=== PATIENT | male | born 1955 | race Caucasian/White ===

== ENCOUNTER 2020-03-18 06:09 | Outpatient (REF) | payer MEDICARE, BC, SELFPAY ==
[2020-03-18 07:46] LABS: Anion Gap 16 (12-20); Blood Urea Nitrogen 15 mg/dL (9-16); Carbon Dioxide 27 mmol/L (22-29); Chloride 105 mmol/L (96-108); Estimated Glomerular Filt Rate 53; Glucose Fasting 105 mg/dL (60-99); Potassium 4.5 mmol/l (3.3-5.1); Sodium 143 mmol/L (135-145)
== END 2020-03-18 06:10 | disposition home or self-care (01) ==
LOC: HO.LAB 06:09
PROVIDERS: PCP Internal Medicine; Visit Provider Internal Medicine
DX: I10 Essential (primary) hypertension (principal)
CPT/HCPCS: 80048

== ENCOUNTER 2020-04-04 19:20 | Emergency (ER) | payer MEDICARE, BC, SELFPAY ==
[2020-04-04 19:52] VITALS: BP 167/83; PULSE 72; RESP 16; TEMP 37.4; O2SAT 96; BMI 29.4
--- NOTE | 2020-04-04 20:27 | ED_ITS ---
HPI - Fever General Chief Complaint: Fever Stated Complaint: covid symptoms Source: patient Mode of arrival: ambulatory Limitations: no limitations History of Present Illness HPI Narrative: 64-year-old male with past medical history of AFib, history of recurrent pneumonia, hypertension, hyperlipidemia, stage [address] Yao, presents with 1 day of fever of 101.0 oral, malaise, and cough. He does not report any sick contacts, states that he has had pneumonia 5 times of the past several years, has AFib and had a cardiac catheterization without stenting. Does not report any other symptoms, and did take 800 mg of ibuprofen prior to his arrival after he noted to have a fever. MD elicited complaint: fever and malaise Onset (ago): day(s) (1) Exacerbating factors: nothing Relieving factors: ibuprofen Treatments prior to arrival fever: ibuprofen Related Data Previous Rx's Medication Instructions Recorded amoxicillin-pot clavulanate 1 tab PO Q12H 7 Days #14 tab 04/04/20 [Augmentin] azithromycin [Zithromax TRI-LAZARO] See Rx Instructions .ROUTE 04/04/20 .COMPLEX #6 tab Allergies Allergy/AdvReac Type Severity Reaction Status Date / Time No Known Allergies Allergy Verified 04/04/20 20:27 Review of Systems Review of Systems: Constitutional: positive Fever, positive Chills, positive fatigue, positive Malaise ENT/Mouth: No sore throat, no runny nose Eyes: No Discharge Cardiovascular: No Chest Pain, No SOB Respiratory: Positive Cough, No Sputum, No Wheezing, No Smoke Exposure, No Dyspnea Gastrointestinal: No Nausea, No Vomiting, No Diarrhea Genitourinary: no irregular bleeding, No Dysuria, No Urinary Frequency, No Hematuria, No Urinary Incontinence, No Urgency, No Flank Pain, Musculoskeletal: positive Myalgia Skin: No rash Neuro: No Headache Yes all other systems are reviewed and are negative [facility] Past Medical History Attestation statement: The following information was validated with the patient. Medical History Afib GERD (gastroesophageal reflux disease) HTN (hypertension) Hyperlipemia Social History Social History Alcohol intake: never Smoking Status: Never smoker Use of substances other than those prescribed or required for medical reasons: No Advance Directives: No Advance Directives Information Provided: No Physical Exam Vital Signs: Vital Signs: Last Vital Signs Temp 99.3 F 04/04/20 19:52 Pulse 72 04/04/20 19:52 Resp 16 04/04/20 19:52 BP 167/83 H 04/04/20 19:52 Pulse Ox 96 04/04/20 19:52 Body Mass Index 29.4 Appearance: Alert. Oriented X3. No acute distress. Eyes: Pupils equal, round and reactive to light. ENT: Pharynx normal. Neck: Normal inspection. Neck supple. CVS: Normal heart rate and rhythm. Pulses normal. Respiratory: No respiratory distress. Breath sounds normal. Abdomen: Soft and nontender. Skin: Skin warm and dry. Normal skin color. Normal skin turgor. Extremities: No lower extremity edema. Neuro: No motor deficit. No sensory deficit. Course Course Course Narrative: 64-year-old male presents with upper respiratory symptoms and fever for 1 day. Fever at home was 101.0 oral and on triage was 99.3 after 800 mg of ibuprofen an hour prior to arrival. Plan of care is for CT scan of the chest, EKG as he has known AFib, and lab values. We will resuscitate with [address] scan shows ground-glass opacity in the right upper lobe consistent with pneumonia community acquired, BUN 21 and creatinine 1.45 he does have known kidney disease and is followed by Nephrology. Troponin mildly bumped at 17.8 consistent with chronic kidney disease and heart disease. Patient's respiratory rate is 16 even unlabored, plan of care is to discharge home with p.o. antibiotics Augmentin and azithromycin per up-to-date guidelines for community- acquired pneumonia age 65 and older with comorbid Patient verbalized understanding of and agrees to plan of care discharge home. MDM - Fever Differential Diagnosis Differential diagnosis: Likely fever of unknown origin, community acquired pneumonia, viral infection and influenza Medical Records Attestation: I reviewed the patient's medical records. Lab Data Attestation: I reviewed the patient's lab results. Result diagrams: 04/04/20 21:04 04/04/20 21:04 Labs: Lab Results 04/04/20 04/04/20 04/04/20 Range/Units 20:51 21:04 21:04 WBC 7.1 (4.8-10.8) X10*3/uL RBC 4.94 (4.60-5.80) X10*6/uL Hgb 15.1 (14.0-18.0) g/dl Hct 44.7 (42-52) % MCV 90.5 (80-98) fL MCH 30.6 (27.0-33.0) pg MCHC 33.8 (31.0-36.0) g/dl RDW 13.1 (11.0-16.0) % Plt Count 165 (160-400) X10*3/uL MPV 9.5 (9.4-12.4) fL Immature Gran % (Auto) 0.3 (0.0-0.4) % Neut % (Auto) 60.8 (45-73) % Lymph % (Auto) 22.7 (20-40) % Hamblen % (Auto) 15.1 H (2-11) % Eos % (Auto) 0.7 (0-4) % Baso % (Auto) 0.4 (0-2) % Lymph # (Auto) 1.6 (1.2-4.9) X10*3/uL [place] # (Auto) 1.1 (0.1-1.2) X10*3/uL Eos # (Auto) 0.1 (0.0-0.4) X10*3/uL Baso # (Auto) 0.0 (0.0-0.2) X10*3/uL Abs Immat Gran (auto) 0.02 (0.00-0.03) X10*3/uL Absolute Neuts (auto) 4.3 (2.0-8.3) X10*3/uL Absolute Nucleated RBC 0.000 (0.0-0.012) X10*3/uL Nucleated RBC % (auto) 0.0 (0.0-0.2) /100WBC PT 14.4 H (10.8-13.0) SEC INR 1.2 H (0.9-1.1) APTT 36.8 (24.1-38.0) SEC Sodium (135-145) mmol/L Potassium (3.3-5.1) mmol/l Chloride (96-108) mmol/L Carbon Dioxide (22-29) mmol/L Anion Gap (12-20) BUN (9-16) mg/dL Creatinine (0.5-1.4) mg/dL Estim Creat Clear Calc Estimated GFR Random Glucose (60-115) mg/dL Lactic Acid (0.5-2.0) mmol/L Calcium (8.4-10.2) mg/dL Troponin I High Sens (<3.5-35.0) ng/L Coronavirus (PCR) POSITIVE A (Negative) Influenza Type A (PCR) NEGATIVE (Negative) Influenza Type B (PCR) NEGATIVE (Negative) RSV RNA Qual (PCR) NEGATIVE (Negative) 04/04/20 04/04/20 04/04/20 Range/Units 21:04 21:04 21:28 WBC (4.8-10.8) X10*3/uL RBC (4.60-5.80) X10*6/uL Hgb (14.0-18.0) g/dl Hct (42-52) % MCV (80-98) fL MCH (27.0-33.0) pg MCHC (31.0-36.0) g/dl RDW (11.0-16.0) % Plt Count (160-400) X10*3/uL MPV (9.4-12.4) fL Immature Gran % (Auto) (0.0-0.4) % Neut % (Auto) (45-73) % Lymph % (Auto) (20-40) % Hamblen % (Auto) (2-11) % Eos % (Auto) (0-4) % Baso % (Auto) (0-2) % Lymph # (Auto) (1.2-4.9) X10*3/uL [place] # (Auto) (0.1-1.2) X10*3/uL Eos # (Auto) (0.0-0.4) X10*3/uL Baso # (Auto) (0.0-0.2) X10*3/uL Abs Immat Gran (auto) (0.00-0.03) X10*3/uL Absolute Neuts (auto) (2.0-8.3) X10*3/uL Absolute Nucleated RBC (0.0-0.012) X10*3/uL Nucleated RBC % (auto) (0.0-0.2) /100WBC PT (10.8-13.0) SEC INR (0.9-1.1) APTT (24.1-38.0) SEC Sodium 137 (135-145) mmol/L Potassium 4.1 (3.3-5.1) mmol/l Chloride 100 (96-108) mmol/L Carbon Dioxide 27 (22-29) mmol/L Anion Gap 14 (12-20) BUN 21 H (9-16) mg/dL Creatinine 1.45 H (0.5-1.4) mg/dL Estim Creat Clear Calc 57.4 Estimated GFR 49 Random Glucose 97 (60-115) mg/dL Lactic Acid 0.8 (0.5-2.0) mmol/L Calcium 8.5 (8.4-10.2) mg/dL Troponin I High Sens 17.8 (<3.5-35.0) ng/L Coronavirus (PCR) (Negative) Influenza Type A (PCR) (Negative) Influenza Type B (PCR) (Negative) RSV RNA Qual (PCR) (Negative) Imaging Data CT scan - chest: Attestation: I personally reviewed and interpreted this imaging study as follows: Radiologist's impression: EXAMINATION: CT CHEST WITHOUT CONTRAST CLINICAL INFORMATION: Upper respiratory infection. Fever. COMPARISON: CT chest 01/25/2017 TECHNIQUE: Multidetector volumetric CT imaging of the chest was done. Axial MIP volume rendering provided. Sagittal and coronal reformatted images were obtained. This CT examination was performed using dose optimization techniques as appropriate, variously including the following: *Automated exposure control *Adjustment of mA and/or kV according to patient size (this includes techniques or standardized protocols for targeted exams where dose is matched to indication/reason for exam; i.e. extremities or head) *Use of iterative reconstruction technique DLP: 314 mGy-cm FINDINGS: LUNGS: Linear parenchymal scarring/linear atelectasis at the dependent lung bases bilaterally. Adjacent to the major fissure in the right upper lobe posteriorly there is a groundglass opacity measuring about 1.5 cm on image 183 series 9 this is likely infectious or inflammatory in etiology. This is new since the prior CT study. The lungs are otherwise normally aerated. The central bronchial airways are open. No bronchiectasis. No interstitial lung disease. MEDIASTINUM: There is no mediastinal mass or significant lymphadenopathy. There is no pericardial effusion. The heart size is normal. There are heavy vascular calcification of coronary arteries and of the aorta. There is no aneurysm of aorta. There is a small hypodense nodule in the right lobe of thyroid this is unchanged since CAT scan 01/25/2017. PLEURA: There is no pleural effusion. No pleural mass or thickening. AXILLA: No lymphadenopathy. UPPER ABDOMEN: Unremarkable. OSSEOUS STRUCTURES: Multilevel degenerative spondylosis of the spine. CT/CT chest wo con IMPRESSION: Small focus of groundglass opacity in the right upper lobe. Given history of fever this is likely inflammatory infectious in etiology. The lungs are otherwise normally aerated. ECG Data ECG #1: Attestation: I personally reviewed and interpreted this ECG as follows: ECG interpretation date: 04/04/20 ECG interpretation time: 21:27 Interpretation: Vent. Rate : 055 BPM Atrial Rate : 055 BPM P-R Int : 186 ms QRS Dur : 092 ms QT Int : 458 ms P-R-T Axes : 021 011 034 degrees QTc Int : 438 ms Sinus bradycardia Otherwise normal ECG No previous ECGs available Scores Heart Score History: -0- slightly suspicious ECG: -0- normal Age: -2- > or = 65 Risk factory: -1- 1 or 2 risk factors Troponin: -0- < or = normal limit Score: 3 Risk: 1.7% Discharge Plan Discharge Clinical Impression: COVID-19 Pneumonia Qualifiers: Pneumonia type: due to unspecified organism Laterality: right Lung location: upper lobe of lung Qualified Code(s): J18.9 - Pneumonia, unspecified organism Patient Disposition: Home, Self-Care Instructions: Pneumonia (ED), COVID-19 (Coronavirus Disease 2019) (ED) Additional Instructions: You were evaluated for fever and upper respiratory symptoms. CT scan shows g round-glass opacity consistent with community-acquired pneumonia in the right upper lobe. Your COVID-19 test was positive. Please maintain social isolation guidelines per State and Federal regulations. We prescribed azithromycin and Augmentin antibiotics. Please take these medications as directed. Please alternate Tylenol and Motrin as needed for fever and pain management. If symptoms persist or get worse please return to the emergency department immediately. Thank you for choosing this emergency department for evaluation. Please follow-up with primary care physician as needed. Return to the emergency department for any new, concerning, or worsening symptoms. Prescriptions: New azithromycin [Zithromax TRI-LAZARO] 500 mg tablet See Rx Instructions .ROUTE .COMPLEX Qty: 6 RF: 0 amoxicillin-pot clavulanate [Augmentin] 875-125 mg tablet 1 tab PO Q12H 7 Days Qty: 14 RF: 0 Interventions: ED Discharge Assessment Last Done: 04/04/20 22:22 Discharge Date/Time: 04/04/20 22:23
--- NOTE | 2020-04-04 20:40 | ECG_ITS ---
Test Reason : AFIB Blood Pressure : / mmHG Vent. Rate : 055 BPM Atrial Rate : 055 BPM P-R Int : 186 ms QRS Dur : 092 ms QT Int : 458 ms P-R-T Axes : 021 011 034 degrees QTc Int : 438 ms Sinus bradycardia Otherwise normal ECG No previous ECGs available Referred By: Yuridia Hoffman Electronically Signed By:ROSARIO COSTA MD
--- NOTE | 2020-04-04 20:42 | CT_ITS ---
EXAMINATION: CT CHEST WITHOUT CONTRAST CLINICAL INFORMATION: Upper respiratory infection. Fever. COMPARISON: CT chest 01/25/2017 TECHNIQUE: Multidetector volumetric CT imaging of the chest was done. Axial MIP volume rendering provided. Sagittal and coronal reformatted images were obtained. This CT examination was performed using dose optimization techniques as appropriate, variously including the following: *Automated exposure control *Adjustment of mA and/or kV according to patient size (this includes techniques or standardized protocols for targeted exams where dose is matched to indication/reason for exam; i.e. extremities or head) *Use of iterative reconstruction technique DLP: 314 mGy-cm FINDINGS: LUNGS: Linear parenchymal scarring/linear atelectasis at the dependent lung bases bilaterally. Adjacent to the major fissure in the right upper lobe posteriorly there is a groundglass opacity measuring about 1.5 cm on image 183 series 9 this is likely infectious or inflammatory in etiology. This is new since the prior CT study. The lungs are otherwise normally aerated. The central bronchial airways are open. No bronchiectasis. No interstitial lung disease. MEDIASTINUM: There is no mediastinal mass or significant lymphadenopathy. There is no pericardial effusion. The heart size is normal. There are heavy vascular calcification of coronary arteries and of the aorta. There is no aneurysm of aorta. There is a small hypodense nodule in the right lobe of thyroid this is unchanged since CAT scan 01/25/2017. PLEURA: There is no pleural effusion. No pleural mass or thickening. AXILLA: No lymphadenopathy. UPPER ABDOMEN: Unremarkable. OSSEOUS STRUCTURES: Multilevel degenerative spondylosis of the spine. CT/CT chest wo con IMPRESSION: Small focus of groundglass opacity in the right upper lobe. Given history of fever this is likely inflammatory infectious in etiology. The lungs are otherwise normally aerated.
[2020-04-04] MEDS: 0.9 % Sodium Chloride 1,000 ML 999 ML IVCONT (21:09)
[2020-04-04 21:21] LABS: Basophils Percent Auto 0.4 % (0-2); Eosinophils Absolute Auto 0.1 X10*3/uL (0.0-0.4); Eosinophils Percent Auto 0.7 % (0-4); Hematocrit 44.7 % (42-52); Hemoglobin 15.1 g/dl (14.0-18.0); Imm Gran Abs Auto 0.02 X10*3/uL (0.00-0.03); Imm Gran Pct Auto 0.3 % (0.0-0.4); Lymphocytes Absolute Auto 1.6 X10*3/uL (1.2-4.9); Lymphocytes Percent Auto 22.7 % (20-40); MANUAL DIFF FLAG NO; Mean Corpuscular HGB Conc 33.8 g/dl (31.0-36.0); Mean Corpuscular Hemoglobin 30.6 pg (27.0-33.0); Mean Corpuscular Volume 90.5 fL (80-98); Mean Platelet Volume 9.5 fL (9.4-12.4); Monocytes Absolute Auto 1.1 X10*3/uL (0.1-1.2); Monocytes Percent Auto 15.1 % (2-11); Neutrophils Absolute Auto 4.3 X10*3/uL (2.0-8.3); Neutrophils Percent Auto 60.8 % (45-73); Platelet Count 165 X10*3/uL (160-400); Red Blood Count 4.94 X10*6/uL (4.60-5.80); Red Cell Distribution Width 13.1 % (11.0-16.0); White Blood Count 7.1 X10*3/uL (4.8-10.8)
[2020-04-04 21:30] LABS: INTERNATIONAL NORM RATIO 1.2 (0.9-1.1); Prothrombin Time 14.4 SEC (10.8-13.0)
[2020-04-04 21:33] LABS: Partial Thromboplastin Time 36.8 SEC (24.1-38.0)
[2020-04-04 21:48] LABS: Anion Gap 14 (12-20); Blood Urea Nitrogen 21 mg/dL (9-16); Calcium 8.5 mg/dL (8.4-10.2); Carbon Dioxide 27 mmol/L (22-29); Chloride 100 mmol/L (96-108); Creatinine Clr Calc Pharmacy 57.4; Estimated Glomerular Filt Rate 49; Glucose Random 97 mg/dL (60-115); Potassium 4.1 mmol/l (3.3-5.1); Sodium 137 mmol/L (135-145)
[2020-04-04 21:51] LABS: Troponin-I High Sensitivity 17.8 ng/L (<3.5-35.0)
[2020-04-04 21:52] LABS: Lactic Acid 0.8 mmol/L (0.5-2.0)
[2020-04-04] MEDS: Azithromycin 500 MG TABLET PO (21:56)
[2020-04-04] MEDS: Amoxicillin/Potassium Clav 875 MG TABLET PO (21:56)
[2020-04-04 21:58] LABS: Influenza A PCR NEGATIVE (Negative); Influenza B PCR NEGATIVE (Negative); Resp Syncy Virus RNA Qual PCR NEGATIVE (Negative)
[2020-04-04 22:02] LABS: SARS COV2 PCR INHOUSE POSITIVE (Negative)
== END 2020-04-04 22:23 | disposition home or self-care (01) ==
PROVIDERS: Nurse Practitioner Family; Emergency Provider Internal Medicine; PCP Internal Medicine
DX: U07.1 COVID-19 (principal); J12.89 Other viral pneumonia; I12.9 Hypertensive chronic kidney disease with stage 1 through stage 4 chronic kidney disease, or unspecified chronic kidney disease; N18.2 Chronic kidney disease, stage 2 (mild); I48.91 Unspecified atrial fibrillation; Z87.01 Personal history of pneumonia (recurrent)
CPT/HCPCS: 0241U; 36415; 71250; 80048; 83605; 84484; 85025; 85610; 85730; 87040; 93005; 96360; 99284

== ENCOUNTER 2020-04-30 11:06 | Outpatient (REF) | payer MEDICARE, BC, SELFPAY | END 2020-04-30 11:07 | disposition home or self-care (01) | LOC: HO.LAB 11:06 | PROVIDERS: PCP Internal Medicine; Visit Provider Internal Medicine | DX: Z20.822 Contact with and (suspected) exposure to COVID-19 (principal) | CPT/HCPCS: 36415; C9803; U0003 ==

== ENCOUNTER → 2020-06-19 08:32 | Outpatient (BNVA) | payer MEDICARE, BC, SELFPAY | PROVIDERS: Visit Provider Internal Medicine | DX: I25.10 Atherosclerotic heart disease of native coronary artery without angina pectoris (principal); I48.0 Paroxysmal atrial fibrillation; I73.9 Peripheral vascular disease, unspecified; I10 Essential (primary) hypertension; E78.5 Hyperlipidemia, unspecified; Z79.899 Other long term (current) drug therapy | CPT/HCPCS: 99212 ==

== ENCOUNTER 2020-07-01 08:27 | Outpatient (REF) | payer MEDICARE, BC, SELFPAY | END 2020-07-01 08:28 | disposition home or self-care (01) | LOC: HO.LAB 08:27 | PROVIDERS: Visit Provider Internal Medicine | DX: Z20.822 Contact with and (suspected) exposure to COVID-19 (principal) | CPT/HCPCS: 36415; C9803; U0003; U0005 ==

== ENCOUNTER 2020-12-02 05:56 | Outpatient (REF) | payer MEDICARE, BC, SELFPAY ==
[2020-12-02 07:00] LABS: MANUAL DIFF FLAG NO
[2020-12-02 07:06] LABS: Glucose Urine UA NEG (NEG); Leukocyte Esterase Urine NEG (NEG); Nitrite Urine NEG (NEG); Specific Gravity - Urine 1.025 (1.005-1.025); Urine Blood TRACE (NEG); Urine Ketones NEG (NEG); Urine Protein NEG (NEG-TRACE)
[2020-12-02 07:08] LABS: Appearance Urine CLEAR; Color Urine STRAW
[2020-12-02 07:16] LABS: RBC Urine 0-2 /HPF (0); Squamous Epithelial Cell Urine TRACE /LPF; WBC Urine 0-2 /HPF (0-4)
[2020-12-02 07:17] LABS: Basophils Percent Auto 0.4 % (0-2); Eosinophils Absolute Auto 0.3 X10*3/uL (0.0-0.4); Eosinophils Percent Auto 3.3 % (0-4); Hematocrit 43.5 % (42-52); Hemoglobin 14.9 g/dl (14.0-18.0); Imm Gran Abs Auto 0.02 X10*3/uL (0.00-0.03); Imm Gran Pct Auto 0.2 % (0.0-0.4); Lymphocytes Percent Auto 23.9 % (20-40); Mean Corpuscular HGB Conc 34.3 g/dl (31.0-36.0); Mean Corpuscular Hemoglobin 31.5 pg (27.0-33.0); Mean Platelet Volume 9.9 fL (9.4-12.4); Monocytes Absolute Auto 0.7 X10*3/uL (0.1-1.2); Monocytes Percent Auto 8.1 % (2-11); Neutrophils Absolute Auto 5.3 X10*3/uL (2.0-8.3); Neutrophils Percent Auto 64.1 % (45-73); Platelet Count 201 X10*3/uL (160-400); Red Blood Count 4.73 X10*6/uL (4.60-5.80); Red Cell Distribution Width 13.2 % (11.0-16.0); White Blood Count 8.3 X10*3/uL (4.8-10.8)
[2020-12-02 07:36] LABS: Alanine Aminotransferase 23 U/L (0-40); Albumin Level 4.3 g/dL (3.5-5.0); Alkaline Phosphatase 64 U/L (39-117); Anion Gap 13 (12-20); Aspartate Amino Transferase 28 U/L (5-37); Bilirubin Total 0.8 mg/dL (0.0-1.0); Blood Urea Nitrogen 18 mg/dL (9-16); Calcium 9.4 mg/dL (8.4-10.2); Carbon Dioxide 28 mmol/L (22-29); Chloride 106 mmol/L (96-108); Cholesterol 198 mg/dL; Estimated Glomerular Filt Rate 50; Glucose Random 109 mg/dL (60-115); HDL Cholesterol 45 mg/dL; LDL Cholesterol Calculated 121 mg/dl; Potassium 4.4 mmol/L (3.3-5.1); Sodium 143 mmol/L (135-145); Total Protein 6.6 g/dL (6.5-8.0); Triglycerides 161 mg/dL
[2020-12-02 07:57] LABS: Prostate Specific Antigen Scr 1.17 ng/mL (<0.05-4.0); Thyroid Stimulating Hormone 1.05 uIU/mL (0.32-4.0)
== END 2020-12-02 05:57 | disposition home or self-care (01) ==
LOC: HO.LAB 05:56
PROVIDERS: PCP Internal Medicine; Visit Provider Internal Medicine
DX: Z12.5 Encounter for screening for malignant neoplasm of prostate (principal); I25.10 Atherosclerotic heart disease of native coronary artery without angina pectoris; I10 Essential (primary) hypertension
CPT/HCPCS: 36415; 80053; 80061; 81001; 81003; 84153; 84443; 85025

== ENCOUNTER → 2021-01-15 10:56 | Outpatient (BNVA) | payer MEDICARE, BC, SELFPAY | PROVIDERS: PCP Internal Medicine; Referring Provider Internal Medicine; Visit Provider Internal Medicine | DX: I25.10 Atherosclerotic heart disease of native coronary artery without angina pectoris (principal); I48.0 Paroxysmal atrial fibrillation; I10 Essential (primary) hypertension; I73.9 Peripheral vascular disease, unspecified; E78.5 Hyperlipidemia, unspecified | CPT/HCPCS: 99212 ==

== ENCOUNTER 2021-03-07 08:14 | Outpatient (REF) | payer MEDICARE, BC, SELFPAY ==
[2021-03-07 09:01] LABS: Alanine Aminotransferase 24 U/L (0-40); Albumin Level 4.1 g/dL (3.5-5.0); Alkaline Phosphatase 61 U/L (39-117); Aspartate Amino Transferase 27 U/L (5-37); Bilirubin Direct 0.4 mg/dL (0.0-0.5); Cholesterol 148 mg/dL; HDL Cholesterol 39 mg/dL; LDL Cholesterol Calculated 83 mg/dl; Total Protein 6.5 g/dL (6.5-8.0); Triglycerides 131 mg/dL
== END 2021-03-07 08:15 | disposition home or self-care (01) ==
LOC: HO.LAB 08:14
PROVIDERS: PCP Internal Medicine; Visit Provider Internal Medicine
DX: I25.10 Atherosclerotic heart disease of native coronary artery without angina pectoris (principal)
CPT/HCPCS: 36415; 80061; 80076

== ENCOUNTER 2021-04-18 15:12 | Outpatient (REF) | payer MEDICARE, BC, SELFPAY ==
--- NOTE | ~2021-04-18 | US_ITS ---
EXAMINATION: US EXTRACRANIAL CAROTID DUPLEX, BILATERAL CLINICAL INFORMATION: Altered artery stenosis COMPARISON: Ultrasound carotid artery from 05/11/2028 TECHNIQUE: Real-time ultrasound and Doppler techniques (integrating B-mode 2-D vascular images, Doppler spectral analysis and color-flow Doppler imaging) were utilized to interrogate the extracranial carotid arteries, the vertebral arteries and proximal subclavian arteries bilaterally. The degree of stenosis is determined by criteria similar to NASCET. FINDINGS: Right Side: 1. There is echogenic atherosclerotic plaque seen in the bifurcation/proximal ICA region. 2. The common carotid artery PSV proximally is 84 cm/s and distally 61 cm/s. 3. The proximal internal carotid artery velocities are 84 cm/s systolic and 24 cm/s diastolic. 4. The proximal external carotid artery PSV is 96 cm/s. 5. The vertebral artery shows antegrade flow. Left Side: 1. There is echogenic atherosclerotic plaque seen in the bifurcation/proximal ICA region. 2. The common carotid artery PSV proximally is 91 cm/s and distally 63 cm/s. 3. The proximal internal carotid artery velocities are 130 cm/s systolic and 28 cm/s diastolic. 4. The proximal external carotid artery PSV is 150 cm/s. 5. The vertebral artery shows antegrade flow. US/US carotid duplex BI IMPRESSION: 1. RIGHT: Minimal, non-hemodynamically significant stenosis of the proximal right internal carotid artery corresponding to a 0-49% stenosis by velocity criteria. 2. LEFT: Moderate, hemodynamically significant stenosis of the proximal left internal carotid artery corresponding to a 50-79% stenosis by velocity criteria.
== END 2021-04-18 15:13 | disposition home or self-care (01) ==
LOC: HO.US 15:12
PROVIDERS: Visit Provider Internal Medicine
DX: I65.23 Occlusion and stenosis of bilateral carotid arteries (principal)
CPT/HCPCS: 93880

== ENCOUNTER 2021-05-16 11:27 | Outpatient (REF) | payer MEDICARE, BC, SELFPAY ==
[2021-05-16 12:06] LABS: Anion Gap 10 (12-20); Blood Urea Nitrogen 20 mg/dL (9-16); Calcium 9.5 mg/dL (8.4-10.2); Carbon Dioxide 29 mmol/L (22-29); Chloride 106 mmol/L (96-108); Estimated Glomerular Filt Rate 45; Glucose Random 107 mg/dL (60-115); Potassium 4.1 mmol/L (3.3-5.1); Sodium 141 mmol/L (135-145)
== END 2021-05-16 11:28 | disposition home or self-care (01) ==
LOC: HO.LAB 11:27
PROVIDERS: PCP Internal Medicine; Visit Provider Internal Medicine
DX: I10 Essential (primary) hypertension (principal); R25.2 Cramp and spasm
CPT/HCPCS: 36415; 80048; 83735

== ENCOUNTER → 2021-07-22 13:28 | Outpatient (BNVA) | payer MEDICARE, BC, SELFPAY | PROVIDERS: PCP Internal Medicine; Referring Provider Internal Medicine; Visit Provider Internal Medicine | DX: I25.10 Atherosclerotic heart disease of native coronary artery without angina pectoris (principal); I48.0 Paroxysmal atrial fibrillation; I10 Essential (primary) hypertension; E78.5 Hyperlipidemia, unspecified; I73.9 Peripheral vascular disease, unspecified; Z79.899 Other long term (current) drug therapy | CPT/HCPCS: 93005; 99212 ==

== ENCOUNTER 2021-08-29 07:14 | Outpatient (REF) | payer MEDICARE, BC, SELFPAY ==
[2021-08-29 07:33] LABS: MANUAL DIFF FLAG NO
[2021-08-29 07:42] LABS: Basophils Percent Auto 0.4 % (0-2); Eosinophils Absolute Auto 0.3 X10*3/uL (0.0-0.4); Eosinophils Percent Auto 4.1 % (0-4); Hematocrit 44.3 % (42.0-52.0); Hemoglobin 14.7 g/dl (14.0-18.0); Imm Gran Abs Auto 0.02 X10*3/uL (0.00-0.03); Imm Gran Pct Auto 0.3 % (0.0-0.4); Lymphocytes Absolute Auto 2.3 X10*3/uL (1.2-4.9); Lymphocytes Percent Auto 31.1 % (20-40); Mean Corpuscular HGB Conc 33.2 g/dl (31.0-36.0); Mean Corpuscular Hemoglobin 30.4 pg (27.0-33.0); Mean Corpuscular Volume 91.7 fL (80.0-98.0); Mean Platelet Volume 9.3 fL (9.4-12.4); Monocytes Absolute Auto 0.6 X10*3/uL (0.1-1.2); Monocytes Percent Auto 7.5 % (2-11); Neutrophils Absolute Auto 4.1 x10*3/uL (2.0-8.3); Neutrophils Percent Auto 56.6 % (45-73); Platelet Count 194 X10*3/uL (160-400); Red Blood Count 4.83 X10*6/uL (4.60-5.80); Red Cell Distribution Width 13.6 % (11.0-16.0); White Blood Count 7.3 X10*3/uL (4.8-10.8)
[2021-08-29 07:43] LABS: Appearance Urine CLEAR; Color Urine YELLOW; Glucose Urine UA NEG (NEG); Leukocyte Esterase Urine NEG (NEG); Nitrite Urine NEG (NEG); PH 5.5 (5.0-8.0); Specific Gravity - Urine >= 1.030 (1.005-1.025); Urine Blood TRACE (NEG); Urine Ketones NEG (NEG); Urine Protein NEG (NEG-TRACE)
[2021-08-29 07:54] LABS: Mucus Urine 2+ /LPF; Squamous Epithelial Cell Urine TRACE /LPF; WBC Urine 0 /HPF (0-4)
[2021-08-29 07:55] LABS: Estimated Average Glucose 111 mg/dL; Hemoglobin A1c % 5.5 %
[2021-08-29 08:10] LABS: Alanine Aminotransferase 29 U/L (0-40); Albumin Level 4.2 g/dL (3.5-5.0); Alkaline Phosphatase 64 U/L (39-117); Anion Gap 9 (12-20); Aspartate Amino Transferase 35 U/L (5-37); Bilirubin Total 0.5 mg/dL (0.0-1.0); Blood Urea Nitrogen 23 mg/dL (9-16); Calcium 9.4 mg/dL (8.4-10.2); Carbon Dioxide 29 mmol/L (22-29); Chloride 108 mmol/L (96-108); Cholesterol 146 mg/dL; Estimated Glomerular Filt Rate 47; Glucose Random 103 mg/dL (60-115); HDL Cholesterol 35 mg/dL; LDL Cholesterol Calculated 86 mg/dl; Potassium 4.7 mmol/L (3.3-5.1); Sodium 141 mmol/L (135-145); Total Protein 6.5 g/dL (6.5-8.0); Triglycerides 126 mg/dL
[2021-08-29 08:26] LABS: Thyroid Stimulating Hormone 1.04 uIU/mL (0.32-4.0)
== END 2021-08-29 07:15 | disposition home or self-care (01) ==
LOC: HO.LAB 07:14
PROVIDERS: PCP Internal Medicine; Visit Provider Internal Medicine
DX: E78.00 Pure hypercholesterolemia, unspecified (principal); R73.01 Impaired fasting glucose; I12.9 Hypertensive chronic kidney disease with stage 1 through stage 4 chronic kidney disease, or unspecified chronic kidney disease; N18.31 Chronic kidney disease, stage 3a
CPT/HCPCS: 36415; 80053; 80061; 81001; 83036; 84443; 85025

== ENCOUNTER 2021-10-20 13:33 | Outpatient (REF) | payer MEDICARE, BC, SELFPAY ==
--- NOTE | ~2021-10-20 | US_ITS ---
EXAMINATION: Noninvasive assessment of the bilateral lower extremities with ARTERIAL DUPLEX and ANKLE BRACHIAL INDICES (ABIs). ? CLINICAL INFORMATION: Peripheral vascular disease ? TECHNIQUE: Duplex Doppler techniques with waveform analysis and measurement of velocities in the bilateral common femoral, profunda femoris, superficial femoral, popliteal and tibial arteries were performed. Additionally, ankle pulse volume recordings, ankle pressure measurements and ankle brachial indices were obtained of the lower extremity arterial system bilaterally. The study was performed only at rest. ? COMPARISON: 11/06/2019 ? FINDINGS: ? DIRECT DUPLEX DOPPLER FINDINGS: ? RIGHT LEG: Common femoral artery:?242 cm/s, phasicity: Triphasic. Heavily calcified plaque Profunda femoris artery:??127 cm/s, phasicity: Biphasic Superficial femoral artery (proximal):?91.9 cm/s, phasicity: Biphasic Superficial femoral artery (mid):?83.3 cm/s, phasicity: Biphasic Stents in the proximal to mid superficial femoral artery: Patent Proximal to stent: 53.9 cm/s, biphasic Proximal stent: 55.4 cm/s, biphasic Mid stent: 78 cm/s, biphasic Distal stent: 75 cm/s, biphasic Distal to the stent: 62.1 cm/s, biphasic Superficial femoral artery (distal):?56.2 cm/s, phasicity: Biphasic Popliteal artery:?47.1 cm/s, phasicity: Biphasic Posterior tibial artery:?50.7 cm/s, phasicity: Biphasic Peroneal artery:?47.9 cm/s, phasicity: Biphasic ? LEFT LEG: Common femoral artery:?70.9 cm/s, phasicity: Triphasic Profunda femoris artery:?55?cm/s, phasicity: Biphasic Superficial femoral artery (proximal):?63.3?cm/s, phasicity: Triphasic Superficial femoral artery (mid):?83.8 cm/s, phasicity: Biphasic Superficial femoral artery (distal):?63.3?cm/s, phasicity: Biphasic Popliteal artery:?59.7?cm/s, phasicity: Biphasic Posterior tibial artery:?56.2?cm/s, phasicity: Biphasic Peroneal artery:?44.4 cm/s, phasicity: Biphasic ANKLE-BRACHIAL INDEX: ? Right: 0.95, previously 1.22? Left: 1.07, previously 1.23 ? ANKLE PRESSURES: ? Right: PT 131, DP?129?? Left: PT?147, DP?146?? ? ANKLE PVR WAVEFORMS: ? Right: Normal Left: Normal? ? Right leg:???Normal ankle brachial index. Calcified plaque and elevated velocity in the right common femoral artery consistent with moderate stenosis. The right superficial femoral artery stent is patent without significant stenosis. Overall no significant change compared to the prior exam ? Left leg:???Normal ankle brachial index. Patent arterial flow within the left lower extremity without significant arterial stenosis or occlusion ? ?? STEWART Reference: - >1.4 = calcified vessels - 0.9 - 1.4 = normal - no significant arterial disease - 0.7 - 0.89 = mild peripheral arterial disease - 0.51 - 0.69 = moderate peripheral arterial disease - ? 0.50 = severe peripheral arterial disease - < .30 = critical arterial disease US/US arterial duplex LE BI IMPRESSION: ?
== END 2021-10-20 13:34 | disposition home or self-care (01) ==
LOC: HO.US 13:33
PROVIDERS: Visit Provider Surgery Vascular Surgery
DX: I73.9 Peripheral vascular disease, unspecified (principal)
CPT/HCPCS: 93925

== ENCOUNTER → 2021-10-28 15:25 | Outpatient (BNVA) | payer MEDICARE, BC, SELFPAY | PROVIDERS: PCP Internal Medicine; Visit Provider Surgery Vascular Surgery | DX: I73.9 Peripheral vascular disease, unspecified (principal) | CPT/HCPCS: 99212 ==

== ENCOUNTER → 2022-01-26 08:52 | Outpatient (BNVA) | payer MEDICARE, BC, SELFPAY | PROVIDERS: PCP Internal Medicine; Referring Provider Internal Medicine; Visit Provider Internal Medicine | DX: I25.10 Atherosclerotic heart disease of native coronary artery without angina pectoris (principal); I10 Essential (primary) hypertension; I48.0 Paroxysmal atrial fibrillation; I73.9 Peripheral vascular disease, unspecified; E78.5 Hyperlipidemia, unspecified; Z95.5 Presence of coronary angioplasty implant and graft; Z98.890 Other specified postprocedural states | CPT/HCPCS: 99212 ==

== ENCOUNTER 2022-04-22 07:03 | Outpatient (REF) | payer MEDICARE, BC, SELFPAY ==
[2022-04-22 07:14] LABS: MANUAL DIFF FLAG NO
[2022-04-22 07:47] LABS: Basophils Absolute Auto 0.1 X10*3/uL (0.0-0.2); Basophils Percent Auto 0.8 % (0-2); Eosinophils Absolute Auto 0.3 X10*3/uL (0.0-0.4); Eosinophils Percent Auto 3.9 % (0-4); Hematocrit 45.6 % (42.0-52.0); Hemoglobin 15.2 g/dl (14.0-18.0); Imm Gran Abs Auto 0.02 X10*3/uL (0.00-0.03); Imm Gran Pct Auto 0.3 % (0.0-0.4); Lymphocytes Absolute Auto 2.4 X10*3/uL (1.2-4.9); Lymphocytes Percent Auto 31.5 % (20-40); Mean Corpuscular HGB Conc 33.3 g/dl (31.0-36.0); Mean Corpuscular Hemoglobin 30.3 pg (27.0-33.0); Mean Platelet Volume 9.3 fL (9.4-12.4); Monocytes Absolute Auto 0.6 X10*3/uL (0.1-1.2); Monocytes Percent Auto 7.7 % (2-11); Neutrophils Absolute Auto 4.3 x10*3/uL (2.0-8.3); Neutrophils Percent Auto 55.8 % (45-73); Platelet Count 217 X10*3/uL (160-400); Red Blood Count 5.01 X10*6/uL (4.60-5.80); Red Cell Distribution Width 13.2 % (11.0-16.0); White Blood Count 7.6 X10*3/uL (4.8-10.8)
[2022-04-22 08:14] LABS: Alanine Aminotransferase 27 U/L (0-40); Albumin Level 4.2 g/dL (3.5-5.0); Alkaline Phosphatase 65 U/L (39-117); Anion Gap 12 (12-20); Aspartate Amino Transferase 29 U/L (5-37); Blood Urea Nitrogen 20 mg/dL (9-16); Calcium 9.3 mg/dL (8.4-10.2); Carbon Dioxide 27 mmol/L (22-29); Chloride 106 mmol/L (96-108); Cholesterol 155 mg/dL; Estimated Glomerular Filt Rate 47; Glucose Random 105 mg/dL (60-115); HDL Cholesterol 36 mg/dL; LDL Cholesterol Calculated 89 mg/dl; Potassium 4.4 mmol/L (3.3-5.1); Sodium 141 mmol/L (135-145); Total Protein 6.5 g/dL (6.5-8.0); Triglycerides 151 mg/dL
[2022-04-22 08:31] LABS: Thyroid Stimulating Hormone 1.19 uIU/mL (0.32-4.0)
[2022-04-22 10:40] LABS: Appearance Urine Clear; Color Urine Yellow; Glucose Urine UA Negative (Negative); Leukocyte Esterase Urine Negative (Negative); Nitrite Urine Negative (Negative); PH 5.5 (5.0-9.0); Specific Gravity - Urine >= 1.030 (1.005-1.025); UMIC TRIGGER UA YES; Urine Blood Trace (Negative); Urine Ketones Negative (Negative); Urine Protein Negative (Neg-Trace)
[2022-04-22 10:52] LABS: Bacteria Urine None Seen (None Seen); Hyaline Casts Urine 0-2 /LPF (0-2); RBC Urine 0-2 /HPF (0-2); Squamous Epithelial Cell Urine 0-2 /HPF (0-2); WBC Urine 0-5 /HPF (0-5)
== END 2022-04-22 07:04 | disposition home or self-care (01) ==
LOC: HO.LAB 07:03
PROVIDERS: PCP Internal Medicine; Visit Provider Internal Medicine
DX: M25.551 Pain in right hip (principal); M25.552 Pain in left hip; I73.9 Peripheral vascular disease, unspecified; I48.0 Paroxysmal atrial fibrillation; I12.9 Hypertensive chronic kidney disease with stage 1 through stage 4 chronic kidney disease, or unspecified chronic kidney disease; N18.31 Chronic kidney disease, stage 3a
CPT/HCPCS: 36415; 80053; 80061; 81001; 81003; 84443; 85025

== ENCOUNTER 2022-10-12 07:26 | Outpatient (REF) | payer MEDICARE, BC, SELFPAY | END 2022-10-12 07:27 | disposition home or self-care (01) | LOC: HO.LAB 07:26 | PROVIDERS: Absent Provider Internal Medicine Nephrology; PCP Internal Medicine; Visit Provider Internal Medicine | DX: Z12.5 Encounter for screening for malignant neoplasm of prostate (principal); I12.9 Hypertensive chronic kidney disease with stage 1 through stage 4 chronic kidney disease, or unspecified chronic kidney disease; N18.31 Chronic kidney disease, stage 3a; M48.07 Spinal stenosis, lumbosacral region; E78.00 Pure hypercholesterolemia, unspecified | CPT/HCPCS: 36415; 80053; 80061; 81001; 84153; 84443; 85025 ==

== ENCOUNTER 2022-10-19 08:12 | Outpatient (REF) | payer MEDICARE, BC, SELFPAY ==
--- NOTE | ~2022-10-19 | US_ITS ---
EXAMINATION: US AORTA US NONINVASIVE ASSESSMENT OF THE ARTERIES OF BOTH LOWER EXTREMITIES INCLUDING PVR EXAM AND BILATERAL LOWER EXTREMITY DUPLEX. CLINICAL INFORMATION: Peripheral vascular disease COMPARISON: None TECHNIQUE: Meneses-scale, color Doppler and spectral Doppler evaluation of the abdominal aorta. Ankle pulse volume recordings, ankle pressure measurements and ankle brachial indices were obtained of the lower extremity arterial system bilaterally in addition to duplex Doppler techniques with wave form analysis and measurement of velocities in the common femoral, profunda femoral, superficial femoral, popliteal, tibial and peroneal arteries. The study was performed only at rest. FINDINGS: FINDINGS: The aorta is normal. The measurements of the aorta in maximum AP and transverse dimensions respectively are as follows: Proximal: 2.1 cm Mid: 2.0 cm. Distal: 1.8 cm. PSV: 87.6 cm/s. The measurements of the common iliac arteries in maximum AP and TRV dimensions are as follows: Right Common Iliac Artery: 1 cm. Left Common Iliac Artery: 0.94 cm. RIGHT LE. THE RIGHT ANKLE-BRACHIAL INDEX IS: 1.34 (noncompressible) >0.97-1.25 = normal - no significant arterial disease 0.75-0.96 = mild peripheral arterial disease 0.5-0.74 = moderate peripheral arterial disease <0.50 = severe peripheral arterial disease <0.30 = critical arterial disease 2. SEGMENTAL PRESSURES (mmHg): Ankle: PT 201, DP 200 3. PVR WAVEFORMS: Ankle: Blunted 4. DIRECT DUPLEX: Common femoral artery: 352 cm/s, biphasic Profunda femoris artery: 84.5 cm/s, biphasic Superficial femoral artery (proximal): 139 cm/s, biphasic Superficial femoral artery (mid): 116 cm/s, biphasic Superficial femoral artery (distal) stent: -[place] (proximal 2): 10 2 cm/s, biphasic -Proximal stent: 91.1 cm/s, biphasic -Mid stent: 91.8 cm/s, biphasic -Distal stent: 90.4 cm/s, biphasic -[place] artery (distal 2): 67.8 cm/s, biphasic Proximal Popliteal artery: 54.0 cm/s, biphasic Mid posterior tibial artery: 87.8 cm/s, biphasic LEFT LE. THE LEFT ANKLE-BRACHIAL INDEX IS: 1.07 >0.97-1.25 = normal - no significant arterial disease 0.75-0.96 = mild peripheral arterial disease 0.5-0.74 = moderate peripheral arterial disease <0.50 = severe peripheral arterial disease <0.30 = critical arterial disease 2. SEGMENTAL PRESSURES: Ankle: PT 160, DP 148 3. PVR WAVEFORMS: Ankle: Normal 4. DIRECT DUPLEX: Common femoral artery: 96.6 cm/s, biphasic Profunda femoris artery: 94.9 cm/s, biphasic Superficial femoral artery (proximal): 66.3 cm/s, biphasic Superficial femoral artery (mid): 85.0 cm/s, biphasic Superficial femoral artery (distal): 81.1 cm/s, biphasic Proximal Popliteal artery: 74.7 cm/s, biphasic Mid posterior tibial artery: 94.4 cm/s, biphasic US/US arterial duplex LE BI IMPRESSION: 1. No aortic aneurysm. 2. Mild to moderate right lower extremity peripheral vascular disease based on velocity criteria and atherosclerotic plaque. Distal SFA stent is patent. Ankle vessels are noncompressible with STEWART of 1.34. 3. Normal resting left lower extremity peripheral arterial testing without evidence of hemodynamically significant stenosis. Mild lower extremity atherosclerotic plaque without elevated systolic velocity to suggest stenosis.
--- NOTE | ~2022-10-19 | US_ITS ---
EXAMINATION: US AORTA US NONINVASIVE ASSESSMENT OF THE ARTERIES OF BOTH LOWER EXTREMITIES INCLUDING PVR EXAM AND BILATERAL LOWER EXTREMITY DUPLEX. CLINICAL INFORMATION: Peripheral vascular disease COMPARISON: None TECHNIQUE: Meneses-scale, color Doppler and spectral Doppler evaluation of the abdominal aorta. Ankle pulse volume recordings, ankle pressure measurements and ankle brachial indices were obtained of the lower extremity arterial system bilaterally in addition to duplex Doppler techniques with wave form analysis and measurement of velocities in the common femoral, profunda femoral, superficial femoral, popliteal, tibial and peroneal arteries. The study was performed only at rest. FINDINGS: FINDINGS: The aorta is normal. The measurements of the aorta in maximum AP and transverse dimensions respectively are as follows: Proximal: 2.1 cm Mid: 2.0 cm. Distal: 1.8 cm. PSV: 87.6 cm/s. The measurements of the common iliac arteries in maximum AP and TRV dimensions are as follows: Right Common Iliac Artery: 1 cm. Left Common Iliac Artery: 0.94 cm. RIGHT LE. THE RIGHT ANKLE-BRACHIAL INDEX IS: 1.34 (noncompressible) >0.97-1.25 = normal - no significant arterial disease 0.75-0.96 = mild peripheral arterial disease 0.5-0.74 = moderate peripheral arterial disease <0.50 = severe peripheral arterial disease <0.30 = critical arterial disease 2. SEGMENTAL PRESSURES (mmHg): Ankle: PT 201, DP 200 3. PVR WAVEFORMS: Ankle: Blunted 4. DIRECT DUPLEX: Common femoral artery: 352 cm/s, biphasic Profunda femoris artery: 84.5 cm/s, biphasic Superficial femoral artery (proximal): 139 cm/s, biphasic Superficial femoral artery (mid): 116 cm/s, biphasic Superficial femoral artery (distal) stent: -[place] (proximal 2): 10 2 cm/s, biphasic -Proximal stent: 91.1 cm/s, biphasic -Mid stent: 91.8 cm/s, biphasic -Distal stent: 90.4 cm/s, biphasic -[place] artery (distal 2): 67.8 cm/s, biphasic Proximal Popliteal artery: 54.0 cm/s, biphasic Mid posterior tibial artery: 87.8 cm/s, biphasic LEFT LE. THE LEFT ANKLE-BRACHIAL INDEX IS: 1.07 >0.97-1.25 = normal - no significant arterial disease 0.75-0.96 = mild peripheral arterial disease 0.5-0.74 = moderate peripheral arterial disease <0.50 = severe peripheral arterial disease <0.30 = critical arterial disease 2. SEGMENTAL PRESSURES: Ankle: PT 160, DP 148 3. PVR WAVEFORMS: Ankle: Normal 4. DIRECT DUPLEX: Common femoral artery: 96.6 cm/s, biphasic Profunda femoris artery: 94.9 cm/s, biphasic Superficial femoral artery (proximal): 66.3 cm/s, biphasic Superficial femoral artery (mid): 85.0 cm/s, biphasic Superficial femoral artery (distal): 81.1 cm/s, biphasic Proximal Popliteal artery: 74.7 cm/s, biphasic Mid posterior tibial artery: 94.4 cm/s, biphasic US/US STEWART complete IMPRESSION: 1. No aortic aneurysm. 2. Mild to moderate right lower extremity peripheral vascular disease based on velocity criteria and atherosclerotic plaque. Distal SFA stent is patent. Ankle vessels are noncompressible with STEWART of 1.34. 3. Normal resting left lower extremity peripheral arterial testing without evidence of hemodynamically significant stenosis. Mild lower extremity atherosclerotic plaque without elevated systolic velocity to suggest stenosis.
--- NOTE | ~2022-10-19 | US_ITS ---
EXAMINATION: US AORTA US NONINVASIVE ASSESSMENT OF THE ARTERIES OF BOTH LOWER EXTREMITIES INCLUDING PVR EXAM AND BILATERAL LOWER EXTREMITY DUPLEX. CLINICAL INFORMATION: Peripheral vascular disease COMPARISON: None TECHNIQUE: Meneses-scale, color Doppler and spectral Doppler evaluation of the abdominal aorta. Ankle pulse volume recordings, ankle pressure measurements and ankle brachial indices were obtained of the lower extremity arterial system bilaterally in addition to duplex Doppler techniques with wave form analysis and measurement of velocities in the common femoral, profunda femoral, superficial femoral, popliteal, tibial and peroneal arteries. The study was performed only at rest. FINDINGS: FINDINGS: The aorta is normal. The measurements of the aorta in maximum AP and transverse dimensions respectively are as follows: Proximal: 2.1 cm Mid: 2.0 cm. Distal: 1.8 cm. PSV: 87.6 cm/s. The measurements of the common iliac arteries in maximum AP and TRV dimensions are as follows: Right Common Iliac Artery: 1 cm. Left Common Iliac Artery: 0.94 cm. RIGHT LE. THE RIGHT ANKLE-BRACHIAL INDEX IS: 1.34 (noncompressible) >0.97-1.25 = normal - no significant arterial disease 0.75-0.96 = mild peripheral arterial disease 0.5-0.74 = moderate peripheral arterial disease <0.50 = severe peripheral arterial disease <0.30 = critical arterial disease 2. SEGMENTAL PRESSURES (mmHg): Ankle: PT 201, DP 200 3. PVR WAVEFORMS: Ankle: Blunted 4. DIRECT DUPLEX: Common femoral artery: 352 cm/s, biphasic Profunda femoris artery: 84.5 cm/s, biphasic Superficial femoral artery (proximal): 139 cm/s, biphasic Superficial femoral artery (mid): 116 cm/s, biphasic Superficial femoral artery (distal) stent: -[place] (proximal 2): 10 2 cm/s, biphasic -Proximal stent: 91.1 cm/s, biphasic -Mid stent: 91.8 cm/s, biphasic -Distal stent: 90.4 cm/s, biphasic -[place] artery (distal 2): 67.8 cm/s, biphasic Proximal Popliteal artery: 54.0 cm/s, biphasic Mid posterior tibial artery: 87.8 cm/s, biphasic LEFT LE. THE LEFT ANKLE-BRACHIAL INDEX IS: 1.07 >0.97-1.25 = normal - no significant arterial disease 0.75-0.96 = mild peripheral arterial disease 0.5-0.74 = moderate peripheral arterial disease <0.50 = severe peripheral arterial disease <0.30 = critical arterial disease 2. SEGMENTAL PRESSURES: Ankle: PT 160, DP 148 3. PVR WAVEFORMS: Ankle: Normal 4. DIRECT DUPLEX: Common femoral artery: 96.6 cm/s, biphasic Profunda femoris artery: 94.9 cm/s, biphasic Superficial femoral artery (proximal): 66.3 cm/s, biphasic Superficial femoral artery (mid): 85.0 cm/s, biphasic Superficial femoral artery (distal): 81.1 cm/s, biphasic Proximal Popliteal artery: 74.7 cm/s, biphasic Mid posterior tibial artery: 94.4 cm/s, biphasic US/US abdominal aortic aneurysm IMPRESSION: 1. No aortic aneurysm. 2. Mild to moderate right lower extremity peripheral vascular disease based on velocity criteria and atherosclerotic plaque. Distal SFA stent is patent. Ankle vessels are noncompressible with STEWART of 1.34. 3. Normal resting left lower extremity peripheral arterial testing without evidence of hemodynamically significant stenosis. Mild lower extremity atherosclerotic plaque without elevated systolic velocity to suggest stenosis.
== END 2022-10-19 08:13 | disposition home or self-care (01) ==
LOC: HO.US 08:12
PROVIDERS: PCP Internal Medicine; Visit Provider Surgery Vascular Surgery
DX: I70.213 Atherosclerosis of native arteries of extremities with intermittent claudication, bilateral legs (principal)
CPT/HCPCS: 76706; 93923; 93925

== ENCOUNTER 2022-11-26 14:38 | Outpatient (AMB) | payer MEDICARE, BC, SELFPAY ==
--- NOTE | 2022-11-26 14:40 | A.OFFVIS_ITS ---
Intake Intake Visit Reasons: 1 year follow up LE Art US 10/19/22 Intake Note: Patient is here for a 1 year follow up LE arterial US 10/19/22, patient stated hes been doing good other than having trouble with his breathing Allergies No Known Allergies Allergy (Verified 11/26/22 14:42) HPI 1 year follow up LE Art US 10/19/22 HPI Details Very pleasant 67-year-old gentleman presents for routine lower extremity surveillance follow-up he had endovascular interventions nearly 4 years ago in is been doing extremely well since that point. 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 He now presents for routine surveillance follow-up with noninvasive testing. [facility] Medical History Afib Atherosclerotic cardiovascular disease Essential hypertension GERD (gastroesophageal reflux disease) HTN (hypertension) Hyperlipemia Other and unspecified hyperlipidemia PAF (paroxysmal atrial fibrillation) Peripheral vascular disease Surgical History History of cardiac catheterization (~12/12/19) Family History Father CHF (congestive heart failure) Vascular disorder Mother Respiratory disease Social History Alcohol intake: never Patient Tobacco Use Status: Never used Tobacco Review of Systems Const All systems reviewed & are unremarkable except as noted in HPI and below Reports no additional complaints ENT Reports Normal hearing present Card Denies chest pain, Denies chest pain at rest, Denies chest pain with activity and Denies pedal edema Resp Denies cough GI Denies abdominal pain Musc Denies abnormal gait, Denies muscle cramps and Denies radiating pain into limb Skin/Breast Denies skin ulcer and Denies wounds Neuro Reports Normal hearing present and Denies abnormal gait Psych Reports no additional complaints Physical Exam Const General: cooperative, healthy appearing and comfortable Orientation/consciousness: oriented to person, oriented to place and oriented to time HEENT Head: Yes normal to inspection Neck Neck: Yes normal visual inspection Carotids: no bruits Chest Chest palpation & inspection: normal inspection of the chest Resp Effort & Inspection: normal respiratory effort and able to speak in complete sentences Auscultation: clear to auscultation bilaterally, no crackles, no rales, no rhonchi and no wheezes Cardio Other: Bilateral DP signals Rate: regular rate Rhythm: regular rhythm Heart sounds: S1 normal heart sound present and S2 normal heart sound present Bruits: no carotid bruits GI Inspection: Yes normal to inspection Skin Wounds: no wounds Hair: normal Neuro General: oriented to person, oriented to place and oriented to time Cranial nerves: Yes CN's II-XII intact bilaterally and Yes Normal hearing present Cognition (Neuro): normal cognition Motor exam (neuro): 5/5 motor strength present throughout Extrem Other: venous exam: No significant superficial varicosities or spider telangiectasias, minimal edema General: No clubbing, No cyanosis and No edema Psych Appearance: grossly normal Mental Status: mental status grossly normal Speech and movement: Normal speech and movement present Results Reviewed Results Reviewed: Noninvasive arterial testing demonstrates STEWART on the right of 1.34 and on the left of 1.07 with biphasic waveforms all the way down. Written report and images were reviewed Assessment & Plan Assessment & Plan (1) Peripheral vascular disease: Comment: 102 2019 right atherectomy and stent of SFA Code(s): I73.9 - Peripheral vascular disease, unspecified Plan: In short patient has stable claudication. I did review the pathophysiology of peripheral vascular disease with the patient. In addition we did discuss routine conservative measures including a healthy diet and the importance of exercise and ambulation. We did discuss risk factor modification. The patient will continue to to follow-up with surveillance follow-up in approximately 1 year. Thank you for allowing us to participate in this patient's care. If there are any questions or concerns please do not hesitate to contact us. Orders: Orders US arterial duplex LE BI 364 Days I73.9 - Peripheral vascular disease, unspecified Coding Level of Care Code Est Pt Level 4 (92422) Diagnoses Peripheral vascular disease I73.9
== END 2022-11-26 15:15 | disposition home or self-care (01) ==
PROVIDERS: PCP Internal Medicine; Visit Provider Surgery Vascular Surgery
DX: I73.9 Peripheral vascular disease, unspecified (principal)
CPT/HCPCS: 99213

== ENCOUNTER → 2022-11-26 14:38 | Outpatient (BNVA) | payer MEDICARE, BC, SELFPAY | PROVIDERS: PCP Internal Medicine; Visit Provider Surgery Vascular Surgery | DX: I73.9 Peripheral vascular disease, unspecified (principal) | CPT/HCPCS: 99212 ==

== ENCOUNTER 2023-01-15 08:39 | Outpatient (AMB) | payer MEDICARE, BC, SELFPAY ==
--- NOTE | 2023-01-15 08:57 | HO.SPINEOV ---
Intake Intake Visit Reasons: neurogenic claudication due to lumbar stenosis Intake Note: Mr. Ricketts is here today c/o low back pain. MRI done @ [facility]/brought disc. Manufacturing Quality Inspector Required: No Allergies No Known Allergies Allergy (Verified 11/26/22 14:42) Assessment & Plan Assessment & Plan (1) Back pain: Code(s): M54.9 - Dorsalgia, unspecified Plan Dear Dr Mistry, Thank you for referring Mr Ricketts to our office today. He is a very nice 67-year-old gentleman who presents to the office today for evaluation of chronic lumbar back pain. He has had the pain for over 10 years. It generally will be tolerable as he gets moving but throughout the day can get worse. It does not keep him from doing the activities he enjoys but it just slow things down. He does not have any shooting pains down the legs, tingling numbness etc.. Through the years he has been through physical therapy, chiropractic cortisone injections and acupuncture. The acupuncture helped the most but because of the cost was prohibitive. He takes Tylenol Arthritis daily to help with hip pains that he has, but it does not help much with his back. He is here today with an MRI showing diffuse discogenic disease and arthritis of his lumbar spine. PMH: History of AFib, high cholesterol, hypertension Social hx: He does not smoke Medications: Amlodipine, Eliquis, metoprolol, aspirin, atorvastatin, Tylenol Allergies: None Physical exam: Normal gait, reflexes and strength Imaging review: Lumbar MRI done a [facility] shows he has diffuse degenerative disc disease throughout his whole lumbar spine with moderate amounts of facet arthropathy throughout the lumbar spine. Every disc level looks just about exactly like the other, and that they are all flat and arthritic. There is no central canal stenosis and no evidence of nerve impingement. Impression: 67-year-old gentleman presents with chronic low back pain, diffuse discogenic disease throughout his whole lumbar spine. I reviewed his MRI with him, explained him that his case is typically the most challenging for back pain because there is no one focal area of the spine that looks worse than the other that we could somehow target with surgery. Surgical intervention for back pain usually involve spinal fusion. This would mean we would have to fuse his whole lumbar spine from the thoracic junction down to the sacrum and the odds predicting good results in that circumstance are very low and potential complications are high. We agree with the other surgeons that he has seen in the past, that this is something that is best managed non operatively. I offered him the option of seeing 1 of our colleagues for facet blocks but this time he is not interested. He still continues to be active with hunting and golfing so I think his quality of life is being maintained despite the back pain is just that it is slowing him down. I would recommend a nonsteroidal anti-inflammatory but because he is on Eliquis this is contraindicated. He can continue the Tylenol Arthritis if he feels there is any benefit to it. Thank you for allowing us to care for your patient. The total time spent with this visit with this patient was 45 minutes reviewing history, physical exam, lumbar imaging review, and implementation of treatment plan or further diagnostic testing Magnus Mathew MD,PhD [facility] Coding Level of Care Code New Pt Level 4 (30587) Diagnoses Back pain M54.9
== END 2023-01-15 09:24 | disposition home or self-care (01) ==
PROVIDERS: PCP Internal Medicine; Referring Provider Internal Medicine; Visit Provider Physician Assistant
DX: M54.9 Dorsalgia, unspecified (principal)
CPT/HCPCS: 99204

== ENCOUNTER → 2023-01-15 08:39 | Outpatient (BNVA) | payer MEDICARE, BC, SELFPAY | PROVIDERS: PCP Internal Medicine; Visit Provider Physician Assistant ==

== ENCOUNTER 2023-01-27 12:33 | Outpatient (AMB) | payer MEDICARE, BC, SELFPAY ==
--- NOTE | 2023-01-27 12:41 | MHC.OFFVIS ---
Intake Vital Signs 01/27/23 12:42 Height 5 ft 10 in Weight 215 lb 9.793 oz BMI 30.9 BP 140/82 H Blood Pressure Location Lt brachial Position Sitting Pulse 62 Intake Visit Reasons: 1 year follow up Intake Note: 1 year follow up w/ EKG Metallurgist Helper Required: No Accompanied by: Self / Same As Patient Allergies No Known Allergies Allergy (Verified 01/27/23 12:43) Medication List - Last Reconciled 01/27/23 by Harlan Sharma MD amlodipine 10 mg PO DAILY apixaban 5 mg PO BID aspirin 81 mg PO DAILY atorvastatin 80 mg PO DAILY ezetimibe 10 mg PO DAILY metoprolol succinate ER 25 mg PO DAILY HPI HPI Comments History of Present Illness Details Mario returns for follow-up regarding coronary disease. He also has peripheral vascular disease, with history of right lower extremity PCI by vascular surgery in the past. He has hypertension, dyslipidemia. Remote history of smoking. Main symptom is generalized tiredness. He states he is frequently getting tired for no reason. Otherwise, random episodes of chest discomfort. Nothing clearly exertional. In fact when he is exerting, he states he is feels okay. Not very clear what he describes. [facility] Medical History Peripheral vascular disease Other and unspecified hyperlipidemia Essential hypertension PAF (paroxysmal atrial fibrillation) Atherosclerotic cardiovascular disease Hyperlipemia Afib GERD (gastroesophageal reflux disease) HTN (hypertension) Surgical History History of cardiac catheterization (~12/12/19) Family History Father CHF (congestive heart failure) Vascular disorder Mother Respiratory disease Social History Alcohol intake: never Patient Tobacco Use Status: Never used Tobacco Review of Systems Const Denies weakness ENT Denies dizziness Card Denies chest pain, Denies chest pain with activity, Denies syncope, Denies rapid heart rate, Denies pedal edema, Denies edema, Denies leg edema, Denies lightheadedness, Denies palpitations, Denies dyspnea, Denies dyspnea on exertion and Denies orthopnea Resp Denies cough, Denies dyspnea and Denies dyspnea on exertion GI Denies hematochezia and Denies change in stool character Musc Denies abnormal gait, Denies muscle cramps, Denies muscle weakness, Denies numbness, Denies radiating pain into limb and Denies tingling Neuro Denies abnormal gait, Denies dizziness, Denies syncope, Denies numbness, Denies tingling and Denies weakness Endo Denies palpitations Physical Exam Vital Signs: Last Vital Signs Pulse 62 01/27/23 12:42 BP 140/82 H 01/27/23 12:42 BMI result Body Mass Index 30.9 Const General: comfortable and no acute distress Orientation/consciousness: patient oriented x3 HEENT Other: Unremarkable Head: Yes normal to inspection Neck Neck: Yes normal visual inspection Chest Chest palpation & inspection: normal inspection of the chest Resp Auscultation: clear to auscultation bilaterally Cardio Palpation: normal PMI Heart sounds: S1 normal heart sound present, S2 normal heart sound present, no gallops, no murmurs and no rubs GI Palpation (GI): Soft to palpation Back/Spine/Pelvis Other: unremarkable Skin General skin exam: no rashes or lesions noted Neuro General: patient oriented x3 Extrem General: Yes normal to inspection Psych Mental Status: mental status grossly normal Office Procedures EKG Details: EKG with sinus rhythm at 62/Min; no significant ST-T changes and otherwise unremarkable[place] [id number], Complete Assessment & Plan Assessment & Plan (1) Atherosclerotic cardiovascular disease: Code(s): I25.10 - Atherosclerotic heart disease of [place] coronary artery without angina pectoris Plan: Cardiac catheterization -2019- Left main - mild disease; LAD- distal LAD 40% stenosis; circumflex - 2nd marginal with 30% stenosis; normal RCA. [id number]%; mild aortic valve calcification without any stenosis; mild mitral and tricuspid regurgitation; mild pulmonary hypertension Due to his chest pain symptoms, we can repeat workup including echocardiogram and stress test. Somewhat atypical but he does have lot of risk factors. Otherwise, continue aspirin, statins and Zetia. (2) PAF (paroxysmal atrial fibrillation): Code(s): I48.0 - Paroxysmal atrial fibrillation Plan: Routine EKG from PCP in the past had shown atrial fibrillation. On beta-blockers and Eliquis. Check Holter. (3) Essential hypertension: Code(s): I10 - Essential (primary) hypertension Plan: Borderline blood pressure today. On amlodipine. (4) Other and unspecified hyperlipidemia: Code(s): E78.5 - Hyperlipidemia, unspecified Plan: On statins and Zetia. (5) Peripheral vascular disease: Comment: 1022 2018 right atherectomy and stent of SFA Code(s): I73.9 - Peripheral vascular disease, unspecified Plan: Status post lower extremity PCI. Stable. Orders: Orders CA echo transthoracic complete Today I25.10 - Atherosclerotic heart disease of [place] coronary artery without angina pectoris CA stress test Today I25.10 - Atherosclerotic heart disease of [place] coronary artery without angina pectoris, R07.2 - Precordial pain NM cardiolite stress test Today I25.10 - Atherosclerotic heart disease of [place] coronary artery without angina pectoris, R07.2 - Precordial pain ECG 7 day holter monitor Today I48.0 - Paroxysmal atrial fibrillation Coding Level of Care Code Est Pt Level 4 (20472) Diagnoses Atherosclerotic cardiovascular disease I25.10 PAF (paroxysmal atrial fibrillation) I48.0 Essential hypertension I10 Other and unspecified hyperlipidemia E78.5 Peripheral vascular disease I73.9 CPT Codes EKG - CPT: 01668-[id number], Complete ([id number])
[2023-01-27 12:42] VITALS: BP 140/82; PULSE 62; BMI 30.9
== END 2023-01-27 13:04 | disposition home or self-care (01) ==
PROVIDERS: PCP Internal Medicine; Visit Provider Internal Medicine
DX: I25.10 Atherosclerotic heart disease of native coronary artery without angina pectoris (principal); I48.0 Paroxysmal atrial fibrillation; I10 Essential (primary) hypertension; E78.5 Hyperlipidemia, unspecified; I73.9 Peripheral vascular disease, unspecified
CPT/HCPCS: 93010; 99214

== ENCOUNTER → 2023-01-27 12:33 | Outpatient (BNVA) | payer MEDICARE, BC, SELFPAY | PROVIDERS: PCP Internal Medicine; Visit Provider Internal Medicine | DX: I25.10 Atherosclerotic heart disease of native coronary artery without angina pectoris (principal); I48.0 Paroxysmal atrial fibrillation; I73.9 Peripheral vascular disease, unspecified; I10 Essential (primary) hypertension; E78.5 Hyperlipidemia, unspecified | CPT/HCPCS: 93005; 99212 ==

== ENCOUNTER → 2023-03-19 07:41 | Outpatient (REF) | payer MEDICARE, BC, SELFPAY ==
--- NOTE | ~2023-03-19 | NM_ITS ---
EXERCISE MYOCARDIAL PERFUSION STUDY INDICATION: Coronary disease, assess for ischemia TECHNIQUE: The patient was brought in for an exercise perfusion study on 03/19/2023. Patient performed exercise as per Jose Ramon protocol and was injected 30 mCi of sestamibi once target heart rate was achieved. Images were obtained using the SPECT gamma camera interlaced with the gating device. Images were obtained in supine position. Resting perfusion study was performed on 03/24/2023. Patient was administered 30 mCi of sestamibi intravenously at rest. Images were then obtained in supine position. Images were processed with the software and compared side to side in short axis, horizontal long axis and vertical long axis views. Total DLP 94mGy-cm. FINDINGS: Raw images were reviewed. The stress perfusion study showed no significant perfusion defects. Both uncorrected as well as CT attenuation corrected images were reviewed. The gated study shows normal LV systolic function with calculated LVEF of 71%. LV cavity is normal in size. The gated study shows normal wall thickening and contraction of segments. Resting study shows no significant perfusion defects. Gating at rest reveals normal wall motion with ejection fraction at 66%. The findings are consistent with no clear reversible or fixed perfusion defects. NM/NM cardiolite stress test IMPRESSION: 1. Myocardial perfusion imaging study shows normal myocardial perfusion. 2. Gated LVEF is 71% during stress and 66% during rest.. 3. Transient ischemic dilatation not present. EKG component of the test reported separately.
--- NOTE | 2023-03-19 07:46 | CA_ITS ---
Transthoracic Echocardiogram Patient (Last, First, Middle): Mario Ricketts J Gender: Male Date of : 1955 Age: 67 Procedure Date: 03/19/2023 Procedure Type: Transthoracic Echocardiogram Location: OP Height: 177.8 cm Weight: 97.52 kg BSA: 2.15 m2 Heart Rate: 56 bpm BP: 140 / 78 mmHg Program Writer: KAYLENE/PORTIA Referring MD: Harlan Sharma MD Symptoms: I25.10 - Atherosclerotic heart disease of [place] coronary artery without... Study Quality: Adequate ECG Rhythm: Bradycardia Conclusions: - The left ventricular systolic function is normal. The calculated ejection fraction is 66% by biplane method. - Mildly increased right ventricular cavity size. - There is mild calcification of the aortic valve. - No obvious valvular pathology seen on this study. Findings Left Ventricle Normal left ventricular cavity size. There is normal left ventricular wall thickness. The left ventricular systolic function is normal. The calculated ejection fraction is 66% by biplane method. There is no evidence of regional wall motion abnormalities. Diastolic function is normal for age. Right Ventricle Mildly increased right ventricular cavity size. There is normal right ventricular systolic function. Atria Both atria are normal in size. Aortic Valve There is mild calcification of the aortic valve. There is no aortic valve stenosis. There is mild aortic valve regurgitation. Mitral Valve The mitral valve appears normal. There is trace mitral valve regurgitation. There is no mitral valve stenosis. Pulmonic Valve The pulmonic valve is likely normal. Tricuspid Valve Normal tricuspid valve structure. There is mild tricuspid valve regurgitation. There is no evidence of pulmonary hypertension. Great Vessels The asc aorta is normal in size. Venous The inferior vena cava was not well visualized. Pericardium/Pleural There is no evidence of pericardial effusion. Prior Study Comparison No significant change compared to prior study dated: 11/17/2019. Recommendations, Care & Conclusions No obvious valvular pathology seen on this study. Measurements 2D Linear Measurements IVSd: 0.95 0.6-0.9/0.6-1.0 cm LVIDd: 5.06 3.9-5.3/4.2-5.9 cm LVIDd Index: 2.35 2.4-3.2/2.2-3.1 cm/m2 LVIDs: 2.70 2.0-3.6 cm LVPWd: 0.89 0.7-1.1 cm LA Diam: 4.20 2.7-3.8/3.0-4.0 cm LAIDs Index: 1.95 1.5-2.3 cm/m2 LV Mass: 206.76 67-162/88-224 g LV Mass Index: 96.17 43-95/49-115 g/m2 LVOT Diam: 2.20 3.0+(-)1.3 cm 2D Systolic Function EF 4C: 60.50 >55% EF 2C: 71.20 >55% EF BiP: 66.40 >55% Mitral Valve MV Pk E: 0.70 MV PK A: 0.65 MV Decel Time: 204.00 E/A: 1.10 E'Lateral: 10.40 E'Medial: 5.77 E/E' Med: 12.20 E/E' Lat: 6.80 PHT: 60.00 MVA PHT: 3.67 Decel Mitchell: 3.44 Aortic Valve AoV Pk David: 1.78 AoV Mn David: 1.25 AoV VTI: 0.44 AoV Pk Grad: 13.00 Aov Mn Grad: 8.00 JOCELYNN Cont.VTI: 2.06 LVOT LVOT Pk David: 1.06 LVOT Mn David: 0.70 LVOT VTI: 0.24 LVOT Pk Grad: 4.00 LVOT Mn Grad: 2.00 LVOT Diam: 2.20 LVOT Area: 3.80 Diastolic Function MV Pk E: 0.70 MV Pk A: 0.65 E/A: 1.10 E'Medial: 5.77 E/E' Med: 12.20 E' Laterial: 10.40 E/E' Lat: 6.80 Right Ventricle TAPSE (mm): 20.69 TVS' David: 13.10 Tricuspid Valve TR Pk David: 2.39 TR Pk Grad: 23.00 RA Press: 3.00 RVSP: 26.00 Great Vessels Aorta Sinus of Valsalva: 3.40 2.0-3.5 cm Ao Asc: 2.70 2.1-3.4 cm Pulmonary Veins Pulm Vein S/D 1.20 Pulmonary Valve PV Pk David: 1.26 Peak PV Grad: 6.00 Updated in Other Vendor System with Status of Final Harlan Sharma MD electronically signed on 03/20/2023 3:14:29 PM with status of Final
--- NOTE | 2023-03-19 07:46 | HM_ITS ---
Conclusion: 1. Patient was monitored for total period of 5 days and 10 hours 2. Baseline was normal sinus rhythm with average heart of 64 beats per minute 3. No significant pauses noted 4. Frequent PACs noted mostly isolated with total burden of 3.7% 5. Patient marked 1 event with no associated symptoms reported correlating with isolated PACs MTDD
--- NOTE | 2023-03-19 07:46 | CA_ITS ---
Acquisition Time: 2023-03-19 08:57:31 Total Exercise Time: 00:08:01 Test Indications: CAD CHEST PAIN Medications: AMLODIPINE APIXABAN ASA ATORVASTATIN METOPROLOL EZETIMIBE Protocol: YANDEL Max HR: 137 BPM 90% of Pred: 151 BPM Max BP: 162/064 mmHG Max Work Load: 10.1 METS Exercise stress test exercise 8 min 1 sec of Yandel protocol achieving 88% MPHR, with mild SOB, no chest discomfort, with isolated PACs and PVCs, ventricular bigeminy, with normotensive response to exercise, without EKG changes. Nuclear images pending. Test reviewed with Dr. Sharma Referred By: Harlan Sharma Overread By: Stephanie Malin
== END ==
LOC: HO.CARD 07:41
PROVIDERS: PCP Internal Medicine; Visit Provider Internal Medicine
DX: R07.2 Precordial pain (principal); I48.0 Paroxysmal atrial fibrillation; I25.10 Atherosclerotic heart disease of native coronary artery without angina pectoris
CPT/HCPCS: 78452; 93017; 93242; 93306; A9500

== ENCOUNTER → 2023-03-19 07:46 | Outpatient (BNV) | payer MEDICARE, BC, SELFPAY | PROVIDERS: PCP Internal Medicine; Visit Provider Nurse Practitioner | DX: I49.1 Atrial premature depolarization (principal) | CPT/HCPCS: 78452; 93016; 93018; 93244; 93306 ==

== ENCOUNTER 2023-04-21 09:25 | Outpatient (AMB) | payer MEDICARE, BC, SELFPAY ==
--- NOTE | 2023-04-21 09:34 | HO.NEPHOV ---
HPI HPI Comments History of Present Illness Details I had the pleasure of seeing Mario in follow-up of his chronic kidney disease and hypertension. He has history of coronary artery disease and had undergone cardiac catheterization in 2019. He has history of atrial fibrillation and has been on Eliquis. He has peripheral arterial disease and had undergone stenting in his right lower extremity. He denies any active peripheral artery disease symptoms. He does not have any chest pain, shortness of breath, nausea, vomiting, diarrhea, urinary symptoms, pedal edema. He does not take any nonsteroidal anti-inflammatories. He did not have any active medical issues at the time of this office visit. [facility] Medical History Peripheral vascular disease Other and unspecified hyperlipidemia Essential hypertension PAF (paroxysmal atrial fibrillation) Atherosclerotic cardiovascular disease Hyperlipemia Afib GERD (gastroesophageal reflux disease) HTN (hypertension) Surgical History History of cardiac catheterization (~12/12/19) Family History Father CHF (congestive heart failure) Vascular disorder Mother Respiratory disease Social History Alcohol intake: never Patient Tobacco Use Status: Never used Tobacco Vital Signs 04/21/23 09:35 Height 5 ft 10 in Weight 216 lb 4 oz BMI 31.0 BP 138/70 Blood Pressure Location Lt brachial Position Sitting Pulse 65 Pulse Source Pulse Oximeter Pulse Oximetry (%) 97 Oxygen Delivery Method Room Air Physical Exam Vital Signs: Last Vital Signs Pulse 65 04/21/23 09:35 BP 138/70 04/21/23 09:35 Pulse Ox 97 04/21/23 09:35 Oxygen Delivery Method Room Air 04/21/23 09:35 BMI result Body Mass Index 31.0 Const General: comfortable and no acute distress Orientation/consciousness: patient oriented x3 HEENT Head: Yes normocephalic Mouth: Normal oral and palatal mucosa present Eyes EOM: EOMs intact bilaterally Neck Other: Right carotid bruit Neck: Yes supple Resp Auscultation: clear to auscultation bilaterally Cardio Jugular venous distension: no JVD Rate: regular rate GI Palpation (GI): Soft to palpation Auscultation: normal bowel sounds General: Yes no CVA tenderness Back/Spine/Pelvis Back: no CVA tenderness Skin General skin exam: no rashes or lesions noted Neuro General: patient oriented x3 and moves all extremities Extrem General: Yes no pedal edema Assessment & Plan Assessment & Plan (1) Essential hypertension: Code(s): I10 - Essential (primary) hypertension (2) CKD (chronic kidney disease) stage 3, GFR 30-59 ml/min: Code(s): N18.30 - Chronic kidney disease, stage 3 unspecified (3) Peripheral vascular disease: Comment: 1022 2018 right atherectomy and stent of SFA Code(s): I73.9 - Peripheral vascular disease, unspecified Plan Mario has chronic kidney disease from vascular disease. His blood pressure is at goal at home. His serum creatinine is stable. He has history of peripheral arterial disease and had a stent put in in his right lower extremity. He likely has vascular disease in the kidney as well. He has right carotid bruit and needs a Doppler of his carotids. He avoids nonsteroidal anti-inflammatories and tries hard to remain well hydrated. If his blood pressure goes up he will be a candidate for angiotensin receptor henna in the future. I did not make any medication changes today. All his questions were answered. Follow-up appointment given. Orders: Orders Electrolytes Today I10 - Essential (primary) hypertension, N18.30 - Chronic kidney disease, stage 3 unspecified Total Protein Urine Random Today I10 - Essential (primary) hypertension, N18.30 - Chronic kidney disease, stage 3 unspecified Blood Urea Nitrogen Today I10 - Essential (primary) hypertension, N18.30 - Chronic kidney disease, stage 3 unspecified Creatinine Today I10 - Essential (primary) hypertension, N18.30 - Chronic kidney disease, stage 3 unspecified Coding Level of Care Code Est Pt Level 4 (38255) Diagnoses Essential hypertension I10 CKD (chronic kidney disease) stage 3, GFR 30-59 ml/min N18.30 Peripheral vascular disease I73.9 Results Reviewed Nephrology Results: Hgb 14.5 g/dl (14.0-18.0) 10/12/22 WBC 6.7 X10*3/uL (4.8-10.8) 10/12/22 Plt Count 197 X10*3/uL (160-400) 10/12/22 Sodium 141 mmol/L (135-145) 10/12/22 Potassium 4.2 mmol/L (3.3-5.1) 10/12/22 Chloride 106 mmol/L (96-108) 10/12/22 Carbon Dioxide 24 mmol/L (22-29) 10/12/22 BUN 16 mg/dL (9-16) 10/12/22 Creatinine 1.36 mg/dL (0.5-1.4) 10/12/22 Calcium 8.9 mg/dL (8.4-10.2) 10/12/22 Urine Protein Trace mg/dL (Neg-Trace) 10/12/22
[2023-04-21 09:35] VITALS: BP 138/70; PULSE 65; O2SAT 97; BMI 31.0
== END 2023-04-21 09:57 | disposition home or self-care (01) ==
PROVIDERS: PCP Internal Medicine; Visit Provider Internal Medicine Nephrology
DX: I10 Essential (primary) hypertension (principal); N18.30 Chronic kidney disease, stage 3 unspecified; I73.9 Peripheral vascular disease, unspecified
CPT/HCPCS: 99214

== ENCOUNTER → 2023-04-21 09:25 | Outpatient (BNVA) | payer MEDICARE, BC, SELFPAY | PROVIDERS: PCP Internal Medicine; Visit Provider Internal Medicine Nephrology | DX: I12.9 Hypertensive chronic kidney disease with stage 1 through stage 4 chronic kidney disease, or unspecified chronic kidney disease (principal); N18.30 Chronic kidney disease, stage 3 unspecified; I73.9 Peripheral vascular disease, unspecified | CPT/HCPCS: 99212 ==

== ENCOUNTER 2023-04-28 07:17 | Outpatient (REF) | payer MEDICARE, BC, SELFPAY ==
[2023-04-28 07:32] LABS: MANUAL DIFF FLAG NO
[2023-04-28 08:19] LABS: Basophils Absolute Auto 0.1 X10*3/uL (0.0-0.2); Basophils Percent Auto 0.6 % (0-2); Eosinophils Absolute Auto 0.3 X10*3/uL (0.0-0.4); Eosinophils Percent Auto 4.2 % (0-4); Hematocrit 44.5 % (42.0-52.0); Hemoglobin 15.1 g/dl (14.0-18.0); Imm Gran Abs Auto 0.02 X10*3/uL (0.00-0.03); Imm Gran Pct Auto 0.3 % (0.0-0.4); Lymphocytes Absolute Auto 2.3 X10*3/uL (1.2-4.9); Lymphocytes Percent Auto 29.9 % (20-40); Mean Corpuscular HGB Conc 33.9 g/dl (31.0-36.0); Mean Corpuscular Hemoglobin 30.8 pg (27.0-33.0); Mean Corpuscular Volume 90.8 fL (80.0-98.0); Mean Platelet Volume 9.8 fL (9.4-12.4); Monocytes Absolute Auto 0.5 X10*3/uL (0.1-1.2); Monocytes Percent Auto 6.4 % (2-11); Neutrophils Absolute Auto 4.5 x10*3/uL (2.0-8.3); Neutrophils Percent Auto 58.6 % (45-73); Platelet Count 192 X10*3/uL (160-400); Red Cell Distribution Width 12.9 % (11.0-16.0); White Blood Count 7.7 X10*3/uL (4.8-10.8)
[2023-04-28 08:40] LABS: Alanine Aminotransferase 23 U/L (0-40); Albumin Level 4.1 g/dL (3.5-5.0); Alkaline Phosphatase 63 U/L (39-117); Anion Gap 12 (12-20); Aspartate Amino Transferase 26 U/L (5-37); Bilirubin Total 0.8 mg/dL (0.0-1.0); Blood Urea Nitrogen 19 mg/dL (9-16); Calcium 9.2 mg/dL (8.4-10.2); Carbon Dioxide 29 mmol/L (22-29); Chloride 104 mmol/L (96-108); Cholesterol 152 mg/dL (<200); Estimated Glomerular Filt Rate 44; Glucose Random 106 mg/dL (60-115); HDL Cholesterol 37 mg/dL (>40); LDL Cholesterol Calculated 88 mg/dL (<100); Potassium 4.1 mmol/L (3.3-5.1); Sodium 141 mmol/L (135-145); Total Protein 6.8 g/dL (6.5-8.0); Triglycerides 135 mg/dL (<150)
[2023-04-28 08:56] LABS: Thyroid Stimulating Hormone 0.74 uIU/mL (0.32-4.0)
== END 2023-04-28 07:18 | disposition home or self-care (01) ==
LOC: HO.LAB 07:17
PROVIDERS: PCP Internal Medicine; Visit Provider Internal Medicine
DX: M48.062 Spinal stenosis, lumbar region with neurogenic claudication (principal); M25.551 Pain in right hip; M25.552 Pain in left hip; I10 Essential (primary) hypertension; I73.9 Peripheral vascular disease, unspecified; E78.00 Pure hypercholesterolemia, unspecified
CPT/HCPCS: 36415; 80053; 80061; 84443; 85025

== ENCOUNTER 2023-06-25 08:58 | Outpatient (REF) | payer MEDICARE, BC, SELFPAY ==
--- NOTE | ~2023-06-25 | US_ITS ---
EXAMINATION: US EXTRACRANIAL CAROTID DUPLEX, BILATERAL CLINICAL INFORMATION: Carotid artery stenosis COMPARISON: Carotid duplex 04/18/2022 TECHNIQUE: Real-time ultrasound and Doppler techniques (integrating B-mode 2-D vascular images, Doppler spectral analysis and color-flow Doppler imaging) were utilized to interrogate the extracranial carotid arteries, the vertebral arteries and proximal subclavian arteries bilaterally. The degree of stenosis is determined by criteria similar to NASCET. FINDINGS: Right Side: 1. There is moderate atherosclerotic plaque seen in the bifurcation/proximal ICA region. 2. The common carotid artery PSV proximally is 113 cm/s and distally 62 cm/s. 3. The proximal internal carotid artery velocities are 104 cm/s systolic and 21 cm/s diastolic. 4. The proximal external carotid artery PSV is 597 cm/s. 5. The vertebral artery shows antegrade flow. 6. The subclavian artery waveforms are normal. Left Side: 1. There is moderate atherosclerotic plaque seen in the bifurcation/proximal ICA region. 2. The common carotid artery PSV proximally is 132 cm/s and distally 76 cm/s. 3. The proximal internal carotid artery velocities are 180 cm/s systolic and 21 cm/s diastolic. 4. The proximal external carotid artery PSV is 268 cm/s. 5. The vertebral artery shows antegrade flow. 6. The subclavian artery waveforms are normal. Multinodular thyroid gland is again incidentally noted including a 2 cm right-sided thyroid nodule, unchanged from prior exam. US/US carotid duplex BI IMPRESSION: 1. RIGHT: Minimal, non-hemodynamically significant stenosis of the proximal right internal carotid artery corresponding to a 0-49% stenosis by velocity criteria. 2. LEFT: Moderate, hemodynamically significant stenosis of the proximal left internal carotid artery corresponding to a 50-79% stenosis by velocity criteria. 3. There is no change in the category severity of disease when compared to the previous study dated 04/18/2021. 4. Elevated bilateral external carotid velocities suggesting stenoses. 5. Incidentally noted 2 cm right-sided thyroid nodule. Based on the recommendations of the ACR Incidental Thyroid Findings Committee (JACR 2014; 12(2):143-50), further evaluation by thyroid ultrasound is recommended for solitary incidental thyroid nodules greater than or equal to 1.5 cm in largest axial dimension in patients age 35 years and older who do not have limited life expectancy or significant morbidities, unless clinically warranted.
== END 2023-06-25 08:59 | disposition home or self-care (01) ==
LOC: HO.HMGCX 08:58
PROVIDERS: Absent Provider Internal Medicine; PCP Internal Medicine; Referring Provider Surgery Vascular Surgery; Visit Provider Internal Medicine
DX: I65.23 Occlusion and stenosis of bilateral carotid arteries (principal)
CPT/HCPCS: 93880

== ENCOUNTER 2023-08-29 01:12 | Emergency (ER) | payer MEDICARE, BC, SELFPAY ==
--- NOTE | ~2023-08-29 | CT_ITS ---
EXAMINATION: CT HEAD WITHOUT CONTRAST CT FACIAL BONES WITHOUT CONTRAST CT CERVICAL SPINE WITHOUT CONTRAST CLINICAL INFORMATION: Fall with head strike. Pain. COMPARISON: None available. TECHNIQUE: Contiguous axial imaging was performed through the head, facial bones and cervical spine without intravenous administration of contrast. Sagittal and coronal reformatted images also obtained. This CT examination was performed using dose optimization techniques as appropriate, variously including the following: *Automated exposure control *Adjustment of mA and/or kV according to patient size (this includes techniques or standardized protocols for targeted exams where dose is matched to indication/reason for exam; i.e. extremities or head) *Use of iterative reconstruction technique DLP: 1698 mGy-cm FINDINGS: HEAD: There is mild cerebral volume loss with prominence of the lateral and the third ventricles. The cortical sulci are widened appropriately. The fourth ventricle and basal cisterns are normally outlined. There is no acute territorial defect, hemorrhage or midline shift. The extra-axial spaces are unremarkable. Calvarium/scalp: Calvarium is intact. There is mild left frontal scalp soft tissue swelling. FACIAL BONES: No fracture is seen. The maxillofacial sinuses are clear. The mastoids are clear. The orbital structures are unremarkable. The soft tissues are also unremarkable. CERVICAL SPINE: There is mild reversal of the expected cervical spine curvature. There is moderate C4-C5 to C7-T1 disc degenerative change and mild disc degenerative change at the remaining cervical levels with loss of disc space, endplate change and posterior osteophytes associated with diffuse vwjr-bb-rnwoibax facet osteoarthritic hypertrophic change with multilevel mild spinal canal and multilevel buwc-ii-jdtburqo neuroforaminal narrowing. The bone mineralization is normal. No fracture is seen. The soft tissues are unremarkable. The visualized upper lung [place] are clear. There is a 1.9 cm low-density right thyroid nodule. CT/CT cervical spine wo IV con IMPRESSION: 1. No acute territorial defect, hemorrhage or midline shift. There is mild cerebral volume loss. 2. No acute osseous abnormality of the calvarium or cervical spine. There is multilevel degenerative disc disease, facet arthropathy and ttne-yq-dwdasddp neuroforaminal narrowing.
--- NOTE | ~2023-08-29 | CT_ITS ---
EXAMINATION: CT HEAD WITHOUT CONTRAST CT FACIAL BONES WITHOUT CONTRAST CT CERVICAL SPINE WITHOUT CONTRAST CLINICAL INFORMATION: Fall with head strike. Pain. COMPARISON: None available. TECHNIQUE: Contiguous axial imaging was performed through the head, facial bones and cervical spine without intravenous administration of contrast. Sagittal and coronal reformatted images also obtained. This CT examination was performed using dose optimization techniques as appropriate, variously including the following: *Automated exposure control *Adjustment of mA and/or kV according to patient size (this includes techniques or standardized protocols for targeted exams where dose is matched to indication/reason for exam; i.e. extremities or head) *Use of iterative reconstruction technique DLP: 1698 mGy-cm FINDINGS: HEAD: There is mild cerebral volume loss with prominence of the lateral and the third ventricles. The cortical sulci are widened appropriately. The fourth ventricle and basal cisterns are normally outlined. There is no acute territorial defect, hemorrhage or midline shift. The extra-axial spaces are unremarkable. Calvarium/scalp: Calvarium is intact. There is mild left frontal scalp soft tissue swelling. FACIAL BONES: No fracture is seen. The maxillofacial sinuses are clear. The mastoids are clear. The orbital structures are unremarkable. The soft tissues are also unremarkable. CERVICAL SPINE: There is mild reversal of the expected cervical spine curvature. There is moderate C4-C5 to C7-T1 disc degenerative change and mild disc degenerative change at the remaining cervical levels with loss of disc space, endplate change and posterior osteophytes associated with diffuse zxeu-xv-xtkgjxsd facet osteoarthritic hypertrophic change with multilevel mild spinal canal and multilevel ufrl-qc-zfwtfqbh neuroforaminal narrowing. The bone mineralization is normal. No fracture is seen. The soft tissues are unremarkable. The visualized upper lung [place] are clear. There is a 1.9 cm low-density right thyroid nodule. CT/CT head/brain wo IV con IMPRESSION: 1. No acute territorial defect, hemorrhage or midline shift. There is mild cerebral volume loss. 2. No acute osseous abnormality of the calvarium or cervical spine. There is multilevel degenerative disc disease, facet arthropathy and ygmt-md-ucovsmyc neuroforaminal narrowing.
--- NOTE | ~2023-08-29 | CT_ITS ---
EXAMINATION: CT HEAD WITHOUT CONTRAST CT FACIAL BONES WITHOUT CONTRAST CT CERVICAL SPINE WITHOUT CONTRAST CLINICAL INFORMATION: Fall with head strike. Pain. COMPARISON: None available. TECHNIQUE: Contiguous axial imaging was performed through the head, facial bones and cervical spine without intravenous administration of contrast. Sagittal and coronal reformatted images also obtained. This CT examination was performed using dose optimization techniques as appropriate, variously including the following: *Automated exposure control *Adjustment of mA and/or kV according to patient size (this includes techniques or standardized protocols for targeted exams where dose is matched to indication/reason for exam; i.e. extremities or head) *Use of iterative reconstruction technique DLP: 1698 mGy-cm FINDINGS: HEAD: There is mild cerebral volume loss with prominence of the lateral and the third ventricles. The cortical sulci are widened appropriately. The fourth ventricle and basal cisterns are normally outlined. There is no acute territorial defect, hemorrhage or midline shift. The extra-axial spaces are unremarkable. Calvarium/scalp: Calvarium is intact. There is mild left frontal scalp soft tissue swelling. FACIAL BONES: No fracture is seen. The maxillofacial sinuses are clear. The mastoids are clear. The orbital structures are unremarkable. The soft tissues are also unremarkable. CERVICAL SPINE: There is mild reversal of the expected cervical spine curvature. There is moderate C4-C5 to C7-T1 disc degenerative change and mild disc degenerative change at the remaining cervical levels with loss of disc space, endplate change and posterior osteophytes associated with diffuse wnzc-gd-xnnkskio facet osteoarthritic hypertrophic change with multilevel mild spinal canal and multilevel sjhm-ws-pnseqjnb neuroforaminal narrowing. The bone mineralization is normal. No fracture is seen. The soft tissues are unremarkable. The visualized upper lung [place] are clear. There is a 1.9 cm low-density right thyroid nodule. CT/CT facial bones wo IV con IMPRESSION: 1. No acute territorial defect, hemorrhage or midline shift. There is mild cerebral volume loss. 2. No acute osseous abnormality of the calvarium or cervical spine. There is multilevel degenerative disc disease, facet arthropathy and uzld-ji-dovwmwce neuroforaminal narrowing.
[2023-08-29 01:34] VITALS: BP 160/63; PULSE 69; RESP 16; TEMP 36.6; BMI 30.8
[2023-08-29 02:01] LABS: MANUAL DIFF FLAG NO
[2023-08-29 02:03] LABS: Basophils Absolute Auto 0.1 X10*3/uL (0.0-0.2); Basophils Percent Auto 0.5 % (0-2); Eosinophils Absolute Auto 0.3 X10*3/uL (0.0-0.4); Eosinophils Percent Auto 3.4 % (0-4); Imm Gran Abs Auto 0.05 X10*3/uL (0.00-0.03); Imm Gran Pct Auto 0.5 % (0.0-0.4); Lymphocytes Absolute Auto 1.9 X10*3/uL (1.2-4.9); Lymphocytes Percent Auto 19.4 % (20-40); Mean Corpuscular Hemoglobin 31.8 pg (27.0-33.0); Mean Corpuscular Volume 90.9 fL (80.0-98.0); Mean Platelet Volume 9.2 fL (9.4-12.4); Monocytes Absolute Auto 0.8 X10*3/uL (0.1-1.2); Monocytes Percent Auto 7.9 % (2-11); Neutrophils Absolute Auto 6.8 x10*3/uL (2.0-8.3); Neutrophils Percent Auto 68.3 % (45-73); Platelet Count 185 X10*3/uL (160-400); Red Cell Distribution Width 13.8 % (11.0-16.0)
[2023-08-29 02:09] LABS: INTERNATIONAL NORM RATIO 1.1 (0.9-1.1); Prothrombin Time 12.8 SEC (11.1-13.3)
[2023-08-29 02:19] LABS: Alanine Aminotransferase 24 U/L (0-40); Albumin Level 4.2 g/dL (3.5-5.0); Alkaline Phosphatase 61 U/L (39-117); Anion Gap 17 (12-20); Aspartate Amino Transferase 27 U/L (5-37); Bilirubin Total 0.5 mg/dL (0.0-1.0); Blood Urea Nitrogen 26 mg/dL (9-16); Calcium 8.9 mg/dL (8.4-10.2); Carbon Dioxide 21 mmol/L (22-29); Chloride 109 mmol/L (96-108); Creatinine Clr Calc Pharmacy 52.5; Estimated Glomerular Filt Rate 43; Glucose Random 131 mg/dL (60-115); Potassium 3.7 mmol/L (3.3-5.1); Sodium 143 mmol/L (135-145); Total Protein 6.8 g/dL (6.5-8.0)
--- NOTE | 2023-08-29 07:33 | ED_ITS ---
HPI - Fall General Chief Complaint: Fall Stated Complaint: fall w/ head strike, bruising around eye Time Seen by Provider: 08/29/23 07:32 Source: patient Mode of arrival: ambulatory Limitations: no limitations History of Present Illness ED Provider: SHUBHAM MARTINEZ Narrative: 67 yo male with PMH of CAD, PAF on eliquis, HTN, HLD, CKD here with c/o fall on Wednesday in [place] trip and fall hit head no LOC, he got up on his own no issues. He noted that on Wednesday the contusion on forehead improved but L periorbital swelling occurred. MD complaint: fall Onset (ago): day(s) (wednesday) Fall from: standing Fall witnessed: yes, by family Place fall occurred: other ([place]) Loss of consciousness: none Prolonged down time: no Symptoms prior to fall: none Context: tripped/slipped Location of injury: head and face Severity: mild Associated symptoms (after fall): other (L black eye) Related Data Home Medications ?Medication ?Instructions ?Recorded ?Confirmed aspirin 81 mg tablet,delayed 81 mg PO DAILY 06/19/20 01/27/23 release omeprazole 20 mg capsule,delayed 20 mg PO DAILY 04/21/23 release Previous Rx's ?Medication ?Instructions ?Recorded amlodipine 10 mg tablet 10 mg PO DAILY #90 tabs 10/12/22 metoprolol succinate 25 mg 25 mg PO DAILY #90 tabs 10/12/22 tablet,extended release 24 hr atorvastatin 80 mg tablet 80 mg PO DAILY #90 tabs 12/28/22 ezetimibe 10 mg tablet 10 mg PO DAILY #90 tabs 07/08/23 apixaban 5 mg tablet 5 mg PO BID 90 days #180 tabs 07/13/23 Allergies Allergy/AdvReac Type Severity Reaction Status Date / Time No Known Allergies Allergy Verified 08/29/23 01:34 Review of Systems 2 Review of Systems: Constitutional : No Fever, No Chills, No Fatigue ENT/Mouth : No sore throat, No Rhinorrhea Eyes: No Eye Pain, No Swelling, No Redness, pos black eye Cardiovascular : No Chest Pain, No SOB, No Dyspnea on Exertion Respiratory : No Cough, No Sputum Gastrointestinal : No Nausea, No Vomiting, No Diarrhea, No abdominal Pain Genitourinary : No Dysuria, No Urinary Frequency, No Hematuria, Musculoskeletal : No joint pain, No Myalgias, No Joint Swelling Skin : No Skin Lesions, No rash Neuro : No Weakness, No Numbness, No Dizziness, no Headache Psych : No Anxiety/Panic, No Depression All other systems reviewed and are negative [facility] Past Medical History Attestation statement: The following information was validated with the patient. Source: old records reviewed Medical History Peripheral vascular disease Other and unspecified hyperlipidemia Essential hypertension PAF (paroxysmal atrial fibrillation) Atherosclerotic cardiovascular disease Hyperlipemia Afib GERD (gastroesophageal reflux disease) HTN (hypertension) Surgical History History of cardiac catheterization (~12/12/19) Family History Family History Father CHF (congestive heart failure) Vascular disorder Mother Respiratory disease Social History Social History Alcohol intake: never Patient Tobacco Use Status: Never used Tobacco Advance Directives: No Advance Directives Information Provided: No Do you have a plan to hurt others: No Plan Physical Exam 2 Vital Signs: Vital Signs: Last Vital Signs Temp 97.9 F 08/29/23 01:34 Pulse 69 08/29/23 01:34 Resp 16 08/29/23 01:34 BP 160/63 H 08/29/23 01:34 BMI result Body Mass Index 30.8 Appearance: Alert. Oriented X3. No acute distress. Eyes: Pupils equal, round and reactive to light. L periorbital ecchymosis otherwise normal ENT: Pharynx normal. small contusion L forehead, no hemotympanum, no blood in nares Neck: Normal inspection. Neck supple. CVS: Normal heart rate and rhythm. Pulses normal. Respiratory: No respiratory distress. Breath sounds normal. Abdomen: Soft and nontender. Skin: Skin warm and dry. Normal skin color. . Extremities: No lower extremity edema. Neuro: Oriented X 3. No motor deficit. No sensory deficit. Medical Decision Making Medical Decision Making MDM Narrative: 67 yo male with PMH of CAD, PAF on eliquis, HTN, HLD, CKD here with c/o fall on wednesday in [place] after trip and fall then noted swelling around L eye on Wednesday and his wanted him to get checked out at this time labs, CT head/facial bones, cervical spine. He is neuro intact. normal eye exam other than periorbital ecchymosis. Differential Diagnosis Differential Diagnoses: The differential diagnosis associated with the presentation includes ICH, head injury, contusion Admission/Observation Consideration of admission/observation: Escalation of care including admission/observation considered GCS 15 stable for DC Lab Data MDM Lab Attestation statement: I reviewed the patient's lab results. 08/29/23 01:56 08/29/23 01:56 Labs: Lab Results 08/29/23 Range/Units 01:56 WBC 10.0 (4.8-10.8) X10*3/uL RBC 4.40 L (4.60-5.80) X10*6/uL Hgb 14.0 (14.0-18.0) g/dl Hct 40.0 L (42.0-52.0) % MCV 90.9 (80.0-98.0) fL MCH 31.8 (27.0-33.0) pg MCHC 35.0 (31.0-36.0) g/dl RDW 13.8 (11.0-16.0) % Plt Count 185 (160-400) X10*3/uL MPV 9.2 L (9.4-12.4) fL Immature Gran % (Auto) 0.5 H (0.0-0.4) % Neut % (Auto) 68.3 (45-73) % Lymph % (Auto) 19.4 L (20-40) % [place] % (Auto) 7.9 (2-11) % Eos % (Auto) 3.4 (0-4) % Baso % (Auto) 0.5 (0-2) % Lymph # (Auto) 1.9 (1.2-4.9) X10*3/uL [place] # (Auto) 0.8 (0.1-1.2) X10*3/uL Eos # (Auto) 0.3 (0.0-0.4) X10*3/uL Baso # (Auto) 0.1 (0.0-0.2) X10*3/uL Abs Immat Gran (auto) 0.05 H (0.00-0.03) X10*3/uL Absolute Neuts (auto) 6.8 (2.0-8.3) x10*3/uL Absolute Nucleated RBC 0.000 (0.0-0.012) X10*3/uL Nucleated RBC % (auto) 0.0 (0.0-0.2) /100WBC PT 12.8 (11.1-13.3) SEC INR 1.1 (0.9-1.1) Sodium 143 (135-145) mmol/L Potassium 3.7 (3.3-5.1) mmol/L Chloride 109 H (96-108) mmol/L Carbon Dioxide 21 L (22-29) mmol/L Anion Gap 17 (12-20) BUN 26 H (9-16) mg/dL Creatinine 1.60 H (0.5-1.4) mg/dL Estim Creat Clear Calc 52.5 Estimated GFR 43 Random Glucose 131 H (60-115) mg/dL Calcium 8.9 (8.4-10.2) mg/dL Total Bilirubin 0.5 (0.0-1.0) mg/dL AST 27 (5-37) U/L ALT 24 (0-40) U/L Alkaline Phosphatase 61 (39-117) U/L Total Protein 6.8 (6.5-8.0) g/dL Albumin 4.2 (3.5-5.0) g/dL Independent Interpretation I performed an independent interpretation of an: CT Scan (no trauma) Radiology Impression Discussion of test interpretation with radiology: I have reviewed the radiologist's reading. External Record Review External record reviewed: Prior outpatient labs Discharge Plan Discharge Clinical Impression: Facial trauma, Head injury Patient Disposition: Home, Self-Care Instructions: Head Injury (ED), Contusion in Adults (ED) Additional Instructions: labs reassuring, CT of the head, facial bones and cervical spine are reassuring no trauma or fracture this is blood traveling down and may increase return for worsening swelling, vision changes, bulging eyes or any other concerns, confusion, vomiting There is a 1.9 cm low-density right thyroid nodule. Prescriptions: No Action metoprolol succinate 25 mg tablet extended release 24 hr 25 mg PO DAILY Qty: 90 3RF amlodipine 10 mg tablet 10 mg PO DAILY Qty: 90 3RF atorvastatin 80 mg tablet 80 mg PO DAILY Qty: 90 3RF ezetimibe 10 mg tablet 10 mg PO DAILY Qty: 90 3RF apixaban 5 mg tablet 5 mg PO BID 90 Days Qty: 180 3RF aspirin 81 mg tablet,delayed release (DR/EC) 81 mg PO DAILY omeprazole 20 mg capsule,delayed release(DR/EC) 20 mg PO DAILY Print Language: Uzbek
[2023-08-29 07:39] VITALS: BP 182/83; PULSE 64; RESP 16; TEMP 36.2; O2SAT 99
== END 2023-08-29 07:41 | disposition home or self-care (01) ==
PROVIDERS: Emergency Provider Emergency Medicine; PCP Internal Medicine
DX: S00.83XA Contusion of other part of head, initial encounter (principal); S09.90XA Unspecified injury of head, initial encounter; W10.8XXA Fall (on) (from) other stairs and steps, initial encounter; I48.0 Paroxysmal atrial fibrillation; Y93.89 Activity, other specified; Y92.89 Other specified places as the place of occurrence of the external cause; Y99.9 Unspecified external cause status; Z79.01 Long term (current) use of anticoagulants
CPT/HCPCS: 36415; 70450; 70486; 72125; 80053; 85025; 85610; 99282; 99284

== ENCOUNTER 2023-09-27 07:40 | Outpatient (REF) | payer MEDICARE, BC, SELFPAY ==
[2023-09-27 08:51] LABS: Anion Gap 14 (12-20); Blood Urea Nitrogen 15 mg/dL (9-16); Carbon Dioxide 27 mmol/L (22-29); Chloride 105 mmol/L (96-108); Estimated Glomerular Filt Rate 50; Potassium 4.4 mmol/L (3.3-5.1); Sodium 142 mmol/L (135-145)
[2023-09-27 10:01] LABS: Total Protein Urine Random 16 mg/dL (<12)
== END 2023-09-27 07:41 | disposition home or self-care (01) ==
LOC: HO.LAB 07:40
PROVIDERS: PCP Internal Medicine; Visit Provider Internal Medicine Nephrology
DX: I10 Essential (primary) hypertension (principal); N18.30 Chronic kidney disease, stage 3 unspecified
CPT/HCPCS: 36415; 80051; 82565; 84156; 84520

== ENCOUNTER 2023-09-28 09:16 | Outpatient (AMB) | payer MEDICARE, BC, SELFPAY ==
--- NOTE | 2023-09-28 09:21 | AM.OFFWIN_ITS ---
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 Patient Tobacco Use Status: Never used Tobacco Allergies No Known Allergies Allergy (Verified 09/28/23 09:22) Do you need a note to return to daycare/school/sports/work: No HPI HPI Comments History of Present Illness Details Patient is a 67-year-old male complaining of rib pain x1 day. He st ates was at the [employer] game last night and they were launching T-shirts into the audience. He states he went to jump up and grab for a T-shirt and when he landed he fell on the arm of the chair with the right side of his ribs. He states he can take a deep breath but he is experiencing 4/10 pain when he does. He denies any shortness of breath it states it is tender when he pushes on the right side of his ribs. [facility]LY [facility] Medical History Peripheral vascular disease Other and unspecified hyperlipidemia Essential hypertension PAF (paroxysmal atrial fibrillation) Atherosclerotic cardiovascular disease Hyperlipemia Afib GERD (gastroesophageal reflux disease) HTN (hypertension) Surgical History History of cardiac catheterization (~12/12/19) Family History Father CHF (congestive heart failure) Vascular disorder Mother Respiratory disease Social History Alcohol intake: never Patient Tobacco Use Status: Never used Tobacco Review of Systems Const All systems reviewed & are unremarkable except as noted in HPI and below Physical Exam Vital Signs: Last Vital Signs Temp 98.4 F 09/28/23 09:23 Pulse 68 09/28/23 09:23 BP 128/82 09/28/23 09:23 Pulse Ox 98 09/28/23 09:23 Oxygen Delivery Method Room Air 09/28/23 09:23 BMI result Body Mass Index 30.1 Const General: cooperative, healthy appearing, comfortable, no acute distress and well developed Orientation/consciousness: patient oriented x3 Limitations: no limitations Eyes General: appearance normal, both eyes and all related structures Chest Chest palpation & inspection: normal inspection of the chest and localized rib tenderness with anteroposterior compression right mid-axillary line involving the 8th rib Resp Effort & Inspection: normal respiratory effort and able to speak in complete s entences Auscultation: clear to auscultation bilaterally Cardio Rate: regular rate Rhythm: regular rhythm Heart sounds: normal S1 and S2 Neuro General: patient oriented x3 Assessment & Plan Assessment & Plan (1) Blunt trauma of rib: Code(s): S29.8XXA - Other specified injuries of thorax, initial encounter Qualifiers: Encounter type: initial encounter Qualified Code(s): S29.8XXA - Other specified injuries of thorax, initial encounter Plan: Vital signs are stable, patient is well-appearing, gave incentive spirometer to patient for home use. Right sided rib x-ray and chest x-ray negative for anything acute or fx. Plan see above Orders: Orders XR ribs RT min 3V w CXR1V Today S29.8XXA - Other specified injuries of thorax, initial encounter Coding Level of Care Code New Pt Level 4 (39194) Diagnoses Blunt trauma of rib, initial encounter S29.8XXA Encounter type: initial encounter
[2023-09-28 09:23] VITALS: BP 128/82; PULSE 68; TEMP 36.9; O2SAT 98; BMI 30.1
== END 2023-09-28 09:40 | disposition home or self-care (01) ==
PROVIDERS: PCP Internal Medicine; Visit Provider Physician Assistant
DX: S29.8XXA Other specified injuries of thorax, initial encounter (principal)
CPT/HCPCS: 99204

== ENCOUNTER 2023-09-28 09:36 | Outpatient (REF) | payer MEDICARE, BC, SELFPAY ==
--- NOTE | ~2023-09-28 | XR_ITS ---
EXAMINATION: XR RIBS, RIGHT CLINICAL INFORMATION: Injury. COMPARISON: CXR from 11/29/2018 TECHNIQUE: PA view of the chest. Right ribs, 3 views FINDINGS: Lungs are well expanded and clear. No pulmonary consolidation, pleural effusion or pneumothorax. Cardiac silhouette is normal in size. Pulmonary vascular pattern is normal. The visualized bones have an intact appearance. No evidence of an acute displaced right rib fracture. There is multilevel degenerative narrowing of disc space and osteophyte formation of the spine. XR/XR ribs RT min 3V w CXR1V IMPRESSION: No acute pulmonary disease. No radiographic evidence of rib fracture.
== END 2023-09-28 09:37 | disposition home or self-care (01) ==
LOC: HO.HMGCX 09:36
PROVIDERS: PCP Internal Medicine; Visit Provider Physician Assistant
DX: S29.8XXA Other specified injuries of thorax, initial encounter (principal)
CPT/HCPCS: 71101

== ENCOUNTER 2023-10-18 08:12 | Outpatient (REF) | payer MEDICARE, BC, SELFPAY ==
[2023-10-18 08:22] LABS: MANUAL DIFF FLAG NO
[2023-10-18 08:32] LABS: Basophils Absolute Auto 0.1 X10*3/uL (0.0-0.2); Basophils Percent Auto 0.6 % (0-2); Eosinophils Absolute Auto 0.3 X10*3/uL (0.0-0.4); Eosinophils Percent Auto 3.2 % (0-4); Hematocrit 43.7 % (42.0-52.0); Hemoglobin 15.2 g/dl (14.0-18.0); Imm Gran Abs Auto 0.02 X10*3/uL (0.00-0.03); Imm Gran Pct Auto 0.3 % (0.0-0.4); Lymphocytes Absolute Auto 2.4 X10*3/uL (1.2-4.9); Lymphocytes Percent Auto 30.4 % (20-40); Mean Corpuscular HGB Conc 34.8 g/dl (31.0-36.0); Mean Corpuscular Hemoglobin 31.5 pg (27.0-33.0); Mean Corpuscular Volume 90.7 fL (80.0-98.0); Mean Platelet Volume 9.5 fL (9.4-12.4); Monocytes Absolute Auto 0.5 X10*3/uL (0.1-1.2); Monocytes Percent Auto 6.9 % (2-11); Neutrophils Absolute Auto 4.6 x10*3/uL (2.0-8.3); Neutrophils Percent Auto 58.6 % (45-73); Platelet Count 189 X10*3/uL (160-400); Red Blood Count 4.82 X10*6/uL (4.60-5.80); Red Cell Distribution Width 13.2 % (11.0-16.0); White Blood Count 7.9 X10*3/uL (4.8-10.8)
[2023-10-18 08:41] LABS: Estimated Average Glucose 114 mg/dL; Hemoglobin A1C 149.6609 umol/L; Hemoglobin A1c % 5.6 % (<6.0)
[2023-10-18 09:14] LABS: Appearance Urine Clear; Color Urine Yellow; Glucose Urine UA Negative (Negative); Leukocyte Esterase Urine Negative (Negative); Nitrite Urine Negative (Negative); Urine Blood Negative (Negative); Urine Ketones Negative (Negative); Urine Protein Negative (Neg-Trace)
[2023-10-18 09:21] LABS: Alanine Aminotransferase 32 U/L (0-40); Albumin Level 4.3 g/dL (3.5-5.0); Alkaline Phosphatase 63 U/L (39-117); Anion Gap 14 (12-20); Aspartate Amino Transferase 30 U/L (5-37); Bilirubin Total 0.7 mg/dL (0.0-1.0); Blood Urea Nitrogen 19 mg/dL (9-16); Carbon Dioxide 25 mmol/L (22-29); Chloride 107 mmol/L (96-108); Cholesterol 164 mg/dL (<200); Estimated Glomerular Filt Rate 50; Glucose Random 106 mg/dL (60-115); HDL Cholesterol 45 mg/dL (>40); LDL Cholesterol Calculated 98 mg/dL (<100); Potassium 4.3 mmol/L (3.3-5.1); Sodium 142 mmol/L (135-145); Triglycerides 109 mg/dL (<150)
[2023-10-18 09:31] LABS: Thyroid Stimulating Hormone 1.12 uIU/mL (0.32-4.0)
[2023-10-18 10:58] LABS: Prostate Specific Antigen Scr 0.98 ng/mL (<0.05-4.0)
== END 2023-10-18 08:13 | disposition home or self-care (01) ==
LOC: HO.LAB 08:12
PROVIDERS: PCP Internal Medicine; Visit Provider Internal Medicine
DX: I10 Essential (primary) hypertension (principal); E78.00 Pure hypercholesterolemia, unspecified; R73.01 Impaired fasting glucose; Z12.5 Encounter for screening for malignant neoplasm of prostate
CPT/HCPCS: 36415; 80053; 80061; 81003; 83036; 84153; 84443; 85025

== ENCOUNTER 2023-10-29 12:01 | Outpatient (AMB) | payer MEDICARE, BC, SELFPAY ==
[2023-10-29 12:46] VITALS: BP 130/70; PULSE 67; O2SAT 97
--- NOTE | 2023-10-29 12:46 | HO.NEPHOV_ITS ---
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 He has history of coronary artery disease and had undergone cardiac catheterization in 2019. He has history of atrial fibrillation and has been on Eliquis. He has peripheral arterial disease and had undergone stenting in his right lower extremity. He denies any active peripheral artery disease symptoms. He does not have any chest pain, shortness of breath, nausea, vomiting, diarrhea, urinary symptoms, pedal edema. He does not take any nonsteroidal anti-inflammatories. He did not have any active medical issues at the time of this office visit. [facility] Medical History Peripheral vascular disease Other and unspecified hyperlipidemia Essential hypertension PAF (paroxysmal atrial fibrillation) Atherosclerotic cardiovascular disease Hyperlipemia Afib GERD (gastroesophageal reflux disease) HTN (hypertension) Surgical History History of cardiac catheterization (~12/12/19) Family History Father CHF (congestive heart failure) Vascular disorder Mother Respiratory disease Social History Alcohol intake: never Patient Tobacco Use Status: Never used Tobacco Physical Exam Vital Signs: Last Vital Signs Pulse 67 10/29/23 12:46 BP 142/72 H 10/29/23 12:46 Pulse Ox 97 10/29/23 12:46 Oxygen Delivery Method Room Air 10/29/23 12:46 BMI result Body Mass Index 30.0 Const General: comfortable and no acute distress Orientation/consciousness: patient oriented x3 HEENT Head: Yes normocephalic Mouth: Normal oral and palatal mucosa present Eyes EOM: EOMs intact bilaterally Neck Neck: Yes supple Resp Auscultation: clear to auscultation bilaterally Cardio Jugular venous distension: no JVD Rate: regular rate GI Palpation (GI): Soft to palpation Auscultation: normal bowel sounds General: Yes no CVA tenderness Back/Spine/Pelvis Back: no CVA tenderness Skin General skin exam: no rashes or lesions noted Neuro General: patient oriented x3 and moves all extremities Extrem General: Yes no pedal edema Results Reviewed Nephrology Results: Hgb 15.2 g/dl (14.0-18.0) 10/18/23 WBC 7.9 X10*3/uL (4.8-10.8) 10/18/23 Plt Count 189 X10*3/uL (160-400) 10/18/23 Sodium 142 mmol/L (135-145) 10/18/23 Potassium 4.3 mmol/L (3.3-5.1) 10/18/23 Chloride 107 mmol/L (96-108) 10/18/23 Carbon Dioxide 25 mmol/L (22-29) 10/18/23 BUN 19 mg/dL (9-16) H 10/18/23 Creatinine 1.40 mg/dL (0.5-1.4) 10/18/23 Calcium 9.0 mg/dL (8.4-10.2) 10/18/23 Urine Protein Negative mg/dL (Neg-Trace) 10/18/23 Assessment & Plan Assessment & Plan (1) CKD (chronic kidney disease) stage 3, GFR 30-59 ml/min: Code(s): N18.30 - Chronic kidney disease, stage 3 unspecified Category: Medical Qualifiers: Chronic kidney disease stage 3 subtype: stage 3a (GFR 45-59) Qualified Code(s): N18.31 - Chronic kidney disease, stage 3a (2) Essential hypertension: Code(s): I10 - Essential (primary) hypertension Category: Medical Plan Mario has chronic kidney disease from vascular disease. His blood pressure is at goal at home. His serum creatinine is stable. He has history of peripheral arterial disease and had a stent put in in his right lower extremity. He likely has vascular disease in the kidney as well. He has right carotid stenosis and had USS. He avoids nonsteroidal anti-inflammatories and tries hard to remain well hydrated. If his blood pressure goes up he will be a candidate for angiotensin receptor henna in the future. I did not make any medication peterson es today. All his questions were answered. Follow-up appointment given Orders: Orders Creatinine Today I10 - Essential (primary) hypertension, N18.31 - Chronic kidney disease, stage 3a Electrolytes Today I10 - Essential (primary) hypertension, N18.31 - Chronic k idney disease, stage 3a Phosphorus Today I10 - Essential (primary) hypertension, N18.31 - Chronic kidney disease, stage 3a Complete Blood Count Auto Diff Today I10 - Essential (primary) hypertension, N18.31 - Chronic kidney disease, stage 3a Blood Urea Nitrogen Today I10 - Essential (primary) hypertension, N18.31 - [place] kidney disease, stage 3a Calcium Today I10 - Essential (primary) hypertension, N18.31 - Chronic kidney disease, stage 3a Parathyroid Hormone Intact Today I10 - Essential (primary) hypertension, N18.31 - Chronic kidney disease, stage 3a Coding Level of Care Code Est Pt Level 4 (82919) Diagnoses Stage 3a chronic kidney disease N18.31 Chronic kidney disease stage 3 subtype: stage 3a (GFR 45-59) Essential hypertension I10
== END 2023-10-29 13:07 | disposition home or self-care (01) ==
PROVIDERS: PCP Internal Medicine; Visit Provider Internal Medicine Nephrology
DX: N18.31 Chronic kidney disease, stage 3a (principal); I10 Essential (primary) hypertension
CPT/HCPCS: 99214

== ENCOUNTER → 2023-10-29 12:01 | Outpatient (BNVA) | payer MEDICARE, BC, SELFPAY | PROVIDERS: PCP Internal Medicine; Visit Provider Internal Medicine Nephrology | DX: I12.9 Hypertensive chronic kidney disease with stage 1 through stage 4 chronic kidney disease, or unspecified chronic kidney disease (principal); I25.10 Atherosclerotic heart disease of native coronary artery without angina pectoris; I48.91 Unspecified atrial fibrillation; N18.31 Chronic kidney disease, stage 3a; Z79.01 Long term (current) use of anticoagulants | CPT/HCPCS: 99212 ==

== ENCOUNTER 2023-11-12 07:42 | Outpatient (REF) | payer MEDICARE, BC, SELFPAY | END 2023-11-12 07:43 | disposition home or self-care (01) | LOC: HO.US 07:42 | PROVIDERS: PCP Internal Medicine; Visit Provider Surgery Vascular Surgery | DX: Z13.89 Encounter for screening for other disorder (principal) ==

== ENCOUNTER 2023-11-15 08:10 | Outpatient (REF) | payer MEDICARE, BC, SELFPAY ==
--- NOTE | ~2023-11-15 | US_ITS ---
EXAMINATION: Noninvasive assessment of the bilateral lower extremities with ARTERIAL DUPLEX and ANKLE BRACHIAL INDICES (ABIs). CLINICAL INFORMATION: Peripheral vascular disease TECHNIQUE: Duplex Doppler techniques with waveform analysis and measurement of velocities in the bilateral common femoral, profunda femoris, superficial femoral, popliteal and tibial arteries were performed. Additionally, ankle pulse volume recordings, ankle pressure measurements and ankle brachial indices were obtained of the lower extremity arterial system bilaterally. The study was performed only at rest. COMPARISON: Arterial duplex ultrasound of the bilateral lower extremities dated 10/19/2022 FINDINGS: DIRECT DUPLEX DOPPLER FINDINGS: RIGHT LEG: Common femoral artery: 359 cm/s, phasicity: Biphasic Profunda femoris artery: 242 cm/s, phasicity: Biphasic Superficial femoral artery (proximal): 132 cm/s, phasicity: Biphasic Superficial femoral artery (mid): 82 cm/s, phasicity: Biphasic Superficial femoral artery (distal): 67 cm/s, phasicity: Biphasic There is a stent graft located in the distal superficial femoral artery. There is moderate stenosis in the [place] artery at the border of the proximal end of the stent. [place] artery proximal to stent: 91 cm/s; phasicity: Biphasic Proximal stent: 95 cm/s; phasicity: Biphasic Mid stent: 90 cm/s; phasicity: Biphasic Distal stent: 88 cm/s; phasicity: Biphasic [place] artery distal to stent: 67 cm/s; phasicity: Biphasic Popliteal artery: 62 cm/s, phasicity: Biphasic Posterior tibial artery: 67 cm/s, phasicity: Biphasic Peroneal artery: 58 cm/s, phasicity: Biphasic Anterior tibial artery: 60 cm/s, phasicity: Biphasic Dorsalis pedis artery: 80 cm/s, phasicity:Biphasic LEFT LEG: Common femoral artery: 94 cm/s, phasicity: Biphasic Profunda femoris artery: 77 cm/s, phasicity: Biphasic Superficial femoral artery (proximal): 62 cm/s, phasicity: Biphasic Superficial femoral artery (mid): 93 cm/s, phasicity: Biphasic Superficial femoral artery (distal): 66 cm/s, phasicity: Biphasic Popliteal artery: 61 cm/s, phasicity: Biphasic Posterior tibial artery: 75 cm/s, phasicity: Biphasic Peroneal artery: 62 cm/s, phasicity: Biphasic Anterior tibial artery: 54 cm/s, phasicity: Biphasic Dorsalis pedis artery: 46 cm/s, phasicity: Biphasic ANKLE-BRACHIAL INDEX: Right: 1.35 (noncompressible)? Left: 1.14 ANKLE PRESSURES: Right: Brachial 148, PT 200, DP 200 Left: Brachial 143, PT?168, DP?165 ANKLE PVR WAVEFORMS: Right: Abnormal Left: Abnormal US/US arterial duplex LE BI IMPRESSION: Right leg: Patent distal superficial femoral artery stent graft. Moderate stenosis of the common femoral artery and proximal profunda artery based on velocity criteria. STEWART of 1.35 with noncompressible ankle vessels. Left leg: Mild atherosclerosis throughout the left lower extremity with no evidence of hemodynamically significant stenosis. STEWART 1.14. STEWART Reference: - >1.4 = calcified vessels - 0.9 - 1.4 = normal - no significant arterial disease - 0.7 - 0.89 = mild peripheral arterial disease - 0.51 - 0.69 = moderate peripheral arterial disease - ? 0.50 = severe peripheral arterial disease - < .30 = critical arterial disease
--- NOTE | ~2023-11-15 | US_ITS ---
EXAMINATION: Noninvasive assessment of the bilateral lower extremities with ARTERIAL DUPLEX and ANKLE BRACHIAL INDICES (ABIs). CLINICAL INFORMATION: Peripheral vascular disease TECHNIQUE: Duplex Doppler techniques with waveform analysis and measurement of velocities in the bilateral common femoral, profunda femoris, superficial femoral, popliteal and tibial arteries were performed. Additionally, ankle pulse volume recordings, ankle pressure measurements and ankle brachial indices were obtained of the lower extremity arterial system bilaterally. The study was performed only at rest. COMPARISON: Arterial duplex ultrasound of the bilateral lower extremities dated 10/19/2022 FINDINGS: DIRECT DUPLEX DOPPLER FINDINGS: RIGHT LEG: Common femoral artery: 359 cm/s, phasicity: Biphasic Profunda femoris artery: 242 cm/s, phasicity: Biphasic Superficial femoral artery (proximal): 132 cm/s, phasicity: Biphasic Superficial femoral artery (mid): 82 cm/s, phasicity: Biphasic Superficial femoral artery (distal): 67 cm/s, phasicity: Biphasic There is a stent graft located in the distal superficial femoral artery. There is moderate stenosis in the [place] artery at the border of the proximal end of the stent. [place] artery proximal to stent: 91 cm/s; phasicity: Biphasic Proximal stent: 95 cm/s; phasicity: Biphasic Mid stent: 90 cm/s; phasicity: Biphasic Distal stent: 88 cm/s; phasicity: Biphasic [place] artery distal to stent: 67 cm/s; phasicity: Biphasic Popliteal artery: 62 cm/s, phasicity: Biphasic Posterior tibial artery: 67 cm/s, phasicity: Biphasic Peroneal artery: 58 cm/s, phasicity: Biphasic Anterior tibial artery: 60 cm/s, phasicity: Biphasic Dorsalis pedis artery: 80 cm/s, phasicity:Biphasic LEFT LEG: Common femoral artery: 94 cm/s, phasicity: Biphasic Profunda femoris artery: 77 cm/s, phasicity: Biphasic Superficial femoral artery (proximal): 62 cm/s, phasicity: Biphasic Superficial femoral artery (mid): 93 cm/s, phasicity: Biphasic Superficial femoral artery (distal): 66 cm/s, phasicity: Biphasic Popliteal artery: 61 cm/s, phasicity: Biphasic Posterior tibial artery: 75 cm/s, phasicity: Biphasic Peroneal artery: 62 cm/s, phasicity: Biphasic Anterior tibial artery: 54 cm/s, phasicity: Biphasic Dorsalis pedis artery: 46 cm/s, phasicity: Biphasic ANKLE-BRACHIAL INDEX: Right: 1.35 (noncompressible)? Left: 1.14 ANKLE PRESSURES: Right: Brachial 148, PT 200, DP 200 Left: Brachial 143, PT?168, DP?165 ANKLE PVR WAVEFORMS: Right: Abnormal Left: Abnormal US/US STEWART complete IMPRESSION: Right leg: Patent distal superficial femoral artery stent graft. Moderate stenosis of the common femoral artery and proximal profunda artery based on velocity criteria. STEWART of 1.35 with noncompressible ankle vessels. Left leg: Mild atherosclerosis throughout the left lower extremity with no evidence of hemodynamically significant stenosis. STEWART 1.14. STEWART Reference: - >1.4 = calcified vessels - 0.9 - 1.4 = normal - no significant arterial disease - 0.7 - 0.89 = mild peripheral arterial disease - 0.51 - 0.69 = moderate peripheral arterial disease - ? 0.50 = severe peripheral arterial disease - < .30 = critical arterial disease
== END 2023-11-15 08:11 | disposition home or self-care (01) ==
LOC: HO.US 08:10
PROVIDERS: Visit Provider Surgery Vascular Surgery
DX: I73.9 Peripheral vascular disease, unspecified (principal)
CPT/HCPCS: 93923; 93925

== ENCOUNTER 2023-11-17 08:50 | Outpatient (AMB) | payer MEDICARE, BC, SELFPAY ==
--- NOTE | 2023-11-17 09:31 | AM.OFFWIN_ITS ---
Intake Vital Signs 11/17/23 09:32 Height 5 ft 11 in Weight 216 lb BMI 30.1 BP 136/70 Blood Pressure Location Rt brachial Position Sitting Pulse 65 Pulse Source Pulse Oximeter Temp 98.5 F Temp Source Oral Pulse Oximetry (%) 97 Oxygen Delivery Method Room Air Intake Visit Reasons: EP Pain on Left hand fell a few months ago Intake Note: pt c/o LT hand pain due to fall Patient Tobacco Use Status: Never used Tobacco Allergies No Known Allergies Allergy (Verified 11/17/23 09:32) Do you need a note to return to daycare/school/sports/work: No HPI EP Pain on Left hand fell a few months ago HPI Details This note is constructed using voice recognition software. While every effort has been made to ensure accuracy, audit spec errors may have been included. The patient is a 67 year old male who presents to the clinic today with pain in left hand after a fall several months ago while he was in a room. He notes that he had fallen at the top of the stairs landing with his palm up striking the ground. He notes that initially the hand swelled and into the fingers, however that improved, nearly resolved, but never completely resolve the pain. The pain is in the knuckles on the 3rd 4th fingers, and worse on opening a fist. They do not limit his ADLs. He denies numbness and tingling. He denies any difficulty with strength or range of motion. [facility] Medical History Peripheral vascular disease Other and unspecified hyperlipidemia Essential hypertension PAF (paroxysmal atrial fibrillation) Atherosclerotic cardiovascular disease Hyperlipemia Afib GERD (gastroesophageal reflux disease) HTN (hypertension) Surgical History History of cardiac catheterization (~12/12/19) Family History Father CHF (congestive heart failure) Vascular disorder Mother Respiratory disease Social History Alcohol intake: never Patient Tobacco Use Status: Never used Tobacco Physical Exam Vital Signs: Last Vital Signs Temp 98.5 F 11/17/23 09:32 Pulse 65 11/17/23 09:32 BP 136/70 11/17/23 09:32 Pulse Ox 97 11/17/23 09:32 Oxygen Delivery Method Room Air 11/17/23 09:32 BMI result Body Mass Index 30.1 Const General: cooperative, healthy appearing, comfortable, no acute distress and alert Orientation/consciousness: patient oriented x3 Limitations: no limitations Skin General skin exam: no rashes or lesions noted, elasticity normal and turgor normal Neuro General: patient oriented x3 Extrem Other: Hand grasps equal, strong, 5/5 strength. Good opposition. Thick DIP and PIP throughout bilateral hands. No obvious deformity. Full range of motion. General: Yes normal to inspection, Yes full ROM, Yes capillary refill normal and Yes normal exam except as noted Psych Appearance: grossly normal Mental Status: mental status grossly normal Speech and movement: Normal speech and movement present Affect: normal affect Assessment & Plan Assessment & Plan (1) Hand pain, left: Code(s): M79.642 - Pain in left hand Plan: Reassuring physical examination today, with no obvious deformities, appears likely consistent with arthritis. Advised patient to follow up with PCP, trial of oral or topical NSAIDs. X-ray ordered today for evaluation, reviewed by me no obvious fracture. Plan See above for full details and plan. Orders: Orders XR hand LT 2V Today M79.642 - Pain in left hand Coding Level of Care Code Est Pt Level 4 (51556) Diagnoses Hand pain, left M79.642
[2023-11-17 09:32] VITALS: BP 136/70; PULSE 65; TEMP 36.9; O2SAT 97; BMI 30.1
== END 2023-11-17 10:01 | disposition home or self-care (01) ==
PROVIDERS: PCP Internal Medicine; Visit Provider Registered Nurse
DX: M79.642 Pain in left hand (principal)
CPT/HCPCS: 99214

== ENCOUNTER 2023-11-17 09:57 | Outpatient (REF) | payer MEDICARE, BC, SELFPAY ==
--- NOTE | ~2023-11-17 | XR_ITS ---
EXAMINATION: XR HAND, LEFT CLINICAL INFORMATION: Left hand pain. COMPARISON: 02/07/2019 TECHNIQUE: PA, lateral, and oblique views of the left hand. FINDINGS: Decreased bone mineralization. Joint space narrowing of the first CMC joint as well as the triscaphe joint. There is widening of the scapholunate interval. 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 Joint space narrowing of the radiocarpal joint. Vascular calcifications are present. XR/XR hand LT 2V IMPRESSION: Possible SNAC wrist deformity.
== END 2023-11-17 09:58 | disposition home or self-care (01) ==
LOC: HO.HMGCX 09:57
PROVIDERS: PCP Internal Medicine; Visit Provider Registered Nurse
DX: M79.642 Pain in left hand (principal)
CPT/HCPCS: 73120

== ENCOUNTER 2024-01-12 07:32 | Outpatient (REF) | payer MEDICARE, BC, SELFPAY | END 2024-01-12 07:33 | disposition home or self-care (01) | LOC: HO.US 07:32 | PROVIDERS: PCP Internal Medicine; Visit Provider Internal Medicine | DX: E04.1 Nontoxic single thyroid nodule (principal) | CPT/HCPCS: 76536 ==

== ENCOUNTER 2024-02-08 14:58 | Outpatient (AMB) | payer MEDICARE, BC, SELFPAY ==
--- NOTE | 2024-02-08 15:00 | MHC.OFFVIS ---
Intake Visit Reasons: Follow Up 11/14 Arterial US Intake Note: Patient presents for arterial us , no complaints. Accompanied by: Self / Same As Patient Allergies No Known Allergies Allergy (Verified 02/08/24 15:01) HPI HPI Follow Up 11/14 Arterial US: Details: Very pleasant 68-year-old gentleman presents for follow-up regarding peripheral vascular disease. He reports he has been doing extremely well. He is actually nearly 5 years since his intervention. He continues to do extremely well. He remains active and works at [employer] and is a [employer]. He is currently being maintained on aspirin Eliquis and high-dose statin. Now presents for routine annual arterial surveillance follow-up. He has no complaints. [facility] Medical History Peripheral vascular disease Other and unspecified hyperlipidemia Essential hypertension PAF (paroxysmal atrial fibrillation) Atherosclerotic cardiovascular disease Hyperlipemia Afib GERD (gastroesophageal reflux disease) HTN (hypertension) Surgical History History of cardiac catheterization (~12/12/19) Family History Father CHF (congestive heart failure) Vascular disorder Mother Respiratory disease Social History Alcohol intake: never Patient Tobacco Use Status: Never used Tobacco Review of Systems Const All systems reviewed & are unremarkable except as noted in HPI and below Reports no additional complaints ENT Reports Normal hearing present Card Denies chest pain, Denies chest pain at rest, Denies chest pain with activity and Denies pedal edema Resp Denies cough GI Denies abdominal pain Musc Denies abnormal gait, Denies muscle cramps and Denies radiating pain into limb Skin/Breast Denies skin ulcer and Denies wounds Neuro Reports Normal hearing present and Denies abnormal gait Psych Reports no additional complaints Physical Exam Const General: cooperative, healthy appearing and comfortable Orientation/consciousness: oriented to person, oriented to place and oriented to time HEENT Head: Yes normal to inspection Neck Neck: Yes normal visual inspection Carotids: no bruits Chest Chest palpation & inspection: normal inspection of the chest Resp Effort & Inspection: normal respiratory effort and able to speak in complete sentences Auscultation: clear to auscultation bilaterally, no crackles, no rales, no rhonchi and no wheezes Cardio Other: Bilateral palpable dorsalis pedis pulses Rate: regular rate Rhythm: regular rhythm Heart sounds: S1 normal heart sound present and S2 normal heart sound present Bruits: no carotid bruits GI Inspection: Yes normal to inspection Skin Wounds: no wounds Hair: normal Neuro General: oriented to person, oriented to place and oriented to time Cranial nerves: Yes CN's II-XII intact bilaterally and Yes Normal hearing present Cognition (Neuro): normal cognition Motor exam (neuro): 5/5 motor strength present throughout Extrem Other: venous exam: No significant superficial varicosities or spider telangiectasias, minimal edema General: No clubbing, No cyanosis and No edema Psych Appearance: grossly normal Mental Status: mental status grossly normal Speech and movement: Normal speech and movement present Assessment & Plan Assessment & Plan (1) Peripheral vascular disease: Comment: [id number] right atherectomy and stent of SFA Code(s): I73.9 - Peripheral vascular disease, unspecified Category: Medical Plan: In short patient has stable claudication. I did review the pathophysiology of peripheral vascular disease with the patient. In addition we did discuss routine conservative measures including a healthy diet and the importance of exercise and ambulation. We did discuss risk factor modification. The patient will continue to to follow-up with surveillance follow-up in approximately 1 year. Thank you for allowing us to participate in this patient's care. If there are any questions or concerns please do not hesitate to contact us. Orders: Orders US arterial duplex LE BI 1 Year I73.9 - Peripheral vascular disease, unspecified Coding Level of Care Code Est Pt Level 4 (70292) Complex EM visit Add On G2211 Diagnoses Peripheral vascular disease I73.9
== END 2024-02-08 15:14 | disposition home or self-care (01) ==
LOC: HO.HVS 14:59
PROVIDERS: PCP Internal Medicine; Visit Provider Surgery Vascular Surgery
DX: I73.9 Peripheral vascular disease, unspecified (principal)
CPT/HCPCS: 99213; G2211

== ENCOUNTER → 2024-02-08 14:58 | Outpatient (BNVA) | payer MEDICARE, BC, SELFPAY | PROVIDERS: PCP Internal Medicine; Visit Provider Surgery Vascular Surgery | DX: I73.9 Peripheral vascular disease, unspecified (principal) | CPT/HCPCS: 99212 ==

== ENCOUNTER 2024-04-03 09:30 | Outpatient (REF) | payer MEDICARE, BC, SELFPAY ==
--- OUTSIDE RECORDS SUMMARY | 2024-04-03 09:34 | XMS_ITS ---
Author Organization [facility] Address [address] [place] [address] Care Team Providers Care Echo Tech Name Role Phone Emmanuel Mistry MD Primary Care Provider Kati Fang Unavailable [phone] ALLERGIES No Known Allergies REASON FOR VISIT [...] dysplasia (K22.70) Active confirmed Brody's esoph tameka (994340326) Problem Chronic GERD (K21.9) Active confirmed Gastroesophagea l reflux disease (disorder) (924054537) Problem Colon cancer screening (Z12.11) Active confirmed Colon cancer screening (715308211) Problem Personal history of colonic polyps (Z86.010) Active confirmed History of poly p of colon (situation) (689399029) VITAL SIGNS BMI 29.84 kg/m2 02/11/2024 Blood pressure systolic 00 mm Hg 02/11/20 24 Blood pressure diastolic 00 mm Hg 024 Height 71 in 02/11/2024 Weight 214 lbs 02/11/2024 Encounters Encounter Location Date Provider Diagnosis [facility] [address] [facility] [address] [place] [address] 02/11/2024 Kati Hdz Brody''s esophagus without dysplasia [...] Provider Name:Kati Hdz , 06/09/2024 10:30:00 AM, [address] [place] [address] , [place], [place], [phone], Progress Notes * Examination Category Sub-Category Detail [...]
--- OUTSIDE RECORDS SUMMARY | 2024-04-03 09:34 | XMS_ITS | Patient Health Record ---
Author Organization [facility] Address [address] [place] [address] Care Team Providers Care Process Maintenance Technician Name Role Phone Emmanuel Mistry MD Primary Care Provider Kati Fang Unavailable [phone] ALLERGIES No Known Allergies REASON FOR REFERRAL [...] esophagitis presence not specified (K21.9) Active confirmed 383024231 Problem Encounter for screening for malignant neoplasm of colon (Z12.11) Active confirmed 632964003 Problem Brody''s esophagus without dysplasia (K22.70) Active confirmed Brody's esophagus (166485692) Problem Chronic GERD (K21.9) Active confirmed Gastroesophagea l reflux disease (disorder) (898738388) Problem Colon cancer screening (Z12.11) Active confirmed Colon can cer screening (554840116) Problem Personal history of colonic polyps (Z86.010) Active confirmed History of poly p of colon (situation) (332243398) VITAL SIGNS Blood pressure diastolic 00 mm Hg 02/11/2024 Height 71 in 02/11/2024 Blood pressure systolic 00 mm Hg 02/11/2024 Weight 214 lbs 02/11/2024 BMI 29.84 kg/m2 02/11/2024 Encounters Encounter Location Date Provider Diagnosis [facility] [address] [facility] [address] [place] [address] 02/11/2024 Kati Hdz Brody''s esophagus without dysplasia [...] Provider Name:Kati Hdz , 06/09/2024 10:30:00 AM, [address] [place] [address] , [place], [place], [phone], Insurance Providers Payer Name Payer Address Payer Phone Subscriber Number Group Number Insured Name Patient Relationship to Insured Coverage Start Date Coverage End Date MED[place]ARE OF [place] [address] [place] [address] [id number] KATI ZEPEDA Self - patient is the insured [facility] [address] [place], [place] [id number] KATELYN KATI Self - patient is the insured MEDICAL (GENERAL) HISTORY Medical History History ICD Code Denies [place],DM,CVA,Lung disease,renal dise ase Negative colonoscopy in 08/2007 [...]
[2024-04-03 10:06] LABS: MANUAL DIFF FLAG NO
[2024-04-03 10:30] LABS: Basophils Absolute Auto 0.1 X10*3/uL (0.0-0.2); Basophils Percent Auto 0.7 % (0-2); Eosinophils Absolute Auto 0.3 X10*3/uL (0.0-0.4); Eosinophils Percent Auto 3.7 % (0-4); Hematocrit 45.3 % (42.0-52.0); Hemoglobin 15.5 g/dl (14.0-18.0); Imm Gran Abs Auto 0.07 X10*3/uL (0.00-0.03); Imm Gran Pct Auto 0.9 % (0.0-0.4); Lymphocytes Absolute Auto 2.3 X10*3/uL (1.2-4.9); Lymphocytes Percent Auto 28.6 % (20-40); Mean Corpuscular HGB Conc 34.2 g/dl (31.0-36.0); Mean Corpuscular Hemoglobin 31.3 pg (27.0-33.0); Mean Corpuscular Volume 91.3 fL (80.0-98.0); Mean Platelet Volume 9.6 fL (9.4-12.4); Monocytes Absolute Auto 0.6 X10*3/uL (0.1-1.2); Monocytes Percent Auto 7.4 % (2-11); Neutrophils Absolute Auto 4.7 x10*3/uL (2.0-8.3); Neutrophils Percent Auto 58.7 % (45-73); Platelet Count 206 X10*3/uL (160-400); Red Blood Count 4.96 X10*6/uL (4.60-5.80); Red Cell Distribution Width 13.5 % (11.0-16.0)
[2024-04-03 10:49] LABS: Anion Gap 11 (12-20); Blood Urea Nitrogen 17 mg/dL (9-16); Calcium 8.8 mg/dL (8.4-10.2); Carbon Dioxide 27 mmol/L (22-29); Chloride 107 mmol/L (96-108); Estimated Glomerular Filt Rate 47; Phosphorus 3.4 mg/dL (2.7-4.5); Potassium 4.4 mmol/L (3.3-5.1); Sodium 141 mmol/L (135-145)
[2024-04-03 10:53] LABS: Parathyroid Hormone Intact 115.8 pg/mL (8.7-77.1)
== END 2024-04-03 09:31 | disposition home or self-care (01) ==
LOC: HO.LAB 09:30
PROVIDERS: PCP Internal Medicine; Visit Provider Internal Medicine Nephrology
DX: N18.31 Chronic kidney disease, stage 3a (principal); I10 Essential (primary) hypertension
CPT/HCPCS: 36415; 80051; 82310; 82565; 83970; 84100; 84520; 85025

== ENCOUNTER 2024-04-17 08:27 | Outpatient (REF) | payer MEDICARE, BC, SELFPAY ==
[2024-04-17 08:38] LABS: MANUAL DIFF FLAG NO
--- OUTSIDE RECORDS SUMMARY | 2024-04-17 08:45 | XMS_ITS ---
Author Organization [facility] Address [address] [place] [address] Care Team Providers Care Fulfillment Coordinator Name Role Phone Emmanuel Mistry MD Primary Care Provider Kati Fang Unavailable [phone] ALLERGIES No Known Allergies REASON FOR VISIT [...] dysplasia (K22.70) Active confirmed Brody's esoph tameka (593248859) Problem Chronic GERD (K21.9) Active confirmed Gastroesophagea l reflux disease (disorder) (290992413) Problem Colon cancer screening (Z12.11) Active confirmed Colon cancer screening (658133628) Problem Personal history of colonic polyps (Z86.010) Active confirmed History of poly p of colon (situation) (900991438) VITAL SIGNS BMI 29.84 kg/m2 02/11/2024 Blood pressure systolic 00 mm Hg 02/11/20 24 Blood pressure diastolic 00 mm Hg 024 Height 71 in 02/11/2024 Weight 214 lbs 02/11/2024 Encounters Encounter Location Date Provider Diagnosis [facility] [address] [facility] [address] [place] [address] 02/11/2024 Kati Hdz Brody''s esophagus without dysplasia [...] Provider Name:Kati Hdz , 06/09/2024 10:30:00 AM, [address] [place] [address] , [place], [place], [phone], Progress Notes * Examination Category Sub-Category Detail [...]
--- OUTSIDE RECORDS SUMMARY | 2024-04-17 08:45 | XMS_ITS | Patient Health Record ---
Author Organization [facility] Address [address] [place] [address] Care Team Providers Care Diabetes Specialist Name Role Phone Emmanuel Mistry MD Primary Care Provider Kati Fang Unavailable [phone] ALLERGIES No Known Allergies REASON FOR REFERRAL [...] esophagitis presence not specified (K21.9) Active confirmed 930491721 Problem Encounter for screening for malignant neoplasm of colon (Z12.11) Active confirmed 263310888 Problem Brody''s esophagus without dysplasia (K22.70) Active confirmed Brody's esophagus (895659722) Problem Chronic GERD (K21.9) Active confirmed Gastroesophagea l reflux disease (disorder) (120815590) Problem Colon cancer screening (Z12.11) Active confirmed Colon can cer screening (948826239) Problem Personal history of colonic polyps (Z86.010) Active confirmed History of poly p of colon (situation) (175213303) VITAL SIGNS Blood pressure diastolic 00 mm Hg 02/11/2024 Height 71 in 02/11/2024 Blood pressure systolic 00 mm Hg 02/11/2024 Weight 214 lbs 02/11/2024 BMI 29.84 kg/m2 02/11/2024 Encounters Encounter Location Date Provider Diagnosis [facility] [address] [facility] [address] [place] [address] 02/11/2024 Kati Hdz Brody''s esophagus without dysplasia [...] Provider Name:Kati Hdz , 06/09/2024 10:30:00 AM, [address] [place] [address] , [place], [place], [phone], Insurance Providers Payer Name Payer Address Payer Phone Subscriber Number Group Number Insured Name Patient Relationship to Insured Coverage Start Date Coverage End Date MEDICARE OF [place] [address] [place] [address] [id number] KATI ZEPEDA Self - patient is the insured [facility] [address] [place], [place] [id number] KATELYN KATI Self - patient is the insured MEDICAL (GENERAL) HISTORY Medical History History ICD Code Denies [place],DM,CVA,Lung disease,renal dise ase Negative colonoscopy in 08/2007 [...]
[2024-04-17 08:57] LABS: Basophils Percent Auto 0.5 % (0-2); Eosinophils Absolute Auto 0.2 X10*3/uL (0.0-0.4); Eosinophils Percent Auto 3.1 % (0-4); Hematocrit 46.6 % (42.0-52.0); Hemoglobin 15.9 g/dl (14.0-18.0); Imm Gran Abs Auto 0.02 X10*3/uL (0.00-0.03); Imm Gran Pct Auto 0.3 % (0.0-0.4); Lymphocytes Absolute Auto 2.3 X10*3/uL (1.2-4.9); Lymphocytes Percent Auto 31.6 % (20-40); Mean Corpuscular HGB Conc 34.1 g/dl (31.0-36.0); Mean Corpuscular Hemoglobin 31.2 pg (27.0-33.0); Mean Corpuscular Volume 91.4 fL (80.0-98.0); Mean Platelet Volume 9.5 fL (9.4-12.4); Monocytes Absolute Auto 0.5 X10*3/uL (0.1-1.2); Monocytes Percent Auto 7.2 % (2-11); Neutrophils Absolute Auto 4.2 x10*3/uL (2.0-8.3); Neutrophils Percent Auto 57.3 % (45-73); Platelet Count 197 X10*3/uL (160-400); Red Cell Distribution Width 13.3 % (11.0-16.0); White Blood Count 7.4 X10*3/uL (4.8-10.8)
[2024-04-17 09:06] LABS: Estimated Average Glucose 111 mg/dL; Hemoglobin A1C 145.4973 umol/L; Hemoglobin A1c % 5.5 % (<6.0); Total Hemoglobin (HGBA1C) 3955.3673 umol/L
[2024-04-17 09:21] LABS: Appearance Urine Clear; Color Urine Yellow; Glucose Urine UA Negative (Negative); Leukocyte Esterase Urine Negative (Negative); Nitrite Urine Negative (Negative); Urine Blood Negative (Negative); Urine Ketones Negative (Negative); Urine Protein Negative (Neg-Trace)
[2024-04-17 09:34] LABS: Alanine Aminotransferase 27 U/L (0-40); Albumin Level 4.4 g/dL (3.5-5.0); Alkaline Phosphatase 61 U/L (39-117); Anion Gap 11 (12-20); Aspartate Amino Transferase 32 U/L (5-37); Bilirubin Total 0.9 mg/dL (0.0-1.0); Blood Urea Nitrogen 18 mg/dL (9-16); Calcium 9.4 mg/dL (8.4-10.2); Carbon Dioxide 27 mmol/L (22-29); Chloride 107 mmol/L (96-108); Cholesterol 164 mg/dL (<200); Estimated Glomerular Filt Rate 51; Glucose Random 104 mg/dL (60-115); HDL Cholesterol 43 mg/dL (>40); LDL Cholesterol Calculated 93 mg/dL (<100); Potassium 4.4 mmol/L (3.3-5.1); Sodium 141 mmol/L (135-145); Total Protein 7.3 g/dL (6.5-8.0); Triglycerides 142 mg/dL (<150)
[2024-04-17 09:40] LABS: Thyroid Stimulating Hormone 1.06 uIU/mL (0.32-4.0)
== END 2024-04-17 08:28 | disposition home or self-care (01) ==
LOC: HO.LAB 08:27
PROVIDERS: PCP Internal Medicine; Visit Provider Internal Medicine
DX: I10 Essential (primary) hypertension (principal); E78.00 Pure hypercholesterolemia, unspecified; R73.01 Impaired fasting glucose; R35.1 Nocturia
CPT/HCPCS: 36415; 80053; 80061; 81003; 83036; 84443; 85025; 99212

== ENCOUNTER 2024-04-17 09:21 | Outpatient (AMB) | payer MEDICARE, BC, SELFPAY ==
[2024-04-17 09:26] VITALS: BP 116/60; PULSE 74; O2SAT 96; BMI 29.8
--- NOTE | 2024-04-17 09:26 | HO.NEPHOV_ITS ---
Vital Signs 04/17/24 09:26 Height 5 ft 11 in Weight 214 lb BMI 29.8 BP 116/60 Blood Pressure Location Rt brachial Position Sitting Pulse 74 Pulse Source Pulse Oximeter Pulse Oximetry (%) 96 Oxygen Delivery Method Room Air Intake Visit Reasons: CKD/ Conf Senior Software Project Manager Required: No Accompanied by: Self / Same As Patient Allergies No Known Allergies Allergy (Verified 04/17/24 09:26) HPI Comments Details: Mario was seen in follow-up of his chronic kidney disease and hypertension. He has history of coronary artery disease and had undergone cardiac catheterization in 2019. He has history of atrial fibrillation and has been on Eliquis. He has peripheral arterial disease and had undergone stenting in his right lower extremity. He denies any active peripheral artery disease symptoms. He does not have any chest pain, shortness of breath, nausea, vomiting, diarrhea, urinary symptoms, pedal edema. He does not take any nonsteroidal anti- inflammatories. He did not have any active medical issues at the time of this office visit [facility] Medical History Peripheral vascular disease Other and unspecified hyperlipidemia Essential hypertension PAF (paroxysmal atrial fibrillation) Atherosclerotic cardiovascular disease Hyperlipemia Afib GERD (gastroesophageal reflux disease) HTN (hypertension) Surgical History History of cardiac catheterization (~12/12/19) Family History Father CHF (congestive heart failure) Vascular disorder Mother Respiratory disease Social History Alcohol intake: never Patient Tobacco Use Status: Never used Tobacco Review of Systems Const All systems reviewed & are unremarkable except as noted in HPI and below Physical Exam Vital Signs: Last Vital Signs Pulse 74 04/17/24 09:26 BP 116/60 04/17/24 09:26 Pulse Ox 96 04/17/24 09:26 Oxygen Delivery Method Room Air 04/17/24 09:26 BMI result Body Mass Index 29.8 Const General: comfortable and no acute distress Orientation/consciousness: patient oriented x3 HEENT Head: Yes normocephalic Mouth: Normal oral and palatal mucosa present Eyes EOM: EOMs intact bilaterally Neck Neck: Yes supple Resp Auscultation: clear to auscultation bilaterally Cardio Jugular venous distension: no JVD Rate: regular rate GI Palpation (GI): Soft to palpation Auscultation: normal bowel sounds General: Yes no CVA tenderness Back/Spine/Pelvis Back: no CVA tenderness Skin General skin exam: no rashes or lesions noted Neuro General: patient oriented x3 and moves all extremities Extrem General: Yes no pedal edema Results Reviewed Nephrology Results: Hgb 15.9 g/dl (14.0-18.0) 04/17/24 WBC 7.4 X10*3/uL (4.8-10.8) 04/17/24 Plt Count 197 X10*3/uL (160-400) 04/17/24 Sodium 141 mmol/L (135-145) 04/03/24 Potassium 4.4 mmol/L (3.3-5.1) 04/03/24 Chloride 107 mmol/L (96-108) 04/03/24 Carbon Dioxide 27 mmol/L (22-29) 04/03/24 BUN 17 mg/dL (9-16) H 04/03/24 Creatinine 1.49 mg/dL (0.5-1.4) H 04/03/24 Calcium 8.8 mg/dL (8.4-10.2) 04/03/24 Phosphorus 3.4 mg/dL (2.7-4.5) 04/03/24 PTH Intact 115.8 pg/mL (8.7-77.1) H 04/03/24 Urine Protein Negative mg/dL (Neg-Trace) 04/17/24 Assessment & Plan Assessment & Plan (1) CKD (chronic kidney disease) stage 3, GFR 30-59 ml/min: Code(s): N18.30 - Chronic kidney disease, stage 3 unspecified Category: Medical Qualifiers: Chronic kidney disease stage 3 subtype: stage 3a (GFR 45-59) Qualified Code(s): N18.31 - Chronic kidney disease, stage 3a (2) Peripheral vascular disease: Comment: 1022 2018 right atherectomy and stent of SFA Code(s): I73.9 - Peripheral vascular disease, unspecified Category: Medical (3) Essential hypertension: Code(s): I10 - Essential (primary) hypertension Category: Medical Plan Mario has chronic kidney disease from vascular disease. His blood pressure is at goal at home. His serum creatinine is stable. He has history of peripheral arterial disease and had a stent put in in his right lower extremity. He likely has vascular disease in the kidney as well. He has right carotid stenosis and had USS. He avoids nonsteroidal anti-inflammatories and tries hard to remain well hydrated. If his blood pressure goes up he will be a candidate for SGTL2 i in the future. I did not make any medication changes today. All his questions were answered. Follow-up appointment given Orders: Orders Blood Urea Nitrogen 6 Months I10 - Essential (primary) hypertension, I73.9 - Peripheral vascular disease, unspecified, N18.31 - Chronic kidney disease, stage 3a Electrolytes 6 Months I10 - Essential (primary) hypertension, I73.9 - Peripheral vascular disease, unspecified, N18.31 - Chronic kidney disease, stage 3a Creatinine 6 Months I10 - Essential (primary) hypertension, I73.9 - Peripheral vascular disease, unspecified, N18.31 - Chronic kidney disease, stage 3a Vitamin D 25-OH Total 6 Months I10 - Essential (primary) hypertension, I73.9 - Peripheral vascular disease, unspecified, N18.31 - Chronic kidney disease, stage 3a Parathyroid Hormone Intact 6 Months I10 - Essential (primary) hypertension, I73.9 - Peripheral vascular disease, unspecified, N18.31 - Chronic kidney disease, stage 3a Coding Level of Care Code Est Pt Level 4 (92620) Diagnoses Stage 3a chronic kidney disease N18.31 Chronic kidney disease stage 3 subtype: stage 3a (GFR 45-59) Peripheral vascular disease I73.9 Essential hypertension I10
== END 2024-04-17 09:39 | disposition home or self-care (01) ==
PROVIDERS: PCP Internal Medicine; Visit Provider Internal Medicine Nephrology
DX: I12.9 Hypertensive chronic kidney disease with stage 1 through stage 4 chronic kidney disease, or unspecified chronic kidney disease (principal); N18.31 Chronic kidney disease, stage 3a; I73.9 Peripheral vascular disease, unspecified
CPT/HCPCS: 99214

== ENCOUNTER 2024-05-22 08:14 | Outpatient (AMB) | payer MEDICARE, BC, SELFPAY ==
--- NOTE | 2024-05-22 08:32 | MHC.OFFVIS ---
Vital Signs 05/22/24 08:33 Height 5 ft 11 in Weight 213 lb 13.574 oz BMI 29.8 BP 124/62 Blood Pressure Location Lt brachial Position Sitting Pulse 64 Pulse Source Monitor Intake Visit Reasons: 1yr f/u R/s fr 03/22 Staking Press Operator Required: No Allergies No Known Allergies Allergy (Verified 05/22/24 08:35) Medication List - Last Reconciled 05/22/24 by Paulina Sanchez NP-C amlodipine 10 mg PO DAILY apixaban 5 mg PO BID 90 days aspirin 81 mg PO DAILY atorvastatin 80 mg PO DAILY ezetimibe 10 mg PO DAILY metoprolol succinate ER 25 mg PO DAILY HPI HPI 1yr f/u R/s 03/22: Details: Mario is a 68-year-old male with past medical history of remote smoking, hypertension, hyperlipidemia, CAD, paroxysmal AFib who presents for follow-up. His last visit was 01/27/2023. Today he reports he has been doing well since his last visit here. He denies any chest discomfort at rest or with activity. He has no shortness of breath, PND, orthopnea or edema. He denies heart palpitations, lightheadedness, presyncope, syncope. He takes all his meds as directed. No bleeding issues reported. 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 [facility] Medical History Peripheral vascular disease Other and unspecified hyperlipidemia Essential hypertension PAF (paroxysmal atrial fibrillation) Atherosclerotic cardiovascular disease Hyperlipemia Afib GERD (gastroesophageal reflux disease) HTN (hypertension) Surgical History History of cardiac catheterization (~12/12/19) Family History Father CHF (congestive heart failure) Vascular disorder Mother Respiratory disease Social History Alcohol intake: never Patient Tobacco Use Status: Never used Tobacco Review of Systems Const All systems reviewed & are unremarkable except as noted in HPI and below Card Denies chest pain, Denies chest pain at rest, Denies chest pain with activity, Denies rapid heart rate, Denies leg edema, Denies palpitations, Denies dyspnea, Denies dyspnea on exertion and Denies orthopnea Resp Denies dyspnea and Denies dyspnea on exertion GI Denies no additional complaints Musc Denies no additional complaints Endo Denies palpitations Physical Exam Vital Signs: Last Vital Signs Pulse 64 05/22/24 08:33 BP 124/62 05/22/24 08:33 BMI result Body Mass Index 29.8 Const General: cooperative, healthy appearing, comfortable and no acute distress Orientation/consciousness: patient oriented x3 Neck Neck: Yes normal visual inspection and Yes no JVD Carotids: normal carotid upstroke Chest Chest palpation & inspection: normal inspection of the chest Resp Effort & Inspection: normal respiratory effort Auscultation: clear to auscultation bilaterally, no crackles, no rales, no rhonchi and no wheezes Cardio Jugular venous distension: no JVD Rate: regular rate Rhythm: regular rhythm Heart sounds: S1 normal heart sound present, S2 normal heart sound present, no gallops, no murmurs and no rubs Neuro General: patient oriented x3 Extrem General: Yes normal to inspection, No no pedal edema and No calf tenderness Psych Appearance: grossly normal Mental Status: mental status grossly normal Speech and movement: Normal speech and movement present Office Procedures EKG Details: Today, read by me, SR, with SA, rate 64, QTc 441ms [id number], Complete Assessment & Plan Assessment & Plan (1) Atherosclerotic cardiovascular disease: Code(s): I25.10 - Atherosclerotic heart disease of coqu[place] coronary artery without angina pectoris Category: Medical Plan: History of CAD. Cardiac catheterization from 2019 showed left main mild disease, lad distal 40% stenosis, circumflex 2nd OM, 30% stenosis, RCA normal. Nuclear stress test done 03/19/2023 showed exercise 8 minutes with no EKG changes, no anginal symptoms and normal myocardial perfusion imaging. Echocardiogram done 03/19/2023 showing EF 66%, mild increase in the RV size, mild calcification of the aortic valve. EKG done today showing normal sinus rhythm with sinus arrhythmia, rate 64. Has no reports of anginal symptoms. He has good activity tolerance. Compliant with meds. Continue aspirin indefinitely. Continue high-dose atorvastatin and Zetia with ideal LDL goal less than 70. Continue metoprolol and amlodipine for good heart rate and blood pressure control. Blood pressure today 124/62. Signs and symptoms of angina reviewed. Cardiology follow-up in 6 months, sooner if needed. (2) PAF (paroxysmal atrial fibrillation): Code(s): I48.0 - Paroxysmal atrial fibrillation Category: Medical Plan: History of paroxysmal atrial fibrillation. Patient states he never feels heart palpitations. EKG done today showing normal sinus rhythm. Continue metoprolol for heart rate control. Continue Eliquis for anticoagulation. No bleeding issues reported. Labs done 04/17/2024 showed hemoglobin 15.9, creatinine 1.37. (3) Essential hypertension: Code(s): I10 - Essential (primary) hypertension Category: Medical Plan: Well controlled at this time. Continue amlodipine and metoprolol. (4) Other and unspecified hyperlipidemia: Code(s): E78.5 - Hyperlipidemia, unspecified Category: Medical Plan: [place] LDL goal less than 70. He is on atorvastatin and Zetia. Labs done 04/17/2024 showed LDL 93. He is taking atorvastatin in the morning. Recommended he change atorvastatin to bedtime and takes Zetia in the morning. Obtain a recheck of fasting lipids in 3 months. Weight loss, low-fat diet and exercise reviewed (5) Peripheral vascular disease: Comment: 1023 2018 right atherectomy and stent of SFA Code(s): I73.9 - Peripheral vascular disease, unspecified Category: Medical Plan: Follows with Dr. Ojeda Plan Time spent on chart review, documentation, interview and assessment Orders: Orders Lipid Panel 2 Months I25.10 - Atherosclerotic heart disease of [place] coronary artery without angina pectoris Coding Level of Care Code Est Pt Level 4 (63985) Complex EM visit Add On G2211 Diagnoses Atherosclerotic cardiovascular disease I25.10 PAF (paroxysmal atrial fibrillation) I48.0 Essential hypertension I10 Other and unspecified hyperlipidemia E78.5 Peripheral vascular disease I73.9 CPT Codes EKG - CPT: 95998-Wmywizkbwbsmyvbay, Complete ([id number]) Time Spent (min) 28
[2024-05-22 08:33] VITALS: BP 124/62; PULSE 64; BMI 29.8
== END 2024-05-22 09:01 | disposition home or self-care (01) ==
PROVIDERS: PCP Internal Medicine; Visit Provider Nurse Practitioner Family
DX: I25.10 Atherosclerotic heart disease of native coronary artery without angina pectoris (principal); I48.0 Paroxysmal atrial fibrillation; I10 Essential (primary) hypertension; E78.5 Hyperlipidemia, unspecified; I73.9 Peripheral vascular disease, unspecified
CPT/HCPCS: 93010; 99214; G2211

== ENCOUNTER → 2024-05-22 08:14 | Outpatient (BNVA) | payer MEDICARE, BC, SELFPAY | PROVIDERS: PCP Internal Medicine; Visit Provider Nurse Practitioner Family | DX: I25.10 Atherosclerotic heart disease of native coronary artery without angina pectoris (principal); I48.0 Paroxysmal atrial fibrillation; I73.9 Peripheral vascular disease, unspecified; I10 Essential (primary) hypertension; E78.5 Hyperlipidemia, unspecified | CPT/HCPCS: 93005; 99212 ==

== ENCOUNTER 2024-06-09 09:19 | Day surgery (SDC) | payer MEDICARE, BC, SELFPAY ==
--- OUTSIDE RECORDS SUMMARY | 2024-03-28 07:52 | XMS_ITS | Patient Health Record ---
Author Organization [facility] Address [address] [place] [address] Care Team Providers Care Cafeteria Aide Name Role Phone Emmanuel Mistry MD Primary Care Provider Kati Fang Unavailable [phone] ALLERGIES No Known Allergies REASON FOR REFERRAL No Information MEDICATIONS Medication SIG (Take, Route, Frequency, Duration) Notes Start Date End Date Status Atorvastatin Calcium 80 MG TAKE 1 TABLET BY MOUTH DAILY Orally Once a day Active Aspir-Low 81 MG 1 tablet Orally Once a day for 30 day(s) Active amLODIPine Besylate 10 MG Oral for 90 Active Metoprolol Succinate ER 25 MG TAKE 1 TABLET BY MOUTH EVERY DAY Oral for 90 Active Ezetimibe 10 MG Oral for 90 Ac tive Eliquis 5 MG Oral for 90 Activ e IMMUNIZATIONS Vaccine Route Administration Date Status Comme nts Influenza Unknown 01/19/2018 Administered SOCIAL HISTORY Tobacco Use: Social History Observation Description Date Details (start date - stop date) Never Smoker NA - NA Sex Assigned At : Social History Observation Description Sex Assigned At Unknown Tobacco Use/Smoking Question Answer Notes Patient is a nonsmoker Alcohol Screen Question Answer Notes Did you have a drink contain ing alcohol in the past year? Yes How often did you have a dri nk containing alcohol in the past year? 2 to 4 times a month (2 points) How many drinks did you have on a typical day when you were drinking in the past year? 1 or 2 drinks (0 point) How often did you have 6 or more drinks on one occasion in the past year? Never (0 point) Points 2 Interpretation Negative PROBLEMS Problem Type ICD Code Onset Dates Problem Status W/U Status Risk SNOMED Code Notes Problem Gastroesophageal reflux disease, esophagitis presence not specified (K21.9) Active confirmed 190320268 Problem Encounter for screening for malignant neoplasm of colon (Z12.11) Active confirmed 259686662 Problem Brody''s esophagus without dysplasia (K22.70) Active confirmed Brody's esophagus (351220347) Problem Chronic GERD (K21.9) Active confirmed Gastroesophagea l reflux disease (disorder) (615794353) Problem Colon cancer screening (Z12.11) Active confirmed Colon can cer screening (205942488) Problem Personal history of colonic polyps (Z86.010) Active confirmed History of poly p of colon (situation) (390746533) VITAL SIGNS Blood pressure diastolic 00 mm Hg 02/11/2024 Height 71 in 02/11/2024 Blood pressure systolic 00 mm Hg 02/11/2024 Weight 214 lbs 02/11/2024 BMI 29.84 kg/m2 02/11/2024 Encounters Encounter Location Date Provider Diagnosis [facility] [address] [facility] [address] [place] [address] 02/11/2024 Kati Hdz Brody''s esophagus without dysplasia K22.70 ; Chronic GERD K21.9 ; Encounter for screening for malignant neoplasm of colon Z12.11 ; Colon cancer screening Z12.11 and Personal history of colonic polyps Z86.010 ASSESSMENTS Encounter Date Diagnosis Assessment Notes Treatment Notes Treatment Clinical Notes 02/11/2024 Brody''s esophagus without dysplasia (ICD-10 - K22.70) 02/11/2024 Chronic GERD (ICD-10 - K21.9) 02/11/2024 Encounter for screening for malignant neoplasm of colon (ICD-10 - Z12.11) Stop Eliquis for three days before the colonoscopy Do not take the aspirin on the morning of the procedures 02/11/2024 Colon cancer screening (ICD-10 - Z12.11) 02/11/2024 Personal history of colonic polyps (ICD-10 - Z86.010) PLAN OF TREATMENT Future Test Test Name Order Date UPPER GI ENDOSCOPY 04/27/2018 COLONOSCOPY 04/27/2018 UPPER GI ENDOSCOPY 02/11/2024 COLONOSCOPY 02/11/2024 Next Appt Details Provider Name:Kati Hdz , 06/09/2024 10:30:00 AM, [address] [place] [address] , [place], [place], [phone], Insurance Providers Payer Name Payer Address Payer Phone Subscriber Number Group Number Insured Name Patient Relationship to Insured Coverage Start Date Coverage End Date MEDICARE OF [place] [address] [place] [address] [id number] KATI ZEPEDA Self - patient is the insured [facility] [employer] [address] [place], [place] [id number] KATELYN KATI Self - patient is the insured MEDICAL (GENERAL) HISTORY Medical History History ICD Code Denies [place],DM,CVA,Lung disease,renal dise ase Negative colonoscopy in 08/2007 except fo r a hyperplastic polyp Hyperlipidemia HTN GERD--upper endoscopy in May revealed a small hiatal hernia, small areas of erosive esophagitis, and small areas of Brody's esophagus without dysplasia Screening colonoscopy in May revealed a small tubular adenoma and small serrated colon polyps that were removed A FIB - DR. ALSTON PVD with stent in RLE--sees Dr. Ojeda Surgical History Surgery Date(Month/Year)
--- OUTSIDE RECORDS SUMMARY | 2024-03-28 07:52 | XMS_ITS ---
Author Organization [facility] Address [address] [place] [address] Care Team Providers Care Agronomy Specialist Name Role Phone Emmanuel Mistry MD Primary Care Provider Kati Fang Unavailable [phone] ALLERGIES No Known Allergies REASON FOR VISIT Patient presents today for a colon recall MEDICATIONS Medication SIG (Take, Route, Frequency, Duration) Notes Start Date End Date Status Atorvastatin Calcium 80 MG TAKE 1 TABLET BY MOUTH DAILY Orally Once a day Active Aspir-Low 81 MG 1 tablet Orally Once a day for 30 day(s) Active Ezetimibe 10 MG Oral for 90 Ac tive amLODIPine Besylate 10 MG Oral for 90 Active Metoprolol Succinate ER 25 MG TAKE 1 TABLET BY MOUTH EVERY DAY Oral for 90 Active Eliquis 5 MG Oral for 90 Activ e SOCIAL HISTORY Tobacco Use: Social History Observation [...] W/U Status Risk SNOMED Code Notes Problem Brody''s esophagus without dysplasia (K22.70) Active confirmed Brody's esoph tameka (844800531) Problem Chronic GERD (K21.9) Active confirmed Gastroesophagea l reflux disease (disorder) (771872266) Problem Colon cancer screening (Z12.11) Active confirmed Colon cancer screening (099977382) Problem Personal history of colonic polyps (Z86.010) Active confirmed History of poly p of colon (situation) (138041806) VITAL SIGNS BMI 29.84 kg/m2 02/11/2024 Blood pressure systolic 00 mm Hg 02/11/20 24 Blood pressure diastolic 00 mm Hg 024 Height 71 in 02/11/2024 Weight 214 lbs 02/11/2024 Encounters Encounter Location Date Provider Diagnosis [facility] [address] [facility] [address] [place] [address] 02/11/2024 Kati Hdz Brody''s esophagus without dysplasia [...] polyps (ICD-10 - Z86.010) PLAN OF TREATMENT Treatment Notes Assessment Notes Encounter for screening for malignant neoplasm of colon Stop Eliquis for three days before the colonoscopy Do not take the aspirin on the morning of the procedures Future Test Test Name Order Date UPPER GI ENDOSCOPY 02/11/2024 COLONOSCOPY 02/11/2024 Next Appt Details Follow Up: prn, Reason: Provider Name:Kati Hdz , 06/09/2024 10:30:00 AM, [address] [place] [address] , [place], [place], [phone], Progress Notes * Examination Category Sub-Category Detail Notes General Examination GENERAL APPEARANCE: pleasant , well nourished, well developed, in no acute distress HEAD: EYES: sclera non-icteric EARS: NOSE: THROAT: NECK/THYROID: no cervical lymphade nopathy, neck supple HEART: S1, S2 normal CHEST: LUNGS: clear to auscultatio n bilaterally ABDOMEN: normal bowel sounds, no guarding or rigidity, no guarding or rigidity, no masses palpable, soft, nontender, nondistended NEUROLOGIC: alert and oriented SKIN: nonjaundiced, no spi alex angiomata EXTREMITIES: no edema PERIPHERAL PULSES: BACK: BREASTS: MUSCULOSKELETAL: MALE GENITOURINARY: LYMPH NODES: RECTAL EXAM: FEMALE GENITOURINARY: ORAL CAVITY: mucosa moist
[2024-06-07 13:54] VITALS: BMI 29.8
--- NOTE | 2024-06-08 09:15 | HO.ANESPROP2 ---
Documented by User: Nat Burrell NP 06/08/24 09:18 HPI - Anesthesia Eval Consult details Narrative: 68yo M for Upper Endoscopy and Colonoscopy Follows [facility] Cardiology for CAD, PAF (eliquis). Stable at 05/2024 office visit Follows [facility] vascular for PAD - s/p RLE SFA stent 2019 PMFSH Active Problems Active Problems: All Active Problems Blunt trauma of rib (Acute) CKD (chronic kidney disease) stage 3, GFR 30-59 ml/min (Acute) Back pain (Acute) COVID-19 (Acute) Peripheral vascular disease (Acute) Other and unspecified hyperlipidemia (Acute) Essential hypertension (Acute) PAF (paroxysmal atrial fibrillation) (Acute) Atherosclerotic cardiovascular disease (Acute) Past Medical History Medical History (Updated 06/07/24 @ 13:56 by Adela Kelley RN) Peripheral vascular disease Other and unspecified hyperlipidemia Essential hypertension PAF (paroxysmal atrial fibrillation) Atherosclerotic cardiovascular disease Hyperlipemia Afib GERD (gastroesophageal reflux disease) HTN (hypertension) Family History Family History Father CHF (congestive heart failure) Vascular disorder Mother Respiratory disease Surgical History Surgical History (Updated 06/07/24 @ 13:55 by Adela Kelley RN) H/O colonoscopy History of cardiac catheterization (~12/12/19) Social History Social History (Updated 06/07/24 @ 13:56 by Adela Kelley RN) Are you a primary account executive healthcare to a significant other at home: No Do you presently have visiting nurse or other home services: No Alcohol intake: never Patient Tobacco Use Status: Former Tobacco user Tobacco use type: Cigarette Smoked in Last 30 Days: No Use of substances other than those prescribed or required for medical reasons: No Have you been hit, kicked, punched, or otherwise hurt by someone within the past year? If so, by whom?: No Are you DNR?: No Advance Directives: No Advance Directives Information Provided: No Advance Directives on File: No Recently lost weight without trying: No How much weight loss: Not applicable Eating poorly because of decreased appetite: No Nutrition screen score: 0 Nutrition Risks: No Nutritional Risk Poor oral hygiene: Yes (missing teeth throughout) Meds Allergies Allergy/AdvReac Type Severity Reaction Status Date / Time No Known Allergies Allergy Verified 06/09/24 09:54 Home Medications ?Medication ?Instructions ?Recorded ?Confirmed ?Last Taken ?Type aspirin 81 mg tablet,delayed 81 mg PO DAILY 06/19/20 06/09/24 06/08/24 History release Exam Height,Weight and Vital Signs: Height 5 ft 11 in Weight 97.069 kg Pertinent Lab Results Pertinent Lab Results: Laboratory Tests 04/17/24 08:37 WBC 7.4 Hgb 15.9 Hct 46.6 Plt Count 197 Sodium 141 Potassium 4.4 Chloride 107 Carbon Dioxide 27 BUN 18 H Creatinine 1.37 Narrative Narrative: EKG 05/2024 Details: Today, read by me, SR, with SA, rate 64, QTc 441ms Cardiac catheterization from 2019 showed left main mild disease, lad distal 40% stenosis, circumflex 2nd OM, 30% stenosis, RCA normal. Nuclear stress test done 03/19/2023 showed exercise 8 minutes with no EKG changes, no anginal symptoms and normal myocardial perfusion imaging. Echocardiogram done 03/19/2023 showing EF 66%, mild increase in the RV size, mild calcification of the aortic valve. Assessment and Plan Assessment Anesthesia Assessment: Chart Reviewed Documented by User: Daniel Alvarez MD 06/09/24 10:46 [facility] Past Medical History Medical History (Updated 06/07/24 @ 13:56 by Adela Kelley RN) Peripheral vascular disease Other and unspecified hyperlipidemia Essential hypertension PAF (paroxysmal atrial fibrillation) Atherosclerotic cardiovascular disease Hyperlipemia Afib GERD (gastroesophageal reflux disease) HTN (hypertension) Family History Family History Father CHF (congestive heart failure) Vascular disorder Mother Respiratory disease Family history of problems with anesthesia: No Surgical History Surgical History (Updated 06/07/24 @ 13:55 by Adela Kelley RN) H/O colonoscopy History of cardiac catheterization (~12/12/19) History of Problems with Anesthesia: No Social History Social History (Updated 06/07/24 @ 13:56 by Adela Kelley RN) Are you a primary account executive healthcare to a significant other at home: No Do you presently have visiting nurse or other home services: No Alcohol intake: never Patient Tobacco Use Status: Former Tobacco user Tobacco use type: Cigarette Smoked in Last 30 Days: No Use of substances other than those prescribed or required for medical reasons: No Have you been hit, kicked, punched, or otherwise hurt by someone within the past year? If so, by whom?: No Are you DNR?: No Advance Directives: No Advance Directives Information Provided: No Advance Directives on File: No Recently lost weight without trying: No How much weight loss: Not applicable Eating poorly because of decreased appetite: No Nutrition screen score: 0 Nutrition Risks: No Nutritional Risk Poor oral hygiene: Yes (missing teeth throughout) Meds Allergies Allergy/AdvReac Type Severity Reaction Status Date / Time No Known Allergies Allergy Verified 06/09/24 09:54 Home Medications ?Medication ?Instructions ?Recorded ?Confirmed ?Last Taken ?Type aspirin 81 mg tablet,delayed 81 mg PO DAILY 06/19/20 06/09/24 06/08/24 History release Exam Airway Mallampati Class: II TM Dist: <=3cm Neck ROM: Full Denture: Upper Loose/Missing/Broken Teeth: Lower Heart: ok. see above. Lungs: ok Assessment and Plan Assessment Anesthesia Assessment: Anesthesia Plan Discussed Final Anesthetic Review Family History of Problems with Anesthesia: No History of Problems with Anesthesia: No NPO: Yes ASA Class: III Final Preanesthetic Review: No Changes in Pt Med Stat, Meds/Allgs Chart Reviewed, Consent Obtained/Reviewed and Anes Risks/Benef Reviewed Patient Risk: High Procedure Risk: Intermediate Anesthetic Plan Anesthetic Plan: Agree w/ Assess. and Plan and TIVA Disposition: Standard PACU
[2024-06-09 10:12] VITALS: BP 169/71; PULSE 57; RESP 16; TEMP 36.9; O2SAT 97; BMI 29.0
[2024-06-09] MEDS: Lactated Ringers 1,000 ML 100 ML IVCONT (10:26)
[2024-06-09 11:46] VITALS: BP 112/65; PULSE 53; RESP 20; TEMP 36.6; O2SAT 92
--- NOTE | 2024-06-09 11:53 | PM.OP ---
Brief Operative Note Date of Service: 06/09/24 Pre-op diagnosis: GERD, Screening Post-op diagnosis: other (Hiatal hernia, Polyps) Procedure: EGD, Colonoscopy to the cecum and TI with bx/removal of polyp and hot snare polypectomy of polyp at 40cm with placement of 2 Resolution clips Surgeon: Mario Hdz MD Anesthesia: MAC Was an Associate Professor Of Management used for this Procedure?: No Estimated blood loss (mL): 2.0 Pathology: other (A. Ascending colon polyp B. Polyp at 40cm) Condition: stable Disposition: PACU
[2024-06-09 12:01] VITALS: BP 148/65; PULSE 54; RESP 20; TEMP 36.6; O2SAT 94
--- NOTE | 2024-06-09 22:14 | OP_ITS ---
DATE OF SERVICE: 06/09/2024 SURGEON: Mario Hdz MD INDICATIONS: The patient presents for evaluation of history of gastroesophageal reflux and Brody esophagus, personal history of tubular adenoma of the colon, and colorectal cancer screening. Full consent has been obtained from him for this, including risks of bleeding and perforation. PREOPERATIVE DIAGNOSIS: POSTOPERATIVE DIAGNOSIS: PROCEDURE PERFORMED: Esophagogastroduodenoscopy, and colonoscopy to the cecum and terminal ileum with biopsy and removal of polyp, and hot snare polypectomy of polyp at 40 cm with placement of 2 resolution clips. ESTIMATED BLOOD LOSS: COMPLICATIONS: ANESTHESIA: Medication use; monitored anesthesia care. ASSISTANTS: SPECIMENS: PREOPERATIVE DIAGNOSES: Gastroesophageal reflux, Brody esophagus, personal history of tubular adenoma of the colon, and colorectal cancer screening. POSTOPERATIVE DIAGNOSES: Gastroesophageal reflux, Brody esophagus, personal history of tubular adenoma of the colon, and colorectal cancer screening, hiatal hernia, colon polyps, diverticulosis, and internal hemorrhoids. DESCRIPTION OF PROCEDURE: The patient was placed in the left lateral decubitus position. The Olympus videogastroscope was passed in the posterior oropharynx and upper esophagus under direct vision. The scope was passed slowly into the distal esophagus. The gastroesophageal junction appeared normal at 35 cm. There was a very minimal irregularity from reflux, but no evidence of any esophagitis nor Brody esophagus. The scope entered the stomach. There was a small hiatal hernia. The hiatal hernia mucosa appeared normal. The scope was advanced to the pylorus and the duodenum was cannulated to the descending portion. The duodenum including the bulb appeared normal without mass or ulceration. The scope was withdrawn back in the stomach. The gastric antrum and body appeared normal with good peristalsis. The scope was retroflexed visualizing the proximal stomach carefully which appeared normal, without any sign of mass or ulceration. Scope was straightened and withdrawn back to the esophagus. The gastroesophageal junction appeared normal other than the very minimal irregularity. Therefore, biopsies were not obtained as he has to go back on blood thinners. The esophageal mucosa appeared normal. The scope was withdrawn from the patient. He was turned around for colonoscopy. The digital rectal exam revealed no abnormalities. The Olympus videopediatric colonoscope was entered into the rectum and advanced easily to the cecum. Once in the cecum, I did identify normal-appearing cecal pouch with appendiceal orifice and a normal-appearing ileocecal valve. The terminal ileum was cannulated and appeared normal. The scope was withdrawn back in the colon. The entire cecum and ileocecal valve appeared normal. Scope was then slowly withdrawn assessing all mucosal surfaces carefully. Preparation was excellent. In the proximal ascending colon, there was an approximately 5 mm grossly adenomatous polyp, which was biopsied and completely removed with cold biopsy forceps. At 40 cm, was a flat, but raised approximately 10-12 mm polyp, which was removed by hot snare polypectomy recovered by suction. The polypectomy site appeared clean, without any sign of residual polyp nor bleeding. Two resolution clips were applied to the polypectomy site with good deployment and good hemostasis. I did not visualize any other polyps, colitis, nor angiodysplasia. There was a mild amount of sigmoid diverticulosis. In the rectum, scope was retroflexed visualizing internal hemorrhoids, but no other pathology. The rectal mucosa appeared normal. The scope was straightened and withdrawn from the patient. He tolerated both procedures well and was returned to the recovery area in stable condition. IMPRESSION: 1. Hiatal hernia, otherwise normal upper endoscopy. 2. Colon polyps. 3. Diverticulosis. 4. Internal hemorrhoids. PLAN: Results of the pathology will be checked. He was advised to resume his Eliquis and aspirin on June 11. He was advised to stay off all NSAIDs long-term given his use of the other blood thinners. I would recommend a repeat colonoscopy in 5 years. I do not think we need any further upper endoscopies at this time. He has not been having any significant reflux symptoms, and therefore, I do not think he needs to be treated with any acid suppression at this time either. He will see me as needed. This has been discussed with his family. MD GISEL Greene/RALPH / [phone]
== END 2024-06-09 12:30 | disposition home or self-care (01) ==
PROVIDERS: Visit Provider Internal Medicine
PROC: (CPT 45385; principal; 2024-06-09 10:30)
DX: Z12.11 Encounter for screening for malignant neoplasm of colon (principal); Z86.0101 Personal history of adenomatous and serrated colon polyps; D12.2 Benign neoplasm of ascending colon; K63.5 Polyp of colon; K57.30 Diverticulosis of large intestine without perforation or abscess without bleeding; K64.8 Other hemorrhoids; K21.9 Gastro-esophageal reflux disease without esophagitis; K22.70 Barrett's esophagus without dysplasia; K44.9 Diaphragmatic hernia without obstruction or gangrene; I10 Essential (primary) hypertension; I48.91 Unspecified atrial fibrillation; E78.5 Hyperlipidemia, unspecified; I73.9 Peripheral vascular disease, unspecified; Z95.820 Peripheral vascular angioplasty status with implants and grafts; Z79.01 Long term (current) use of anticoagulants; Z79.82 Long term (current) use of aspirin; Z79.899 Other long term (current) drug therapy
CPT/HCPCS: 45385; 45380; 43235; 88305; J2003; J2704; J3010

== ENCOUNTER 2024-10-16 06:39 | Outpatient (REF) | payer MEDICARE, BC, SELFPAY ==
--- OUTSIDE RECORDS SUMMARY | 2024-06-09 06:30 | XMS_ITS ---
Author Organization [facility] Address [address] [place] [address] Care Team Providers Care Bench Mechanic Name Role Phone Emmanuel Mistry MD Primary Care Provider Kati Fang [phone] REASON FOR VISIT screening,hx polyps,ngo's ,gerd Encounters Encounter Location Date Provider Diagnosis [facility] [place] [address] [place] [phone] 06/09/2024 Kati Hdz Colon cancer scree angelique [...] Information Progress Notes * KATI ZEPEDADOB: [birth year] (68 yo M)Acc No.[id number]:06/09/2024 EGD and COL/MAC Patient: KATI MEZA Provider: Mana Hdz MD :1955 A ge:68 Y S ex:Male Date:06/09/2024 Address:[address] [place], [place] [phone] Pcp:Emmanuel Mistry MD Subjective: * Chief Complaints: [...] Procedure Codes: 4 5385 LESION REMOVAL COLONOSCOPY, 89677 COLONOSCOPY AND BIOPSY, Modifiers: 57 , 0529F INTRVL 3+YRS PTS CLNSCP DOCD, 0528F RCMND FLW-UP 10 YRS DOCD, 485[address] UPPR GI ENDOSCOPY, DIAGNOSIS * * The named appointment provid er may or may not be the originator of this progress note, and it is not deemed complete until electronically signed by the appointment provider. Sign off status: Pending * Provider: Mana Hdz MD Date: 0 06/09/2024 Generated for Sammi quintana/Aubrie/Carlosransmitting on: 0 10/16/2024 06:42 AM EDT
--- OUTSIDE RECORDS SUMMARY | 2024-10-16 06:43 | XMS_ITS | Clinical Summary ---
Author Organization [facility] Address [address] [place] [address] Phone Care Team Providers Care Therapeutic Specialist Name Role Phone Emmanuel Mistry MD Primary Care Provider [phone] Allergies No known active allergies Medications amLODIPine (NORVASC) 10 MG tablet Take 1 tablet by mouth 1 (one) time each day Active apixaban (ELIQUIS) 5 MG tablet Take 1 tablet by mouth 2 (two) times a day Active aspirin (ST TOD) 81 MG EC tablet Take 1 tablet by mouth 1 (one) time each day Active atorvastatin (LIPITOR) 80 MG tablet Take 1 tablet by mouth 1 (one) time each day Active fluticasone (FLONASE) 50 MCG/ACT nasal spray Administer 2 sprays into affected nostril(s) daily 1 Active omeprazole (PriLOSEC) [address] capsule Take 1 capsule by mouth 1 (one) time each day Active metoprolol succinate XL (TOPROL XL) 25 MG 24 hr tablet Take 1 tablet by mouth 1 (one) time each day 1 Active ezetimibe (ZETIA) 10 MG tablet Take 10 mg by mouth 1 (one) time each day Active Active Problems Problem Noted Date Diagnosed Date Stage 3a chronic kidney disease 06/24/2022 Hypertension 12/25/2020 Hypertensive renal disease 06/26/2020 Stage 3 chronic kidney disease 10/20/2019 Hypertensive disorder 05/27/2017 Overview (06/26/2020): Last Assessment & Plan: -BP controlled -Continue metoprolol and norvasc Renal insufficiency 05/27/2017 Resolved Problems Problem Noted Date Diagnosed Date Resolved Date Sensation of foreign body in throat 10/08/2020 12/25/2020 Overview (12/25/2020): Last Assessment & Plan: The exam was negative for any pathology but the 2 weeks sensation of foreign body within the throat should be investigated with a flexible endoscope that only in ears nose throat physician possesses. Therefore we will refer the patient to [facility] in [place] for a evaluation. Most likely it is something that has to do with the epiglottis. COVID-19 04/19/2020 06/26/2020 Overview (06/26/2020): Last Assessment & Plan: -Patient presented with persistent shortness of breath, tachycardia, and hypoxemia in the ED especially with ambulation -Labs show lymphopenia, elevated inflammatory markers including LDH, ferritin, D-dimer -CXR shows bilateral patchy infiltrates R>L -He is s/p antibiotic course including 5 days zpak and 10 days augmentin, will hold of on any further antibiotic treatment, check procalcitonin -legionella and strep pneumo antigens negative -Started on Decadron, Remdesivir on 04/19, day 4 today -prn albuterol, prn robitussin, prn antipyretics -Titrate supplemental O2, closely monitor oxygen requirement, patient weaned to room air If stable on RA tomorrow, possible discharge to home. Atrial fibrillation 04/18/2020 06/27/19 21 Overview (06/26/2020): Last Assessment & Plan: -HR mildly elevated with ambulation but improved with rest. Heart rate janet only to 115 with ambulation today. -continue metoprolol -continue anticoagulation with Eliquis Erectile dysfunction 05/27/2017 021 Hyperlipidemia 05/27/2017 06/26/2020 Overview (06/26/2020): Last Assessment & Plan: -LFTs mildly elevated, hold high dose statin, c.w remdesivir one more day and trend LFTS Hopeful for discharge to home tomorrow if stable Intermittent claudication 05/27/2017 Overview (06/26/2020): Last Assessment & Plan: -s/p stent -continue antiplatelet therapy with ASA Meralgia paresthetica of right lower limb 05/27/2017 06/26/2020 Pure hypercholesterolemia 05/27/2017 Immunizations Immunization Administration Dates Next Due Hepatitis B 04/12/1999 Influenza Split High Dose Preservative Free IM 0 12/14/2019 Influenza TIV (IM) 04/26/2012 Influenza, MDCK, PF, Quadrivalent 01/19/2019 Influenza, Unspecified 01/29/2018 Moderna SARS-COV-2 08/26/2020,07/22/2020 Pneumococcal Conjugate 13-Valent 10/20/2019 Pneumococcal Polysaccharide 10/28/2020 TD Preservative Free 12/03/2017,08/10/2006 Family History Relation Status Comments Father Alive Mother Social History Tobacco Use Types Packs/Day Years Used Date Smoking Tobacco: Never Smokeless Tobacco: Never Tobacco Cessation:Counseling Given: Not Answered Alcohol Use Standard Drinks/Week Comments Yes 0 (1 standard drink = 0.6 oz pure alcohol) Alcoholic Drinks/day: Occasional social drink Sex and Gender Information Value Date Recorded Sex Assigned at Not on file Legal Sex Male 4:55 PM EST Gender Identity Not on file Sexual Orientation Not on file Last Filed Vital Signs Vital Sign Reading Time Taken Comments Blood Pressure 126/70 06/24/2022 3:15 PM EDT Pulse 60 06/24/2022 3:15 PM EDT Temperature - - Respiratory Rate - - Oxygen Saturation 97% 12/25/2020 2:16 PM EDT Inhaled Oxygen Concentration - - Weight 97.3 kg (214 lb 6.4 oz) 06/24/2022 3:15 P M EDT Height 180.3 cm (5' 11 ) 12/27/2019 12:00 PM EDT Body Mass Index 29.9 12/27/2019 12:00 PM EDT Plan of Treatment Health Maintenance Due Date Last Done Comments Colorectal Cancer Screening: Annual FOBT 2002 Colorectal Cancer Screening: Colonoscopy 2002 Colorectal Cancer Screening: Sigmoidoscopy 2002 Influenza Vaccine (#1) 2024 , 01/19/2019, 01/29/2018, Additional history exists Hepatitis B Vaccine Aged Out 04/12/1999 No longe r eligible based on patient's age to complete this topic Pneumococcal Vaccine: 50+ Years Completed 10/28/2020, 10/20/2019 Pneumococcal Vaccine: Peds (0 to 5 Years) and At-Risk Patients (6 to 49 Years) Discontinued 10/28/2020, 10/20/2019 Insurance [facility] Medicare [facility] Medicare Care Teams Therapeutic Specialist Relationship Specialty Start Date End Date Emmanuel Mistry MD [address] [place] [address] PCP - General 04/22/20
[2024-10-16 07:10] LABS: MANUAL DIFF FLAG NO
[2024-10-16 07:56] LABS: Hematocrit 47.5 % (42.0-52.0); Hemoglobin 15.8 g/dl (14.0-18.0); Imm Gran Abs Auto 0.02 X10*3/uL (0.00-0.03); Imm Gran Pct Auto 0.2 % (0.0-0.4); Lymphocytes Absolute Auto 2.4 X10*3/uL (1.2-4.9); Mean Corpuscular HGB Conc 33.3 g/dl (31.0-36.0); Mean Corpuscular Hemoglobin 30.6 pg (27.0-33.0); Mean Corpuscular Volume 92.1 fL (80.0-98.0); NRBC Abs Auto 0.000 X10*3/uL (0.0-0.012); NRBC Pct Auto 0.0 /100WBC (0.0-0.2); Platelet Count 199 X10*3/uL (160-400); Red Blood Count 5.16 X10*6/uL (4.60-5.80); White Blood Count 8.8 X10*3/uL (4.8-10.8)
[2024-10-16 08:11] LABS: Hemoglobin A1C 155.7553 umol/L; Total Hemoglobin (HGBA1C) 4151.2078 umol/L
[2024-10-16 08:38] LABS: Appearance Urine Clear; Glucose Urine UA Negative (Negative); PH 6.5 (5.0-9.0); Specific Gravity - Urine 1.025 (1.005-1.025); UMIC TRIGGER UA YES
[2024-10-16 08:58] LABS: Alanine Aminotransferase 26 U/L (0-40); Albumin Level 4.3 g/dL (3.5-5.0); Alkaline Phosphatase 60 U/L (39-117); Anion Gap 13 (12-20); Aspartate Amino Transferase 33 U/L (5-37); Blood Urea Nitrogen 15 mg/dL (9-16); Calcium 8.6 mg/dL (8.4-10.2); Carbon Dioxide 26 mmol/L (22-29); Chloride 106 mmol/L (96-108); Cholesterol 162 mg/dL (<200); Estimated Glomerular Filt Rate 56; HDL Cholesterol 44 mg/dL (>40); Potassium 4.1 mmol/L (3.3-5.1); Sodium 141 mmol/L (135-145); Total Protein 7.0 g/dL (6.5-8.0); Triglycerides 154 mg/dL (<150)
[2024-10-16 09:05] LABS: Thyroid Stimulating Hormone 1.45 uIU/mL (0.32-4.0)
== END 2024-10-16 06:40 | disposition home or self-care (01) ==
LOC: HO.LAB 06:39
PROVIDERS: Absent Provider Internal Medicine; PCP Internal Medicine; Visit Provider Internal Medicine Nephrology
DX: I10 Essential (primary) hypertension (principal); I48.0 Paroxysmal atrial fibrillation
CPT/HCPCS: 36415; 80053; 80061; 81001; 83036; 84443; 85025

== ENCOUNTER 2024-10-20 09:30 | Outpatient (AMB) | payer MEDICARE, BC, SELFPAY ==
--- OUTSIDE RECORDS SUMMARY | 2024-06-09 06:30 | XMS_ITS ---
Author Organization [facility] Address [address] [place] [address] Care Team Providers Care Manager Database Name Role Phone Emmanuel Mistry MD Primary Care Provider Kati Fang [phone] REASON FOR VISIT screening,hx polyps,ngo's ,gerd Encounters Encounter Location Date Provider Diagnosis [facility] [place] [address] [place] [phone] 06/09/2024 Kati Hdz Colon cancer scree angelique [...] * KATI ZEPEDADOB: [birth year] (68 yo M)Acc No.[id number]:06/09/2024 EGD and COL/MAC Patient: KATI MEZA Provider: Mana Hdz MD :1955 A ge:68 Y S ex:Male Date:06/09/2024 Address:[address] [place], [place] [phone] Pcp:Emmanuel Mistry MD Subjective: * Chief Complaints: [...] Procedure Codes: 4 5385 LESION REMOVAL COLONOSCOPY, 67101 COLONOSCOPY AND BIOPSY, Modifiers: 57 , 0529F INTRVL 3+YRS PTS CLNSCP DOCD, 0528F RCMND FLW-UP 10 YRS DOCD, [address] UPPR GI ENDOSCOPY, DIAGNOSIS * * The named appointment provid er may or may not be the originator of this progress note, and it is not deemed complete until electronically signed by the appointment provider. Sign off status: Pending * Provider: Mana Hdz MD Date: 0 06/09/2024 Generated for Sammi quintana/Aubrie/Carlosransmitting on: 0 10/20/2024 09:46 AM EDT
--- OUTSIDE RECORDS SUMMARY | 2024-10-20 09:46 | XMS_ITS | Clinical Summary ---
Author Organization [facility] Address [address] [place] [address] Phone Care Team Providers Care Ems Director Name Role Phone Emmanuel Mistry MD Primary Care Provider [phone] Allergies No known active allergies Medications amLODIPine [...] Therefore we will refer the patient [facility] in [place] for a evaluation. Most likely it is [...] to 49 Years) Discontinued 10/28/2020, 10/20/2019 Insurance [facility] Medicare [facility] Medicare Care Teams Ems Director Relationship Specialty Start Date End Date Emmanuel Mistry MD [address] [place] [address] PCP - General 04/22/20
[2024-10-20 09:51] VITALS: BP 120/60; PULSE 60; O2SAT 95; BMI 29.4
--- NOTE | 2024-10-20 09:51 | HO.NEPHOV_ITS ---
Vital Signs 10/20/24 09:51 Height 5 ft 11 in Weight 210 lb 8 oz BMI 29.4 BP 120/60 Blood Pressure Location Lt brachial Position Sitting Pulse 60 Pulse Source Pulse Oximeter Pulse Oximetry (%) 95 Oxygen Delivery Method Room Air Intake Visit Reasons: 6mon follow up-Conf Social Media Marketer Required: No Accompanied by: Self / Same As Patient Allergies No Known Allergies Allergy (Verified 10/20/24 09:51) HPI Comments Details: Maroi was seen in follow-up of his chronic kidney disease and hypertension. He has history of coronary artery disease and had undergone cardiac catheterization in 2019. He has history of atrial fibrillation and has been on Eliquis. He has peripheral arterial disease and had undergone stenting in his right lower extremity. He denies any active peripheral artery disease symptoms. He does not have any chest pain, shortness of breath, nausea, vomiting, diarrhea, urinary symptoms, pedal edema. He does not take any nonsteroidal anti- inflammatories. [facility] Medical History (Updated 06/07/24 @ 13:56 by Adela Kelley RN) Peripheral vascular disease Other and unspecified hyperlipidemia Essential hypertension PAF (paroxysmal atrial fibrillation) Atherosclerotic cardiovascular disease Hyperlipemia Afib GERD (gastroesophageal reflux disease) HTN (hypertension) Surgical History H/O colonoscopy History of cardiac catheterization (~12/12/19) Family History Father CHF (congestive heart failure) Vascular disorder Mother Respiratory disease Social History Are you a primary dialysis patient care technician to a significant other at home: No Do you presently have visiting nurse or other home services: No Alcohol intake: never Patient Tobacco Use Status: Former Tobacco user Tobacco use type: Cigarette Review of Systems Const All systems reviewed & are unremarkable except as noted in HPI and below Physical Exam Vital Signs: Last Vital Signs Pulse 60 10/20/24 09:51 BP 120/60 10/20/24 09:51 Pulse Ox 95 10/20/24 09:51 Oxygen Delivery Method Room Air 10/20/24 09:51 BMI result Body Mass Index 29.4 Const General: comfortable and no acute distress Orientation/consciousness: patient oriented x3 HEENT Head: Yes normocephalic Mouth: Normal oral and palatal mucosa present Eyes EOM: EOMs intact bilaterally Neck Neck: Yes supple Resp Auscultation: clear to auscultation bilaterally Cardio Jugular venous distension: no JVD Rate: regular rate GI Palpation (GI): Soft to palpation Auscultation: normal bowel sounds General: Yes no CVA tenderness Back/Spine/Pelvis Back: no CVA tenderness Skin General skin exam: no rashes or lesions noted Neuro General: patient oriented x3 and moves all extremities Extrem General: Yes no pedal edema Results Reviewed Nephrology Results: Hgb, (14.0-18.0) 15.8 g/dl 10/16/24 WBC, (4.8-10.8) 8.8 X10*3/uL 10/16/24 Plt Count, (160-400) 199 X10*3/uL 10/16/24 Sodium, (135-145) 141 mmol/L 10/16/24 Potassium, (3.3-5.1) 4.1 mmol/L 10/16/24 Chloride, (96-108) 106 mmol/L 10/16/24 Carbon Dioxide, (22-29) 26 mmol/L 10/16/24 BUN, (9-16) 15 mg/dL 10/16/24 Creatinine, (0.5-1.4) 1.27 mg/dL 10/16/24 Calcium, (8.4-10.2) 8.6 mg/dL Δ 10/16/24 Phosphorus, (2.7-4.5) 3.4 mg/dL 04/03/24 PTH Intact, (8.7-77.1) 115.8 pg/mL H 04/03/24 Urine Protein, (Neg-Trace) 30 (1+) mg/dL H 10/16/24 Assessment & Plan Assessment & Plan (1) Essential hypertension: Code(s): I10 - Essential (primary) hypertension Category: Medical (2) CKD (chronic kidney disease) stage 3, GFR 30-59 ml/min: Code(s): N18.30 - Chronic kidney disease, stage 3 unspecified Category: Medical Qualifiers: Chronic kidney disease stage 3 subtype: stage 3a (GFR 45-59) Qualified Code(s): N18.31 - Chronic kidney disease, stage 3a Plan Mario has chronic kidney disease from vascular disease. His blood pressure is at goal at home. His serum creatinine is stable. He has history of peripheral arterial disease and had a stent put in in his right lower extremity. He likely has vascular disease in the kidney as well. He has right carotid stenosis and had USS. He avoids nonsteroidal anti-inflammatories and tries hard to remain well hydrated. He will be a candidate for SGTL2 i in the future. I did not make any medication changes today. All his questions were answered. Follow-up appointment given Orders: Orders Creatinine 6 Months I10 - Essential (primary) hypertension, N18.31 - Chronic kidney disease, stage 3a Blood Urea Nitrogen 6 Months I10 - Essential (primary) hypertension, N18.31 - Chronic kidney disease, stage 3a Electrolytes 6 Months I10 - Essential (primary) hypertension, N18.31 - Chronic kidney disease, stage 3a Protein Creatinine Ratio, Ur 6 Months I10 - Essential (primary) hypertension, N18.31 - Chronic kidney disease, stage 3a Coding Level of Care Code Est Pt Level 4 (69263) Diagnoses Essential hypertension I10 Stage 3a chronic kidney disease N18.31 Chronic kidney disease stage 3 subtype: stage 3a (GFR 45-59)
== END 2024-10-20 10:06 | disposition home or self-care (01) ==
LOC: HO.HKA 09:31
PROVIDERS: PCP Internal Medicine; Visit Provider Internal Medicine Nephrology
DX: I10 Essential (primary) hypertension (principal); N18.31 Chronic kidney disease, stage 3a
CPT/HCPCS: 99214

== ENCOUNTER → 2024-10-20 09:30 | Outpatient (BNVA) | payer MEDICARE, BC, SELFPAY | PROVIDERS: PCP Internal Medicine; Visit Provider Internal Medicine Nephrology | DX: I12.9 Hypertensive chronic kidney disease with stage 1 through stage 4 chronic kidney disease, or unspecified chronic kidney disease (principal); N18.31 Chronic kidney disease, stage 3a; Z79.01 Long term (current) use of anticoagulants | CPT/HCPCS: 99212 ==

== ENCOUNTER 2024-11-24 14:16 | Outpatient (REF) | payer MEDICARE, BC, SELFPAY ==
--- OUTSIDE RECORDS SUMMARY | 2024-06-09 06:30 | XMS_ITS ---
Author Organization [facility] Address [address] [place] [address] Care Team Providers Care [employer] Superintendent Of [employer] Name Role Phone Emmanuel Mistry MD Primary Care Provider Kati Fang [phone] REASON FOR VISIT screening,hx polyps,ngo's ,gerd Encounters Encounter Location Date Provider Diagnosis [facility] [place] Out[place] [address] [place] [id number] 06/09/2024 Kati Hdz Colon cancer scree angelique [...] * KATI ZEPEDADOB: [birth year] (69 yo M)Acc No.[id number]:06/09/2024 EGD and COL/MAC Patient: KATI MEZA Provider: Mana Hdz MD :1955 A ge:68 Y S ex:Male Date:06/09/2024 Address:[address] [place], [place] [phone] Pcp:Emmanuel Mistry MD Subjective: * Chief Complaints: [...] Procedure Codes: 4 5385 LESION REMOVAL COLONOSCOPY, 84739 COLONOSCOPY AND BIOPSY, Modifiers: 59 , 0529F INTRVL 3+YRS PTS CLNSCP DOCD, 0528F RCMND FLW-UP 10 YRS DOCD, 62023 UPPR GI ENDOSCOPY, DIAGNOSIS * * The named appointment provid er may or may not be the originator of this progress note, and it is not deemed complete until electronically signed by the appointment provider. Sign off status: Pending * Provider: Mana Hdz MD Date: 0 06/09/2024 Generated for Cecillei mariano/Aubrie/eTransmitting on: 0 11/24/2024 02:19 PM EDT
--- NOTE | ~2024-11-24 | US_ITS ---
CLINICAL HISTORY: I73.9 - Peripheral vascular disease, unspecified --- Additional Notes or Special Instructions: Please do bilateral arterial ultrasound with limited STEWART. If there is Ankle-brachial index Comparison: None Findings: Right brachial artery 130 mmHg Right posterior tibial artery noncompressible Right dorsalis pedis artery noncompressible Right STEWART:Could not be calculated Left brachial artery 130 mmHg Left posterior tibial artery noncompressible Left dorsalis pedis artery noncompressible Left STEWART:Could not be calculated STEWART and estimated severity of disease: 0.96 - 1.30 generally normal 0.81 - 0.95 mild disease 0.51 - 0.80 moderate disease 0.31 - 0.50 moderate to severe disease < 0.30 severe disease Impression: 1. Right STEWART could not be calculated due to noncompressibility of the vessels. 2. Left STEWART could not be calculated due to noncompressibility of the vessels. Bilateral lower extremity duplex arterial Doppler Comparison: US/SR - US LOWER EXTREMITY ARTERIES BILATERAL - 11/15/2023 08:31 AM EDT Technique: Grayscale/Color and duplex Doppler sonographic evaluation of the arterial system within both lower extremities. Peak systolic velocities recorded in centimeters per second. Findings: Right lower extremity DELIVERY REPRESENTATIVE: Monophasic. 489 cm/s previously 359 cm/sec SFA: Biphasic. 129 cm/s. Stent at the distal SFA level with a peak systolic velocity of 47 cm/sec proximally, 54 cm/sec mid and 47 cm/sec distally with monophasic flow. There is triphasic flow just distal to the stent and biphasic flow just proximal to the stent. Popliteal artery: Monophasic. 39 cm/s Posterior tibial: Monophasic. 52 cm/s Dorsalis pedis: Monophasic 17.2. cm/s Anterior tibial: Monophasic. 34.7 cm/s Peroneal: Monophasic. 33.0 cm/s Left lower extremity DELIVERY REPRESENTATIVE: Triphasic. 76.0 cm/s SFA: Triphasic proximally. 71.0cm/s. Biphasic distally at 39.0 Popliteal artery: Biphasic. 42.0 cm/s Posterior tibial: Biphasic. 69.0 cm/s Dorsalis pedis: Biphasic. 43.9 cm/s Anterior tibial: Monophasic. 52.4 cm/s Peroneal: Biphasic. 67.3 cm/s Impression: 1. Severe stenosis right common femoral artery with calcified atherosclerotic disease. 2. Patent SFA stent on the right. 3. No other levels of significant stenosis. 4. Arrhythmia was noted. This document has been electronically signed by: Reji Carvalho MD on 11/25/2024 15:53:53
--- OUTSIDE RECORDS SUMMARY | 2024-11-24 14:19 | XMS_ITS | Encounter Summary ---
Author Organization [facility] Address [address] [place] [address] Phone Care Team Providers Care Mobile Developer Name Role Phone Emmanuel Mistry MD Unavailable [phone] Edgar William MD Unavailable Dash Price MD Unavailable [phone] Chuck Pratt MD Unavailable [phone] Rajan Ojeda MD Unavailable [phone] Emmanuel Mistry MD Primary Care Provider [phone] Harlan Sharma MD Unavailable [phone] Encounter Details Date Type Department Care Team (Late st Contact Info) Description 05/18/2022 Procedure Pass [facility], [address] [address] Social History Tobacco Use Types Packs/Day Years Used Date Smoking Tobacco: Former Cigarettes 1 13 1 970 - 04/12/1982 Smokeless Tobacco: Never Comments:second hand smoke a t home Alcohol Use Standard Drinks/Week Comments Yes 5 (1 standard drink = 0.6 oz pur e alcohol) Sex and Gender Information Value Date Recorded Sex Assigned at Male 04/19/2020 1:11 PM EST Legal Sex Male 9:57 PM EDT Gender Identity Male 04/19/2020 1:11 PM EST Sexual Orientation Straight 11/17/2021 8: 57 AM EDT documented as of this encounter Last Filed Vital Signs Vital Sign Reading Time Taken Comments Blood Pressure - - Pulse - - Temperature - - Respiratory Rate - - Oxygen Saturation - - Inhaled Oxygen Concentration - - Weight 97.5 kg (215 lb) 05/20/2022 10:32 AM EST Height 177.8 cm (5' 10 ) 05/20/2022 10:32 AM EST Body Mass Index 30.85 05/20/2022 10:32 AM EST documented in this encounter Plan of Treatment Upcoming Encounters Date Type Department Care Team (Late st Contact Info) Description 12/04/2024 8:00 AM EDT Office Visit [facility] Internal Medicine [address] [place] [address] Emmanuel Mistry MD [address] [place], [place] [id number] [email or web address] 07/09/2025 10:40 AM EDT Office Visit [facility] Endocrinology [place] [address] [place] [phone] Ines Rush MD [address] [place] [address] documented as of this encounter Visit Diagnoses Not on filedocumented in this encounter Additional Health Concerns Infection Onset Date Last Indicated Resolved Time COVID-19 08/06/2024 08/06/2024 08/27/2024 1:21 AM EDT Assessment Noted Time PHQ-2 Depression Total Score: 0 11/16/19 9:40 AM EDT documented as of this encounter Care Teams Mobile Developer Relationship Specialty Start Date End Date Emmanuel Mistry MD [address] [place], [place] [id number] [email or web address] PCP - General Internal Medicine 01/01/20 Emmanuel Mistry MD [address] [place], [place] [phone] [email or web address] Insurance Assigned Provider 07/17/23 04/17/24 Edgar William MD [address] [place] [address] Nephrology 10/11/19 Dash Price MD [address] [place] [address] [email or web address] Endocrinology 10/11/19 Chuck Pratt MD [address] [place] [address] Cardiology 10/11/19 Rajan Ojeda MD [address] [place] [address] Vascular Surgery 10/11/19 Harlan Sharma MD [address] [place] [address] Cardiology 03/25/20 documented as of this encounter Additional Source Comments The information contained in this document represents components of the legal health record. It is not the complete legal health record.[facility]
--- OUTSIDE RECORDS SUMMARY | 2024-11-24 14:19 | XMS_ITS | Clinical Summary ---
Author Organization [facility] Address [address] [place] [address] Phone Care Team Providers Care Clinical Project Assistant Name Role Phone Emmanuel Mistry MD Primary Care Provider [phone] Allergies No known active allergies Medications amLODIPine [...] Therefore we will refer the patient to [facility] ears nose throat [facility] in [place] for a evaluation. Most likely it is [...] to 49 Years) Discontinued 10/28/2020, 10/20/2019 Insurance [facility] Medicare [facility] Medicare Care Teams Clinical Project Assistant Relationship Specialty Start Date End Date Emmanuel Mistry MD [address] [place] [address] PCP - General 04/22/20
== END 2024-11-24 14:17 | disposition home or self-care (01) ==
LOC: HO.US 14:16
PROVIDERS: PCP Internal Medicine; Visit Provider Surgery Vascular Surgery
DX: I73.9 Peripheral vascular disease, unspecified (principal)
CPT/HCPCS: 93922; 93925

== ENCOUNTER 2024-11-27 09:49 | Outpatient (AMB) | payer MEDICARE, BC, SELFPAY ==
--- OUTSIDE RECORDS SUMMARY | 2024-06-09 06:30 | XMS_ITS ---
Author Organization [facility] Address [address] [place] [address] Care Team Providers Care Associate Professor Of Library Media Name Role Phone Emmanuel Mistry MD Primary Care Provider Kati Fang [phone] REASON FOR VISIT screening,hx polyps,ngo's ,gerd Encounters Encounter Location Date Provider Diagnosis [facility] [place] [address] [place] [phone] 06/09/2024 Kati Hdz Colon cancer scree angelique [...] * KATI ZEPEDADOB: [birth year] (69 yo M)Acc No.[id number]:06/09/2024 EGD and COL/MAC Patient: KATI MEZA Provider: Mana Hdz MD :1955 A ge:68 Y S ex:Male Date:06/09/2024 Address:[address] [place], [place] [phone] Pcp:Emmanuel Mistry MD Subjective: * Chief Complaints: [...] Procedure Codes: 4 5385 LESION REMOVAL COLONOSCOPY, 60246 COLONOSCOPY AND BIOPSY, Modifiers: 57 , 0529F INTRVL 3+YRS PTS CLNSCP DOCD, 0528F RCMND FLW-UP 10 YRS DOCD, [address]98[address] UPPR GI ENDOSCOPY, DIAGNOSIS * * The named appointment provid er may or may not be the originator of this progress note, and it is not deemed complete until electronically signed by the appointment provider. Sign off status: Pending * Provider: Mana Hdz MD Date: 0 06/09/2024 Generated for Sammi quintana/Aubrie/Carlosransmitting on: 0 11/27/2024 10:32 AM EDT
--- OUTSIDE RECORDS SUMMARY | 2024-11-27 10:32 | XMS_ITS | Clinical Summary ---
Author Organization [facility] Address [address] [place] [address] Phone Care Team Providers Care Senior Ui Software Engineer Name Role Phone Emmanuel Mistry MD Primary Care Provider Allergies No known active allergies Medications amLODIPine [...] Therefore we will refer the patient to [facility] ears nose throat [facility] in [place] for a evaluation. Most likely it is [...] to 49 Years) Discontinued 10/28/2020, 10/20/2019 Insurance [facility] Medicare [facility] Medicare Care Teams Senior Ui Software Engineer Relationship Specialty Start Date End Date Emmanuel Mistry MD [address] [place] [address] PCP - General 04/22/20
--- OUTSIDE RECORDS SUMMARY | 2024-11-27 10:32 | XMS_ITS | Encounter Summary ---
Author Organization [facility] Address [address] [place] [address] Phone Care Team Providers Care Research And Evaluation Analyst Name Role Phone Emmanuel Mistry MD Unavailable [phone] Edgar William MD Unavailable Dash Price MD Unavailable [phone] Chuck Pratt MD Unavailable Rajan Ojeda MD Unavailable [phone] Emmanuel Mistry MD Primary Care Provider Harlan Sharma MD Unavailable [phone] Encounter Details Date Type Department Care Team (Late st Contact Info) Description 05/18/2022 Procedure Pass [facility], [address] [address] Social History Tobacco Use Types Packs/Day Years [...] Description 12/04/2024 8:00 AM EDT Office Visit [facility] Internal Medicine [address] [place] [address] Emmanuel Mistry MD [address] [place], [place] [phone] [email or web address] 07/09/2025 10:40 AM EDT Office Visit [facility] Endocrinology [place] [address] [place] [phone] Ines Rush MD [address] [place] [address] documented as of this encounter Visit Diagnoses Not on filedocumented in this encounter Additional Health Concerns Infection Onset Date Last Indicated Resolved Time COVID-19 08/06/2024 08/06/2024 08/27/2024 1:21 AM EDT Assessment Noted Time PHQ-2 Depression Total Score: 0 11/16/19 9:40 AM EDT documented as of this encounter Care Teams Research And Evaluation Analyst Relationship Specialty Start Date End Date Emmanuel Mistry MD [address] [place], [place] [phone] [email or web address] PCP - General Internal Medicine 01/01/20 Emmanuel Mistry MD [address] [place], [place] [phone] [email or web address] Insurance Assigned Provider 07/17/23 04/17/24 Edgar William MD [address] [place] [address] Nephrology 10/11/19 Dash Price MD [address] [place] [address] [email or web address] Endocrinology 10/11/19 Chuck Pratt MD [address] [place] [address] Cardiology 10/11/19 Rajan Ojeda MD [address] [place] [address] Vascular Surgery 10/11/19 Harlan Sharma MD [address] [place] [address] Cardiology 03/25/20 documented as of this encounter Additional Source Comments The information contained in this document represents components of the legal health record. It is not the complete legal health record.[facility]
[2024-11-27 11:02] VITALS: BP 128/70; PULSE 80; TEMP 36.9; O2SAT 97; BMI 29.0
--- NOTE | 2024-11-27 11:02 | MHC.OFFWIV ---
Intake Vital Signs 11/27/24 11:02 Height 5 ft 11 in Weight 208 lb BMI 29.0 BP 128/70 Blood Pressure Location Lt brachial Position Sitting Pulse 80 Pulse Source Pulse Oximeter Temp 98.5 F Temp Source Oral Pulse Oximetry (%) 97 Oxygen Delivery Method Room Air Intake Visit Reasons: EP Chest cold, cough Intake Note: presents with chest congestion and coughing for a week, body fatigue- currently hospitalize with pneumonia Patient Tobacco Use Status: Former Tobacco user Allergies No Known Allergies Allergy (Verified 11/27/24 11:07) Do you need a note to return to daycare/school/sports/work: No HPI HPI Comments History of Present Illness Details History - The patient is a 69-year-old male presenting with symptoms of chest congestion, cough, and runny nose, with a concern for pneumonia. - He has a constant cough and congestion. - The cough has been productive with white phlegm. - The patient reports a history of recurrent pneumonia, despite having received the pneumonia vaccination. - Symptoms have been present for approximately one week, with worsening cough in the mornings. - The patient denies fever and significant shortness of breath but reports fatigue. - The patient's is currently hospitalized with pneumonia, which has heightened his concern. - The patient has a history of smoking, having quit at the age of 28. - He denies abd pain, n/v/d, or chills. Physical Exam General: Cooperative, healthy appearing, comfortable and no acute distress Orientation/consciousness: Patient oriented x3 Limitations: No limitations Head: Normal to inspection Ears: Hearing grossly normal bilaterally, external ears normal and TM's normal bilaterally Nose: Normal external nose present, normal nares present, and no nasal discharge present. Face and sinus: Sinuses nontender to palpation. Mouth: Normal oral and palatal mucosa present and moist mucous membranes noted. Throat: Tonsils normal. Uvula is midline. Posterior oropharynx with erythema and no exudates. Eyes: Appearance normal, both eyes and all related structures Neck: Normal visual inspection, full ROM. No lymphadenopathy noted. Respiratory: Clear to auscultation bilaterally. Normal respiratory effort, able to speak in complete sentences. No respiratory distress, not tachypneic, no tripod positioning and no use of accessory muscles. Cardiovascular: Regular rate and rhythm. Normal S1 and S2 Skin: No rashes or lesions noted Patient was informed and verbally consented to the use of an ambient scribe for clinic note documentation during this visit [facility] Medical History (Updated 06/07/24 @ 13:56 by Adela Kelley RN) Peripheral vascular disease Other and unspecified hyperlipidemia Essential hypertension PAF (paroxysmal atrial fibrillation) Atherosclerotic cardiovascular disease Hyperlipemia Afib GERD (gastroesophageal reflux disease) HTN (hypertension) Surgical History H/O colonoscopy History of cardiac catheterization (~12/12/19) Family History Father CHF (congestive heart failure) Vascular disorder Mother Respiratory disease Social History Are you a primary respiratory care specialist to a significant other at home: No Do you presently have visiting nurse or other home services: No Alcohol intake: never Patient Tobacco Use Status: Former Tobacco user Tobacco use type: Cigarette Review of Systems Const All systems reviewed & are unremarkable except as noted in HPI and below Physical Exam Vital Signs: Last Vital Signs Temp 98.5 F 11/27/24 11:02 Pulse 80 11/27/24 11:02 BP 128/70 11/27/24 11:02 Pulse Ox 97 11/27/24 11:02 Oxygen Delivery Method Room Air 11/27/24 11:02 BMI result Body Mass Index 29.0 Results Reviewed Results Reviewed: Reviewed the chest xray in the office Assessment & Plan Assessment & Plan (1) Cough: Code(s): R05.9 - Cough, unspecified Qualifiers: Cough type: acute Qualified Code(s): R05.1 - Acute cough Plan Most likely URI vs CAP vs viral illness vs covid vs flu vs RSV Plan - A chest x-ray was ordered to further evaluate the patient's respiratory symptoms. - Will order a resp panel - The patient was prescribed antibiotics and cough medicine to manage symptoms and prevent potential pneumonia progression. - VSS, pt well appearing - tylenol or motrin as needed for pain or fever - follow up with PCP Orders: Orders SARS-CoV2/FLU/RSV Today R09.89 - Other specified symptoms and signs involving the circulatory and respiratory systems XR chest 2V Today R05.9 - Cough, unspecified Resp Pathogen [place] [facility] [place] J06.9 - Acute upper respiratory infection, unspecified Medications: New azithromycin For 250 mg dose pack: take 500 mg today (day 1), then 250 mg for 4 days (days 2-5) PO 6 tabs 0RF benzonatate 100 mg PO bid-tid PRN 30 caps 0RF Cough 10 days Coding Level of Care Code Est Pt Level 4 (52147) Diagnoses Acute cough R05.1 Cough type: acute
== END 2024-11-27 11:59 | disposition home or self-care (01) ==
PROVIDERS: PCP Internal Medicine; Visit Provider Physician Assistant Medical
DX: R05.1 Acute cough (principal)

== ENCOUNTER 2024-11-27 09:49 | Outpatient (REF) | payer MEDICARE, BC, SELFPAY ==
--- NOTE | ~2024-11-27 | XR_ITS ---
EXAMINATION: XR CHEST CLINICAL INFORMATION: R05.9 - Cough, unspecified COMPARISON: November 29, 2018. TECHNIQUE: 2 views of the chest were obtained. FINDINGS: No hyperinflation. No consolidation, pleural fissure pneumothorax. Pulmonary reticular pattern. Cardiomediastinal silhouette size is normal. Calcified plaque thoracic aortic arch. Multilevel thoracic and lumbar spondylosis. Kyphotic deformity mid to lower thoracic spine. XR/XR chest 2V IMPRESSION: No acute airspace disease. Electronically signed by: Emmanuel Singleton MD 11/27/2024 12:20 PM EDT
[2024-11-27 14:39] LABS: Chlamydia pneumoniae PCR Not Detected (Not Detect.); Coronavirus 229E PCR Not Detected (Not Detect.); Coronavirus HKU1 PCR Not Detected (Not Detect.); Coronavirus NL63 PCR Not Detected (Not Detect.); Coronavirus OC43 PCR Not Detected (Not Detect.); RSV PCR Not Detected (Not Detect.); Rhino/Enterovirus PCR Detected (Not Detect.)
[2024-11-27 15:28] LABS: SARS-CoV-2 PCR Not Detected (Not Detect.)
[2024-11-27 15:29] LABS: Influenza A H1 PCR Not Detected (Not Detect.); Influenza A H1-2009 PCR Not Detected (Not Detect.); Influenza A H3 PCR Not Detected (Not Detect.)
== END 2024-11-27 09:50 | disposition home or self-care (01) ==
LOC: HO.HMGCX 09:49
PROVIDERS: PCP Internal Medicine; Visit Provider Physician Assistant Medical
DX: R05.1 Acute cough (principal); J06.9 Acute upper respiratory infection, unspecified; R09.89 Other specified symptoms and signs involving the circulatory and respiratory systems; Z87.891 Personal history of nicotine dependence
CPT/HCPCS: 71046; 87633; 99212

== ENCOUNTER → 2024-11-27 11:54 | Outpatient (BNV) | payer MEDICARE, BC, SELFPAY | PROVIDERS: PCP Internal Medicine; Visit Provider Radiology Diagnostic Radiology | DX: R05.9 Cough, unspecified (principal) | CPT/HCPCS: 71046 ==

== ENCOUNTER 2024-12-12 14:24 | Outpatient (AMB) | payer MEDICARE, BC, SELFPAY ==
--- NOTE | 2024-12-12 14:37 | A.OFFVIS_ITS ---
Vital Signs 12/12/24 14:38 Height 5 ft 11 in Weight 208 lb BMI 29.0 Intake Visit Reasons: 1y follow up s/p Arterial US 11/24/24 Intake Note: 1 yr follow up arterial 11/24/24. Pt states that Right LE is starting to bother him again, cramping w/ ambulation. Can walk 1/4 a block. Hx of Right Angio 02/01/2019 Account Manager Trainee Required: No Accompanied by: Self / Same As Patient Allergies No Known Allergies Allergy (Verified 12/12/24 14:44) HPI HPI 1y follow up s/p Arterial US 11/24/24: Details: Very pleasant 69-year-old gentleman who had undergone endovascular intervention with us back in 2019 presents for surveillance follow-up. He reports over the past month or 2 he has been having right leg calf cramping on ambulation. He has undergone noninvasive arterial testing and now presents for follow-up. [facility] Medical History Peripheral vascular disease Other and unspecified hyperlipidemia Essential hypertension PAF (paroxysmal atrial fibrillation) Atherosclerotic cardiovascular disease Hyperlipemia Afib GERD (gastroesophageal reflux disease) HTN (hypertension) Surgical History H/O colonoscopy History of cardiac catheterization (~12/12/19) Family History Father CHF (congestive heart failure) Vascular disorder Mother Respiratory disease Social History Are you a primary doggy daycare activities director to a significant other at home: No Do you presently have visiting nurse or other home services: No Alcohol intake: never Patient Tobacco Use Status: Former Tobacco user Tobacco use type: Cigarette Review of Systems Const All systems reviewed & are unremarkable except as noted in HPI and below Reports no additional complaints ENT Reports Normal hearing present Card Denies chest pain, Denies chest pain at rest, Denies chest pain with activity and Denies pedal edema Resp Denies cough GI Denies abdominal pain Musc Denies abnormal gait, Denies muscle cramps and Denies radiating pain into limb Skin/Breast Denies skin ulcer and Denies wounds Neuro Reports Normal hearing present and Denies abnormal gait Psych Reports no additional complaints Physical Exam Vital Signs: BMI result Body Mass Index 29.0 Const General: cooperative, healthy appearing and comfortable Orientation/consciousness: oriented to person, oriented to place and oriented to time HEENT Head: Yes normal to inspection Neck Neck: Yes normal visual inspection Carotids: no bruits Chest Chest palpation & inspection: normal inspection of the chest Resp Effort & Inspection: normal respiratory effort and able to speak in complete sentences Auscultation: clear to auscultation bilaterally, no crackles, no rales, no rhonchi and no wheezes Cardio Other: Right side DP signal Left side palpable posterior tibial Rate: regular rate Rhythm: regular rhythm Heart sounds: S1 normal heart sound present and S2 normal heart sound present Bruits: no carotid bruits Peripheral pulses: Peripheral pulses 2+ throughout GI Inspection: Yes normal to inspection Skin Wounds: no wounds Hair: normal Neuro General: oriented to person, oriented to place and oriented to time Cranial nerves: Yes CN's II-XII intact bilaterally and Yes Normal hearing present Cognition (Neuro): normal cognition Motor exam (neuro): 5/5 motor strength present throughout Extrem Other: venous exam: No significant superficial varicosities or spider telangiectasias, minimal edema General: No clubbing, No cyanosis and No edema Psych Appearance: grossly normal Mental Status: mental status grossly normal Speech and movement: Normal speech and movement present Results Reviewed Results Reviewed: Noninvasive arterial testing dated 11/24/2024 demonstrates right common femoral disease along with stenosis beyond the right SFA stent. Written report and images were reviewed Assessment & Plan Assessment & Plan (1) Peripheral vascular disease: Comment: 02/01/2019 right atherectomy and stent of SFA Code(s): I73.9 - Peripheral vascular disease, unspecified Category: Medical Plan: Patient notes leg pain when walking distances. I have discussed the pathophysiology of peripheral vascular disease with the patient. I have also discussed risk factor modification. I have reviewed the patient's arterial testing which reveals right common femoral and SFA disease. the patient would benefit from a right leg endovascular peripheral angiogram with possible angioplasty, stent, and/or atherectomy. This has been discussed in detail with the patient along with risks, benefits, and complications. This includes but is not limited to bleeding, infection, heart attack, need for emergent surgical repair, limb ischemia, blood vessel damage, bleeding, puncture, kidney injury, bruising, allergic reaction, and skin reaction. The patient demonstrates a clear understanding. We will schedule for the next appropriate time. Thank you for allowing us to assist in this patient's care. Coding Level of Care Code Est Pt Level 4 (17406) Complex EM visit Add On G2211 Diagnoses Peripheral vascular disease I73.9
[2024-12-12 14:38] VITALS: BMI 29.0
--- OUTSIDE RECORDS SUMMARY | 2024-12-12 15:37 | XMS_ITS | Encounter Summary ---
Author Organization [facility] Address [address] [place] [address] Phone Care Team Providers Care Setter Machine Name Role Phone Edgar William MD Unavailable Dash Price MD Unavailable Chuck Pratt MD Unavailable Rajan Ojeda MD Unavailable [phone] Emmanuel Mistry MD Primary Care Provider Harlan Sharma MD Unavailable [phone] Encounter Details Date Type Department Care Team (Late st Contact Info) Description 11/27/2024 Orders Only [facility] Internal Medicine [address] [place] [address] Provider, MD Melvin [address] [address] Social History Tobacco Use Types Packs/Day Years Used Date Smoking Tobacco: Former Cigarettes 1 13 1 970 - 04/12/1982 Passive Smoke Exposure: Past Smokeless Tobacco: Never Comments:second hand smoke a t home- smokes inside the house Spouse quit smoking cigarettes in the house 03/2023. Alcohol Use Standard Drinks/Week Comments Yes 6 (1 standard drink = 0.6 oz pure alcohol) while out socially once to twice weekly Education Answer Date Recorded Are you interested in more education? Not on liane e 08/07/2022 Are you concerned about learning? Not on file 08/07/2022 No 08/07/2022 No 08/07/2022 Digital Access Answer Date Recorded No 09/05/2022 No 09/05/2022 Reliable internet access at home? Not on file 09/05/2022 Device with a working camera? Not on file Intimate Partner Violence Answer Date R ecorded Denied Basic Needs Not on file 12/02/2023 In the past 12 months have y ou been in a relationship with a person who hurts, threatens, or tries to control you? No 12/02/2023 Worried food would run out Not on file 12/01 In the past 12 months have y ou been in a relationship with a person who hurts, threatens, or tries to control you? No 12/02/2023 Sex and Gender Information Value Date Recorded Sex Assigned at Male 04/19/2020 1:11 PM EST Legal Sex Male 9:57 PM EDT Gender Identity Male 04/19/2020 1:11 PM EST Sexual Orientation Straight 11/17/2021 8: 57 AM EDT documented as of this encounter Plan of Treatment Upcoming Encounters Date Type Department Care Team (Late st Contact Info) Description 05/23/2025 9:30 AM EST Office Visit [facility] Internal Medicine [address] [place] [address] Emmanuel Mistry MD [address] [place] [address] [email or web address] 07/09/2025 10:40 AM EDT Office Visit [facility] Endocrinology [place] [address] [place] [address] Ines Rush MD [address] [address] [email or web address] documented as of this encounter Procedures Procedure Name Priority Date/Time Associated Diagnosis Comments OUTSIDE IMAGING Routine 11/24/2024 3:59 PM EDT documented in this encounter Results * Outside Imaging Report Only (11/24/2024 3:59 PM EDT) us Historical Provider MD GUZMAN XR CHEST Final Res ult documented in this encounter Visit Diagnoses Not on filedocumented in this encounter Additional Health Concerns Assessment Noted Time PHQ-2 Depression Total Score: 0 12/02/19 24 4:43 PM EDT documented as of this encounter Care Teams Setter Machine Relationship Specialty Start Date End Date Emmanuel Mistry MD [address] [place] [address] PCP - General Internal Medicine 01/01/20 Edgar William MD Nephrology 10/11/19 Dash Price MD Endocrinology 10/11/19 Chuck rPatt MD [address] [place] [address] [address] [place] [address] Cardiology 10/11/19 Rajan Ojeda MD [address] [place] [address] Vascular Surgery 10/11/19 Harlan Sharma MD [address] [place] [address] Cardiology 03/25/20 documented as of this encounter Additional Source Comments The information contained in this document represents components of the legal health record. It is not the complete legal health record.[facility]
--- OUTSIDE RECORDS SUMMARY | 2024-12-12 15:37 | XMS_ITS | Encounter Summary ---
Author Organization [facility] Address [address] [place] [address] Phone Care Team Providers Care Dining Car Conductor Name Role Phone Emmanuel Mistry MD Unavailable [phone] Nadir Valladares DO Unavailable Michelle Raymundo X RAY EQUIPMENT TESTER Unavailable [phone] Ashtyn Peters ACOUSTICAL TILE PATTERNMAKER Unavailable Emmanuel Mistry MD Primary Care Provider [phone] Emmanuel Mistry MD Unavailable Edgar William MD Unavailable Dash Price MD Unavailable Chuck Pratt MD Unavailable [phone] Rajan Ojeda MD Unavailable Emmanuel Mistry MD Primary Care Provider [phone] Harlan Sharma MD Unavailable [phone] Encounter Details Date Type Department Care Team (Late st Contact Info) Description 06/21/2017 Procedure Pass [facility], [address] [address] Social History Tobacco Use Types Packs/Day Years Used Date Smoking Tobacco: Former Cigarettes 1 10 Smokeless Tobacco: Never Comments:Quit when he was 26 years old Alcohol Use Standard Drinks/Week Comments Yes 5 [...] Description 05/23/2025 9:30 AM EST Office Visit [facility] Internal Medicine [address] [place] [address] Emmanuel Mistry MD [address] [place] [address] [email or web address] 07/09/2025 10:40 AM EDT Office Visit [facility] Endocrinology [place] [address] [place] [address] Ines Rush MD [address] [place] [address] [email or web address] documented as of this encounter Visit Diagnoses Not on filedocumented in this encounter Additional Health Concerns Infection Onset Date Last Indicated Resolved Time CoV-Exposed Comment:Positive COVID-19 04/19/2020 04/19/2020 04/19/2020 2:5 4 PM EST CoV-Risk 04/19/2020 04/19/2020 04/19/2020 2:54 PM EST COVID-19 Comment:Resolved in office visit / telemedicine visit due to resolution of symptoms 04/19/2020 04/19/2020 05/08/2020 9:[address] COVID-19 08/06/2024 08/06/2024 08/27/2024 1:21 AM EDT documented as of this encounter Care Teams Dining Car Conductor Relationship Specialty Start Date End Date Emmanuel Mistry MD [address] [place] [address] PCP - General Internal Medicine 03/17/17 12/31/19 Emmanuel Mistry MD [address] [place] [address] PCP - General Internal Medicine 01/01/20 Emmanuel Mistry MD [address] [place] [address] Historical LMR Provider 01/30/17 03/24/20 Nadir Valladares DO 22 [facility] [address] [place] [address] Historical LMR Provider 01/30/17 0 Michelle Raymundo NP [address] [place] [address] 6 [place] [address] Historical LMR Provider 01/30/17 03/24/20 Ashtyn Peters CNP 22 [facility], [address] [place] [address] Historical LMR Provider 01/30/1703/12 Emmanuel Mistry MD [address] [place] [address] Insurance Assigned Provider 07/17/23 04/17/24 Edgar William MD [address] [place] [address] Nephrology 10/11/19 Dash Price MD [address] [place] [address] Endocrinology 10/11/19 Chuck Pratt MD [address] [place] [address] Cardiology 10/11/19 Rajan Ojeda MD [address] [place] [address] Vascular Surgery 10/11/19 Harlan Sharma MD [address] [place] [address] Cardiology 03/25/20 documented as of this encounter Additional Source Comments The information contained in this document represents components of the legal health record. It is not the complete legal health record.[facility]
--- OUTSIDE RECORDS SUMMARY | 2024-12-12 15:37 | XMS_ITS | Encounter Summary ---
Author Organization [facility] Address [address] [place] [address] Phone Care Team Providers Care Outreach Analyst Name Role Phone Emmanuel Mistry MD Unavailable [phone] Edgar William MD Unavailable Dash Price MD Unavailable [phone] Chuck Pratt MD Unavailable [phone] Rajan Ojeda MD Unavailable [phone] Emmanuel Mistry MD Primary Care Provider Harlan Sharma MD Unavailable [phone] Encounter Details Date Type Department Care Team (Latest Contact Info) Description 11/24/2021 Ancillary Orders [facility] Internal Medicine [address] [place], [place] [id number] Emmanuel Mistry MD [address] [place] [address] [email or web address] Hip pain, bilateral Social History Tobacco Use Types Packs/Day Years [...] Description 05/23/2025 9:30 AM EST Office Visit [facility] Internal Medicine [address] [place] [address] Emmanuel Mistry MD [address] [place] [address] 07/09/2025 10:40 AM EDT Office Visit [facility] Endocrinology [place] [address] [place] [address] Ines Rush MD [address] [place] [address] [email or web address] documented as of this encounter Results * XR HIPS 2+ VW EA BILAT PLUS PELVIS (11/24/2021 3:20 PM EDT) Anatomical Region Laterality Modality Hip, Pelvis Computed Radiogr aphy 11/25/2021 11:3 7 AM EDT Impressions 11/25/2021 11:40 AM EDT No displaced fracture or dislocation. Minimal degenerative change with superior joint space narrowing bilaterally. Narrative 11/25/2021 11:40 AM EDT XR HIPS 2+ VW EA BILAT PLUS PELVIS COMPARISON: FINDINGS: Pelvis: No displaced fracture. Intact sacroiliac joints. There are degenerative changes of the symphysis pubis. Left Hip: No displaced fracture. Normal alignment. Minimal degenerative change with superior joint place narrowing. Right Hip: No displaced fracture. Normal alignment. Minimal degenerative change with superior joint space narrowing. There are vascular calcifications. There are degenerative changes of the visualized lower lumbar spine with joint space narrowing at L4/5. Procedure Note Patricia Santamaria MD - 11/25/2021 XR HIPS 2+ VW EA BILAT PLUS PELVIS COMPARISON: FINDINGS: Pelvis: No displaced fracture. Intact sacroiliac joints. There aredegenerative changes of the symphysis pubis. Left Hip: No displaced fracture. Normal alignment. Minimal degenerativechange with superior joint place narrowing. Right Hip: No displaced fracture. Normal alignment. Minimal degenerativechange with superior joint space narrowing. There are vascular calcifications. There are degenerative changes of the visualized lower lumbar spine withjoint space narrowing at L4/5. IMPRESSION: No displaced fracture or dislocation. Minimal degenerative change withsuperior joint space narrowing bilaterally. Emmanuel Mistry MD IMG XR PELVIS Final Result documented in this encounter Visit Diagnoses Diagnosis Hip pain, bilateral Pain in joint, pelvic region and thigh Hip pain, bilateral Pain in joint, pelvic region and thigh documented in this encounter Additional Health Concerns Infection Onset Date Last Indicated Resolved Time COVID-19 08/06/2024 08/06/2024 08/27/2024 1:21 AM EDT Assessment Noted Time PHQ-2 Depression Total Score: 0 11/16/19 22 9:40 AM EDT documented as of this encounter Care Teams Outreach Analyst Relationship Specialty Start Date End Date Emmanuel Mistry MD [address] [place] [address] PCP - General Internal Medicine 01/01/20 Emmanuel Mistry MD [address] [place] [address] Insurance Assigned Provider 07/17/23 04/17/24 Edgar William MD [address] [place] [address] Nephrology 10/11/19 Dash Price MD [address] [place] [address] [email or web address] Endocrinology 10/11/19 Chuck Pratt MD [address] [place] [address] Cardiology 10/11/19 Rajan Ojeda MD [address] [place] [address] Vascular Surgery 10/11/19 Harlan Sharma MD [address] [place] [address] Cardiology 03/25/20 documented as of this encounter Additional Source Comments The information contained in this document represents components of the legal health record. It is not the complete legal health record.[facility]
--- OUTSIDE RECORDS SUMMARY | 2024-12-12 15:37 | XMS_ITS | Encounter Summary ---
Author Organization [facility] Address [address] [place] [address] Phone Care Team Providers Care Sales Development Representative Name Role Phone Edgar William MD Unavailable Dash Price MD Unavailable Chuck Pratt MD Unavailable Rajan Ojeda MD Unavailable Emmanuel iMstry MD Primary Care Provider Harlan Sharma MD Unavailable Encounter Details Date Type Department Care Team (Late st Contact Info) Description 11/28/2024 Orders Only [facility] Internal Medicine [address] [place] [address] Provider, MD Melvin [address] [place] [address] Social History Tobacco Use Types Packs/Day [...] Description 05/23/2025 9:30 AM EST Office Visit [facility] Internal Medicine [address] [place] [address] Emmanuel Mistry MD [address] [place] [address] [email or web address] 07/09/2025 10:40 AM EDT Office Visit [facility] Endocrinology [place] [address] [place] [address] Ines Rush MD [address] [place] [address] [email or web address] documented as of this encounter Procedures Procedure Name Priority Date/Time Associated Diagnosis Comments OUTSIDE LAB Routine 11/27/2024 2:58 PM EDT OUTSIDE IMAGING Routine 11/27/2024 10:40 AM EDT documented in this encounter Results * Outside Lab (11/27/2024 2:58 PM EDT) us Historical Provider LAB BLOOD ORDERABLES Sherita l Result * Outside Imaging Report Only (11/27/2024 10:40 AM EDT) us Historical Provider IMG XR CHEST Final Res ult documented in this encounter Visit Diagnoses Not on filedocumented in this encounter Additional Health Concerns Assessment Noted Time PHQ-2 Depression Total Score: 0 12/02/19 24 4:43 PM EDT documented as of this encounter Care Teams Sales Development Representative Relationship Specialty Start Date End Date Emmanuel Mistry MD [address] [place] [address] PCP - General Internal Medicine 01/01/20 Edgar William MD Nephrology 10/11/19 Dash Price MD [email or web address] Endocrinology 10/11/19 Chuck Pratt MD [address] [place] [address] [address] [place] [address] Cardiology 10/11/19 Rajan Ojeda MD [address] [place] [address] Vascular Surgery 10/11/19 Harlan Sharma MD [address] [place] [address] Cardiology 03/25/20 documented as of this encounter Additional Source Comments The information contained in this document represents components of the legal health record. It is not the complete legal health record.[facility]
--- OUTSIDE RECORDS SUMMARY | 2024-12-12 15:37 | XMS_ITS | Clinical Summary ---
Author Organization [facility] Address [address] [place] [address] Phone Care Team Providers Care Gas Desulfurizer Name Role Phone Emmanuel Mistry MD Primary Care Provider [phone] Allergies No known active allergies Medications amLODIPine [...] Therefore we will refer the patient to [facility] ears nose throat [facility] [place] for a evaluation. Most likely it is [...] 49 Years) Discontinued 10/28/2020, 10/20/2019 Insurance [facility] Medicare Care Teams Gas Desulfurizer Relationship Specialty Start Date End Date Emmanuel Mistry MD [address] [place] [address] PCP - General 04/22/20
--- OUTSIDE RECORDS SUMMARY | 2024-12-12 15:37 | XMS_ITS | Encounter Summary ---
Author Organization [facility] Address [address] [place] [address] Phone Care Team Providers Care Professor Of Fine Art Name Role Phone Emmanuel Mistry MD Unavailable [phone] Edgar William MD Unavailable Dash Price MD Unavailable [phone] Chuck Pratt MD Unavailable [phone] Rajan Ojeda MD Unavailable [phone] Emmaunel Mistry MD Primary Care Provider Harlan Sharma MD Unavailable [phone] Encounter Details Date Type Department Care Team (Late st Contact Info) Description 05/18/2022 Procedure Pass [facility], [address] [address] Social History Tobacco Use Types Packs/Day Years [...] Description 05/23/2025 9:30 AM EST Office Visit [facility] Internal Medicine [address] [place] [address] Emmanuel Mistry MD [address] [place], [place] [phone] [email or web address] 07/09/2025 10:40 AM EDT Office Visit [facility] Endocrinology [place] [address] [place] [phone] Ines Rush MD [address] [place] [address] [email or web address] documented as of this encounter Visit Diagnoses Not on filedocumented in this encounter Additional Health Concerns Infection Onset Date Last Indicated Resolved Time COVID-19 08/06/2024 08/06/2024 08/27/2024 1:21 AM EDT Assessment Noted Time PHQ-2 Depression Total Score: 0 11/16/19 9:40 AM EDT documented as of this encounter Care Teams Professor Of Fine Art Relationship Specialty Start Date End Date Emmanuel Mistry MD [address] [place] [address] [email or web address] PCP - General Internal Medicine 01/01/20 Emmanuel Mistry MD [address] [place] [address] [email or web address] Insurance Assigned Provider 07/17/23 04/17/24 Edgar William MD [address] [place] [address] Nephrology 10/11/19 Dash Price MD [address] [place] [address] [email or web address] Endocrinology 10/11/19 Chuck Pratt MD [address] [place] [address] Cardiology 10/11/19 Rajan Ojeda MD [address] [place] [address] Vascular Surgery 10/11/19 Harlan Sharma MD [address] [place] [address] Cardiology 03/25/20 documented as of this encounter Additional Source Comments The information contained in this document represents components of the legal health record. It is not the complete legal health record.[facility]
--- OUTSIDE RECORDS SUMMARY | 2024-12-12 15:37 | XMS_ITS | Clinical Summary ---
Author Organization Located Within [facility] Address [address] [place] [id number] Phone Care Team Providers Care Rail Project Engineer Name Role Phone Edgar William MD Unavailable Dash Price MD Unavailable [phone] Chuck Pratt MD Unavailable Rajan Ojeda MD Unavailable Emmanuel Mistry MD Primary Care Provider Harlan Sharma MD Unavailable Allergies No known active allergies Medications aspirin 81 MG EC tablet Take 81 mg by mouth daily. Active atorvastatin (LIPITOR) 80 MG tablet Take 80 mg by mouth daily. 0 Active ezetimibe (ZETIA) 10 mg tablet Take 10 mg by mouth daily. 1 Active metoprolol succinate (TOPROL-XL) 25 MG 24 hr tabletIndications :Essential hypertension TAKE 1 TABLET BY MOUTH EVERY DAY 90 tablet 3 2 Active apixaban (ELIQUIS) 5 mg tabletIndications :Paroxysmal atrial fibrillation Take 1 tablet (5 mg total) by mouth 2 (two) times a day. 180 tablet 3 4 Active amLODIPine (NORVASC) 10 MG tabletIndications :Essential hypertension take 1 tablet by mouth every day 90 tablet 3 4 Active cycloSPORINE (RESTASIS) 0.05 % suspension Place 1 drop into each eye 2 (two) times a day. 5 Active benzonatate (TESSALON) 100 MG capsule Take 100 mg by mouth 3 (three) times a day as needed. 5 Active azithromycin (ZITHROMAX) 250 MG tablet TAKE 2 TABLETS BY MOUTH TODAY, THEN TAKE 1 TABLET DAILY FOR 4 DAYS DIRECTED 5 Active Active Problems Problem Noted Date Diagnosed Date Pain of left hand 12/08/2023 Overview (12/08/2023): Xray done 11/17/23 ordered by Sona Chinchilla NP for pain- impression possible SNAC wrist deformity Rib pain on right side 10/21/2023 Overview (10/21/2023): Seen OP 09/28/23, xray neg for fx Foreign body sensation in throat 10/08/2020 Assessment & Plan (10/08/2020 11:09 PM EDT): The exam was negative for any pathology but the 2 weeks sensation of foreign body within the throat should be investigated with a flexible endoscope that only in ears nose throat physician possesses. Therefore we will refer the patient to [facility] ears nose throat over in [place] for a evaluation. Most likely it is something that has to do with the epiglottis. COVID-19 04/19/2020 Assessment & Plan (04/22/2020 4:49 PM EST): -Patient presented with persistent shortness of breath, [...] possible discharge to home. Atrial fibrillation 04/18/2020 Assessment & Plan (04/22/2020 4:49 PM EST): -HR mildly elevated with ambulation but improved with rest. Heart rate janet only to 115 with ambulation today. -continue metoprolol -continue anticoagulation with Eliquis Stage 3 chronic kidney disease 10/20/2019 Claudication of right lower extremity 05/27/2017 Assessment & Plan (04/19/2020 5:19 PM EST): -s/p stent -continue antiplatelet therapy with ASA Erectile dysfunction 05/27/2017 HTN (hypertension) 05/27/2017 Assessment & Plan (04/19/2020 5:19 PM EST): -BP controlled -Continue metoprolol and norvasc Hyperlipidemia 05/27/2017 Assessment & Plan (04/22/2020 4:50 PM EST): -LFTs mildly elevated, hold high dose statin, c.w remdesivir one more day and trend LFTS Hopeful for discharge to home tomorrow if stable Meralgia paresthetica of right side 05/27/2017 Pure hypercholesterolemia 05/27/2017 Renal insufficiency 05/27/2017 Multinodular goiter Assessment & Plan (07/07/2024 11:41 AM EDT): 68 yo man dx w/ MNG as incidental finding on CT scan chest in 2017. He underwent FNA x 2 of right mid and right lower nodules w/ benign cytology. Previous u/s has documented 3 nodules on the right, more recent just 2. He has been clinically & biochemically euthyroid & has no compressive symptoms. His exam is unrevealing. His recent ultrasound indicates stability of the two nodules measured, but I am not certain both of those were the previously biopsied nodules. Will obtain/review actual images. Reviewed ddx & evaluation of thyroid nodules. Given stability, plan will be to follow up in 1 yr to repeat exam & if stable, determine need for/timing of future u/s. Encounters Date Type Department Care Team Description 12/04/2024 8:00 AM EDT Office Visit [facility] Internal Medicine [address] [facility] [place] [address] Emmanuel Mistry MD Routine general medical examination at a health care facility (Primary Dx); Benign essential hypertension; Pure hypercholesterolemia; Paroxysmal atrial fibrillation; Impaired fasting glucose; Primary osteoarthritis involving multiple joints 11/28/2024 Orders Only [facility] Internal Medicine [address] [facility] [place] [address] Melvin Florence MD 11/27/2024 Orders Only [facility] Internal [facility] [address] [place] [address] Melvin Florence MD 11/20/2024 Documentation [facility] [address] [facility] [place] [address] Emmanuel Mistry MD 10/18/2024 Orders Only [facility] Internal [facility] [address] [place] [address] ProviderMelvin MD from Last 3 Months Immunizations Immunization Administration Dates Next Due COVID-19 (Pre-02/01) Moderna Vaccine, mRNA, PF 08/26/2020,07/22/2020 Hepatitis B Adult 04/12/1999 INFLUENZA, SPLIT VIRUS, TRIV ALENT W/ PRESERVATIVE IM 04/26/2012 Influenza High-Dose Quadriva lent Preservative Free IM 12/18/2022,01/14/2022,12/20/2020,12/13 Influenza High-Dose Trivalen t Preservative Free IM 12/06/2023 Influenza Quadrivalent MDCK Preservative Free IM 01/19/2019 Influenza, Unspecified Formulation 01/29/2018 Pneumococcal conjugate PCV13 10/20/2019 Pneumococcal polysaccharide PPSV23 10/28/2020 Td (adult) 5 Lf Tetanus Toxo id, PF, Adsorbed 12/03/2017,08/10/2006 Zoster recombinant 06/12/2022,01/14/2022 Family History Medical History Relation Comments Heart failure Father Vascular disease Father COPD Mother Thyroid disease Neg Hx Relation Status Comments Brother 1 Alive stent in legs Brother 2 stent in legHeav y smoker and drinker Brother 3 Alive Brother 4 Alive Brother 5 (Age 50) drug overdose Father (Age 90) heart problenm in 80s Mother (Age 66) Social History Tobacco Use Types Packs/Day Years Used Date Smoking Tobacco: Former Cigarettes 1 13 1 970 - 04/12/1982 Passive Smoke Exposure: Past Smokeless Tobacco: Never Tobacco Cessation:Counseling Given: Not Answered Comments:second hand smoke at home- smokes inside the house Spouse quit [...] ecorded Denied Basic Needs Not on file 12/03/2024 In the past 12 months have y ou been in a relationship with a person who hurts, threatens, or tries to control you? No 12/03/2024 Worried food would run out Not on file 12/03 In the past 12 months have y ou been in a relationship with a person who hurts, threatens, or tries to control you? No 12/03/2024 Sex and Gender Information Value Date Recorded Sex Assigned at Male 04/19/2020 1:11 PM EST Legal Sex Male 9:57 PM EDT Gender Identity Male 04/19/2020 1:11 PM EST Sexual Orientation Straight 11/17/2021 8: 57 AM EDT Last Filed Vital Signs Vital Sign Reading Time Taken Comments Blood Pressure 137/64 12/04/2024 7:52 AM EDT Pulse 77 12/04/2024 7:52 AM EDT Temperature 36 C (96.8 F) 12/04/2024 7:52 AM EDT Respiratory Rate 16 12/04/2024 7:52 AM EDT Oxygen Saturation 97% 12/04/2024 7:52 AM EDT Inhaled Oxygen Concentration - - Weight 94.7 kg (208 lb 12.8 oz) 12/04/2024 7:52 AM EDT Height 177.8 cm (5' 10 ) 12/04/2024 7: 52 AM EDT Body Mass Index 29.96 12/04/2024 7:52 AM EDT Plan of Treatment Upcoming Encounters Date Type Department Care Team (Late st Contact Info) Description 05/23/2025 9:30 AM EST Office Visit [facility] Internal Medicine [address] [place] [address] Emmanuel Mistry MD [address] [place] [address] [email or web address] 07/09/2025 10:40 AM EDT Office Visit [facility] [place] [address] [place] [address] Ines Rush MD [address] [place] [phone] [email or web address] Health Maintenance Due Date Last Done Comments COLOGUARD 1998 FIT TEST 1998 FOBT 1998 SIGMOIDOSCOPY 1998 VIRTUAL COLONOSCOPY 1998 RSV VACCINE (1 - Risk 60-74 years 1-dose series) 2013 INFLUENZA VACCINE (#1) 2024 , 12/18/2022, 01/14/2022, Additional history exists COVID-19 VACCINE ( season) 2024 12/22/2021, 03/07/2021, 08/26/2020, Additional history exists BLOOD PRESSURE 06/06/2025 12/04/2024 CREATININE LEVEL 10/16/2025 10/16/2024, , 10/18/2023, Additional history exists DEPRESSION SCREENING 12/03/2025 12/03/2024 Adult Td,Tdap Booster 12/04/2027 12/03/2017, 007 COLONOSCOPY 06/09/2029 06/09/2024, 05/14, 08/11/2007 COLORECTAL CANCER SCREENING 06/09/2029 LIPID PANEL 10/16/2029 10/16/2024, 07/0 10/2024, 10/16/2024, Additional history exists HEPATITIS C SCREENING Completed 03/25/2020 PNEUMOCOCCAL VACCINES (50+ years) Completed 10/28/2020, 10/20/2019 ABDOMINAL AORTIC ANEURYSM (AAA) SCREENING Completed 11/01/2020 ZOSTER VACCINES Completed 06/12/2022, 01/14/2022 SMOKING STATUS SCREENING (Once After 26 Yrs) Completed 12/04/2024 HEPATITIS A VACCINES Aged Out No long er eligible based on patient's age to complete this topic HIB VACCINES Aged Out No longer eligi ble based on patient's age to complete this topic MENINGOCOCCAL VACCINES (ACWY) Aged Out No longer eligible based on patient's age to complete this topic MENINGOCOCCAL VACCINES (B) Aged Out N o longer eligible based on patient's age to complete this topic Medical Devices Not on file Procedures Procedure Name Priority Date/Time Associated Diagnosis Comments OUTSIDE LAB Routine 11/27/2024 2:58 PM EDT OUTSIDE IMAGING Routine 11/27/2024 10:40 AM EDT OUTSIDE IMAGING Routine 11/24/2024 3:59 PM EDT OUTSIDE LAB Routine 10/16/2024 9:00 AM EDT OUTSIDE POTASSIUM LEVEL Routine 10/16/2024 OUTSIDE HEMOGLOBIN A1C Routine 10/16/2024 OUTSIDE LDL Routine 10/16/2024 OUTSIDE TSH LEVEL Routine 10/16/2024 OUTSIDE ALT LEVEL Routine 10/16/2024 OUTSIDE TOTAL CHOLESTEROL Routine 10/16/2024 OUTSIDE ALKALINE PHSOPHATASE LEVEL Routine 10/16/2024 OUTSIDE HDL Routine 10/16/2024 OUTSIDE SERUM CREATININE LEVEL Routine 10/16/2024 OUTSIDE TRIGLYCERIDES Routine 10/16/2024 COLONOSCOPY FOR RESULT ENTRY ONLY Routine 06/09/2024 US ABDOMINAL AORTIC SCREENING Routine 11/01/2020 8:47 AM EDT Screening for AAA (abdominal aortic aneurysm) from Last 3 Months or Most Recently Relevant to Health Maintenance Results * Outside Lab (11/27/2024 2:58 PM EDT) Only the most recent of2 resultswithin the time period is included. [facility] Provider MD LAB BLOOD ORDERABLES Sherita l Result * Outside Imaging Report Only (11/27/2024 10:40 AM EDT) [facility] Provider IMG XR CHEST Final Res ult * Outside Imaging Report Only (11/24/2024 3:59 PM EDT) [facility] Provider IMG XR CHEST Final Res ult * (ABNORMAL) Outside Triglycerides (10/16/2024) Triglycerides - External 154(A) 35 - 150 mg/dL EXTERNAL NON-INTERFACE D REF LAB Result [facility] Provider MD LAB BLOOD ORDERABLES Sherita l Result Performing Organization Address City/[facility]/ZIP Co de Phone Number EXTERNAL NON-INTERFACED REF LAB * Outside TSH Level (10/16/2024) TSH - External 1.45 0.5 - 5 uIU/L EXTERNAL NON-INTERFACED REF LAB Result [facility] Provider MD LAB BLOOD ORDERABLES Sherita l Result EXTERNAL NON-INTERFACED REF LAB * Outside Potassium Level (10/16/2024) Potassium level - External 4.1 3.4 - 5.0 mmol/L EXTERNAL NON-INTERFACED REF LAB Result [facility] Provider MD LAB BLOOD ORDERABLES Sherita l Result EXTERNAL NON-INTERFACED REF LAB * Outside HbA1c (10/16/2024) Hemoglobin A1c - External 5.6 % EXTERNAL NON-INTERFACED REF LAB Result [facility] Provider MD LAB BLOOD ORDERABLES Sherita l Result Performing Organization Address City/[facility]/ZIP Co de Phone Number EXTERNAL NON-INTERFACED REF LAB * Outside LDL (10/16/2024) LDL - External 88 50 - 250 mg/dL EXTERNAL NON-INTERFACED REF LAB Result [facility] Provider MD LAB BLOOD ORDERABLES Sherita l Result Performing Organization Address City/[facility] Co de Phone Number EXTERNAL NON-INTERFACED REF LAB * Outside Serum Creatinine Level (10/16/2024) Creatinine, serum - External 1.27 0.8 - 1.3 mg/dL EXTERNAL NON-INTERFACED REF LAB Result [facility] Provider MD LAB BLOOD ORDERABLES Sherita l Result Performing Organization Address City/[facility]/ZIP Co de Phone Number EXTERNAL NON-INTERFACED REF LAB * Outside ALT Level (10/16/2024) ALT - External 26 5 - 30 U/L EXTE RNAL NON-INTERFACED REF LAB Result [facility] Provider MD LAB BLOOD ORDERABLES Sherita l Result Performing Organization Address City/[facility]/ZIP Co de Phone Number EXTERNAL NON-INTERFACED REF LAB * Outside Total Cholesterol (10/16/2024) Cholesterol, total - External 162 <=200 mg/dL EXTERNAL NON-INTERFACED REF LAB Result [facility] Provider MD LAB BLOOD ORDERABLES Sherita l Result EXTERNAL NON-INTERFACED REF LAB * Outside Alkaline Phosphatase Level (10/16/2024) ALKALINE PHOSPHATE LEVEL - EXTERNAL 60 50 - 100 U/L EXTERNAL NON-INTERFACED REF LAB Result [facility] Provider MD LAB BLOOD ORDERABLES Sherita l Result EXTERNAL NON-INTERFACED REF LAB * (ABNORMAL) Outside HDL (10/16/2024) HDL - External 474(A) 40 - 80 mg/dL EXTERNAL NON-INTERFACED REF LAB us Historical Provider LAB BLOOD ORDERABLES Sherita l Result EXTERNAL NON-INTERFACED REF LAB * COLONOSCOPY FOR RESULT ENTRY ONLY (06/09/2024) Colonoscopy 5 year recall us Historical Provider HEALTH MAINTENANCE Final Result * US Abdominal Aortic Screening (11/01/2020 8:47 AM EDT) Anatomical Region Laterality Modality Abdomen Ultrasound 11/01/2020 8:49 AM EDT Impressions 11/01/2020 8:52 AM EDT Atherosclerotic disease, but no aneurysmal dilatation of the abdominal aorta. Narrative 11/01/2020 8:52 AM EDT EXAM: US ABDOMINAL AORTIC SCREENING COMPARISON:None Findings: Proximal abdominal aorta measures 1.6 x 1.5 cm Mid aorta measures 2.3 x 2.0 cm. Distal aorta measures 1.7 x 1.6 cm Right common iliac artery measures 1.0 x 0.9 cm Left common iliac artery measures 1.2 x 0.9 cm Sonographic evidence of atherosclerotic disease with calcified plaques. Noted at the most proximal portion of the aorta was not well visualized due to overlying bowel gas. Procedure Note Alejandra Ventura MD - 11/01/2020 EXAM: US ABDOMINAL AORTIC SCREENING COMPARISON:None Findings: Proximal abdominal aorta measures 1.6 x 1.5 cm Mid aorta measures 2.3 x 2.0 cm. Distal aorta measures 1.7 x 1.6 cm Right common iliac artery measures 1.0 x 0.9 cm Left common iliac artery measures 1.2 x 0.9 cm Sonographic evidence of atherosclerotic disease with calcified plaques.Noted at the most proximal portion of the aorta was not well visualizeddue to overlying bowel gas. IMPRESSION: Atherosclerotic disease, but no aneurysmal dilatation of the abdominalaorta. Emmanuel Mistry MD [facility] ABDOMEN Final Result from Last 3 Months or Most Recently Relevant to Health Maintenance Insurance MEDICARE PART A & B [facility] MEDICARE PART A & B MEDICARE PART A & B MEDICARE PART A & [place] [address] [place] [address] MEDICARE PART A & B MEDICARE PART A & B [facility] MEDICARE PART A & [place] [address] [place] [address] MEDICARE PART A & B [facility] MEDICARE PART A & B Member Subscriber Plan / Payer ( fective 2018-Present) Name:Mario Ricketts Member ID:[id number] Relation to Subscriber:Self Name:Mario Ricketts Subscriber ID:[id number] Payer ID:[id number] Group ID:Not on file Type:Medicare Address: [facility] official.fm [facility]. [address] [place] [address] Advance Directives For more information, please contact: [phone] (9AM - 5PM [place], Wednesday-Wednesday) * Full Code (Latest Code Status on File) Date Activated Date Inactivated Comments 04/19/2020 5:10 PM Question Answer Comments Code Status Confirmed With: Patient Care Teams Rail Project Engineer Relationship Specialty Start Date End Date Emmanuel Mistry MD [address] [place] [phone] PCP - General Internal Medicine 01/01/20 Edgar William MD Nephrology 10/11/19 Dash Price MD Endocrinology 10/11/19 Chuck Pratt MD [address] [place] [phone] Cardiology 10/11/19 Rajan Ojeda MD [address] [place] [id number] Vascular Surgery 10/11/19 Harlan Sharma MD [address] [place] [phone] Cardiology 03/25/20 Additional Source Comments The information contained in this document represents components of the legal health record. It is not the complete legal health record.Located Within [facility]
== END 2024-12-12 15:10 | disposition home or self-care (01) ==
LOC: HO.HVS 14:25
PROVIDERS: PCP Internal Medicine; Visit Provider Surgery Vascular Surgery
DX: I73.9 Peripheral vascular disease, unspecified (principal)
CPT/HCPCS: 99214; G2211

== ENCOUNTER → 2024-12-12 14:24 | Outpatient (BNVA) | payer MEDICARE, BC, SELFPAY | PROVIDERS: PCP Internal Medicine; Visit Provider Surgery Vascular Surgery | DX: I70.201 Unspecified atherosclerosis of native arteries of extremities, right leg (principal); Z95.820 Peripheral vascular angioplasty status with implants and grafts; Z87.891 Personal history of nicotine dependence | CPT/HCPCS: 99212 ==

== ENCOUNTER 2024-12-13 05:55 | Day surgery (SDC) | payer MEDICARE, BC, SELFPAY ==
[2024-12-13] VITALS (20 sets, daily range): BP systolic 110–158; BP diastolic 62–92; PULSE 68–97; RESP 12–20; TEMP 36.6–36.7; O2SAT 94–100; BMI 29.7
[2024-12-13 07:40] LABS: MANUAL DIFF FLAG NO
[2024-12-13 07:45] LABS: Hematocrit 44.1 % (42.0-52.0); Hemoglobin 15.0 g/dl (14.0-18.0); Imm Gran Abs Auto 0.02 X10*3/uL (0.00-0.03); Imm Gran Pct Auto 0.2 % (0.0-0.4); Lymphocytes Absolute Auto 2.3 X10*3/uL (1.2-4.9); Mean Corpuscular HGB Conc 34.0 g/dl (31.0-36.0); Mean Corpuscular Hemoglobin 30.9 pg (27.0-33.0); Mean Corpuscular Volume 90.7 fL (80.0-98.0); NRBC Abs Auto 0.000 X10*3/uL (0.0-0.012); NRBC Pct Auto 0.0 /100WBC (0.0-0.2); Platelet Count 204 X10*3/uL (160-400); Red Blood Count 4.86 X10*6/uL (4.60-5.80); White Blood Count 8.9 X10*3/uL (4.8-10.8)
[2024-12-13 08:00] LABS: Blood Urea Nitrogen 19 mg/dL (9-16); Creatinine Clr Calc Pharmacy 49.3; Estimated Glomerular Filt Rate 43
--- NOTE | 2024-12-13 09:22 | W.PM.OPN ---
Operative Note Operative Note Date of Service: 12/13/24 Narrative: Angiogram report from [facility] Preoperative diagnosis: Atherosclerosis of right lower extremity with activity limiting claudication Postoperative diagnosis: Same Procedure: 1. Ultrasound-guided left common femoral access 2. Aortogram with bilateral lower extremity runoff Surgeon:Rajan Ojeda M.D., FACS, RPVI Firearms Assembly Supervisor:None Anesthesia: Local with moderate conscious sedation. Total intraservice moderate sedation time was 35 minutes. I monitored the patient's level of consciousness and physiologic status continuously throughout the procedure. Specimens:none Drains:none Estimated blood loss: Less than 10 ml Radiation Dose: 462.1 mGy Implant: None Indications: Pleasant 69-year-old gentleman prior history of right lower extremity endovascular intervention back in 2019. He has recurrent claudication that began about 3 months ago in our noninvasive testing concern of pre and post stent disease. He now presents for endovascular intervention The patient has signed the informed consent after reviewing risks, complications, benefits, and alternatives previously discussed with the patient. The patient was given the opportunity to ask any additional questions or voice any concerns. All questions were answered to the patient's satisfaction. Procedure in detail: Patient was brought to the angiography suite prior to which a time-out was called for patient identification and site verification. Bilateral groins were prepped and draped in the standard surgical fashion. Under ultrasound guidance left common femoral was punctured with micro puncture needle and wire. Subsequently a precision 5 Namibian sheath was then placed. Bentson wire was advanced to the level of the aorta. 5 Namibian Flush catheter was brought up and parked at the level of the renal arteries. Aortogram was then undertaken. Catheter was brought down to the level of the iliac bifurcation. Iliacs and runoff was performed through the flush catheter that was parked at the bifurcation and a power injection was performed to visualize bilateral runoff vessels. Subsequently the catheter was then brought in up and over to the right side SFA. Multiple orthogonal views of the right lower extremity were undertaken. No intervention was indicated. Catheter wire sheath was removed. A 5 Namibian CELT closure device was placed. Patient tolerated the procedure well and returned to recovery with stable vitals. Interpretation of films: 1. Ultrasound demonstrates appropriate femoral access site. Vessel was patent with minimal stenosis. Needle entry was visualized. Image of ultrasound was saved. 2. Aortogram demonstrates appropriate caliber aorta. Minimal disease. Appropriate take-off of the renals. 3. Iliac images demonstrate there was moderate stenosis at the left common iliac towards the bifurcation origin. It did not appear flow-limiting. There was calcification noted at the bifurcation none of which appear to be flow-limiting 4. Right Leg Common femoral artery: Significant disease Profundus Femoris: No significant disease Superficial femoral artery: No significant disease with stent patent no InStent restenosis no disease proximal or distal to it noted Popliteal artery (p1,p2,p3): No significant disease Anterior tibial artery: Good runoff Peroneal artery: Good runoff Posterior tibial artery: Good runoff Dorsalis pedis/plantar arch: Incomplete 5. Left Leg Common femoral artery: No significant disease Profundus Femoris: No significant disease Superficial femoral artery: No significant disease Popliteal artery (p1,p2,p3): No significant disease Anterior tibial artery: No significant Peroneal artery: No significant disease Posterior tibial artery: No significant disease Dorsalis pedis/plantar arch: Not visualize Conclusion: 1. Successful diagnostic angiogram. Patient will require right common femoral endarterectomy 2. Anticoagulation status: Resume all medications. Can restart Eliquis tonight This note is constructed using voice recognition software. While every effort has been made to ensure accuracy, manager billing errors may have been included. Thank you for allowing me to participate in the care of your patient. Yours sincerely, Rajan Ojeda MD, FACS, R.P.V.I.
== END 2024-12-13 11:05 | disposition home or self-care (01) ==
PROVIDERS: PCP Internal Medicine; Visit Provider Surgery Vascular Surgery
DX: I73.9 Peripheral vascular disease, unspecified (principal); Z79.01 Long term (current) use of anticoagulants; M79.661 Pain in right lower leg; R25.2 Cramp and spasm; I48.0 Paroxysmal atrial fibrillation; I10 Essential (primary) hypertension; E78.5 Hyperlipidemia, unspecified; K21.9 Gastro-esophageal reflux disease without esophagitis; Z87.891 Personal history of nicotine dependence
CPT/HCPCS: 36247; 36415; 75630; 76937; 82565; 84520; 85025; 99152; 99153; C1760; C1769; C1887; C1894; J1644; J2003; J2250; J3010; Q9967

== ENCOUNTER → 2024-12-13 05:55 | Outpatient (BNV) | payer MEDICARE, BC, SELFPAY | PROVIDERS: PCP Internal Medicine; Visit Provider Surgery Vascular Surgery | DX: I70.211 Atherosclerosis of native arteries of extremities with intermittent claudication, right leg (principal) | CPT/HCPCS: 36247; 75625; 75710; 76937; 99152 ==

== ENCOUNTER 2024-12-26 09:01 | Outpatient (AMB) | payer MEDICARE, BC, SELFPAY ==
--- OUTSIDE RECORDS SUMMARY | 2024-06-09 06:30 | XMS_ITS ---
Author Organization [facility] Address [address] [place] [address] Care Team Providers Care Polo Coach Name Role Phone Emmanuel Mistry MD Primary Care Provider Kati Fang [phone] REASON FOR VISIT screening,hx polyps,ngo's ,gerd Encounters Encounter Location Date Provider Diagnosis [facility] [place] [place] [address] [place] [id number] 06/09/2024 Kati Hdz Colon cancer scree angelique [...] * KATI ZEPEDADOB: [birth year] (69 yo M)Acc No.[id number]:06/09/2024 EGD and COL/MAC Patient: KATI MEZA Provider: Mana Hdz MD :1955 A ge:68 Y S ex:Male Date:06/09/2024 Address:[address] [place], [place] [phone] Pcp:Emmanuel Mistry MD Subjective: * Chief Complaints: [...] Procedure Codes: 4 5385 LESION REMOVAL COLONOSCOPY, 50705 COLONOSCOPY AND BIOPSY, Modifiers: 59 , 0529F INTRVL 3+YRS PTS CLNSCP DOCD, 0528F RCMND FLW-UP 10 YRS DOCD, 41660 UPPR GI ENDOSCOPY, DIAGNOSIS * * The named appointment provid er may or may not be the originator of this progress note, and it is not deemed complete until electronically signed by the appointment provider. Sign off status: Pending * Provider: Mana Hdz MD Date: 0 06/09/2024 Generated for Sammi quintana/Aubrie/Carlosransmitting on: 0 12/26/2024 11:13 AM EDT
--- NOTE | 2024-12-26 09:26 | A.OFFVIS_ITS ---
Vital Signs 12/26/24 09:32 Height 5 ft 10 in Weight 210 lb BMI 30.1 Intake Visit Reasons: 2 week follow up R leg Angio 12/13/24 Intake Note: 2 week follow up Right LE Angio 12/13/24. No changes, angio was diagnostic Coconut Cooker Required: No Accompanied by: Self / Same As Patient Allergies No Known Allergies Allergy (Verified 12/26/24 09:34) HPI HPI 2 week follow up R leg Angio 12/13/24: Details: The patient is a 69-year-old male presenting with peripheral artery disease requiring surgical intervention. He has undergone right lower extremity angiogram. Continues to complain about right lower extremity pain and can ambulate a block at most. It has been affecting his daily activities and at the current time he is having difficulty working the gait at the big E In general he is able to climb 2 flights of stairs without any significant shortness of breath. He now presents for postprocedure follow-up. [facility] Medical History Peripheral vascular disease Other and unspecified hyperlipidemia Essential hypertension PAF (paroxysmal atrial fibrillation) Atherosclerotic cardiovascular disease Hyperlipemia Afib GERD (gastroesophageal reflux disease) HTN (hypertension) Surgical History H/O colonoscopy History of cardiac catheterization (~12/12/19) Family History Father CHF (congestive heart failure) Vascular disorder Mother Respiratory disease Social History Are you a primary administrator health care facility to a significant other at home: No Do you presently have visiting nurse or other home services: No Alcohol intake: never Patient Tobacco Use Status: Former Tobacco user Tobacco use type: Cigarette Review of Systems Const All systems reviewed & are unremarkable except as noted in HPI and below Reports no additional complaints ENT Reports Normal hearing present Card Denies chest pain, Denies chest pain at rest, Denies chest pain with activity and Denies pedal edema Resp Denies cough GI Denies abdominal pain Musc Denies abnormal gait, Denies muscle cramps and Denies radiating pain into limb Skin/Breast Denies skin ulcer and Denies wounds Neuro Reports Normal hearing present and Denies abnormal gait Psych Reports no additional complaints Physical Exam Vital Signs: BMI result Body Mass Index 30.1 Const General: cooperative, healthy appearing and comfortable Orientation/consciousness: oriented to person, oriented to place and oriented to time HEENT Head: Yes normal to inspection Neck Neck: Yes normal visual inspection Carotids: no bruits Chest Chest palpation & inspection: normal inspection of the chest Resp Effort & Inspection: normal respiratory effort and able to speak in complete sentences Auscultation: clear to auscultation bilaterally, no crackles, no rales, no rhonchi and no wheezes Cardio Other: Palpable left dorsalis pedis pulse, right dorsalis pedis signal Rate: regular rate Rhythm: regular rhythm Heart sounds: S1 normal heart sound present and S2 normal heart sound present Bruits: no carotid bruits Peripheral pulses: Peripheral pulses 2+ throughout GI Inspection: Yes normal to inspection Skin Wounds: no wounds Hair: normal Neuro General: oriented to person, oriented to place and oriented to time Cranial nerves: Yes CN's II-XII intact bilaterally and Yes Normal hearing present Cognition (Neuro): normal cognition Motor exam (neuro): 5/5 motor strength present throughout Extrem Other: venous exam: No significant superficial varicosities or spider telangiectasias, minimal edema General: No clubbing, No cyanosis and No edema Psych Appearance: grossly normal Mental Status: mental status grossly normal Speech and movement: Normal speech and movement present Results Reviewed Results Reviewed: 12/13/2024 angiogram was reviewed Assessment & Plan Assessment & Plan (1) Peripheral vascular disease: Comment: 02/01/2019 right atherectomy and stent of SFA 12/13/2024 - right lower extremity diagnostic angiogram Code(s): I73.9 - Peripheral vascular disease, unspecified Category: Medical Plan: In short patient has activity limiting claudication. Patient will require right common femoral endarterectomy. Risks benefits complications including but not limited to bleeding infection limb loss and stroke were discussed in detail with the patient. He will require cardiac risk stratification prior to surgery. Thank you for allowing us to assist in his care. If there are any questions or concerns please do not hesitate to contact us. Coding Level of Care Code Est Pt Level 4 (21432) Diagnoses Peripheral vascular disease I73.9
[2024-12-26 09:32] VITALS: BMI 30.1
--- OUTSIDE RECORDS SUMMARY | 2024-12-26 11:13 | XMS_ITS | Encounter Summary ---
Author Organization [facility] Address [address] [place] [address] Phone Care Team Providers Care Family Services Assistant Name Role Phone Emmanuel Mistry MD Unavailable [phone] Edgar William MD Unavailable Dash Price MD Unavailable [phone] Chuck Pratt MD Unavailable Rajan Ojeda MD Unavailable [phone] Emmanuel Mistry MD Primary Care Provider Harlan Sharma MD Unavailable [phone] Encounter Details Date Type Department Care Team (Late st Contact Info) Description 05/18/2022 Procedure [facility], [address] [address] Social History Tobacco Use Types Packs/Day Years [...] Description 05/23/2025 9:30 AM EST Office Visit [facility] Internal Medicine [address] [place] [address] Emmanuel Mistry MD [address] [place], [place] [phone] 07/09/2025 10:40 AM EDT Office Visit [facility] Endocrinology [place] [address] [place] [phone] Ines Rush MD [address] [place] [address] documented as of this encounter Visit Diagnoses Not on filedocumented in this encounter Additional Health Concerns Infection Onset Date Last Indicated Resolved Time COVID-19 08/06/2024 08/06/2024 08/27/2024 1:21 AM EDT Assessment Noted Time PHQ-2 Depression Total Score: 0 11/16/19 9:40 AM EDT documented as of this encounter Care Teams Family Services Assistant Relationship Specialty Start Date End Date Emmanuel Mistry MD [address] [place] [address] PCP - General Internal Medicine 01/01/20 Emmanuel Mistry MD [address] [place] [address] [email or web address] Insurance Assigned Provider 07/17/23 04/17/24 Edgar William MD [address] [place] [address] Nephrology 10/11/19 Dash Price MD [address] [place] [address] [email or web address] Endocrinology 10/11/19 Chuck Pratt MD [address] [place] [address] Cardiology 10/11/19 Rajan Ojeda MD [address] [place] [address] Vascular Surgery 10/11/19 Harlan Sharma MD [address] [place] [address] Cardiology 03/25/20 documented as of this encounter Additional Source Comments The information contained in this document represents components of the legal health record. It is not the complete legal health record.[facility]
--- OUTSIDE RECORDS SUMMARY | 2024-12-26 11:13 | XMS_ITS | Encounter Summary ---
Author Organization [facility] Address [address] [place] [address] Phone Care Team Providers Care Residential Sales Representative Name Role Phone Edgar William MD Unavailable Dash Price MD Unavailable Chuck Pratt MD Unavailable Rajan Ojeda MD Unavailable Emmanuel Mistry MD Primary Care Provider Harlan Sharma MD Unavailable Reason for Visit * Reason Comments Medication Refill Encounter Details Date Type Department Care Team (Late st Contact Info) Description 12/23/2024 Refill [facility] Internal Medicine [address] [place], [place] [phone] Emmanuel Mistry MD [address] [place] [address] [email or web address] Medication Refill Social History Tobacco Use Types Packs/Day Years [...] AM EDT documented as of this encounter Progress Notes * Skye Sanchez CMA - 12/25/2024 12:03 PM EDT Rx Care Gap Status - Instructions for Clinical Staff (prescriber discretion applies): > Mismatch review guide > N/a - No action needed Visit Info Last visit: 12/04/2024 Emmanuel Mistry MD - Internal Medicine [facility] > Requested f/u: Return in about 6 months (around 06/06/2025) for Recheck. Upcoming visit: 05/23/2025 Emmanuel Mistry MD - Internal Medicine [facility] ACTIONS TAKEN BY Skye Sanchez CMA - Criteria met. CCB (vasodilators) Rx Protocol (on HTN Registry) - amlodipine besylate Criteria met; renew for up to 12 months. Visit in the past 14 months: Yes Clinical criteria: - BP within last 6 months: 137/64 on 12/04/2024 documented in this encounter Plan of Treatment Upcoming Encounters Date Type Department Care Team (Late st Contact Info) Description 05/23/2025 9:30 AM EST Office Visit [facility] Internal Medicine [address] [place] [address] Emmanuel Mistry MD [address] [place] [address] [email or web address] 07/09/2025 10:40 AM EDT Office Visit [facility] Endocrinology [place] [address] [place] [phone] Ines Rush MD [address] [place] [phone] [email or web address] documented as of this encounter Visit Diagnoses Diagnosis Essential hypertension Unspecified essential hypertension documented in this encounter Additional Health Concerns Assessment Noted Time PHQ-2 Depression Total Score: 0 12/04/19 9:42 AM EDT documented as of this encounter Care Teams Residential Sales Representative Relationship Specialty Start Date End Date Emmanuel Mistry MD [address] [place], [place] PCP - General Internal Medicine 01/01/20 Edgar William MD Nephrology 10/11/19 Dash Price MD Endocrinology 10/11/19 Chuck Pratt MD [address] [place] [address] [address] [place] [address] Cardiology 10/11/19 Rajan Ojeda MD [address] [place] [address] Vascular Surgery 10/11/19 Harlan Sharma MD [address] [address] Cardiology 03/25/20 documented as of this encounter Additional Source Comments The information contained in this document represents components of the legal health record. It is not the complete legal health record.[facility]
--- OUTSIDE RECORDS SUMMARY | 2024-12-26 11:13 | XMS_ITS | Clinical Summary ---
Author Organization [facility] Address [address] [place] [address] Phone Care Team Providers Care Processing Inspector Name Role Phone Emmanuel Mistry MD Primary Care Provider [phone] Allergies No known active allergies Medications amLODIPine [...] Therefore we will refer the patient to [facility] ears nose throat [facility] in [place] for a evaluation. Most likely it is [...] to 49 Years) Discontinued 10/28/2020, 10/20/2019 Insurance [facility] Medicare [facility] Medicare Care Teams Processing Inspector Relationship Specialty Start Date End Date Emmanuel Mistry MD [address] [place] [address] PCP - General 04/22/20
--- OUTSIDE RECORDS SUMMARY | 2024-12-26 11:13 | XMS_ITS | Encounter Summary ---
Author Organization [facility] Address [address] [place] [address] Phone Care Team Providers Care Embroidery Specialist Name Role Phone Emmanuel Mistry MD Unavailable [phone] Edgar William MD Unavailable Dash Price MD Unavailable [phone] Chuck Pratt MD Unavailable [phone] Rajan Ojeda MD Unavailable [phone] Emmanuel Mistry MD Primary Care Provider Harlan Sharma MD Unavailable [phone] Encounter Details Date Type Department Care Team (Latest Contact Info) Description 11/24/2021 Ancillary Orders [facility] Internal Medicine [address] [place], [place] [phone] Emmanuel Mistry MD [address] [place] [address] [email or web address] Hip pain, bilateral Social History Tobacco Use [...] Description 05/23/2025 9:30 AM EST Office Visit [facility] Internal Medicine [address] [place] [address] Emmanuel Mistry MD [address] [place] [address] 07/09/2025 10:40 AM EDT Office Visit [facility] Endocrinology [place] [address] [place] [phone] Ines Rush MD [address] [place] [address] [email or web address] documented as of this encounter Results * [...] documented as of this encounter Care Teams Embroidery Specialist Relationship Specialty Start Date End Date Emmanuel Mistry MD [address] [place] [address] PCP - General Internal Medicine 01/01/20 Emmanuel Mistry MD [address] [place] [address] Insurance Assigned Provider 07/17/23 04/17/24 Edgar William MD [address] [place] [address] Nephrology 10/11/19 Dash Price MD [address] [place] [address] [email or web address] Endocrinology 10/11/19 Chuck Pratt MD [address] [place] [address] Cardiology 10/11/19 Rajan Ojeda MD [address] [place] [address] Vascular Surgery 10/11/19 Harlan Sharma MD [address] [place] [address] Cardiology 03/25/20 documented as of this encounter Additional Source Comments The information contained in this document represents components of the legal health record. It is not the complete legal health record.[facility]
--- OUTSIDE RECORDS SUMMARY | 2024-12-26 11:13 | XMS_ITS | Encounter Summary ---
Author Organization [facility] Address [address] [place] [address] Phone Care Team Providers Care Education Officer Name Role Phone Edgar William MD Unavailable Dash Price MD Unavailable [phone] Chuck Pratt MD Unavailable [phone] Rajan Ojeda MD Unavailable Emmanuel Mistry MD Primary Care Provider Harlan Sharma MD Unavailable [phone] Encounter Details Date Type Department Care Team (Late st Contact Info) Description 11/28/2024 Orders Only [facility] Internal Medicine [address] [place] [address] Provider, MD Melvin [address] [place] [address] Social History Tobacco Use Types Packs/Day [...] Description 05/23/2025 9:30 AM EST Office Visit [facility] Internal Medicine [address] [place] [address] Emmanuel Mistry MD [address] [place] [address] [email or web address] 07/09/2025 10:40 AM EDT Office Visit [facility] Endocrinology [place] [address] [place] [address] Ines Rush MD [address] [place] [address] [email or web address] documented as of [...] documented as of this encounter Care Teams Education Officer Relationship Specialty Start Date End Date Emmanuel Mistry MD [address] [place] [address] PCP - General Internal Medicine 01/01/20 Edgar William MD Nephrology 10/11/19 Dash Price MD [email or web address] Endocrinology 10/11/19 Chuck Pratt MD [address] [place] [address] [address] [place] [address] Cardiology 10/11/19 Rajan Ojeda MD [address] [place] [address] Vascular Surgery 10/11/19 Harlan Sharma MD [address] [place] [address] Cardiology 03/25/20 documented as of this encounter Additional Source Comments The information contained in this document represents components of the legal health record. It is not the complete legal health record.[facility]
--- OUTSIDE RECORDS SUMMARY | 2024-12-26 11:13 | XMS_ITS | Encounter Summary ---
Author Organization [facility] Address [address] [place] [address] Phone Care Team Providers Care Spindle Maker Name Role Phone Edgar William MD Unavailable Dash Price MD Unavailable Chuck Pratt MD Unavailable Rajan Ojeda MD Unavailable Emmanuel Mistry MD Primary Care Provider Harlan Sharma MD Unavailable [phone] Encounter Details Date Type Department Care Team (Late st Contact Info) Description 11/27/2024 Orders Only [facility] Internal Medicine [address] [place] [address] Provider, MD Melvin [address] [place] [address] Social History Tobacco Use Types Packs/Day [...] 05/23/2025 9:30 AM EST Office Visit [facility] Internal Medicine [address] [place] [address] Emmanuel Mistry MD [address] [place] [address] [email or web address] 07/09/2025 10:40 AM EDT Office Visit [facility] Endocrinology [place] [address] [place] [address] Ines Rush MD [address] [address] [email or web address] documented as of this encounter Procedures Procedure [...] documented as of this encounter Care Teams Spindle Maker Relationship Specialty Start Date End Date Emmanuel Mistry MD [address] [place] [address] PCP - General Internal Medicine 01/01/20 Edgar William MD Nephrology 10/11/19 Dash Price MD Endocrinology 10/11/19 Chuck Pratt MD [address] [place] [address] [address] [place] [address] Cardiology 10/11/19 Rajan Ojeda MD [address] [place] [address] Vascular Surgery 10/11/19 Harlan Sharma MD [address] [place] [address] Cardiology 03/25/20 documented as of this encounter Additional Source Comments The information contained in this document represents components of the legal health record. It is not the complete legal health record.[facility]
--- OUTSIDE RECORDS SUMMARY | 2024-12-26 11:14 | XMS_ITS | Clinical Summary ---
Author Organization [facility] Address [address] [place] [address] Phone Care Team Providers Care Memorial Designer Name Role Phone Edgar William MD Unavailable Dash Price MD Unavailable Chuck Pratt MD Unavailable [phone] Rajan Ojeda MD Unavailable Emmanuel Mistry MD Primary Care Provider Harlan Sharma MD Unavailable [phone] Allergies No known active allergies Medications aspirin 81 MG EC tablet Take 81 mg by mouth daily. Active atorvastatin (LIPITOR) 80 MG tablet Take 80 mg by mouth daily. 12/21/19 20 Active ezetimibe (ZETIA) 10 mg tablet Take 10 mg by mouth daily. 01/16/20 21 Active metoprolol succinate (TOPROL-XL) 25 MG 24 hr tabletIndication s:Essential hypertension TAKE 1 TABLET BY MOUTH EVERY DAY 90 tablet 3 10/11/19 22 Active apixaban (ELIQUIS) 5 mg tabletIndication s:Paroxysmal atrial fibrillation Take 1 tablet (5 mg total) by mouth 2 (two) times a day. 180 tablet 3 07/15/19 24 Active cycloSPORINE (RESTASIS) 0.05 % suspension Place 1 drop into each eye 2 (two) times a day. 10/03/19 25 Active benzonatate (TESSALON) 100 MG capsule Take 100 mg by mouth 3 (three) times a day as needed. 11/28/19 25 Active azithromycin (ZITHROMAX) 250 MG tablet TAKE 2 TABLETS BY MOUTH TODAY, THEN TAKE 1 TABLET DAILY FOR 4 DAYS DIRECTED 11/28/19 25 Active amLODIPine (NORVASC) 10 MG tabletIndication s:Essential hypertension TAKE 1 TABLET BY MOUTH EVERY DAY 90 tablet 3 12/26/19 25 Active amLODIPine (NORVASC) 10 MG tabletIndication s:Essential hypertension take 1 tablet by mouth every day 90 tablet 3 12/17/19 24 025 Discontinued Active Problems Problem Noted Date Diagnosed Date [...] Therefore we will refer the patient to [facility] ears nose throat over in [place] for a evaluation. Most likely it is [...] Encounters Date Type Department Care Team Description 12/23/2024 Refill [facility] Internal Medicine [address] [facility] [place] [address] Emmanuel Mistry MD Medication Refill 12/04/2024 8:00 AM EDT Office Visit [facility] Internal [facility] [address] [facility] [place] [place] [address] Emmanuel Mistry MD Routine general medical examination at a [facility] care facility (Primary Dx); Benign essential hypertension; Pure hypercholesterolemia; Paroxysmal atrial fibrillation; Impaired fasting glucose; Primary osteoarthritis involving multiple joints 11/28/2024 Orders Only [facility] Internal Medicine [address] [facility] [place] [place] [address] Melvin [place] MD 11/27/2024 Orders Only [facility] Internal Medicine [address] [facility] [place] [place] [address] Melvin [place] MD 11/20/2024 Documentation [facility] Internal Medicine [address] [facility] [place] [address] Emmanuel Mistry MD 10/18/2024 Orders Only [facility] Internal Medicine [address] [facility] [place] [place] [address] ProviderMelvin MD from Last 3 Months Immunizations [...] Height 177.8 cm (5' 10 ) 12/04/2024 7:52 AM EDT Body Mass Index 29.96 12/04/2024 7:52 AM EDT Plan of Treatment Upcoming Encounters Date Type Department Care Team (Late st Contact Info) Description 05/23/2025 9:30 AM EST Office Visit [facility] Internal Medicine [address] [place] [address] Emmanuel Mistry MD 40 [place] [address] [email or web address] 07/09/2025 10:40 AM EDT Office Visit [facility] Endocrinology [place] [address] [place] [phone] Ines Rush MD [address] [place] [address] [email or web address] Health Maintenance Due Date Last Done Comments COLOGUARD 1998 FIT TEST 1998 FOBT 1998 SIGMOIDOSCOPY 1998 VIRTUAL COLONOSCOPY 1998 RSV VACCINE (1 - Risk 60-74 years 1-dose series) 2013 INFLUENZA VACCINE (#1) 2024 4, 12/18/2022, 01/14/2022, Additional history exists COVID-19 VACCINE [...] of2 resultswithin the time period is included. Result [facility] Provider MD LAB BLOOD ORDERABLES Sherita l Result * Outside Imaging Report Only (11/27/2024 10:40 AM EDT) Result [facility] Provider MD IMG XR CHEST Final Res ult * Outside Imaging Report Only (11/24/2024 3:59 PM EDT) [facility] Provider IMG XR CHEST Final Res ult * (ABNORMAL) Outside Triglycerides (10/16/2024) Triglycerides - External 154(A) 35 - 150 mg/dL EXTERNAL NON-INTERFACE D REF LAB Result [facility] Provider MD LAB BLOOD ORDERABLES Sherita l Result EXTERNAL NON-INTERFACED REF LAB * Outside TSH Level (10/16/2024) TSH - External 1.45 0.5 - 5 uIU/L EXTERNAL NON-INTERFACED REF LAB Result [facility] Provider MD LAB BLOOD ORDERABLES Sherita l Result Performing Organization Address City/[facility]/ZIP Co de Phone Number EXTERNAL NON-INTERFACED REF LAB * Outside Potassium Level (10/16/2024) Potassium level - External 4.1 3.4 - 5.0 mmol/L EXTERNAL NON-INTERFACED REF LAB [facility] Provider MD LAB BLOOD ORDERABLES Sherita l Result Performing Organization Address [facility] de Phone Number EXTERNAL NON-INTERFACED REF LAB * Outside HbA1c (10/16/2024) Hemoglobin A1c - External 5.6 % EXTERNAL NON-INTERFACED REF LAB [facility] Provider MD LAB BLOOD ORDERABLES Sherita l Result Performing Organization Address [facility] de Phone Number EXTERNAL NON-INTERFACED REF LAB * Outside LDL (10/16/2024) LDL - External 88 50 - 250 mg/dL EXTERNAL NON-INTERFACED REF LAB [facility] Provider MD LAB BLOOD ORDERABLES Sherita l Result Performing Organization Address [facility] Co de Phone Number EXTERNAL NON-INTERFACED REF LAB * Outside Serum Creatinine Level (10/16/2024) Creatinine, serum - External 1.27 0.8 - 1.3 mg/dL EXTERNAL NON-INTERFACED REF LAB [facility] Provider MD LAB BLOOD ORDERABLES Sherita l Result Performing Organization Address [facility] Co de Phone Number EXTERNAL NON-INTERFACED REF LAB * Outside ALT Level (10/16/2024) ALT - External 26 5 - 30 U/L EXTE RNAL NON-INTERFACED REF LAB [facility] Provider MD LAB BLOOD ORDERABLES Sherita l Result Performing Organization Address [facility] Co de Phone Number EXTERNAL NON-INTERFACED REF LAB * Outside Total Cholesterol (10/16/2024) Cholesterol, total - External 162 <=200 mg/dL EXTERNAL NON-INTERFACED REF LAB [facility] Provider MD LAB BLOOD ORDERABLES Sherita l Result EXTERNAL NON-INTERFACED REF LAB * Outside Alkaline Phosphatase Level (10/16/2024) ALKALINE PHOSPHATE LEVEL - EXTERNAL 60 50 - 100 U/L EXTERNAL NON-INTERFACED REF LAB Historical Provider LAB BLOOD ORDERABLES Sherita l Result EXTERNAL NON-INTERFACED REF LAB * (ABNORMAL) Outside HDL (10/16/2024) HDL - External 474(A) 40 - 80 mg/dL EXTERNAL NON-INTERFACED REF LAB Historical Provider LAB BLOOD ORDERABLES Sherita l Result Performing Organization Address City/[facility]/ZIP Co de Phone Number EXTERNAL NON-INTERFACED REF LAB * HM COLONOSCOPY FOR RESULT ENTRY ONLY (06/09/2024) HM Colonoscopy 5 year recall [facility] Provider HEALTH MAINTENANCE Final Result * US [...] but no aneurysmal dilatation of the abdominalaorta. us Emmanuel Mistry MD [facility] Final Result from Last 3 Months or Most Recently Relevant to Health Maintenance Insurance [facility] Address: [facility] [id number] [place] [address] MEDICARE PART A & B [facility] MEDICARE PART A & B [facility] MEDICARE PART A & [place] [address] [place] [address] MEDICARE PART A & B [facility] MEDICARE PART A & B [facility] MEDICARE PART A & B [facility] MEDICARE PART A & B [facility] MEDICARE PART A & B [facility] MEDICARE PART A & B Advance Directives For more information, please contact: [phone] (9AM - 5PM [facility], Wednesday-Wednesday) * Full Code (Latest Code Status on File) Date Activated Date Inactivated Comments 04/19/2020 5:10 PM Question Answer Comments Code Status Confirmed With: Patient Care Teams Memorial Designer Relationship Specialty Start Date End Date Emmanuel Mistry MD [address] [place] [address] PCP - General Internal Medicine 01/01/20 Edgar William MD Nephrology 10/11/19 Dash Price MD Endocrinology 10/11/19 Chuck Pratt MD [address] [place] [address] [place] [address] Cardiology 10/11/19 Rajan Ojeda MD [address] [place] [address] Vascular Surgery 10/11/19 Harlan Sharma MD [address] [address] Cardiology 03/25/20 Additional Source Comments The information contained in this document represents components of the legal health record. It is not the complete legal health record.[facility]
--- OUTSIDE RECORDS SUMMARY | 2024-12-26 11:14 | XMS_ITS | Patient Health Record ---
Author Organization [facility] Address [address] [place] [address] Care Team Providers Care Product Inspection Supervisor Name Role Phone Emmanuel Mistry MD Primary Care Provider Kati Fang Unavailable [phone] Allergies No Known Allergies Results Component Value Reference Range Notes Pathology (Not yet reviewed by provider) Interpretation: Performing Lab:[facility], [address] [place] [phone] Notes/Report: Reason For Referral No Information Medications Medication SIG (Take, Route, Frequency, Duration) Notes [...] 5 MG Oral for 90 Activ e Immunizations Vaccine Route Administration Date Status Comme nts Influenza Unknown 01/19/2018 Administered Social History Tobacco Use: Social History Observation Description Date Details (start date - stop date) Never Smoker NA - NA Tobacco Use/Smoking Question Answer Notes Patient is [...] Never (0 point) Points 2 Interpretation Negative Section Notes: Nonsmoker; occ. beer twice a week Nonsmoker; occ. beer twice a week Problems Problem Type SNOMED Code ICD Code Onset Dates Problem Status W/U Status Risk Notes Problem Colon cancer screening (828668478) Colon cancer screening (Z12.11) Active confirmed Problem 436016407 Encounter for screening for malignant neoplasm of colon (Z12.11) Active confirmed Problem History of polyp of colon (situation) (998947958) Personal history of colonic polyps (Z86.010) Active confirmed Problem 761304232 Gastroesophageal reflux disease, esophagitis presence not specified (K21.9) Active confirmed Problem Brody's esophagus (974881654) Brody''s esophagus without dysplasia (K22.70) Active confirmed Problem Gastroesophageal reflux disease (disorder) (513185357) Chronic GERD (K21.9) Active confirmed Vital Signs Blood pressure diastolic 00 mm Hg 02/11/2024 Height 71 in 02/11/2024 Blood pressure systolic 00 mm Hg 02/11/2024 Weight 214 lbs 02/11/2024 BMI 29.84 kg/m2 02/11/2024 Encounters Encounter Location Date Provider Diagnosis [facility] Outpatient [address] [place] [id number] 06/09/2024 Kati Hdz Colon cancer screeni ng Z12.11 ; Colon polyps K63.5 ; Diverticulosis of large intestine without perforation or abscess without bleeding K57.30 ; Other hemorrhoids K64.8 ; Gastro-esophageal reflux disease without esophagitis K21.9 ; Brody''s esophagus without dysplasia K22.70 and Hiatal hernia K44.9 [facility] [address] [place] [address] 02/11/2024 Kati Hdz Brody''s esophagus without dysplasia K22.70 ; Chronic GERD K21.9 ; Encounter for screening for malignant neoplasm of colon Z12.11 ; Colon cancer screening Z12.11 and Personal history of colonic polyps Z86.010 Assessments Encounter Date Diagnosis (ICD Code) Assessment Notes Treatment Notes Treatment Clinical Notes Section Notes 06/09/2024 Colon cancer screening (ICD-10 - Z12.11) 06/09/2024 Colon polyps (ICD-10 - K63.5) 02/11/2024 Brody''s esophagus without dysplasia (ICD-10 - K22.70) Overall, Kati appears quite well. I did recommend a followup colonoscopy for further screening purposes given his history of the tubular adenoma and serrated colon polyps removed nearly 6 years ago. We did review the rationale for this in regard to colon cancer prevention. I also recommended a followup upper endoscopy the same day given the small area of Brody's esophagus seen on the endoscopy in 2019. We did review the rationale for this in regard to the theoretical increased risk of esophageal cancer in patients with Brody's esophagus. At this time he is completely asymptomatic in regard to his reflux and is not needing any acid suppression. However, I did advise him that if the upper endoscopy has the finding of significant esophagitis I would then recommend he use some acid suppression daily given the underlying history of Brody's esophagus as well. Full consent was obtained from him for both procedures, including risks of bleeding and perforation. The procedures Will be done with monitored anesthesia care. He was given the below instructions regarding adjustment of his aspirin and Eliquis for the procedures. Kati was comfortable with this plan. Thank you again for allowing me to participate in Kati's care. I shall continue to keep you advised of his progress. 02/11/2024 Chronic GERD (ICD-10 - K21.9) Overall, Kati appears quite well. I did recommend a followup colonoscopy for further screening purposes given his history of the tubular adenoma and serrated colon polyps removed nearly 6 years ago. We did review the rationale for this in regard to colon cancer prevention. I also recommended a followup upper endoscopy the same day given the small area of Brody's esophagus seen on the endoscopy in 2019. We did review the rationale for this in regard to the theoretical increased risk of esophageal cancer in patients with Brody's esophagus. At this time he is completely asymptomatic in regard to his reflux and is not needing any acid suppression. However, I did advise him that if the upper endoscopy has the finding of significant esophagitis I would then recommend he use some acid suppression daily given the underlying history of Brody's esophagus as well. Full consent was obtained from him for both procedures, including risks of bleeding and perforation. The procedures Will be done with monitored anesthesia care. He was given the below instructions regarding adjustment of his aspirin and Eliquis for the procedures. Kati was comfortable with this plan. Thank you again for allowing me to participate in Kati's care. I shall continue to keep you advised of his progress. 06/09/2024 Diverticulosis of large intestine without perforation or abscess without bleeding (ICD-10 - K57.30) 02/11/2024 Encounter for screening for malignant neoplasm of colon (ICD-10 - Z12.11) Stop Eliquis for three days before the colonoscopy Do not take the aspirin on the morning of the procedures Overall, Kati appears quite well. I did recommend a followup colonoscopy for further screening purposes given his history of the tubular adenoma and serrated colon polyps removed nearly 6 years ago. We did review the rationale for this in regard to colon cancer prevention. I also recommended a followup upper endoscopy the same day given the small area of Brody's esophagus seen on the endoscopy in 2019. We did review the rationale for this in regard to the theoretical increased risk of esophageal cancer in patients with Brody's esophagus. At this time he is completely asymptomatic in regard to his reflux and is not needing any acid suppression. However, I did advise him that if the upper endoscopy has the finding of significant esophagitis I would then recommend he use some acid suppression daily given the underlying history of Brody's esophagus as well. Full consent was obtained from him for both procedures, including risks of bleeding and perforation. The procedures Will be done with monitored anesthesia care. He was given the below instructions regarding adjustment of his aspirin and Eliquis for the procedures. Kati was comfortable with this plan. Thank you again for allowing me to participate in Kati's care. I shall continue to keep you advised of his progress. 06/09/2024 Other hemorrhoids (ICD-10 - K64.8) 02/11/2024 Colon cancer screening (ICD-10 - Z12.11) Overall, Kati appears quite well. I did recommend a followup colonoscopy for further screening purposes given his history of the tubular adenoma and serrated colon polyps removed nearly 6 years ago. We did review the rationale for this in regard to colon cancer prevention. I also recommended a followup upper endoscopy the same day given the small area of Brody's esophagus seen on the endoscopy in 2019. We did review the rationale for this in regard to the theoretical increased risk of esophageal cancer in patients with Brody's esophagus. At this time he is completely asymptomatic in regard to his reflux and is not needing any acid suppression. However, I did advise him that if the upper endoscopy has the finding of significant esophagitis I would then recommend he use some acid suppression daily given the underlying history of Brody's esophagus as well. Full consent was obtained from him for both procedures, including risks of bleeding and perforation. The procedures Will be done with monitored anesthesia care. He was given the below instructions regarding adjustment of his aspirin and Eliquis for the procedures. Kati was comfortable with this plan. Thank you again for allowing me to participate in Kati's care. I shall continue to keep you advised of his progress. 06/09/2024 Gastro-esophageal reflux disease without esophagitis (ICD-10 - K21.9) 02/11/2024 Personal history of colonic polyps (ICD-10 - Z86.010) Overall, Kati appears quite well. I did recommend a followup colonoscopy for further screening purposes given his history of the tubular adenoma and serrated colon polyps removed nearly 6 years ago. We did review the rationale for this in regard to colon cancer prevention. I also recommended a followup upper endoscopy the same day given the small area of Brody's esophagus seen on the endoscopy in 2019. We did review the rationale for this in regard to the theoretical increased risk of esophageal cancer in patients with Brody's esophagus. At this time he is completely asymptomatic in regard to his reflux and is not needing any acid suppression. However, I did advise him that if the upper endoscopy has the finding of significant esophagitis I would then recommend he use some acid suppression daily given the underlying history of Brody's esophagus as well. Full consent was obtained from him for both procedures, including risks of bleeding and perforation. The procedures Will be done with monitored anesthesia care. He was given the below instructions regarding adjustment of his aspirin and Eliquis for the procedures. Kati was comfortable with this plan. Thank you again for allowing me to participate in Kati's care. I shall continue to keep you advised of his progress. 06/09/2024 Brody''s esophagus without dysplasia (ICD-10 - K22.70) 06/09/2024 Hiatal hernia (ICD-10 - K44.9) Plan Of Treatment Pending Test Test Name Order Date Pathology 06/09/2024 Future Test Test Name Order Date UPPER GI ENDOSCOPY 04/27/2018 COLONOSCOPY 04/27/2018 UPPER GI ENDOSCOPY 02/11/2024 COLONOSCOPY 02/11/2024 Insurance Providers Payer Name Payer Address Payer Phone Subscriber Number Group Number Insured Name Patient Relationship to Insured Coverage Start Date Coverage End Date MEDICARE [place] [address] [place] [address] [phone] [id number] KATI ZEPEDA Self - patient is the insured [facility] [address] [place], [place] [id number] KATI ZEPEDA Self - patient is the insured Medical (General) History Medical History History ICD Code Denies [place],DM,CVA,Lung [...] that were removed A FIB - DR. ALECIA LINDO with stent in RLE--sees Dr. Ojeda Surgical History Surgery Date(Month/Year)
--- OUTSIDE RECORDS SUMMARY | 2024-12-26 11:14 | XMS_ITS | Encounter Summary ---
Author Organization [facility] Address [address] [place] [address] Phone Care Team Providers Care Fitness Center Attendant Name Role Phone Emmanuel Mistry MD Unavailable [phone] Nadir Valladares DO Unavailable Micehlle Raymundo FIELD REPRESENTATIVES DIRECTOR Unavailable [phone] Ashtyn Peters MERCHANT PATROLLER Unavailable Emmanuel Mistry MD Primary Care Provider Emmanuel Mistry MD Unavailable Edgar William MD Unavailable Dash Price MD Unavailable Chuck Pratt MD Unavailable [phone] Rajan Ojeda MD Unavailable Emmanuel Mistry MD Primary Care Provider Harlan Sharma MD Unavailable [phone] Encounter Details Date Type Department Care Team (Late st Contact Info) Description 06/21/2017 Procedure Pass [facility], [address] [address] Social History Tobacco Use Types Packs/Day Years [...] Description 05/23/2025 9:30 AM EST Office Visit [facility] Internal Medicine [address] [place] [address] Emmanuel Mistry MD [address] [place] [address] [email or web address] 07/09/2025 10:40 AM EDT Office Visit [facility] Endocrinology [place] [address] [place] [phone] Ines Rush MD [address] [place] [address] [email or web address] documented as of this encounter Visit Diagnoses [...] documented as of this encounter Care Teams Fitness Center Attendant Relationship Specialty Start Date End Date Emmanuel Mistry MD [address] [place] [address] PCP - General Internal Medicine 03/17/17 12/31/19 Emmanuel Mistry MD [address] [place] [address] PCP - General Internal Medicine 01/01/20 Emmanuel Mistry MD [address] [place] [address] Historical LMR Provider 01/30/17 03/24/20 Nadir Valladares DO [address] [facility] [address] [place] [address] Historical LMR Provider 01/30/17 0 Michelle Raymundo NP [address] [place] [address] 6 [place] [address] Historical LMR Provider 01/30/17 03/24/20 Ashtyn Peters CNP [address] [facility] [place] [address] Historical LMR Provider 01/30/1703/12 Emmanuel Mistry MD [address] [place] [address] Insurance Assigned Provider 07/17/23 04/17/24 Edgar William MD [address] [place] [address] Nephrology 10/11/19 Dash Price MD [address] [place] [address] Endocrinology 10/11/19 Chuck Pratt MD [address] [place] [address] Cardiology 10/11/19 Rajan Ojeda MD [address] [place] [address] Vascular Surgery 10/11/19 Harlan Sharma MD [address] [place] [address] Cardiology 03/25/20 documented as of this encounter Additional Source Comments The information contained in this document represents components of the legal health record. It is not the complete legal health record.[facility]
== END 2024-12-26 10:12 | disposition home or self-care (01) ==
LOC: HO.HVS 09:03
PROVIDERS: PCP Internal Medicine; Visit Provider Surgery Vascular Surgery
DX: I73.9 Peripheral vascular disease, unspecified (principal)
CPT/HCPCS: 99214

== ENCOUNTER → 2024-12-26 09:01 | Outpatient (BNVA) | payer MEDICARE, BC, SELFPAY | PROVIDERS: PCP Internal Medicine; Visit Provider Surgery Vascular Surgery | DX: M79.661 Pain in right lower leg (principal); Z98.890 Other specified postprocedural states; I73.9 Peripheral vascular disease, unspecified | CPT/HCPCS: 99212 ==

== ENCOUNTER 2025-01-08 14:19 | Outpatient (AMB) | payer MEDICARE, BC, SELFPAY ==
--- OUTSIDE RECORDS SUMMARY | 2024-06-09 06:30 | XMS_ITS ---
Author Organization [facility] Address [address] [place] [address] Care Team Providers Care Pipe Fitter Supervisor Maintenance Name Role Phone Emmanuel Mistry MD Primary Care Provider Kati Fang [phone] REASON FOR VISIT screening,hx polyps,ngo's ,gerd Encounters Encounter Location Date Provider [place] [facility] [place] [address] [place] [phone] 06/09/2024 Kati Hdz Colon cancer scree angelique [...] * KATI ZEPEDADOB: [birth year] (69 yo M)Acc No.[id number]:06/09/2024 EGD and COL/MAC Patient: KATI MEZA Provider: Mana Hdz MD :1955 A ge:68 Y S ex:Male Date:06/09/2024 Address:[address] [place], [place] [phone] Pcp:Emmanuel Mistry MD Subjective: * Chief Complaints: [...] Procedure Codes: 4 5385 LESION REMOVAL COLONOSCOPY, 64767 COLONOSCOPY AND BIOPSY, Modifiers: 57 , 0529F INTRVL 3+YRS PTS CLNSCP DOCD, 0528F RCMND FLW-UP 10 YRS DOCD, 615[address] UPPR GI ENDOSCOPY, DIAGNOSIS * * The named appointment provid er may or may not be the originator of this progress note, and it is not deemed complete until electronically signed by the appointment provider. Sign off status: Pending * Provider: Mana Hdz MD Date: 0 06/09/2024 Generated for Cecillei mariano/Aubrie/eTransmitting on: 0 01/08/2025 04:07 PM EDT
--- NOTE | 2025-01-08 14:21 | A.OFFVIS_ITS ---
Vital Signs 01/08/25 14:22 Height 5 ft 10 in Weight 211 lb 10.3 oz BMI 30.4 BP 120/62 Blood Pressure Location Lt brachial Position Sitting Pulse 71 Pulse Source Pulse Oximeter Intake Visit Reasons: Preop/ Dr Ojeda / saulo fem endarterectomy Grounding Engineer Required: No Accompanied by: Self / Same As Patient Allergies No Known Allergies Allergy (Verified 01/08/25 14:24) Medication List - Last Reconciled 01/08/25 by Harlan Sharma MD amlodipine 10 mg PO DAILY apixaban 5 mg PO BID 90 days aspirin 81 mg PO DAILY atorvastatin 80 mg PO DAILY azithromycin For 250 mg dose pack: take 500 mg today (day 1), then 250 mg for 4 days (days 2-5) PO ezetimibe 10 mg PO DAILY metoprolol succinate ER 25 mg PO DAILY HPI Comments Details: Mario is here for consultation regarding preoperative risk stratification for right common femoral endarterectomy. Previous history of coronary artery disease but quite stable with no anginal-type symptoms. Has hypertension and hyperlipidemia. Remote smoking history. Overall, for the most part he states he is feeling fine. He does get some claudication symptoms but he can still walk a significant distance with no issues. He states he can even go up 3 flights of stairs without any cardiac symptoms. In fact has not had any angina whatsoever with any physical activity. [facility] Medical History Peripheral vascular disease Other and unspecified hyperlipidemia Essential hypertension PAF (paroxysmal atrial fibrillation) Atherosclerotic cardiovascular disease Hyperlipemia Afib GERD (gastroesophageal reflux disease) HTN (hypertension) Surgical History H/O colonoscopy History of cardiac catheterization (~12/12/19) Family History Father CHF (congestive heart failure) Vascular disorder Mother Respiratory disease Social History Are you a primary menagerie caretaker to a significant other at home: No Do you presently have visiting nurse or other home services: No Alcohol intake: never Patient Tobacco Use Status: Former Tobacco user Tobacco use type: Cigarette Review of Systems Const Denies daytime sleepiness, Denies difficulty sleeping, Denies snoring, Denies stops breathing during sleep and Denies weakness Card Denies chest pain, Denies rapid heart rate, Denies irregular heart rhythm, Denies claudication, Denies leg edema, Denies lightheadedness, Denies palpitations, Denies dyspnea, Denies dyspnea on exertion, Denies orthopnea, Denies paroxysmal nocturnal dyspnea and Denies slow heart rate Resp Denies cough, Denies dyspnea, Denies dyspnea on exertion and Denies snoring GI Reports no additional complaints, Denies hematochezia, Denies change in stool character and Denies dyspepsia Musc Denies abnormal gait, Denies muscle weakness and Denies numbness Neuro Denies abnormal gait, Denies numbness and Denies weakness Endo Denies palpitations Physical Exam Vital Signs: Last Vital Signs Pulse 71 01/08/25 14:22 BP 120/62 01/08/25 14:22 BMI result Body Mass Index 30.4 Const General: comfortable and no acute distress Orientation/consciousness: patient oriented x3 HEENT Other: Unremarkable Head: Yes normal to inspection Neck Neck: Yes normal visual inspection Chest Chest palpation & inspection: normal inspection of the chest Resp Auscultation: clear to auscultation bilaterally Cardio Palpation: normal PMI Heart sounds: S1 normal heart sound present, S2 normal heart sound present, no gallops, no murmurs and no rubs GI Palpation (GI): Soft to palpation Back/Spine/Pelvis Other: unremarkable Skin General skin exam: no rashes or lesions noted Neuro General: patient oriented x3 Extrem General: Yes normal to inspection Psych Mental Status: mental status grossly normal Office Procedures EKG Details: EKG with atrial fibrillation at 75/Min; incomplete right bundle pattern; slight nonspecific ST-T changes. 30379-[id number], Complete Assessment & Plan Assessment & Plan (1) Atherosclerotic cardiovascular disease: Code(s): I25.10 - Atherosclerotic heart disease of platinum coronary artery without angina pectoris Category: Medical Plan: Cardiac studies reviewed. Cardiac catheterization -2019- Left main - mild disease; LAD- distal LAD 40% stenosis; circumflex - 2nd marginal with 30% stenosis; normal RCA. Echocardiogram-03/2023-LVEF 66%; mild aortic valve calcification and otherwise unremarkable. Myocardial perfusion imaging study from 03/2023 showed normal perfusion. Clinically, he has got absolutely no angina or any cardiac symptoms. He remains on aspirin, statins and Zetia. (2) PAF (paroxysmal atrial fibrillation): Code(s): I48.0 - Paroxysmal atrial fibrillation Category: Medical Plan: Routine EKG from PCP in the past had shown atrial fibrillation. By EKG today he is in atrial fibrillation but he has got absolutely no symptoms. Suspect he may be going in and out of atrial fibrillation or more recently just remaining in atrial fibrillation He is on beta-blockers and Eliquis. (3) Essential hypertension: Code(s): I10 - Essential (primary) hypertension Category: Medical Plan: Stable. No changes. (4) Other and unspecified hyperlipidemia: Code(s): E78.5 - Hyperlipidemia, unspecified Category: Medical Plan: On statins and Zetia. (5) Preoperative cardiovascular examination: Code(s): Z01.810 - Encounter for preprocedural cardiovascular examination Category: Medical Plan: We discussed about potential perioperative complications including myocardial infarction. He understands these very well. Overall cardiac risk is considered intermediate. Coding Level of Care Code Est Pt Level 4 (33975) Complex EM visit Add On G2211 Diagnoses Atherosclerotic cardiovascular disease I25.10 PAF (paroxysmal atrial fibrillation) I48.0 Essential hypertension I10 Other and unspecified hyperlipidemia E78.5 Preoperative cardiovascular examination Z01.810 CPT Codes EKG - CPT: 64333-Yzdpbzyikpcenqtag, Complete ([id number])
[2025-01-08 14:22] VITALS: BP 120/62; PULSE 71; BMI 30.4
--- OUTSIDE RECORDS SUMMARY | 2025-01-08 16:07 | XMS_ITS | Clinical Summary ---
Author Organization [facility] Address [address] [place] [address] Phone Care Team Providers Care External Grinder Tender Name Role Phone Emmanuel Mistry MD Primary Care Provider [phone] Allergies No known active allergies Medications amLODIPine [...] Therefore we will refer the patient to [facility] in [place] for a evaluation. Most likely it is [...] to 49 Years) Discontinued 10/28/2020, 10/20/2019 Insurance [facility] Medicare [facility] Medicare Care Teams External Grinder Tender Relationship Specialty Start Date End Date Emmanuel Mistry MD [address] [place] [address] PCP - General 04/22/20
--- OUTSIDE RECORDS SUMMARY | 2025-01-08 16:07 | XMS_ITS | Encounter Summary ---
Author Organization [facility] Address [address] [place] [address] Phone Care Team Providers Care Coin Machine Service Repairer Name Role Phone Emmanuel Mistry MD Unavailable [phone] Edgar William MD Unavailable Dash Price MD Unavailable [phone] Chuck Pratt MD Unavailable Rajan Ojeda MD Unavailable [phone] Emmanuel Mistry MD Primary Care Provider Harlan Sahrma MD Unavailable [phone] Encounter Details Date Type Department Care Team (Late st Contact Info) Description 05/18/2022 Procedure Pass [facility], [address] [address] Social History Tobacco Use Types Packs/Day Years [...] Description 05/23/2025 9:30 AM EST Office Visit [facility] Internal Medicine [address] [place] [address] Emmanuel Mistry MD [address] [place], [place] [id number] [email or web address] 07/09/2025 10:40 AM EDT Office Visit [facility] Endocrinology [place] [address] [place] [phone] Ines Rush MD [address] [place] [address] documented as of this encounter Visit Diagnoses Not on filedocumented in this encounter Additional Health Concerns Infection Onset Date Last Indicated Resolved Time COVID-19 08/06/2024 08/06/2024 08/27/2024 1:21 AM EDT Assessment Noted Time PHQ-2 Depression Total Score: 0 11/16/19 9:40 AM EDT documented as of this encounter Care Teams Coin Machine Service Repairer Relationship Specialty Start Date End Date Emmanuel Mistry MD [address] [place] [address] [email or web address] PCP - General Internal Medicine 01/01/20 Emmanuel Mistry MD [address] [place] [address] [email or web address] Insurance Assigned Provider 07/17/23 04/17/24 Edgar William MD [address] [place] [address] Nephrology 10/11/19 Dash Price MD [address] [place] [address] [email or web address] Endocrinology 10/11/19 Chuck Pratt MD [address] [place] [address] Cardiology 10/11/19 Rajan Ojeda MD [address] [place] [address] Vascular Surgery 10/11/19 Harlan Sharma MD [address] [place] [address] Cardiology 03/25/20 documented as of this encounter Additional Source Comments The information contained in this document represents components of the legal health record. It is not the complete legal health record.[facility]
--- OUTSIDE RECORDS SUMMARY | 2025-01-08 16:07 | XMS_ITS | Encounter Summary ---
Author Organization [facility] Address [address] [place] [address] Phone Care Team Providers Care Cdl Flatbed Truck Driver Name Role Phone Emmanuel Mistry MD Unavailable [phone] Edgar William MD Unavailable Dash Price MD Unavailable [phone] Chuck Pratt MD Unavailable [phone] Rajan Ojeda MD Unavailable [phone] Emmanuel Mistry MD Primary Care Provider Harlan Sharma MD Unavailable [phone] Encounter Details Date Type Department Care Team (Latest Contact Info) Description 11/24/2021 Ancillary Orders [facility] Internal Medicine [address] [place], [place] [phone] Emmanuel Mistry MD [address] [place] [address] [email or web address] Hip pain, bilateral Social History Tobacco Use [...] Description 05/23/2025 9:30 AM EST Office Visit [facility] Internal Medicine [address] [place] [address] Emmanuel Mistry MD [address] [place] [address] 07/09/2025 10:40 AM EDT Office Visit [facility] Endocrinology [place] [address] [place] [address] Ines Rush MD [address] [place] [address] [email or web address] documented as of this encounter Results * [...] documented as of this encounter Care Teams Cdl Flatbed Truck Driver Relationship Specialty Start Date End Date Emmanuel Mistry MD [address] [place] [address] PCP - General Internal Medicine 01/01/20 Emmanuel Mistry MD [address] [place] [address] Insurance Assigned Provider 07/17/23 04/17/24 Edgar William MD [address] [place] [address] Nephrology 10/11/19 Dash Price MD [address] [place] [address] [email or web address] Endocrinology 10/11/19 Chuck Pratt MD [address] [place] [address] Cardiology 10/11/19 Rajan Ojeda MD [address] [place] [address] Vascular Surgery 10/11/19 Harlan Sharma MD [address] [place] [address] Cardiology 03/25/20 documented as of this encounter Additional Source Comments The information contained in this document represents components of the legal health record. It is not the complete legal health record.[facility]
--- OUTSIDE RECORDS SUMMARY | 2025-01-08 16:08 | XMS_ITS | Patient Health Record ---
Author Organization [facility] Address [address] [place] [address] Care Team Providers Care Foreign Car Mechanic Name Role Phone Emmanuel Mistry MD Primary Care Provider Kati Fang Unavailable [phone] Allergies No Known Allergies Results Component Value Reference Range Notes Pathology (Not yet reviewed by provider) Interpretation: Performing Lab:[facility], [address] [place] [phone] Notes/Report: Reason For Referral No Information Medications [...] Status Risk Notes Problem Colon cancer screening (149325033) Colon cancer screening (Z12.11) Active confirmed Problem [id number] Encounter for screening for malignant neoplasm of colon (Z12.11) Active confirmed Problem History of polyp of colon (situation) (301466909) Personal history of colonic polyps (Z86.010) Active confirmed Problem 146085882 Gastroesophageal reflux disease, esophagitis presence not specified (K21.9) Active confirmed Problem Brody's esophagus (536888536) Brody''s esophagus without dysplasia (K22.70) Active confirmed Problem Gastroesophageal reflux disease (disorder) (939197254) Chronic GERD (K21.9) Active confirmed Vital Signs Blood pressure diastolic 00 mm Hg 02/11/2024 Height 71 in 02/11/2024 Blood pressure systolic 00 mm Hg 02/11/2024 Weight 214 lbs 02/11/2024 BMI 29.84 kg/m2 02/11/2024 Encounters Encounter Location Date Provider Diagnosis [facility] Outpatient [address] [place] [id number] 06/09/2024 Kati Hdz Colon cancer screeni ng Z12.11 ; Colon polyps K63.5 ; Diverticulosis of large intestine without perforation or abscess without bleeding K57.30 ; Other hemorrhoids K64.8 ; Gastro-esophageal reflux disease without esophagitis K21.9 ; Brody''s esophagus without dysplasia K22.70 and Hiatal hernia K44.9 [facility] [address] [place] [address] 02/11/2024 Kati Hdz Brody''s esophagus without dysplasia [...] End Date MEDICARE OF [place] [address] [place] [address] [phone] [id number] KATI ZEPEDA Self - patient is the insured [facility] [address] [place], [place] [id number] KATI ZEPEDA Self - patient is the insured Medical (General) History Medical History History ICD Code Denies NV,DM,CVA,Lung disease,renal dise ase Negative colonoscopy in 08/2007 [...]
--- OUTSIDE RECORDS SUMMARY | 2025-01-08 16:08 | XMS_ITS | Encounter Summary ---
Author Organization [facility] Address [address] [place] [address] Phone Care Team Providers Care Mail Processing Clerk Name Role Phone Emmanuel Mistry MD Unavailable [phone] Nadir Valladares DO Unavailable Michelle Raymundo ASSEMBLER AND TESTER [employer] Unavailable [phone] Ashtyn Peters FILTERATION OPERATOR Unavailable Emmanuel Mistry MD Primary Care Provider Emmanuel Mistry MD Unavailable Edgar William MD Unavailable Dash Price MD Unavailable Chuck Pratt MD Unavailable [phone] Rajan Ojeda MD Unavailable Emmanuel Mistry MD Primary Care Provider Harlan Sharma MD Unavailable [phone] Encounter Details Date Type Department Care Team (Late st Contact Info) Description 06/21/2017 Procedure Pass [facility], [address] [address] Social History Tobacco Use Types Packs/Day Years [...] Description 05/23/2025 9:30 AM EST Office Visit [facility] Internal Medicine [address] [place] [address] Emmanuel Mistry MD [address] [place] [address] [email or web address] 07/09/2025 10:40 AM EDT Office Visit [facility] Endocrinology [place] [address] [place] [address] Ines Rush MD [address] [place] [address] [email or web address] documented as of this encounter Visit Diagnoses [...] documented as of this encounter Care Teams Mail Processing Clerk Relationship Specialty Start Date End Date Emmanuel Mistry MD [address] [place] [address] PCP - General Internal Medicine 03/17/17 12/31/19 Emmanuel Mistry MD [address] [place] [address] PCP - General Internal Medicine 01/01/20 Emmanuel Mistry MD [address] [place] [address] Historical LMR Provider 01/30/17 03/24/20 Nadir Valladares DO [address] [place] [address] Historical LMR Provider 01/30/17 0 Michelle Raymundo NP [address] [place] [address] 6 [place] [address] Historical LMR Provider 01/30/17 03/24/20 Ashtyn Peters CNP [address] [facility] [place] [address] Historical LMR Provider 01/30/1703/12 Emmanuel Mistry MD [address] [place] [address] Insurance Assigned Provider 07/17/23 04/17/24 Edgar William MD [address] [place] [address] Nephrology 10/11/19 Dash Price MD [address] [place] [address] Endocrinology 10/11/19 Chuck Pratt MD [address] [place] [address] Cardiology 10/11/19 Rajan Ojeda MD [address] [place] [address] Vascular Surgery 10/11/19 Harlan Sharma MD [address] [place] [address] Cardiology 03/25/20 documented as of this encounter Additional Source Comments The information contained in this document represents components of the legal health record. It is not the complete legal health record.[facility]
--- OUTSIDE RECORDS SUMMARY | 2025-01-08 16:08 | XMS_ITS | Clinical Summary ---
Author Organization [facility] Address [address] [place] [address] Phone Care Team Providers Care Commuter Train Operator Name Role Phone Edgar William MD Unavailable Dash Price MD Unavailable [phone] Chuck Pratt MD Unavailable [phone] Rajan Ojeda MD Unavailable [phone] Emmanuel Mistry MD Primary Care Provider [phone] Harlan Sharma MD Unavailable [phone] Allergies No known active allergies Medications aspirin [...] Therefore we will refer the patient to [facility] ears nose throat over in [place] for a evaluation. Most likely it is [...] Type Department Care Team Description 12/23/2024 Refill [facility] Internal Medicine [address] [facility] [place] [address] Emmanuel Mistry MD Medication Refill 12/04/2024 8:00 AM EDT Office Visit [facility] Internal [facility] [address] [facility] [place] [address] Emmanuel Mistry MD Routine general medical examination at a [facility] care facility (Primary Dx); Benign essential hypertension; Pure hypercholesterolemia; Paroxysmal atrial fibrillation; Impaired fasting glucose; Primary osteoarthritis involving multiple joints 11/28/2024 Orders Only [facility] Internal Medicine [address] [facility] [place] [address] Melvin Florence MD 11/27/2024 Orders Only [facility] Internal Medicine [address] [facility] [place] [address] Melvin Florence MD 11/20/2024 Documentation [facility] Internal Medicine [address] [facility] [place] [address] Emmanuel Mistry MD 10/18/2024 Orders Only [facility] Internal Medicine [address] [facility] [place] [address] ProviderMelvin MD from Last 3 Months Immunizations [...] Description 05/23/2025 9:30 AM EST Office Visit [facility] Internal Medicine [address] [place] [address] Emmanuel Mistry MD [address] [place] [address] [email or web address] 07/09/2025 10:40 AM EDT Office Visit [facility] Endocrinology [place] [address] [place] [phone] Ines Rush MD [address] [place] [address] [email or web address] Health Maintenance Due Date Last Done Comments [...] resultswithin the time period is included. Result [facility] Provider MD LAB BLOOD ORDERABLES Sherita l Result * Outside Imaging Report Only (11/27/2024 10:40 AM EDT) Result [facility] Provider MD IMG XR CHEST Final Res ult * Outside Imaging Report Only (11/24/2024 3:59 PM EDT) [facility] Provider IMG XR CHEST Final Res ult * (ABNORMAL) Outside Triglycerides (10/16/2024) Triglycerides - External 154(A) 35 - 150 mg/dL EXTERNAL NON-INTERFACE D REF LAB Result [facility] Provider MD LAB BLOOD ORDERABLES Sherita l Result EXTERNAL NON-INTERFACED REF LAB * Outside TSH Level (10/16/2024) TSH - External 1.45 0.5 - 5 uIU/L EXTERNAL NON-INTERFACED REF LAB Result [facility] Provider MD LAB BLOOD ORDERABLES Sherita l Result Performing Organization Address City/[facility]/ZIP Co de Phone Number EXTERNAL NON-INTERFACED REF LAB * Outside Potassium Level (10/16/2024) Potassium level - External 4.1 3.4 - 5.0 mmol/L EXTERNAL NON-INTERFACED REF LAB [facility] Provider MD LAB BLOOD ORDERABLES Sherita l Result Performing Organization Address City/[facility] de Phone Number EXTERNAL NON-INTERFACED REF LAB * Outside HbA1c (10/16/2024) Hemoglobin A1c - External 5.6 % EXTERNAL NON-INTERFACED REF LAB [facility] Provider MD LAB BLOOD ORDERABLES Sherita l Result Performing Organization Address [facility] de Phone Number EXTERNAL NON-INTERFACED REF LAB * Outside LDL (10/16/2024) LDL - External 88 50 - 250 mg/dL EXTERNAL NON-INTERFACED REF LAB [facility] Provider MD LAB BLOOD ORDERABLES Sherita l Result Performing Organization Address City/[facility] Co de Phone Number EXTERNAL NON-INTERFACED REF LAB * Outside Serum Creatinine Level (10/16/2024) Creatinine, serum - External 1.27 0.8 - 1.3 mg/dL EXTERNAL NON-INTERFACED REF LAB [facility] Provider MD LAB BLOOD ORDERABLES Sherita l Result Performing Organization Address City/[facility] Co de Phone Number EXTERNAL NON-INTERFACED REF LAB * Outside ALT Level (10/16/2024) ALT - External 26 5 - 30 U/L EXTE RNAL NON-INTERFACED REF LAB [facility] Provider MD LAB BLOOD ORDERABLES Sherita l Result Performing Organization Address City/[facility] Co de Phone Number EXTERNAL NON-INTERFACED REF LAB * Outside Total Cholesterol (10/16/2024) Cholesterol, total - External 162 <=200 mg/dL EXTERNAL NON-INTERFACED REF LAB [facility] Provider MD LAB BLOOD ORDERABLES [...] ORDERABLES Sherita l Result Performing Organization Address City/[facility]/ZIP Co de Phone Number EXTERNAL NON-INTERFACED REF LAB * HM COLONOSCOPY FOR RESULT ENTRY ONLY (06/09/2024) HM Colonoscopy [address] [facility] Provider HEALTH MAINTENANCE Final Result [...] of the abdominalaorta. us Emmanuel Mistry MD [facility] ABDOMEN Final Result from Last 3 Months or Most Recently Relevant to Health Maintenance Insurance [facility] MEDICARE PART A & B [facility] MEDICARE PART A & B [facility] MEDICARE PART A & [place] [address] [place] [address] MEDICARE PART A & B [facility] MEDICARE [facility] A & B [facility] MEDICARE PART A & B [facility] MEDICARE PART A & B [facility] MEDICARE PART A & B [facility] MEDICARE PART A & B Advance Directives For more information, please contact: [phone] (9AM - 5PM [facility], Wednesday-Wednesday) * Full Code (Latest Code Status on File) Date Activated Date Inactivated Comments 04/19/2020 5:10 PM Question Answer Comments Code Status Confirmed With: Patient Care Teams Commuter Train Operator Relationship Specialty Start Date End Date Emmanuel Mistry MD [address] [place] [address] PCP - General Internal Medicine 01/01/20 Edgar William MD Nephrology 10/11/19 Dash Price MD Endocrinology 10/11/19 Chuck Pratt MD [address] [place] [address] [place] [address] Cardiology 10/11/19 Rajan Ojeda MD [address] [place] [address] Vascular Surgery 10/11/19 Harlan Sharma MD [address] [address] Cardiology 03/25/20 Additional Source Comments The information contained in this document represents components of the legal health record. It is not the complete legal health record.[facility]
== END 2025-01-08 14:53 | disposition home or self-care (01) ==
LOC: HO.HCS 14:20
PROVIDERS: PCP Internal Medicine; Visit Provider Internal Medicine
DX: I25.10 Atherosclerotic heart disease of native coronary artery without angina pectoris (principal); I48.0 Paroxysmal atrial fibrillation; I10 Essential (primary) hypertension; E78.5 Hyperlipidemia, unspecified; Z01.810 Encounter for preprocedural cardiovascular examination
CPT/HCPCS: 93010; 99214; G2211

== ENCOUNTER → 2025-01-08 14:19 | Outpatient (BNVA) | payer MEDICARE, BC, SELFPAY | PROVIDERS: PCP Internal Medicine; Visit Provider Internal Medicine | DX: Z01.810 Encounter for preprocedural cardiovascular examination (principal); I73.9 Peripheral vascular disease, unspecified; I25.10 Atherosclerotic heart disease of native coronary artery without angina pectoris; I48.0 Paroxysmal atrial fibrillation; I10 Essential (primary) hypertension; E78.5 Hyperlipidemia, unspecified | CPT/HCPCS: 93005; 99212 ==

== ENCOUNTER 2025-01-15 06:00 | Inpatient (IN) | payer MEDICARE, BC, SELFPAY ==
--- OUTSIDE RECORDS SUMMARY | 2024-06-09 06:30 | XMS_ITS ---
Author Organization [facility] Address [address] [place] [address] Care Team Providers Care Scraper Loader Operator Name Role Phone Emmanuel Mistry MD Primary Care Provider Kati Fang [phone] REASON FOR VISIT screening,hx polyps,ngo's ,gerd Encounters Encounter Location Date Provider [place] [facility] [place] [address] [place] [phone] 06/09/2024 Kati Hdz Colon cancer scree angelique [...] * KATI ZEPEDADOB: [birth year] (69 yo M)Acc No.[id number]:06/09/2024 EGD and COL/MAC Patient: KATI MEZA Provider: Mana Hdz MD :1955 A ge:68 Y S ex:Male Date:06/09/2024 Address:[address] [place], [place] [phone] Pcp:Emmanuel Mistry MD Subjective: * Chief Complaints: [...] Procedure Codes: 4 5385 LESION REMOVAL COLONOSCOPY, 84392 COLONOSCOPY AND BIOPSY, Modifiers: 57 , 0529F INTRVL 3+YRS PTS CLNSCP DOCD, 0528F RCMND FLW-UP 10 YRS DOCD, 27811 UPPR GI ENDOSCOPY, DIAGNOSIS * * The named appointment provid er may or may not be the originator of this progress note, and it is not deemed complete until electronically signed by the appointment provider. Sign off status: Pending * Provider: Mana Hdz MD Date: 0 06/09/2024 Generated for Sammi quintana/Aubrie/eTransmitting on: 1 06:07 AM EDT
[2025-01-11 14:32] VITALS: BP 130/71; PULSE 80; RESP 16; O2SAT 97; BMI 30.3
--- NOTE | 2025-01-11 14:53 | P.CONAN_ITS ---
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 [place] [facility] for: Afib - on eliquis ASCVD - asymptomatic with good exercise tolerance [place] [facility] [place] for: CKD - creat stable at 10/2024 office visit (~1.2) HTN - well controlled [facility] Active Problems Active Problems: All Active Problems Preoperative cardiovascular examination (Acute) Blunt trauma of rib (Acute) CKD (chronic kidney disease) stage 3, GFR 30-59 ml/min (Acute) Back pain (Acute) COVID-19 (Acute) Peripheral vascular disease (Acute) Other and unspecified hyperlipidemia (Acute) Essential hypertension (Acute) PAF (paroxysmal atrial fibrillation) (Acute) Atherosclerotic cardiovascular disease (Acute) Past Medical History Medical History Arthritis DDD (degenerative disc disease), lumbar Thyroid nodule Hx: bad fall (~2022) Peripheral vascular disease Other and unspecified hyperlipidemia Essential hypertension PAF (paroxysmal atrial fibrillation) Atherosclerotic cardiovascular disease Hyperlipemia Afib GERD (gastroesophageal reflux disease) HTN (hypertension) Family History Family History Father CHF (congestive heart failure) Vascular disorder Mother Respiratory disease Family history of problems with anesthesia: No Surgical History Surgical History History of left cataract extraction (~2022) H/O colonoscopy History of cardiac catheterization (~12/12/19) History of Problems with Anesthesia: No Social History Social History Household Members: Spouse Housing: House Are you a primary home health care respiratory therapist to a significant other at home: No Do you presently have visiting nurse or other home services: No Alcohol intake: never Patient Tobacco Use Status: Former Tobacco user Tobacco use type: Cigarette Smoked in Last 30 Days: No Use of substances other than those prescribed or required for medical reasons: No Have you been hit, kicked, punched, or otherwise hurt by someone within the past year? If so, by whom?: No Are you DNR?: No Advance Directives: No Advance Directives Information Provided: Yes Advance Directives on File: No Current occupational status: employed and retired Current occupation: Half-Way work at [employer] Allergies Allergy/AdvReac Type Severity Reaction Status Date / Time No Known Allergies Allergy Verified 01/15/25 06:13 Home Medications ?Medication ?Instructions ?Recorded ?Confirmed ?Last Taken ?Type aspirin 81 mg tablet,delayed 81 mg PO DAILY 06/19/20 1 01/12/25 History release atorvastatin 80 mg tablet 80 mg PO BEDTIME 01/11/25 Unknown History Exam Height,Weight and Vital Signs: Height 5 ft 10 in Weight 95.708 kg Last Vital Signs Pulse 80 01/11/25 14:32 Resp 16 01/11/25 14:32 BP 130/71 01/11/25 14:32 Pulse Ox 97 01/11/25 14:32 O2 Del Method Room Air 01/11/25 14:32 Pertinent Lab Results Pertinent Lab Results: Lab Results 01/11/25 01/11/25 Range/Units 15:20 15:31 WBC 8.1 (4.8-10.8) X10*3/uL RBC 4.62 (4.60-5.80) X10*6/uL Hgb 14.1 (14.0-18.0) g/dl Hct 41.9 L (42.0-52.0) % MCV 90.7 (80.0-98.0) fL MCH 30.5 (27.0-33.0) pg MCHC 33.7 (31.0-36.0) g/dl RDW 13.1 (11.0-16.0) % Plt Count 180 (160-400) X10*3/uL MPV 9.4 (9.4-12.4) fL Absolute Nucleated RBC 0.000 (0.0-0.012) X10*3/uL Nucleated RBC % (auto) 0.0 (0.0-0.2) /100WBC PT 14.9 H (10.9-12.4) SEC INR 1.3 H (0.9-1.1) APTT 35.2 H (26.7-34.1) SEC Sodium 142 (135-145) mmol/L Potassium 4.3 (3.3-5.1) mmol/L Chloride 107 (96-108) mmol/L Carbon Dioxide 29 (22-29) mmol/L Anion Gap 10 L (12-20) BUN 20 H (9-16) mg/dL Creatinine 1.42 H (0.5-1.4) mg/dL Estim Creat Clear Calc 55.3 Estimated GFR 49 Random Glucose 105 (60-115) mg/dL Calcium 8.9 (8.4-10.2) mg/dL Blood Type A Positive Antibody Screen NEGATIVE Narrative Narrative: EKG 12/2024 EKG Details: EKG with atrial fibrillation at 75/Min; incomplete right bundle pattern; slight nonspecific ST-T changes. Per cardiac clearance note: Cardiac catheterization -2019- Left main - mild disease; LAD- distal LAD 40% stenosis; circumflex - 2nd marginal with 30% stenosis; normal RCA. Echocardiogram-03/2023-LVEF 66%; mild aortic valve calcification and otherwise unremarkable. Myocardial perfusion imaging study from 03/2023 showed normal perfusion. Clinically, he has got absolutely no angina or any cardiac symptoms. Airway Mallampati Class: II TM Dist: >3cm Neck ROM: Full Denture: Upper Loose/Missing/Broken Teeth: Yes (missing lower) Heart: irreg Lungs: CTAB Assessment and Plan Assessment Anesthesia Assessment: Anesthesia Plan Discussed and PAT Visit Final Anesthetic Review Family History of Problems with Anesthesia: No History of Problems with Anesthesia: No Documented by User: Artem Robertson MD 01/15/25 07:10 [facility] Past Medical History Medical History Arthritis DDD (degenerative disc disease), lumbar Thyroid nodule Hx: bad fall (~2022) Peripheral vascular disease Other and unspecified hyperlipidemia Essential hypertension PAF (paroxysmal atrial fibrillation) Atherosclerotic cardiovascular disease Hyperlipemia Afib GERD (gastroesophageal reflux disease) HTN (hypertension) Family History Family History Father CHF (congestive heart failure) Vascular disorder Mother Respiratory disease Surgical History Surgical History History of left cataract extraction (~2022) H/O colonoscopy History of cardiac catheterization (~12/12/19) Social History Social History Household Members: Spouse Housing: House Are you a primary home health care respiratory therapist to a significant other at home: No Do you presently have visiting nurse or other home services: No Alcohol intake: never Patient Tobacco Use Status: Former Tobacco user Tobacco use type: Cigarette Smoked in Last 30 Days: No Use of substances other than those prescribed or required for medical reasons: No Have you been hit, kicked, punched, or otherwise hurt by someone within the past year? If so, by whom?: No Are you DNR?: No Advance Directives: No Advance Directives Information Provided: Yes Advance Directives on File: No Current occupational status: employed and retired Current occupation: Half-Way work at [employer] Allergies Allergy/AdvReac Type Severity Reaction Status Date / Time No Known Allergies Allergy Verified 01/15/25 06:13 Home Medications ?Medication ?Instructions ?Recorded ?Confirmed ?Last Taken ?Type aspirin 81 mg tablet,delayed 81 mg PO DAILY 06/19/20 1 01/12/25 History release atorvastatin 80 mg tablet 80 mg PO BEDTIME 01/11/25 Unknown History Exam Exam Date and Time: 01/15/2025 Assessment and Plan Final Anesthetic Review NPO: Yes ASA Class: III Final Preanesthetic Review: No Changes in Pt Med Stat, Meds/Allgs Chart Reviewed, Consent Obtained/Reviewed and Anes Risks/Benef Reviewed Patient Risk: Intermediate Procedure Risk: Intermediate Anesthetic Plan Anesthetic Plan: GA Disposition: Standard PACU
[2025-01-11 15:42] LABS: Hematocrit 41.9 % (42.0-52.0); Hemoglobin 14.1 g/dl (14.0-18.0); Mean Corpuscular HGB Conc 33.7 g/dl (31.0-36.0); Mean Corpuscular Hemoglobin 30.5 pg (27.0-33.0); Mean Corpuscular Volume 90.7 fL (80.0-98.0); NRBC Abs Auto 0.000 X10*3/uL (0.0-0.012); NRBC Pct Auto 0.0 /100WBC (0.0-0.2); Platelet Count 180 X10*3/uL (160-400); Red Blood Count 4.62 X10*6/uL (4.60-5.80); White Blood Count 8.1 X10*3/uL (4.8-10.8)
[2025-01-11 15:51] LABS: INTERNATIONAL NORM RATIO 1.3 (0.9-1.1); Prothrombin Time 14.9 SEC (10.9-12.4)
[2025-01-11 15:54] LABS: Partial Thromboplastin Time 35.2 SEC (26.7-34.1)
[2025-01-11 16:46] LABS: Anion Gap 10 (12-20); Blood Urea Nitrogen 20 mg/dL (9-16); Calcium 8.9 mg/dL (8.4-10.2); Carbon Dioxide 29 mmol/L (22-29); Chloride 107 mmol/L (96-108); Creatinine Clr Calc Pharmacy 55.3; Estimated Glomerular Filt Rate 49; Potassium 4.3 mmol/L (3.3-5.1); Sodium 142 mmol/L (135-145)
[2025-01-15] VITALS (20 sets, daily range): BP systolic 99–147; BP diastolic 47–94; PULSE 82–105; RESP 10–25; TEMP 36.1–36.9; O2SAT 92–96
--- OUTSIDE RECORDS SUMMARY | 2025-01-15 06:08 | XMS_ITS | Clinical Summary ---
Author Organization [facility] Address [address] [place] [address] Phone Care Team Providers Care Press Helper Name Role Phone Edgar William MD Unavailable Dash Price MD Unavailable Chuck Pratt MD Unavailable Rajan Ojeda MD Unavailable [phone] Emmanuel Mistry MD Primary Care Provider Harlan [...] Therefore we will refer the patient to [facility] ears nose throat over in [place] for a evaluation. Most likely it is [...] Type Department Care Team Description 12/23/2024 Refill [facility] Internal Medicine [address] [facility] [facility] [place] [address] Emmanuel Mistry MD Medication Refill 12/04/2024 8:00 AM EDT Office Visit [facility] Internal [facility] [address] [facility] [place] [place] [address] Emmanuel Mistry MD Routine general medical examination at a [facility] care facility (Primary Dx); Benign essential hypertension; Pure hypercholesterolemia; Paroxysmal atrial fibrillation; Impaired fasting glucose; Primary osteoarthritis involving multiple joints 11/28/2024 Orders Only [facility] Internal Medicine [address] [facility] [place] [place] [address] Melvin Florence MD 11/27/2024 Orders Only [facility] Internal Medicine [address] [facility] [place] [place] [address] Melvin [place] MD 11/20/2024 Documentation [facility] Internal Medicine [address] [facility] [place] [place] [address] Emmanuel Mistry MD 10/18/2024 Orders Only [facility] Internal Medicine [address] [facility] [place] [place] [address] ProviderMelvin MD from Last 3 Months Immunizations [...] Description 05/23/2025 9:30 AM EST Office Visit [facility] Internal Medicine [address] [place] [address] Emmanuel Mistry MD 40 [place] [address] [email or web address] 07/09/2025 10:40 AM EDT Office Visit [facility] Endocrinology [place] [address] [place] [phone] Ines Rush MD [address] [place] [address] [email or web address] Health Maintenance Due Date Last Done [...] resultswithin the time period is included. Result [facility] Provider MD LAB BLOOD ORDERABLES Sherita l Result * Outside Imaging Report Only (11/27/2024 10:40 AM EDT) Result [facility] Provider MD IMG XR CHEST Final Res ult * Outside Imaging Report Only (11/24/2024 3:59 PM EDT) [facility] Provider IMG XR CHEST Final Res ult * (ABNORMAL) Outside Triglycerides (10/16/2024) Triglycerides - External 154(A) 35 - 150 mg/dL EXTERNAL NON-INTERFACE D REF LAB Result [facility] Provider MD LAB BLOOD ORDERABLES Sherita l Result EXTERNAL NON-INTERFACED REF LAB * Outside TSH Level (10/16/2024) TSH - External 1.45 0.5 - 5 uIU/L EXTERNAL NON-INTERFACED REF LAB Result [facility] Provider MD LAB BLOOD ORDERABLES Sherita l Result Performing Organization Address City/[facility]/ZIP Co de Phone Number EXTERNAL NON-INTERFACED REF LAB * Outside Potassium Level (10/16/2024) Potassium level - External 4.1 3.4 - 5.0 mmol/L EXTERNAL NON-INTERFACED REF LAB [facility] Provider MD LAB BLOOD ORDERABLES Sherita l Result Performing Organization Address City/[facility] de Phone Number EXTERNAL NON-INTERFACED REF LAB * Outside HbA1c (10/16/2024) Hemoglobin A1c - External 5.6 % EXTERNAL NON-INTERFACED REF LAB [facility] Provider MD LAB BLOOD ORDERABLES Sherita l Result Performing Organization Address [facility] de Phone Number EXTERNAL NON-INTERFACED REF LAB * Outside LDL (10/16/2024) LDL - External 88 50 - 250 mg/dL EXTERNAL NON-INTERFACED REF LAB [facility] Provider MD LAB BLOOD ORDERABLES Sherita l Result Performing Organization Address City/[facility] Co de Phone Number EXTERNAL NON-INTERFACED REF LAB * Outside Serum Creatinine Level (10/16/2024) Creatinine, serum - External 1.27 0.8 - 1.3 mg/dL EXTERNAL NON-INTERFACED REF LAB [facility] Provider MD LAB BLOOD ORDERABLES Sherita l Result Performing Organization Address City/[facility] Co de Phone Number EXTERNAL NON-INTERFACED REF LAB * Outside ALT Level (10/16/2024) ALT - External 26 5 - 30 U/L EXTE RNAL NON-INTERFACED REF LAB [facility] Provider MD LAB BLOOD ORDERABLES Sherita l Result Performing Organization Address City/[facility] Co de Phone Number EXTERNAL NON-INTERFACED REF LAB * Outside Total Cholesterol (10/16/2024) Cholesterol, total - External 162 <=200 mg/dL EXTERNAL NON-INTERFACED REF LAB [facility] Provider MD LAB BLOOD ORDERABLES Sherita [...] ORDERABLES Sherita l Result Performing Organization Address City/[facility]/ZIP Co de Phone Number EXTERNAL NON-INTERFACED REF LAB * HM COLONOSCOPY FOR RESULT ENTRY ONLY (06/09/2024) HM Colonoscopy 5 year recall [facility] Provider HEALTH MAINTENANCE Final Result * US [...] of the abdominalaorta. us Emmanuel Mistry MD [facility] ABDOMEN Final Result from Last 3 Months or Most Recently Relevant to Health Maintenance Insurance [facility] MEDICARE PART A & B [facility] MEDICARE PART A & B [facility] MEDICARE PART A & [place] [address] [place] [address] MEDICARE PART A & B [facility] MEDICARE PART A & B [facility] MEDICARE PART A & B [facility] MEDICARE PART A & B [facility] MEDICARE PART A & B [facility] MEDICARE PART A & B Advance Directives For more information, please contact: [phone] (9AM - 5PM [facility], Wednesday-Wednesday) * Full Code (Latest Code Status on File) Date Activated Date Inactivated Comments 04/19/2020 5:10 PM Question Answer Comments Code Status Confirmed With: Patient Care Teams Press Helper Relationship Specialty Start Date End Date Emmanuel Mistry MD [address] [place] [address] PCP - General Internal Medicine 01/01/20 Edgar William MD Nephrology 10/11/19 Dash Price MD Endocrinology 10/11/19 Chuck Pratt MD [address] [place] [address] [place] [address] Cardiology 10/11/19 Rajan Ojeda MD [address] [place] [address] Vascular Surgery 10/11/19 Harlan Sharma MD [address] [address] Cardiology 03/25/20 Additional Source Comments The information contained in this document represents components of the legal health record. It is not the complete legal health record.[facility]
--- OUTSIDE RECORDS SUMMARY | 2025-01-15 06:08 | XMS_ITS | Encounter Summary ---
Author Organization [facility] Address [address] [place] [address] Phone Care Team Providers Care Jv Baseball Coach Name Role Phone Emmanuel Mistry MD Unavailable Nadir Valladares DO Unavailable [phone] Michelle Raymundo SURG TECH Unavailable [phone] Ashtyn Peters COOK HELPER FRUIT Unavailable Emmanuel Mistry MD Primary Care Provider Emmanuel Mistry MD Unavailable Edgar William MD Unavailable Dash Price MD Unavailable Chuck Pratt MD Unavailable Rajan Ojeda MD Unavailable Emmanuel Mistry MD Primary Care Provider [phone] Harlan Sharma MD Unavailable Encounter Details Date Type Department Care Team (Late st Contact Info) Description 06/21/2017 Procedure Pass [facility], [address] [address] Social History Tobacco Use Types Packs/Day Years [...] Description 05/23/2025 9:30 AM EST Office Visit [facility] Internal Medicine [address] [place] [address] Emmanuel Mistry MD 40 [place] [address] [email or web address] 07/09/2025 10:40 AM EDT Office Visit [facility] Endocrinology [place] [address] [place] [address] Ines Rush MD [address] [place] [address] [email or web address] documented as of this encounter Visit [...] documented as of this encounter Care Teams Jv Baseball Coach Relationship Specialty Start Date End Date Emmanuel Mistry MD [address] [place] [address] PCP - General Internal Medicine 03/17/17 12/31/19 Emmanuel Mistry MD [address] [place] [address] PCP - General Internal Medicine 01/01/20 Emmanuel Mistry MD [address] [place] [address] Historical LMR Provider 01/30/17 03/24/20 Nadir Valladares DO 22 [facility] [address] [place] [address] Historical LMR Provider 01/30/17 0 Michelle Raymundo NP [address] [place] [address] 6 [place] [address] Historical LMR Provider 01/30/17 03/24/20 Ashtyn Peters CNP 22 [facility] [place] [address] Historical LMR Provider 01/30/1703/12 Emmanuel Mistry MD [address] [place] [address] Insurance Assigned Provider 07/17/23 04/17/24 Edgar William MD [address] [place] [address] Nephrology 10/11/19 Dash Price MD [address] [place] [address] Endocrinology 10/11/19 Chuck Pratt MD [address] [place] [address] Cardiology 10/11/19 Rajan Ojeda MD [address] [place] [address] Vascular Surgery 10/11/19 Harlan Sharma MD [address] [place] [address] Cardiology 03/25/20 documented as of this encounter Additional Source Comments The information contained in this document represents components of the legal health record. It is not the complete legal health record.[facility]
--- OUTSIDE RECORDS SUMMARY | 2025-01-15 06:08 | XMS_ITS | Encounter Summary ---
Author Organization [facility] Address [address] [place] [address] Phone Care Team Providers Care Snowboard Designer Name Role Phone Emmanuel Mistry MD Unavailable [phone] Edgar William MD Unavailable Dash Price MD Unavailable [phone] Chuck Pratt MD Unavailable Rajan Ojeda MD Unavailable [phone] Emmanuel Mistry MD Primary Care Provider [phone] Harlan Sharma MD Unavailable [phone] Encounter Details Date Type Department Care Team (Late st Contact Info) Description 05/18/2022 Procedure Pass [facility], [address] [address] Social History Tobacco Use Types Packs/Day Years [...] Visit [facility] Internal Medicine [address] [place] [address] Emmanuel Mistry MD 40 [place], [place] [phone] 07/09/2025 10:40 AM EDT Office Visit [facility] Endocrinology [place] [address] [place] [phone] Ines Rush MD [address] [place] [address] [email or web address] documented as of this encounter Visit Diagnoses Not on filedocumented in this encounter Additional Health Concerns Infection Onset Date Last Indicated Resolved Time COVID-19 08/06/2024 08/06/2024 08/27/2024 1:21 AM EDT Assessment Noted Time PHQ-2 Depression Total Score: 0 11/16/19 9:40 AM EDT documented as of this encounter Care Teams Snowboard Designer Relationship Specialty Start Date End Date Emmanuel Mistry MD 40 [place] [address] PCP - General Internal Medicine 01/01/20 Emmanuel Mistry MD [address] [place] [address] [email or web address] Insurance Assigned Provider 07/17/23 04/17/24 Edgar William MD [address] [place] [address] Nephrology 10/11/19 Dash Price MD [address] [place] [address] [email or web address] Endocrinology 10/11/19 Chuck Pratt MD [address] [place] [address] Cardiology 10/11/19 Rajan Ojeda MD [address] [place] [address] Vascular Surgery 10/11/19 Harlan Sharma MD [address] [place] [address] Cardiology 03/25/20 documented as of this encounter Additional Source Comments The information contained in this document represents components of the legal health record. It is not the complete legal health record.[facility]
--- OUTSIDE RECORDS SUMMARY | 2025-01-15 06:08 | XMS_ITS | Encounter Summary ---
Author Organization [facility] Address [address] [place] [address] Phone Care Team Providers Care Embossing Press Operator Apprentice Name Role Phone Emmanuel Mistry MD Unavailable [phone] Edgar William MD Unavailable Dash Price MD Unavailable [phone] Chukc Pratt MD Unavailable [phone] Rajan Ojeda MD Unavailable [phone] Emmanuel Mistry MD Primary Care Provider Harlan Sharma MD Unavailable [phone] Encounter Details Date Type Department Care Team (Latest Contact Info) Description 11/24/2021 Ancillary Orders [facility] Internal Medicine [address] [place], [place] [phone] Emmanuel Mistry MD [address] [place] [address] [email or web address] Hip pain, bilateral Social History Tobacco Use [...] Description 05/23/2025 9:30 AM EST Office Visit [facility] Internal Medicine [address] [place] [address] Emmanuel Mistry MD [address] [place] [address] 07/09/2025 10:40 AM EDT Office Visit [facility] Endocrinology [place] [address] [place] [phone] Ines Rush MD [address] [place] [address] [email or web address] documented as of this encounter Results * [...] documented as of this encounter Care Teams Embossing Press Operator Apprentice Relationship Specialty Start Date End Date Emmanuel Mistry MD [address] [place] [address] [email or web address] PCP - General Internal Medicine 01/01/20 Emmanuel Mistry MD [address] [place] [address] [email or web address] Insurance Assigned Provider 07/17/23 04/17/24 Edgar William MD [address] [place] [address] Nephrology 10/11/19 Dash Price MD [address] [place] [address] [email or web address] Endocrinology 10/11/19 Chuck Prtat MD [address] [place] [address] Cardiology 10/11/19 Rajan Ojeda MD [address] [place] [address] Vascular Surgery 10/11/19 Harlan Sharma MD [address] [place] [address] Cardiology 03/25/20 documented as of this encounter Additional Source Comments The information contained in this document represents components of the legal health record. It is not the complete legal health record.[facility]
--- OUTSIDE RECORDS SUMMARY | 2025-01-15 06:08 | XMS_ITS | Clinical Summary ---
Author Organization [facility] Address [address] [place] [address] Phone Care Team Providers Care Assistant Buyer Name Role Phone Emmanuel Mistry MD Primary Care Provider [phone] Allergies No known active allergies Medications amLODIPine [...] Therefore we will refer the patient to [facility] ears nose throat [facility] in [place] for a evaluation. Most likely it is [...] to 49 Years) Discontinued 10/28/2020, 10/20/2019 Insurance [facility] Medicare [facility] Medicare Care Teams Assistant Buyer Relationship Specialty Start Date End Date Emmanuel Mistry MD [address] [place] [address] PCP - General 04/22/20
--- OUTSIDE RECORDS SUMMARY | 2025-01-15 06:08 | XMS_ITS | Patient Health Record ---
Author Organization [facility] Address [address] [place] [address] Care Team Providers Care [employer] Crewmember Name Role Phone Emmanuel Mistry MD Primary Care Provider Kati Fang Unavailable [phone] Allergies No Known Allergies Results Component Value Reference Range Notes Pathology (Not yet reviewed by provider) Interpretation: Performing Lab:[facility], [address] [place] [id number] Notes/Report: Reason For Referral No Information Medications [...] Status Risk Notes Problem Colon cancer screening (983386391) Colon cancer screening (Z12.11) Active confirmed Problem 790685903 Encounter for screening for malignant neoplasm of colon (Z12.11) Active confirmed Problem History of polyp of colon (situation) (891012106) Personal history of colonic polyps (Z86.010) Active confirmed Problem 556191180 Gastroesophageal reflux disease, esophagitis presence not specified (K21.9) Active confirmed Problem Brody's esophagus (859688482) Brody''s esophagus without dysplasia (K22.70) Active confirmed Problem Gastroesophageal reflux disease (disorder) (573112333) Chronic GERD (K21.9) Active confirmed Vital Signs Blood pressure diastolic 00 mm Hg 02/11/2024 Height 71 in 02/11/2024 Blood pressure systolic 00 mm Hg 02/11/2024 Weight 214 lbs 02/11/2024 BMI 29.84 kg/m2 02/11/2024 Encounters Encounter Location Date Provider Diagnosis [facility] [address] [place] [id number] 06/09/2024 Kati Hdz Colon cancer screeni ng Z12.11 ; Colon polyps K63.5 ; Diverticulosis of large intestine without perforation or abscess without bleeding K57.30 ; Other hemorrhoids K64.8 ; Gastro-esophageal reflux disease without esophagitis K21.9 ; Brody''s esophagus without dysplasia K22.70 and Hiatal hernia K44.9 [facility] [address] [place] [address] 02/11/2024 Kati Hdz Brody''s esophagus without dysplasia [...] suppression daily given the underlying history of Brdoy's esophagus as well. Full consent was obtained [...] End Date MEDICARE OF [place] [address] [place] [address] [phone] [id number] KATI ZEPEDA Self - patient is the insured [facility] [address] [place], [place] [phone] [id number] KATI ZEPEDA Self - patient is the insured Medical (General) History Medical History History ICD Code Denies [place],DM,CVA,Lung disease,renal dise ase Negative colonoscopy in 08/2007 [...]
[2025-01-15] MEDS: Lactated Ringers 1,000 ML 100 ML IVCONT (06:40)
--- NOTE | 2025-01-15 07:00 | PHA.MEDREC ---
Pharmacy Consult ? Medication Reconciliation Pharmacy has completed the medication reconciliation. Reviewed med rec done by nursing.
--- NOTE | 2025-01-15 07:11 | HO.ANESPROP2 ---
[facility] Active Problems Active Problems: All Active Problems Preoperative cardiovascular examination (Acute) Blunt trauma of rib (Acute) CKD (chronic kidney disease) stage 3, GFR 30-59 ml/min (Acute) Back pain (Acute) COVID-19 (Acute) Peripheral vascular disease (Acute) Other and unspecified hyperlipidemia (Acute) Essential hypertension (Acute) PAF (paroxysmal atrial fibrillation) (Acute) Atherosclerotic cardiovascular disease (Acute) Past Medical History Medical History Arthritis DDD (degenerative disc disease), lumbar Thyroid nodule Hx: bad fall (~2022) Peripheral vascular disease Other and unspecified hyperlipidemia Essential hypertension PAF (paroxysmal atrial fibrillation) Atherosclerotic cardiovascular disease Hyperlipemia Afib GERD (gastroesophageal reflux disease) HTN (hypertension) Family History Family History Father CHF (congestive heart failure) Vascular disorder Mother Respiratory disease Family history of problems with anesthesia: No Surgical History Surgical History History of left cataract extraction (~2022) H/O colonoscopy History of cardiac catheterization (~12/12/19) History of Problems with Anesthesia: No Social History Social History Household Members: Spouse Housing: House Are you a primary customer care team coach to a significant other at home: No Do you presently have visiting nurse or other home services: No Alcohol intake: never Patient Tobacco Use Status: Former Tobacco user Tobacco use type: Cigarette Smoked in Last 30 Days: No Use of substances other than those prescribed or required for medical reasons: No Have you been hit, kicked, punched, or otherwise hurt by someone within the past year? If so, by whom?: No Are you DNR?: No Advance Directives: No Advance Directives Information Provided: Yes Advance Directives on File: No Current occupational status: employed and retired Current occupation: [employer] work at [employer] Allergies Allergy/AdvReac Type Severity Reaction Status Date / Time No Known Allergies Allergy Verified 01/15/25 06:13 Active Medications: Current Medications Lactated Ringer's (Lr) 1,000 mls @ 100 mls/hr IVCONT .Q10H ISAURA Last Admin: 01/15/25 06:40 Dose: 100 mls/hr Home Medications ?Medication ?Instructions ?Recorded ?Confirmed ?Last Taken ?Type aspirin 81 mg tablet,delayed 81 mg PO DAILY 06/19/20 01/15/25 01/12/25 History release atorvastatin 80 mg tablet 80 mg PO BEDTIME 01/11/25 01/15/25 Unknown History Exam Height,Weight and Vital Signs: Height 5 ft 10 in Weight 94.7 kg Last Vital Signs Pulse 80 01/11/25 14:32 Resp 16 01/11/25 14:32 BP 130/71 01/11/25 14:32 Pulse Ox 97 01/11/25 14:32 O2 Del Method Room Air 01/11/25 14:32 Pertinent Lab Results Pertinent Lab Results: Laboratory Tests 01/11/25 01/11/25 15:20 15:31 WBC 8.1 RBC 4.62 Hgb 14.1 Hct 41.9 L MCV 90.7 MCH 30.5 MCHC 33.7 RDW 13.1 Plt Count 180 MPV 9.4 Absolute Nucleated RBC 0.000 Nucleated RBC % (auto) 0.0 PT 14.9 H INR 1.3 H APTT 35.2 H Sodium 142 Potassium 4.3 Chloride 107 Carbon Dioxide 29 Anion Gap 10 L BUN 20 H Creatinine 1.42 H Estim Creat Clear Calc 55.3 Estimated GFR 49 Random Glucose 105 Calcium 8.9 Blood Type A Positive Antibody Screen NEGATIVE Assessment and Plan Final Anesthetic Review Family History of Problems with Anesthesia: No History of Problems with Anesthesia: No ASA Class: III Final Preanesthetic Review: No Changes in Pt Med Stat, Meds/Allgs Chart Reviewed, Consent Obtained/Reviewed and Anes Risks/Benef Reviewed Patient Risk: Intermediate Procedure Risk: Intermediate Anesthetic Plan Anesthetic Plan: GA Disposition: Standard PACU
--- NOTE | 2025-01-15 07:38 | MHC.SHP ---
Pre-Procedural Eval Section A - 24 Hr Update-Section A only Date of Service: 01/15/25 The patient is an INPATIENT: No Changes since office visit: Yes Patient answered all questions The patient has been examined within 24 hours of the surgical procedure. The History & Physical has been completed within 30 days and I have reviewed it.: Yes Section B - Complete if H&P > 30 days Chief Complaint: post op Allergies: Allergies Allergy/AdvReac Type Severity Reaction Status Date / Time No Known Allergies Allergy Verified 01/15/25 06:13 Plan I have reviewed the history and physical and performed a pertinent physical examination on my patient. No changes have occurred unless specified. Time Spent With Patient Time: Total time managing care of this patient today ____ minutes.
--- NOTE | 2025-01-15 10:02 | W.PM.OPN ---
Operative Note Operative Note Date of Service: 01/15/25 Narrative: Operative note by [facility] Preoperative diagnosis: Atherosclerosis with activity limiting claudication Postoperative diagnosis: Same Procedure: 1 Right common femoral endarterectomy 2. Right superficial femoral endarterectomy 3. Remote profundus femoris endarterectomy Surgeon:Rajan Ojeda M.D. Block Hacker: Dr. Kumar Anesthesia: General Specimens: 1 Drains: None Estimated blood loss: 100 mL Indications: 69-year-old gentleman with a history of peripheral vascular disease had undergone diagnostic angiogram. He had right common femoral disease extending into the superficial femoral and profundus femoris. He now presents for right femoral endarterectomy. The patient has signed the informed consent after reviewing risks, complications, benefits, and alternatives previously discussed with the patient. The patient was given the opportunity to ask any additional questions or voice any concerns. All questions were answered to the patient's satisfaction. Procedure in detail: Patient was brought to the operating room prior to which a time-out was called for patient identification site verification. Right lower extremity was prepped and draped in standard surgical fashion. Incision was carried out over the right common femoral artery. Due to depth little more extensive dissection was required to get down to the common femoral. We were able to identify the inguinal ligament and the common femoral artery on the right side at the inguinal ligament. Once we were able to dissect around an isolate this with a silastic loop we dissected further down and we were able to individually isolate the superficial femoral and the profundus femoris artery. In a similar fashion these were encircled with silastic loops. At this time 8000 units of systemic heparin was administered after 5 minutes of circulation time the artery was then clamped at the common femoral SFA and profundus femoris. Arteriotomy was made from the SFA into the common femoral. Endarterectomy was undertaken dissecting out the common femoral and superficial femoral are artery. Remote endarterectomy was undertaken of the profundus femoris. Once this was all accomplished we tested backflow and it appeared appropriate. Once this was done we irrigated the area clear and made sure there was no loose debris within the artery and the intima was clean and safely intact. Once this was all accomplished we used a gabino assure patch and circumferentially anastomosed with a 5 0 Prolene. Prior to closure we flushed this clear we closed the artery couple of interrupted 6 0 Prolene sutures had to be placed to obtain adequate hemostasis. Once adequate hemostasis was achieved we used Vistaseal and reapproximated the deep layer using 2-0 Polysorb superficial layer with 3-0 poly Sorb and finally skin with skin clips. At the end the case sponge and instrument counts were correct. Patient tolerated the procedure well. Had a palpable dorsalis pedis pulse at the end of the case. This note is constructed using voice recognition software. While every effort has been made to ensure accuracy, therapeutic sales specialist errors may have been included. Thank you for allowing me to participate in the care of your patient. Yours sincerely, Rajan Ojeda MD, FACS, R.P.V.I.
--- NOTE | 2025-01-15 10:29 | P.PNCC_ITS ---
Subjective Subjective Date of Service: 01/15/25 Critical Care Time (minutes): 60 Physical Exam 2 Vital Signs: Vital Signs: Last Vital Signs Temp 98.4 F 01/15/25 10:15 Pulse 82 01/15/25 10:15 Resp 12 01/15/25 10:15 BP 120/78 01/15/25 10:15 Pulse Ox 94 01/15/25 10:15 O2 Del Method Nasal Cannula 01/15/25 10:15 O2 Flow Rate 4 01/15/25 10:15 BMI result Body Mass Index 30.0 Objective Data Labs 01/11/25 15:31 01/11/25 15:31 Progress Note: A&P Assessment and plan (1) History of endarterectomy: Status: Acute (2) Peripheral vascular disease: Status: Acute Plan Patient is a 69 Y M w/ hypertension, hyperlipidemia, c/b CAD and PVD, atrial fibrillation, presenting on 01/15 for elective R femoral endarterectomy N: no acute issues CV: PAD, s/p R femoral endarterectomy; atrial fibrillation R: no acute issues GI: advance diet per surgery : no acute issues H: no acute issues; avoid home apixaban in setting of recent surgery ID: no overt stigmata of infection E: to monitor hypo-/hyper-glycemia P: no acute issues Quality Stroke Does the patient have a stroke diagnosis?: No VTE Prior VTE?: No VTE Risk Level:: Medical - moderate - high VTE Device Contraindication: N/A - Device Ordered VTE Drug Contraindication: Treatment Not Tolerated
[2025-01-15] MEDS: Flu Vacc TS2025-26(6mo up)/PF 0.5 ML SYRINGE IM (11:33)
--- NOTE | 2025-01-15 12:43 | HO.WOUND ---
Wound Consult: Initial 69yr old male admitted to [facility] on 01/15/25- See progress notes and H&P for detailed history. Wound consult placed for buttocks. Patient agreeable to assessment and photo documentation. Buttocks Etiology: Intact blanchable redness Wound Bed: intact red and blanching, skin tag noted to right buttock Drainage / Odor: none Guillermina wound: ? No Induration, Fluctuance or Warmth noted Pain: none Goals of Treatment: ? barrier cream Recommendations: 1. Turn and Reposition every 2 hours and as needed for patient comfort. Use pillows or wedges to support off loading positions. 2. Off Load all bony prominences with use of pillows and heel boots if needed. Apply Preventative foams where needed. 3. Monitor for incontinence and moisture control, use barrier creams when needed for prevention and treatment. 4. Provide adequate and supplemental nutrition. 5. Order or Continue low air loss mattress. 6. When applicable maintain blood glucose levels per Providers order. Buttocks: Off Load Pressure with Q2 hr turns and use of pillows - Cleanse with PH balance spray or wipes, pat dry. ?Apply thin layer of barrier cream to affected area. Apply twice daily and Reapply thin layer PRN after each episode of incontinence. Re-consult wound care Nurse for wound deterioration or wound changes.
[2025-01-15] MEDS: 0.9 % Sodium Chloride Flush 3 ML SYRINGE IVFLUSH (19:20)
[2025-01-16] VITALS (17 sets, daily range): BP systolic 99–132; BP diastolic 50–82; PULSE 71–95; RESP 15–25; TEMP 36.1–37.7; O2SAT 92–98; BMI 31.4
[2025-01-16 05:48] LABS: MANUAL DIFF FLAG NO
[2025-01-16 05:51] LABS: Hematocrit 38.4 % (42.0-52.0); Hemoglobin 13.5 g/dl (14.0-18.0); Imm Gran Abs Auto 0.11 X10*3/uL (0.00-0.03); Imm Gran Pct Auto 0.6 % (0.0-0.4); Lymphocytes Absolute Auto 1.4 X10*3/uL (1.2-4.9); Mean Corpuscular HGB Conc 35.2 g/dl (31.0-36.0); Mean Corpuscular Hemoglobin 31.2 pg (27.0-33.0); Mean Corpuscular Volume 88.7 fL (80.0-98.0); NRBC Abs Auto 0.000 X10*3/uL (0.0-0.012); NRBC Pct Auto 0.0 /100WBC (0.0-0.2); Platelet Count 170 X10*3/uL (160-400); Red Blood Count 4.33 X10*6/uL (4.60-5.80); White Blood Count 18.6 X10*3/uL (4.8-10.8)
[2025-01-16 06:08] LABS: Magnesium 2.1 mg/dL (1.6-2.6)
[2025-01-16 06:10] LABS: Anion Gap 14 (12-20); Blood Urea Nitrogen 20 mg/dL (9-16); Calcium 8.4 mg/dL (8.4-10.2); Carbon Dioxide 21 mmol/L (22-29); Chloride 110 mmol/L (96-108); Creatinine Clr Calc Pharmacy 57.9; Estimated Glomerular Filt Rate 52; Potassium 4.8 mmol/L (3.3-5.1); Sodium 140 mmol/L (135-145)
[2025-01-16] MEDS: Aspirin Enteric Coated 81 MG TABLET.DR PO (08:47)
[2025-01-16] MEDS: Metoprolol Succinate ER 25 MG TAB.ER.24H PO (08:47)
--- NOTE | 2025-01-16 08:57 | P.PNCC_ITS ---
Subjective Subjective Date of Service: 01/16/25 Interval History: no significant overnight events Critical Care Time (minutes): 0 Physical Exam 2 Vital Signs: Vital Signs: Last Vital Signs Temp 97.0 F 01/16/25 08:00 Pulse 81 01/16/25 08:47 Resp 18 01/16/25 08:00 BP 123/72 01/16/25 08:47 Pulse Ox 92 01/16/25 08:00 O2 Del Method Nasal Cannula 01/16/25 08:00 O2 Flow Rate 1 01/16/25 08:00 BMI result Body Mass Index 31.4 Const: General: cooperative, comfortable, no acute distress, well developed, alert, awake and Physically active Orientation/consciousness: patient oriented x3 HEENT: Head: Yes normal to inspection, Yes normocephalic and Yes atraumatic Eyes: General: appearance normal, both eyes and all related structures Neck: Neck: Yes normal visual inspection, Yes full ROM, Yes no meningeal signs, Yes trachea midline and Yes supple Chest: Chest palpation & inspection: normal inspection of the chest Resp: Other: no appreciable overt rales, rhonchi, wheezing Effort & Inspection: normal respiratory effort Cardio: Rate: regular rate Rhythm: regular rhythm GI: Inspection: Yes normal to inspection, No Abdominal wall edema and No distended Palpation (GI): Soft to palpation, not firm, nontender, no guarding and not rigid Skin: General skin exam: no rashes or lesions noted Neuro: General: patient oriented x3, tone normal, moves all extremities, no meningeal signs and no focal motor deficits Extrem: General: Yes normal to inspection, Yes full ROM, Yes capillary refill normal and Yes no clubbing, cyanosis or edema Psych: Appearance: grossly normal Objective Data Labs 01/16/25 05:19 01/16/25 05:19 Labs: Laboratory Results - last 24 hr 01/16/25 05:19 WBC 18.6 H RBC 4.33 L Hgb 13.5 L Hct 38.4 L MCV 88.7 MCH 31.2 MCHC 35.2 RDW 12.6 Plt Count 170 MPV 9.7 Immature Gran % (Auto) 0.6 H Neut % (Auto) 87.5 H Lymph % (Auto) 7.5 L [place] % (Auto) 4.3 Eos % (Auto) 0.0 Baso % (Auto) 0.1 Lymph # (Auto) 1.4 [place] # (Auto) 0.8 Eos # (Auto) 0.0 Baso # (Auto) 0.0 Abs Immat Gran (auto) 0.11 H Absolute Neuts (auto) 16.2 H Absolute Nucleated RBC 0.000 Nucleated RBC % (auto) 0.0 Sodium 140 Potassium 4.8 Chloride 110 H Carbon Dioxide 21 L Anion Gap 14 BUN 20 H Creatinine 1.35 Estim Creat Clear Calc 57.9 Estimated GFR 52 Random Glucose 150 H Calcium 8.4 Phosphorus 3.2 Magnesium 2.1 Progress Note: A&P Assessment and plan (1) History of endarterectomy: Status: Acute Plan Patient is a 69 Y M w/ hypertension, hyperlipidemia, c/b CAD and PVD, atrial fibrillation, presenting on 01/15 for elective R femoral endarterectomy N: no acute issues CV: PAD, s/p R femoral endarterectomy; atrial fibrillation R: no acute issues GI: regular diet : no acute issues H: no acute issues; avoid home apixaban in setting of recent surgery ID: no overt stigmata of infection E: to monitor hypo-/hyper-glycemia P: no acute issues Quality Stroke Does the patient have a stroke diagnosis?: No VTE Prior VTE?: No VTE Risk Level:: Medical - moderate - high VTE Device Contraindication: N/A - Device Ordered VTE Drug Contraindication: Treatment Not Tolerated
--- NOTE | 2025-01-16 09:16 | HO.POSTANES ---
Post Anesthesia Evaluation Post Anesthesia Evaluation Date of Service: 01/16/25 Vital Signs: Vital Signs Temp Pulse Resp BP Pulse Ox O2 Del Method O2 Flow Rate 01/16/25 09:00 92 15 123/72 98 Nasal Cannula 1 01/16/25 08:47 81 123/72 01/16/25 08:46 123/72 01/16/25 08:00 97.0 F 91 18 104/64 92 Nasal Cannula 1 01/16/25 07:00 76 22 H 109/50 L 95 Nasal Cannula 1 01/16/25 06:00 71 20 109/50 L 95 Nasal Cannula 1 01/16/25 05:00 77 22 H 112/51 L 94 Nasal Cannula 1 01/16/25 04:00 96.9 F 80 21 H 109/52 L 95 Nasal Cannula 1 01/16/25 03:00 87 22 H 100/73 94 Nasal Cannula 1 01/16/25 02:00 86 16 106/79 94 Nasal Cannula 1 01/16/25 01:00 95 23 H 106/79 94 Nasal Cannula 1 01/16/25 00:00 97.9 F 01/16/25 00:00 86 21 H 119/82 92 Nasal Cannula 1 01/15/25 23:00 90 21 H 107/61 93 Nasal Cannula 1 01/15/25 22:00 84 22 H 99/57 L 94 Nasal Cannula 1 Anesthesia: General Mental Status: Awake Pain Control: Satisfactory Nausea/Vomiting: None Hydration: Adequate Anesthesia-Related Issues: No Anes. Related Issues
--- NOTE | 2025-01-16 10:03 | PM.EVENT ---
Event Note Date of Service: 01/16/25 Event Note: Pt with hx of HTN, HLD, CAD, PVD and pAfib on eliquis and metoprolol who was admitted on 01/15 for elective R femoral endarterectomy. Medicine was consulted for management of pAfib. Currently pt is asx and denies any sx. Rate well controlled. Eliquis was held in the setting of surgery. Spoke to Vascular surgery and eliquis has been resumed. cont metoprolol xl, received last dose thsi am. monitor H&H closely after resuming eliquis. Feel free to reach out with any questions. Medicine will sign off. Time Spent With Patient Time: Total time managing care of this patient today __25__ minutes.
--- NOTE | 2025-01-16 13:04 | HO.VASCPN ---
Subjective Subjective Date of Service: 01/16/25 Patient reports: no new complaints and feels better Interval history: Patient seen and examined. No significant events overnight. Doing well status post right femoral endarterectomy. Tolerating regular diet pain well controlled now for postoperative follow-up Physical Exam Vital Signs: Vital Signs: Last Vital Signs Temp 98.5 F 01/16/25 12:00 Pulse 77 01/16/25 12:00 Resp 18 01/16/25 12:00 BP 132/81 01/16/25 12:00 Pulse Ox 97 01/16/25 12:00 O2 Del Method Nasal Cannula 01/16/25 12:00 O2 Flow Rate 1 01/16/25 12:00 BMI result Body Mass Index 31.4 Const: General: cooperative, healthy appearing and comfortable Orientation/consciousness: oriented to person, oriented to place and oriented to time HEENT: Head: Yes normal to inspection Neck: Neck: Yes normal visual inspection Carotids: no bruits Chest: Chest palpation & inspection: normal inspection of the chest Resp: Effort & Inspection: normal respiratory effort and able to speak in complete sentences Auscultation: clear to auscultation bilaterally, no crackles, no rales, no rhonchi and no wheezes Cardio: Rate: regular rate Rhythm: regular rhythm Heart sounds: S1 normal heart sound present and S2 normal heart sound present Bruits: no carotid bruits Peripheral pulses: Peripheral pulses 2+ throughout GI: Inspection: Yes normal to inspection Skin: Other: Right groin incision well healed Wounds: no wounds Hair: normal Neuro: General: oriented to person, oriented to place and oriented to time Cranial nerves: Yes CN's II-XII intact bilaterally and Yes Normal hearing present Cognition (Neuro): normal cognition Motor exam (neuro): 5/5 motor strength present throughout Extrem: Other: venous exam: No significant superficial varicosities or spider telangiectasias, minimal edema General: No clubbing, No cyanosis and No edema Psych: Appearance: grossly normal Mental Status: mental status grossly normal Speech and movement: Normal speech and movement present Progress Note: A&P Assessment and plan (1) Peripheral vascular disease: Status: Acute Assessment and Plan: In short postop day 1 status post right femoral endarterectomy. Appears to be doing relatively well. Stable for transfer to floor. Patient has AFib and is able to be restarted on Eliquis. He can be up to chair. We will get him more ambulatory tomorrow. If stable potential discharge as early as tomorrow. Time Spent With Patient Time: Total time managing care of this patient today ____ minutes. Procedures Date of Service Date of Service: 01/16/25 Quality Stroke Does the patient have a stroke diagnosis?: No VTE Prior VTE?: No VTE Risk Level:: Medical - moderate - high VTE Device Contraindication: N/A - Device Ordered VTE Drug Contraindication: Treatment Not Tolerated
[2025-01-16] MEDS: 0.9 % Sodium Chloride Flush 3 ML SYRINGE IVFLUSH ×2 (16:29→21:26)
[2025-01-17] VITALS: BP 102/56; PULSE 64; RESP 20; TEMP 36.3; O2SAT 95
[2025-01-17 04:00] VITALS: BP 125/78; PULSE 68; RESP 16; TEMP 36.6
[2025-01-17 06:00] VITALS: BMI 31.0
[2025-01-17 06:36] LABS: MANUAL DIFF FLAG NO
[2025-01-17 06:45] LABS: Hematocrit 38.3 % (42.0-52.0); Hemoglobin 13.2 g/dl (14.0-18.0); Imm Gran Abs Auto 0.04 X10*3/uL (0.00-0.03); Imm Gran Pct Auto 0.3 % (0.0-0.4); Lymphocytes Absolute Auto 2.1 X10*3/uL (1.2-4.9); Mean Corpuscular HGB Conc 34.5 g/dl (31.0-36.0); Mean Corpuscular Hemoglobin 30.8 pg (27.0-33.0); Mean Corpuscular Volume 89.5 fL (80.0-98.0); NRBC Abs Auto 0.000 X10*3/uL (0.0-0.012); NRBC Pct Auto 0.0 /100WBC (0.0-0.2); Platelet Count 143 X10*3/uL (160-400); Red Blood Count 4.28 X10*6/uL (4.60-5.80); White Blood Count 11.7 X10*3/uL (4.8-10.8)
[2025-01-17 07:33] VITALS: BP 136/76; PULSE 72; RESP 20; TEMP 36.8; O2SAT 95
[2025-01-17 09:11] VITALS: BP 138/74; PULSE 60
[2025-01-17] MEDS: Metoprolol Succinate ER 25 MG TAB.ER.24H PO (09:11)
[2025-01-17] MEDS: Aspirin Enteric Coated 81 MG TABLET.DR PO (09:11)
[2025-01-17] MEDS: 0.9 % Sodium Chloride Flush 3 ML SYRINGE IVFLUSH (09:19)
--- NOTE | 2025-01-17 09:39 | MHC.CM.PN ---
Addendum entered by Celia Corral 01/17/25 12:58: PT IS MEDICALLY CLEARED FOR DISCHARGE HOME SELF-CARE, PTS DAUGHTER TO TRANSPORT HIM HOME TODAY. Original Note: IMM GIVEN 01/17. THIS CM MET WITH PT, HE STATES HE IS SELF-CARE, AND LIVES AT HOME WITH HIS /HCP DCP: RETURN HOME SELF-CARE, PTS DAUGHTER WILL TRANSPORT HIM HOME AT DISCHARGE. PCP: DR. DR. MARSHALL QUEZADA (PT STATES HE IS RETIRING IN THE NEXT YEAR, LIST OF LOCAL PCP'S GIVEN TO PT TO REVIEW).
--- NOTE | 2025-01-17 10:20 | P.DS_ITS ---
DS: Providers Provider Date of Service: 01/17/25 Date of admission: 01/15/25 06:00 Date of discharge: 01/17/25 Primary care physician: Emmanuel Mistry MD Consults: 01/15/25 11:20 Consult to Wound Care Routine Reason for consultation: ? Buttocks Abrasions DS: Diagnosis Discharge Diagnosis (1) Peripheral vascular disease: Status: Acute DS: Summary Hospital Course Hospital Course: Patient underwent for right femoral endarterectomy on 01/15/2025. Postoperatively did extremely well was observed in ICU overnight and then subsequently transferred up to the floor. Is pain was well controlled he was ambulating well. No postprocedure issues and he was subsequently discharged. Condition upon discharge was stable. Status at Discharge Functional status at discharge: independent ambulation Overall status at discharge: patient is back to baseline Time Attestation Total time managing care of this patient today: 35 mintues. Discharge Coordination Time (in mins): 35 Quality: Safe Use of Opioids Does Pt have an Active Cancer Diagnosis on the Problem List?: No Quality: Stroke Does the patient have a stroke diagnosis?: No Physical Exam Vital Signs: Vital Signs: Last Vital Signs Temp 98.3 F 01/17/25 07:33 Pulse 60 01/17/25 09:11 Resp 20 01/17/25 07:33 BP 138/74 01/17/25 09:11 Pulse Ox 95 01/17/25 07:33 O2 Del Method Nasal Cannula 01/17/25 07:33 O2 Flow Rate 1 01/17/25 07:33 BMI result Body Mass Index 31.0 Const: General: cooperative, healthy appearing and no acute distress Orientation/consciousness: oriented to person, oriented to place and oriented to time HEENT: Head: Yes normal to inspection Neck: Carotids: no bruits Chest: Chest palpation & inspection: normal inspection of the chest Resp: Effort & Inspection: normal respiratory effort and able to speak in complete sentences Auscultation: clear to auscultation bilaterally Cardio: Rate: regular rate Heart sounds: S1 normal heart sound present and S2 normal heart sound present GI: Inspection: Yes normal to inspection Skin: Other: Right groin well healed General skin exam: no rashes or lesions noted Wounds: no wounds Neuro: General: oriented to person, oriented to place, oriented to time and CN's II-XI intact bilaterally Extrem: General: Yes normal to inspection, Yes full ROM and Yes no clubbing, cyanosis or edema Psych: Appearance: grossly normal and well kempt Speech and movement: Normal speech and movement present Affect: normal affect DS: Data Data Completed and Pending Completed studies during hospitalization [Text1]: Pending at discharge 01/15/25 08:43 Surgical [PTH] Routine Labs on day of discharge: Laboratory Results - last 24 hr 01/17/25 06:08 WBC 11.7 H RBC 4.28 L Hgb 13.2 L Hct 38.3 L MCV 89.5 MCH 30.8 MCHC 34.5 RDW 13.2 Plt Count 143 L MPV 9.5 Immature Gran % (Auto) 0.3 Neut % (Auto) 74.9 H Lymph % (Auto) 18.1 L Ness % (Auto) 6.1 Eos % (Auto) 0.4 Baso % (Auto) 0.2 Lymph # (Auto) 2.1 Ness # (Auto) 0.7 Eos # (Auto) 0.1 Baso # (Auto) 0.0 Abs Immat Gran (auto) 0.04 H Absolute Neuts (auto) 8.7 H Absolute Nucleated RBC 0.000 Nucleated RBC % (auto) 0.0 Discharge Plan Discharge Anticipated Discharge Date/Time: 01/17/25 10:15 Patient Disposition: Home, Self-Care Discharge Diagnosis: Status post right femoral endarterectomy Referrals: Emmanuel Mistry MD [Primary Care Provider, Internal Medicine] - 1 Week Discharge Medications: New oxycodone-acetaminophen [Percocet] 5-325 mg tablet 1 tab PO Q8H PRN (Reason: pain) Qty: 10 0RF Rx Instructions: Partial Fill upon patient request. Continued amlodipine 10 mg tablet 10 mg PO DAILY Qty: 90 3RF ezetimibe 10 mg tablet 10 mg PO DAILY Qty: 90 3RF Rx Instructions: Once in the morning. apixaban 5 mg tablet 5 mg PO BID 90 Days Qty: 180 3RF metoprolol succinate 25 mg tablet extended release 24 hr 25 mg PO DAILY Qty: 90 3RF atorvastatin 80 mg tablet 80 mg PO BEDTIME aspirin 81 mg tablet,delayed release (DR/EC) 81 mg PO DAILY Discharge Orders: Discharge Order (Routine); Ordered 01/17/25 Ordered By: Rajan Ojeda Diet: Advance to usual diet Activity on Discharge: As tolerated Stand Alone Forms: Patient Portal Discharge page Print Language: Northern Irish Activity Restrictions/Additional Instructions: Skin jason was used and you may shower as early as today. Take it easy today and you may ambulate around the house. You may climb a flight of stairs as tolerated Do not lift anything heavier than a gallon of milk . See Dr. Ojeda in follow-up in approximately 2 weeks time. You should already have an appointment if not please call my office at [phone] Please see above for any change in medications If you notice excessive bleeding from the groin please immediately call my office or return to the emergency room. Care Plan Goals: Surveillance follow-up of peripheral arterial disease Health Concerns: Peripheral arterial disease Plan of Treatment: Status post femoral endarterectomy will need surveillance follow-up. Assessment: Status post right femoral endarterectomy
[2025-01-17 10:57] VITALS: BP 136/72; PULSE 72; RESP 18; TEMP 36.6; O2SAT 96
== END 2025-01-17 12:39 | disposition home or self-care (01) | DRG 254 ==
LOC: HO.SSSA 06:05 → HO.ICU 10:08 → HO.IMC 01-16 13:14
PROVIDERS: Nurse Practitioner Family; Admitting Provider Surgery Vascular Surgery; PCP Internal Medicine; Visit Provider Surgery Vascular Surgery
PROC: 04CK0ZZ Extirpation of Matter from Right Femoral Artery, Open Approach (ICD-10-PCS; principal; 2025-01-15 07:30)
DX: I70.211 Atherosclerosis of native arteries of extremities with intermittent claudication, right leg (principal); I25.10 Atherosclerotic heart disease of native coronary artery without angina pectoris; I10 Essential (primary) hypertension; I48.0 Paroxysmal atrial fibrillation; Z87.891 Personal history of nicotine dependence; Z79.01 Long term (current) use of anticoagulants; Z79.82 Long term (current) use of aspirin; Z79.899 Other long term (current) drug therapy
CPT/HCPCS: 36415; 80048; 83735; 84100; 85025; 85027; 85610; 85730; 86850; 86900; 86901; 88304; 90656; C1768; C9250; J0690; J1100; J1171; J1644; J1805; J2003; J2250; J2305; J2371; J2405; J2598; J2704; J2795; J3010

== ENCOUNTER → 2025-01-15 06:00 | Outpatient (BNV) | payer MEDICARE, BC, SELFPAY | PROVIDERS: Admitting Provider Surgery Vascular Surgery; PCP Internal Medicine; Visit Provider Internal Medicine Critical Care Medicine | DX: Z98.890 Other specified postprocedural states (principal) | CPT/HCPCS: 99223 ==

== ENCOUNTER → 2025-01-15 06:00 | Outpatient (BNV) | payer MEDICARE, BC, SELFPAY | PROVIDERS: Admitting Provider Surgery Vascular Surgery; PCP Internal Medicine; Visit Provider Surgery Vascular Surgery | DX: I70.211 Atherosclerosis of native arteries of extremities with intermittent claudication, right leg (principal) | CPT/HCPCS: 35371; 35372; 99232 ==

== ENCOUNTER 2025-01-30 14:37 | Outpatient (AMB) | payer MEDICARE, BC, SELFPAY ==
--- OUTSIDE RECORDS SUMMARY | 2024-06-09 06:30 | XMS_ITS ---
Author Organization [facility] Address [address] [place] [address] Care Team Providers Care Freight Service Inspector Name Role Phone Emmanuel Mistry MD Primary Care Provider Kati Fang [phone] REASON FOR VISIT screening,hx polyps,ngo's ,gerd Encounters Encounter Location Date Provider Diagnosis [facility] [place] [address] [place] [phone] 06/09/2024 Kati Hdz Colon cancer scree angelique [...] * KATI ZEPEDADOB: [birth year] (69 yo M)Acc No.[id number]:06/09/2024 EGD and COL/MAC Patient: KATI MEZA Provider: Mana Hdz MD :1955 A ge:68 Y S ex:Male Date:06/09/2024 Address:[address] [place], [place] [phone] Pcp:Emmanuel Mistry MD Subjective: * Chief Complaints: [...] Procedure Codes: 4 5385 LESION REMOVAL COLONOSCOPY, 08383 COLONOSCOPY AND BIOPSY, Modifiers: 57 , 0529F INTRVL 3+YRS PTS CLNSCP DOCD, 0528F RCMND FLW-UP 10 YRS DOCD, 16176 UPPR GI ENDOSCOPY, DIAGNOSIS * * The named appointment provid er may or may not be the originator of this progress note, and it is not deemed complete until electronically signed by the appointment provider. Sign off status: Pending * Provider: Mana Hdz MD Date: 0 06/09/2024 Generated for Sammi quintana/Aubrie/eTransmitting on: 1 07:42 PM EDT
--- NOTE | 2025-01-30 14:47 | A.OFFVIS_ITS ---
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 Reports he is doing fairly well and ambulating somewhat better after the operation. He does report some discomfort in the right groin. Does not report any bruising. 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 Reports that his leg strength was better but he did have some groin discomfort. He now presents for routine postoperative follow-up. [facility] Medical History Arthritis DDD (degenerative disc disease), lumbar Thyroid nodule Hx: bad fall (~2022) Peripheral vascular disease Other and unspecified hyperlipidemia Essential hypertension PAF (paroxysmal atrial fibrillation) Atherosclerotic cardiovascular disease Hyperlipemia Afib GERD (gastroesophageal reflux disease) HTN (hypertension) Surgical History History of left cataract extraction (~2022) H/O colonoscopy History of cardiac catheterization (~12/12/19) Family History Father CHF (congestive heart failure) Vascular disorder Mother Respiratory disease Social History Household Members: Family Housing: House Are you a primary critical care educator to a significant other at home: No Do you presently have visiting nurse or other home services: No 75 years or older and lives alone: No Alcohol intake: never Patient Tobacco Use Status: Former Tobacco user Tobacco use type: Cigarette service: No Current occupational status: employed and retired Current occupation: Long-Term work at [employer] Review of Systems Const All systems reviewed & are unremarkable except as noted in HPI and below Reports no additional complaints ENT Reports Normal hearing present Card Denies chest pain, Denies chest pain at rest, Denies chest pain with activity and Denies pedal edema Resp Denies cough GI Denies abdominal pain Musc Denies abnormal gait, Denies muscle cramps and Denies radiating pain into limb Skin/Breast Denies skin ulcer and Denies wounds Neuro Reports Normal hearing present and Denies abnormal gait Psych Reports no additional complaints Physical Exam Vital Signs: BMI result Body Mass Index 30.8 Const General: cooperative, healthy appearing and comfortable Orientation/consciousness: oriented to person, oriented to place and oriented to time HEENT Head: Yes normal to inspection Neck Neck: Yes normal visual inspection Carotids: no bruits Chest Chest palpation & inspection: normal inspection of the chest Resp Effort & Inspection: normal respiratory effort and able to speak in complete sentences Auscultation: clear to auscultation bilaterally, no crackles, no rales, no rhonchi and no wheezes Cardio Rate: regular rate Rhythm: regular rhythm Heart sounds: S1 normal heart sound present and S2 normal heart sound present Bruits: no carotid bruits Peripheral pulses: Peripheral pulses 2+ throughout GI Inspection: Yes normal to inspection Skin Wounds: no wounds Hair: normal Neuro General: oriented to person, oriented to place and oriented to time Cranial nerves: Yes CN's II-XII intact bilaterally and Yes Normal hearing present Cognition (Neuro): normal cognition Motor exam (neuro): 5/5 motor strength present throughout Extrem Other: Right groin minimal cellulitis. Every other staple removed. There was an underlying seroma of which this was tapped in a proximally 75 cc of fluid was drained. General: No clubbing, No cyanosis and No edema Psych Appearance: grossly normal Mental Status: mental status grossly normal Speech and movement: Normal speech and movement present Assessment & Plan Assessment & Plan (1) Peripheral vascular disease: Comment: 02/01/2019 right atherectomy and stent of SFA 12/13/2024 - right lower extremity diagnostic angiogram 01/15/2025 - right femoral endarterectomy Code(s): I73.9 - Peripheral vascular disease, unspecified Category: Medical Plan: In short patient appears to be doing relatively well status post right femoral endarterectomy. He does have some mild cellulitis which I will treat with antibiotics. He also has an underlying seroma. We did drain this and we will keep a close eye on this. He is scheduled for 1 week follow-up with us. Thank you for allowing us to assist in his care. If there are any questions or concerns please do not hesitate to contact us. Medications: New cephalexin 500 mg PO BID 20 caps 0RF Coding Level of Care Code Est Pt Level 4 (51849) Diagnoses Peripheral vascular disease I73.9
[2025-01-30 14:48] VITALS: BMI 30.8
--- OUTSIDE RECORDS SUMMARY | 2025-01-30 19:42 | XMS_ITS | Encounter Summary ---
Author Organization [facility] Address [address] [place] [address] Phone Care Team Providers Care Manager Intermediate Name Role Phone Emmanuel Mistry MD Unavailable [phone] Edgar William MD Unavailable Dash Price MD Unavailable [phone] Chuck Pratt MD Unavailable Rajan Ojeda MD Unavailable [phone] Emmanuel Mistry MD Primary Care Provider [phone] Harlan Sharma MD Unavailable [phone] Encounter Details Date Type Department Care Team (Late st Contact Info) Description 05/18/2022 Procedure Pass [facility], [address] [address] Social History Tobacco Use Types Packs/Day Years [...] Description 05/23/2025 9:30 AM EST Office Visit [facility] Internal Medicine [address] [place] [address] Emmanuel Mistry MD [address] [place], [place] [phone] 07/09/2025 10:40 AM EDT Office Visit [facility] Endocrinology [place] [address] [place] [phone] Ines Rush MD [address] [place] [address] [email or web address] documented as of this encounter Visit Diagnoses Not on filedocumented in this encounter Additional Health Concerns Infection Onset Date Last Indicated Resolved Time COVID-19 08/06/2024 08/06/2024 08/27/2024 1:21 AM EDT Assessment Noted Time PHQ-2 Depression Total Score: 0 11/16/19 9:40 AM EDT documented as of this encounter Care Teams Manager Intermediate Relationship Specialty Start Date End Date Emmanuel Mistry MD [address] [place] [address] PCP - General Internal Medicine 01/01/20 Emmanuel Mistry MD [address] [place] [address] [email or web address] Insurance Assigned Provider 07/17/23 04/17/24 Edgar William MD [address] [place] [address] Nephrology 10/11/19 Dash Price MD [address] [place] [address] [email or web address] Endocrinology 10/11/19 Chuck Pratt MD [address] [place] [address] Cardiology 10/11/19 Rajan Ojeda MD [address] [place] [address] Vascular Surgery 10/11/19 Harlan Sharma MD [address] [place] [address] Cardiology 03/25/20 documented as of this encounter Additional Source Comments The information contained in this document represents components of the legal health record. It is not the complete legal health record.[facility]
--- OUTSIDE RECORDS SUMMARY | 2025-01-30 19:43 | XMS_ITS | Encounter Summary ---
Author Organization [facility] Address [address] [place] [address] Phone Care Team Providers Care Concrete Inspector Name Role Phone Emmanuel Mistry MD Unavailable [phone] Nadir Valladares DO Unavailable Michelle Raymundo BRUSHING MACHINE OPERATOR Unavailable [phone] Ashtyn Peters DIGITAL INTERN Unavailable Emmanuel Mistry MD Primary Care Provider [phone] Emmanuel Mistry MD Unavailable Edgar William MD Unavailable Dash Price MD Unavailable [phone] Chuck Pratt MD Unavailable Rajan Ojeda MD Unavailable Emmanuel Mistry MD Primary Care Provider [phone] Harlan Sharma MD Unavailable Encounter Details Date Type Department Care Team (Late st Contact Info) Description 06/21/2017 Procedure Pass [facility], [address] [address] Social History Tobacco Use Types Packs/Day Years [...] [facility] Internal Medicine [address] [place] [address] Emmanuel Mistry MD [address] [place] [address] [email or web address] 07/09/2025 10:40 AM EDT Office Visit [facility] Endocrinology [place] [address] [place] [phone] Ines Rush MD [address] [place] [address] [email or web address] documented as of this encounter Visit Diagnoses [...] documented as of this encounter Care Teams Concrete Inspector Relationship Specialty Start Date End Date Emmanuel Mistry MD [address] [place] [address] PCP - General Internal Medicine 03/17/17 12/31/19 Emmanuel Mistry MD [address] [place] [address] PCP - General Internal Medicine 01/01/20 Emmanuel Mistry MD [address] [place] [address] Historical LMR Provider 01/30/17 03/24/20 Nadir Valladares DO [address] [facility] [address] [place] [address] Historical LMR Provider 01/30/17 0 Michelle Raymundo NP [address] [place] [address] 6 [place] [address] Historical LMR Provider 01/30/17 03/24/20 Ashtyn Peters CNP [address] [facility] [place] [address] Historical LMR Provider 01/30/1703/12 Emmanuel Mitsry MD [address] [place] [address] Insurance Assigned Provider 07/17/23 04/17/24 Edgar William MD [address] [place] [address] Nephrology 10/11/19 Dash Price MD [address] [place] [address] Endocrinology 10/11/19 Chuck Pratt MD [address] [place] [address] Cardiology 10/11/19 Rajan Ojeda MD [address] [place] [address] Vascular Surgery 10/11/19 Harlan Sharma MD [address] [place] [address] Cardiology 03/25/20 documented as of this encounter Additional Source Comments The information contained in this document represents components of the legal health record. It is not the complete legal health record.[facility]
--- OUTSIDE RECORDS SUMMARY | 2025-01-30 19:43 | XMS_ITS | Clinical Summary ---
Author Organization [facility] Address [address] [place] [address] Phone Care Team Providers Care Tank Cleaning Supervisor Name Role Phone Edgar William MD Unavailable Dash Price MD Unavailable Chuck Pratt MD Unavailable [phone] Rajan Ojeda MD Unavailable Emmanuel Mistry MD [...] a day. 180 tablet 3 4 Active cycloSPORINE (RESTASIS) 0.05 % suspension Place 1 drop into each eye 2 (two) times a day. 5 Active benzonatate (TESSALON) 100 MG capsule Take 100 mg by mouth 3 (three) times a day as needed. 5 Active azithromycin (ZITHROMAX) 250 MG tablet TAKE 2 TABLETS BY MOUTH TODAY, THEN TAKE 1 TABLET DAILY FOR 4 DAYS DIRECTED 5 Active amLODIPine (NORVASC) 10 MG tabletIndications :Essential hypertension TAKE 1 TABLET BY MOUTH EVERY DAY 90 tablet 3 5 Active Active Problems Problem Noted Date [...] Therefore we will refer the patient to [facility] ears nose throat over in [place] for a evaluation. Most likely it is [...] Date Type Department Care Team Description 12/23/2024 [facility] Internal Medicine [address] [place] [address] Emmanuel Mistry MD Medication Refill 12/04/2024 8:00 AM EDT Office Visit [facility] Internal Medicine [address] [place] [address] Emmanuel Mistry MD Routine general medical examination at a health care facility (Primary Dx); Benign essential hypertension; Pure hypercholesterolemia; Paroxysmal atrial fibrillation; Impaired fasting glucose; Primary osteoarthritis involving multiple joints 11/28/2024 Orders Only [facility] Internal Medicine [address] [place] [address] ProviderMelvin MD 11/27/2024 Orders Only [facility] Internal Medicine [address] [place] [address] ProviderMelvin MD 11/20/2024 Documentation [facility] Internal [facility] [place] [facility] [address] [place] [address] Emmanuel Mistry MD from Last 3 Months Immunizations Immunization [...] Visit [facility] Internal Medicine [address] [place] [address] Emmanuel Mistry MD [address] [place] [address] [email or web address] 07/09/2025 10:40 AM EDT Office Visit [facility] Endocrinology [place] [address] [place] [phone] Ines Rush MD [address] [place] [address] [email or web address] Health Maintenance Due Date Last Done Comments COLOGUARD 1998 FIT TEST 1998 FOBT 1998 SIGMOIDOSCOPY 1998 VIRTUAL COLONOSCOPY 1998 INFLUENZA VACCINE (#1) 2024 , 12/18/2022, 01/14/2022, Additional history exists COVID-19 VACCINE ( season) 2024 12/22/2021, 03/07/2021, 08/26/2020, Additional history exists BLOOD PRESSURE 06/06/2025 12/04/2024 CREATININE LEVEL 10/16/2025 10/16/2024, , 10/18/2023, Additional history exists DEPRESSION SCREENING 12/03/2025 12/03/2024 Adult Td,Tdap Booster 12/04/2027 12/03/2017, 05/01/2 007 RSV VACCINE (1 - 1-dose 75+ series) 2028 COLONOSCOPY 06/09/2029 06/09/2024, 05/14, 08/11/2007 COLORECTAL CANCER SCREENING 06/09/2029 LIPID PANEL 10/16/2029 10/16/2024, 0710/2024, 10/16/2024, Additional history exists HEPATITIS C SCREENING [...] IMAGING Routine 11/24/2024 3:59 PM EDT OUTSIDE HDL Routine 10/16/2024 OUTSIDE SERUM CREATININE LEVEL Routine 10/16/2024 COLONOSCOPY FOR RESULT ENTRY ONLY [...] (11/27/2024 10:40 AM EDT) us Historical Provider MD IMG XR CHEST Final Res ult * Outside Imaging Report Only (11/24/2024 3:59 PM EDT) Historical Provider IMG XR CHEST Final Res ult * Outside Serum Creatinine Level (10/16/2024) Creatinine, serum - External 1.27 0.8 - 1.3 mg/dL EXTERNAL NON-INTERFACED REF LAB [facility] Provider LAB BLOOD ORDERABLES Sherita l Result EXTERNAL NON-INTERFACED REF LAB * (ABNORMAL) Outside HDL (10/16/2024) HDL - External 474(A) 40 - 80 mg/dL EXTERNAL NON-INTERFACED REF LAB Result [facility] Provider LAB BLOOD ORDERABLES Sherita l Result Performing Organization Address City/[facility]/ZIP Co de Phone Number EXTERNAL NON-INTERFACED REF LAB * HM COLONOSCOPY FOR RESULT ENTRY ONLY (06/09/2024) Colonoscopy 5 year recall Result [facility] Provider HEALTH MAINTENANCE Final Result * [...] dilatation of the abdominalaorta. Emmanuel Mistry MD IM US ABDOMEN Final Result from Last 3 Months or Most Recently Relevant to Health Maintenance Insurance [facility] MEDICARE PART A & B [facility] MEDICARE PART A & B [facility] MEDICARE PART A & B [facility] MEDICARE PART A & B [facility] MEDICARE PART A & [place] [address] [place] [address] MEDICARE PART A & B [facility] MEDICARE PART A & B MEDICARE PART A & [place] [place] [address] MEDICARE PART A & B Advance Directives For more information, please contact: [phone] (9AM - 5PM [facility], Wednesday-Wednesday) * Full Code (Latest Code Status on File) Date Activated Date Inactivated Comments 04/19/2020 5:10 PM Question Answer Comments Code Status Confirmed With: Patient Care Teams Tank Cleaning Supervisor Relationship Specialty Start Date End Date Emmanuel Mistry MD [address] [place] [address] PCP - General Internal Medicine 01/01/20 Edgar William MD Nephrology 10/11/19 Dash Price MD Endocrinology 10/11/19 Chuck Pratt MD [address] [place] [address] Cardiology 10/11/19 Rajan Ojeda MD [address] [place] [address] Vascular Surgery 10/11/19 Harlan Sharma MD [address] [place] [address] Cardiology 03/25/20 Additional Source Comments The information contained in this document represents components of the legal health record. It is not the complete legal health record.[facility]
--- OUTSIDE RECORDS SUMMARY | 2025-01-30 19:43 | XMS_ITS | Patient Health Record ---
Author Organization [facility] Address [address] [place] [address] Care Team Providers Care Block Placer Name Role Phone Emmanuel Mistry MD Primary Care Provider Kati Fang Unavailable [phone] Allergies No Known Allergies Results Component Value Reference Range Notes Pathology (Not yet reviewed by provider) Interpretation: Performing Lab:[facility], [address] [place] [id number] Notes/Report: Reason For Referral No Information Medications Medication SIG (Take, Route, Frequency, Duration) Notes Start Date End Date Status Atorvastatin Calcium 80 MG TAKE 1 TABLET BY MOUTH DAILY Orally Once a day Active Aspir-Low 81 MG 1 tablet Orally Once a day; Duration: 30 day(s) Active amLODIPine Besylate 10 MG Oral; Duration: 90 Active Metoprolol Succinate ER 25 MG TAKE 1 TABLET BY MOUTH EVERY DAY Oral; Duration: 90 Active Ezetimibe 10 MG Oral; Duration: 90 Active Eliquis 5 MG Oral; Duration: 90 Active Immunizations Vaccine Route Administration Date Status Comme [...] Status Risk Notes Problem Colon cancer screening (231102138) Colon cancer screening (Z12.11) Active confirmed Problem Screening for malignant neoplasm of colon (566432674) Encounter for screening for malignant neoplasm of colon (Z12.11) Active confirmed Problem History of polyp of colon (situation) (963939258) Personal history of colonic polyps (Z86.010) Active confirmed Problem Gastroesophageal reflux disease (536925000) Gastroesophageal reflux disease, esophagitis presence not specified (K21.9) Active confirmed Problem Brody's esophagus (961893671) Brody''s esophagus without dysplasia (K22.70) Active confirmed Problem Gastroesophageal reflux disease (disorder) (258934641) Chronic GERD (K21.9) Active confirmed Vital Signs Blood pressure diastolic 00 mm Hg 02/11/2024 Height 71 in 02/11/2024 Blood pressure systolic 00 mm Hg 02/11/2024 Weight 214 lbs 02/11/2024 BMI 29.84 kg/m2 02/11/2024 Encounters Encounter Location Date Provider Diagnosis [facility] [address] [place] [id number] 06/09/2024 Kati Hdz Colon cancer screeni ng Z12.11 ; Colon polyps K63.5 ; Diverticulosis of large intestine without perforation or abscess without bleeding K57.30 ; Other hemorrhoids K64.8 ; Gastro-esophageal reflux disease without esophagitis K21.9 ; Brody''s esophagus without dysplasia K22.70 and Hiatal hernia K44.9 [facility] [address] [place] [address] 02/11/2024 Kati Hdz Brody''s esophagus without dysplasia [...] [place] [address] [place] [address] [phone] [id number] KATI ZEPEDA Self - patient is the insured [facility] [address] [place] [phone] [id number] KATELYN KATI Self - patient is the insured Medical (General) History Medical History History ICD Code Denies NC,DM,CVA,Lung disease,renal dise ase Negative colonoscopy in 08/2007 [...]
== END 2025-01-30 15:10 | disposition home or self-care (01) ==
LOC: HO.HVS 14:38
PROVIDERS: PCP Internal Medicine; Visit Provider Surgery Vascular Surgery
DX: I73.9 Peripheral vascular disease, unspecified (principal)
CPT/HCPCS: 99024

== ENCOUNTER → 2025-01-30 14:37 | Outpatient (BNVA) | payer MEDICARE, BC, SELFPAY | PROVIDERS: PCP Internal Medicine; Visit Provider Surgery Vascular Surgery | DX: Z48.812 Encounter for surgical aftercare following surgery on the circulatory system (principal); I73.9 Peripheral vascular disease, unspecified; Z98.890 Other specified postprocedural states | CPT/HCPCS: 99212 ==

== ENCOUNTER 2025-02-06 14:54 | Outpatient (AMB) | payer MEDICARE, BC, SELFPAY ==
--- OUTSIDE RECORDS SUMMARY | 2024-06-09 06:30 | XMS_ITS ---
Author Organization [facility] Address [address] [place] [address] Care Team Providers Care Guide Changer Name Role Phone Emmanuel Mistry MD Primary Care Provider Kati Fang [phone] REASON FOR VISIT screening,hx polyps,ngo's ,gerd Encounters Encounter Location Date Provider Diagnosis [facility] [place] [address] [place] [phone] 06/09/2024 Kati Hdz Colon cancer scree angelique [...] * KATI ZEPEDADOB: [birth year] (69 yo M)Acc No.[id number]:06/09/2024 EGD and COL/MAC Patient: KATI MEZA Provider: Mana Hdz MD :1955 A ge:68 Y S ex:Male Date:06/09/2024 Address:[address] [place], [place] [phone] Pcp:Emmanuel Mistry MD Subjective: * Chief Complaints: [...] Procedure Codes: 4 5385 LESION REMOVAL COLONOSCOPY, 47509 COLONOSCOPY AND BIOPSY, Modifiers: 57 , 0529F INTRVL 3+YRS PTS CLNSCP DOCD, 0528F RCMND FLW-UP 10 YRS DOCD, 57624 UPPR GI ENDOSCOPY, DIAGNOSIS * * The named appointment provid er may or may not be the originator of this progress note, and it is not deemed complete until electronically signed by the appointment provider. Sign off status: Pending * Provider: Mana Hdz MD Date: 0 06/09/2024 Generated for Sammi quintana/Aubrie/eTransmitting on: 1 07:17 PM EDT
[2025-02-06 14:57] VITALS: BMI 30.8
--- NOTE | 2025-02-06 14:57 | MHC.OFFVIS ---
Vital Signs 02/06/25 14:57 Height 5 ft 10 in Weight 215 lb BMI 30.8 Intake Visit Reasons: 1 week groin check Intake Note: 1 week follow up Right Femoral Endarterectomy 01/15/25 for Right groin incision check, seroma drained at last visit. Pt states it has built up again and painful. Academic Intern Required: No Accompanied by: Self / Same As Patient Allergies No Known Allergies Allergy (Verified 02/06/25 14:59) HPI HPI 1 week groin check: Details: Patient is follow-up status post right femoral endarterectomy. This was done on 01/15/2025. He developed a right groin seroma. He has nearly completed his course of antibiotics but otherwise is doing relatively well. He reports that he is doing well in terms of ambulation and feels that he has no longer any leg pain. He now presents for routine follow-up [facility] Medical History Arthritis DDD (degenerative disc disease), lumbar Thyroid nodule Hx: bad fall (~2022) Peripheral vascular disease Other and unspecified hyperlipidemia Essential hypertension PAF (paroxysmal atrial fibrillation) Atherosclerotic cardiovascular disease Hyperlipemia Afib GERD (gastroesophageal reflux disease) HTN (hypertension) Surgical History History of left cataract extraction (~2022) H/O colonoscopy History of cardiac catheterization (~12/12/19) Family History Father CHF (congestive heart failure) Vascular disorder Mother Respiratory disease Social History Household Members: Family Housing: House Are you a primary respite care provider to a significant other at home: No Do you presently have visiting nurse or other home services: No 75 years or older and lives alone: No Alcohol intake: never Patient Tobacco Use Status: Former Tobacco user Tobacco use type: Cigarette service: No Current occupational status: employed and retired Current occupation: Long Term work at [employer] Review of Systems Const All systems reviewed & are unremarkable except as noted in HPI and below Reports no additional complaints ENT Reports Normal hearing present Card Denies chest pain, Denies chest pain at rest, Denies chest pain with activity and Denies pedal edema Resp Denies cough GI Denies abdominal pain Musc Denies abnormal gait, Denies muscle cramps and Denies radiating pain into limb Skin/Breast Denies skin ulcer and Denies wounds Neuro Reports Normal hearing present and Denies abnormal gait Psych Reports no additional complaints Physical Exam Vital Signs: BMI result Body Mass Index 30.8 Const General: cooperative, healthy appearing and comfortable Orientation/consciousness: oriented to person, oriented to place and oriented to time HEENT Head: Yes normal to inspection Neck Neck: Yes normal visual inspection Carotids: no bruits Chest Chest palpation & inspection: normal inspection of the chest Resp Effort & Inspection: normal respiratory effort and able to speak in complete sentences Auscultation: clear to auscultation bilaterally, no crackles, no rales, no rhonchi and no wheezes Cardio Rate: regular rate Rhythm: regular rhythm Heart sounds: S1 normal heart sound present and S2 normal heart sound present Bruits: no carotid bruits Peripheral pulses: Peripheral pulses 2+ throughout GI Inspection: Yes normal to inspection Skin Other: Right groin seroma evacuated 120 cc of fluid Wounds: no wounds Hair: normal Neuro General: oriented to person, oriented to place and oriented to time Cranial nerves: Yes CN's II-XII intact bilaterally and Yes Normal hearing present Cognition (Neuro): normal cognition Motor exam (neuro): 5/5 motor strength present throughout Extrem Other: venous exam: No significant superficial varicosities or spider telangiectasias, minimal edema General: No clubbing, No cyanosis and No edema Psych Appearance: grossly normal Mental Status: mental status grossly normal Speech and movement: Normal speech and movement present Assessment & Plan Assessment & Plan (1) Peripheral vascular disease: Comment: 02/01/2019 right atherectomy and stent of SFA 12/13/2024 - right lower extremity diagnostic angiogram 01/15/2025 - right femoral endarterectomy Code(s): I73.9 - Peripheral vascular disease, unspecified Category: Medical Plan: In short he appears to be doing relatively well postop. Unfortunately he has developed this right groin cellulitis which we are trying to manage conservatively. He will complete his course of antibiotics and follow-up with us in approximately 1 week's time for re-evaluation of the groin. Thank you for allowing us to assist in his care. If there are any questions or concerns please do not hesitate to contact us. Coding Level of Care Code Est Pt Level 4 (07641) Diagnoses Peripheral vascular disease I73.9
--- OUTSIDE RECORDS SUMMARY | 2025-02-06 19:19 | XMS_ITS | Encounter Summary ---
Author Organization [facility] Address [address] [place] [address] Phone Care Team Providers Care Store Custodian Name Role Phone Emmanuel Mistry MD Unavailable [phone] Edgar William MD Unavailable Dash Price MD Unavailable [phone] Chuck Pratt MD Unavailable [phone] Rajan Ojeda MD Unavailable [phone] Emmanuel Mistry MD Primary Care Provider Harlan Sharma MD Unavailable [phone] Encounter Details Date Type Department Care Team (Late st Contact Info) Description 05/18/2022 Procedure Pass [facility], [address] [address] Social History Tobacco Use Types Packs/Day Years [...] 05/23/2025 9:30 AM EST Office Visit [facility] Internal Medicine [address] [place] [address] Emmanuel Mistry MD [address] [place], [place] [phone] [email or web address] 07/09/2025 10:40 AM EDT Office Visit [facility] Endocrinology [place] [address] [place] [phone] Ines Rush MD [address] [place] [address] [email or web address] documented as of this encounter Visit Diagnoses Not on filedocumented in this encounter Additional Health Concerns Infection Onset Date Last Indicated Resolved Time COVID-19 08/06/2024 08/06/2024 08/27/2024 1:21 AM EDT Assessment Noted Time PHQ-2 Depression Total Score: 0 11/16/19 9:40 AM EDT documented as of this encounter Care Teams Store Custodian Relationship Specialty Start Date End Date Emmanuel Mistry MD [address] [place] [address] [email or web address] PCP - General Internal Medicine 01/01/20 Emmaneul Mistry MD [address] [place] [address] [email or web address] Insurance Assigned Provider 07/17/23 04/17/24 Edgar William MD [address] [place] [address] Nephrology 10/11/19 Dash Price MD [address] [place] [address] [email or web address] Endocrinology 10/11/19 Chuck Pratt MD [address] [place] [address] Cardiology 10/11/19 Rajan Ojeda MD [address] [place] [address] Vascular Surgery 10/11/19 Harlan Sharma MD [address] [place] [address] Cardiology 03/25/20 documented as of this encounter Additional Source Comments The information contained in this document represents components of the legal health record. It is not the complete legal health record.[facility]
--- OUTSIDE RECORDS SUMMARY | 2025-02-06 19:19 | XMS_ITS | Patient Health Record ---
Author Organization [facility] Address [address] [place] [address] Care Team Providers Care Hedis Manager Name Role Phone Emmanuel Mistry MD Primary Care Provider Kati Fang Unavailable [phone] Allergies No Known Allergies Results Component Value Reference Range Notes Pathology (Not yet reviewed by provider) Interpretation: Performing Lab:[facility], [address] [place] [phone] Notes/Report: Reason For Referral No Information Medications [...] Status Risk Notes Problem Colon cancer screening (525331986) Colon cancer screening (Z12.11) Active confirmed Problem Screening for malignant neoplasm of colon (528987868) Encounter for screening for malignant neoplasm of colon (Z12.11) Active confirmed Problem History of polyp of colon (situation) (926348154) Personal history of colonic polyps (Z86.010) Active confirmed Problem Gastroesophageal reflux disease (364393947) Gastroesophageal reflux disease, esophagitis presence not specified (K21.9) Active confirmed Problem Brody's esophagus (931552832) Brody''s esophagus without dysplasia (K22.70) Active confirmed Problem Gastroesophageal reflux disease (disorder) (465945049) Chronic GERD (K21.9) Active confirmed Vital Signs Blood pressure diastolic 00 mm Hg 02/11/2024 Height 71 in 02/11/2024 Blood pressure systolic 00 mm Hg 02/11/2024 Weight 214 lbs 02/11/2024 BMI 29.84 kg/m2 02/11/2024 Encounters Encounter Location Date Provider Diagnosis [facility] Outpatient [address] [place] [id number] 06/09/2024 Kati Hdz Colon cancer screeni ng Z12.11 ; Colon polyps K63.5 ; Diverticulosis of large intestine without perforation or abscess without bleeding K57.30 ; Other hemorrhoids K64.8 ; Gastro-esophageal reflux disease without esophagitis K21.9 ; Brody''s esophagus without dysplasia K22.70 and Hiatal hernia K44.9 [facility] [address] [place] [address] 02/11/2024 Kati Hdz Brody''s esophagus without dysplasia [...] [place] [address] [place] [address] [phone] [id number] KATI ZEPEDA Self - patient is the insured [facility] [address] [place], [place] [id number] KATELYN KATI Self - patient is the insured Medical (General) History Medical History History ICD Code Denies CT,DM,CVA,Lung disease,renal dise ase Negative colonoscopy in 08/2007 [...]
--- OUTSIDE RECORDS SUMMARY | 2025-02-06 19:19 | XMS_ITS | Clinical Summary ---
Author Organization [facility] Address [address] [place] [address] Phone Care Team Providers Care Hot Saw Helper Name Role Phone Edgar William MD Unavailable Dash Price MD Unavailable Chuck Pratt MD Unavailable [phone] Rajan Ojeda MD Unavailable [phone] Emmanuel Mistry MD Primary Care Provider Harlan Sharma MD Unavailable [phone] Allergies No known active allergies Medications aspirin [...] Therefore we will refer the patient to [facility] ears nose throat over in [place] for a evaluation. Most likely it is [...] Department Care Team Description 12/23/2024 Case [facility] Internal Medicine [address] [place] [address] Emmanuel Mistry MD Medication Refill 12/04/2024 8:00 AM EDT Office Visit [facility] Internal Medicine [address] [place] [address] Emmanuel Mistry MD Routine general medical examination at a health care facility (Primary Dx); Benign essential hypertension; Pure hypercholesterolemia; Paroxysmal atrial fibrillation; Impaired fasting glucose; Primary osteoarthritis involving multiple joints 11/28/2024 Orders Only [facility] Internal Medicine [address] [place] [address] ProviderMelvin MD 11/27/2024 Orders Only [facility] Internal Medicine [address] [place] [address] ProviderMelvin MD 11/20/2024 Documentation [facility] Internal [facility] [address] [place] [address] Emmanuel iMstry MD from Last 3 Months Immunizations Immunization [...] Description 05/23/2025 9:30 AM EST Office Visit [facility] Internal Medicine [address] [place] [address] Emmanuel Mistry MD [address] [place] [address] [email or web address] 07/09/2025 10:40 AM EDT Office Visit [facility] Endocrinology [place] [address] [place] [phone] Ines Rush MD [address] [place] [address] [email or web address] Health Maintenance Due Date Last Done Comments [...] - 1.3 mg/dL EXTERNAL NON-INTERFACED REF LAB [facility] Provider LAB BLOOD ORDERABLES Sherita l Result EXTERNAL NON-INTERFACED REF LAB * (ABNORMAL) Outside HDL (10/16/2024) HDL - External 474(A) 40 - 80 mg/dL EXTERNAL NON-INTERFACED REF LAB Result [facility] Provider LAB BLOOD ORDERABLES Sherita l Result Performing Organization Address City/[facility]/ZIP Co de Phone Number EXTERNAL NON-INTERFACED REF LAB * HM COLONOSCOPY FOR RESULT ENTRY ONLY (06/09/2024) Colonoscopy 5 year recall Result [facility] Provider HEALTH MAINTENANCE Final Result * [...] Most Recently Relevant to Health Maintenance Insurance [facility] MEDICARE PART A & B [facility] MEDICARE PART A & B [facility] MEDICARE PART A & B [facility] MEDICARE PART A & B [facility] MEDICARE PART A & [place] [address] [place] [address] MEDICARE PART A & B [facility] MEDICARE PART A & B MEDICARE PART A & [place] [address] [place] [address] MEDICARE PART A & B Advance Directives For more information, please contact: [phone] (9AM - 5PM [facility], Wednesday-Wednesday) * Full Code (Latest Code Status on File) Date Activated Date Inactivated Comments 04/19/2020 5:10 PM Question Answer Comments Code Status Confirmed With: Patient Care Teams Hot Saw Helper Relationship Specialty Start Date End Date Emmanuel Mistry MD [address] [place] [address] PCP - General Internal Medicine 01/01/20 Edgar William MD Nephrology 10/11/19 Dash Price MD Endocrinology 10/11/19 Chuck Pratt MD [address] [place] [address] Cardiology 10/11/19 Rajan Ojeda MD [address] [place] [address] Vascular Surgery 10/11/19 Harlan Sharma MD [address] [place] [address] Cardiology 03/25/20 Additional Source Comments The information contained in this document represents components of the legal health record. It is not the complete legal health record.[facility]
--- OUTSIDE RECORDS SUMMARY | 2025-02-06 19:19 | XMS_ITS | Clinical Summary ---
Author Organization [facility] Address [address] [place] [address] Phone Care Team Providers Care Hearse Driver Name Role Phone Emmanuel Mistry MD Primary Care Provider [phone] Allergies No known active allergies Medications amLODIPine [...] Therefore we will refer the patient to [facility] ears nose throat [facility] in [place] for a evaluation. Most likely it is [...] to 49 Years) Discontinued 10/28/2020, 10/20/2019 Insurance [facility] Medicare [facility] Medicare Care Teams Hearse Driver Relationship Specialty Start Date End Date Emmanuel Mistry MD [address] [place] [address] PCP - General 04/22/20
--- OUTSIDE RECORDS SUMMARY | 2025-02-06 19:19 | XMS_ITS | Encounter Summary ---
Author Organization [facility] Address [address] [place] [address] Phone Care Team Providers Care Cold Work Operator Name Role Phone Emmanuel Mistry MD Unavailable [phone] Edgar William MD Unavailable Dash Price MD Unavailable [phone] Chuck Pratt MD Unavailable [phone] Rajan Ojeda MD Unavailable [phone] Emmanuel Mistry MD Primary Care Provider Harlan Sharma MD Unavailable [phone] Encounter Details Date Type Department Care Team (Latest Contact Info) Description 11/24/2021 Ancillary Orders [facility] Internal Medicine [address] [place], [place] [id number] Emmanuel Mistry MD [address] [place] [address] [email or web address] Hip pain, bilateral Social History Tobacco Use [...] Description 05/23/2025 9:30 AM EST Office Visit [facility] Internal Medicine [address] [place] [address] Emmanuel Mistry MD [address] [place] [address] 07/09/2025 10:40 AM EDT Office Visit [facility] Endocrinology [place] [address] [place] [address] Ines Rush MD [address] [place] [address] [email or web address] documented as of this encounter Results * [...] documented as of this encounter Care Teams Cold Work Operator Relationship Specialty Start Date End Date Emmanuel Mistry MD [address] [place] [address] PCP - General Internal Medicine 01/01/20 Emmanuel Mistry MD [address] [place] [address] Insurance Assigned Provider 07/17/23 04/17/24 Edgar William MD [address] [place] [address] Nephrology 10/11/19 Dash Price MD [address] [place] [address] [email or web address] Endocrinology 10/11/19 Chuck Pratt MD [address] [place] [address] Cardiology 10/11/19 Rajan Ojeda MD [address] [place] [address] Vascular Surgery 10/11/19 Harlan Sharma MD [address] [place] [address] Cardiology 03/25/20 documented as of this encounter Additional Source Comments The information contained in this document represents components of the legal health record. It is not the complete legal health record.[facility]
--- OUTSIDE RECORDS SUMMARY | 2025-02-06 19:19 | XMS_ITS | Encounter Summary ---
Author Organization [facility] Address [address] [place] [address] Phone Care Team Providers Care Shear Setter Name Role Phone Emmanuel Mistry MD Unavailable [phone] Nadir Valladares DO Unavailable Michelle Raymundo FLOOR INSTALLER Unavailable [phone] Ashtyn Peters SUPERVISOR HEADING Unavailable Emmanuel Mistry MD Primary Care Provider [phone] Emmanuel Mistry MD Unavailable Edgar William MD Unavailable Dash Price MD Unavailable Chuck Pratt MD Unavailable Rajna Ojeda MD Unavailable Emmanuel Mistry MD Primary Care Provider Harlan Sharma MD Unavailable [phone] Encounter Details Date Type Department Care Team (Late st Contact Info) Description 06/21/2017 Procedure Pass [facility], [address] [address] Social History Tobacco Use Types Packs/Day Years [...] Visit [facility] Internal Medicine [address] [place] [address] Emmanuel Mistry MD [address] [place] [address] [email or web address] 07/09/2025 10:40 AM EDT Office Visit [facility] Endocrinology [place] [address] [place] [address] Ines Rush MD [address] [place] [address] [email or web address] documented as of this encounter Visit Diagnoses [...] documented as of this encounter Care Teams Shear Setter Relationship Specialty Start Date End Date Emmanuel Mistry MD [address] [place] [address] PCP - General Internal Medicine 03/17/17 12/31/19 Emmanuel Mistyr MD [address] [place] [address] PCP - General Internal Medicine 01/01/20 Emmanuel Mistry MD [address] [place] [address] Historical LMR Provider 01/30/17 03/24/20 Nadir Valladares DO [address] [place] [address] Historical LMR Provider 01/30/17 0 Michelle Raymundo NP [address] [place] [address] [address] [place] [address] Historical LMR Provider 01/30/17 03/24/20 Ashtyn Peters CNP [address] [place] [address] Historical LMR Provider 01/30/1703/12 Emmanuel Mistry MD [address] [place] [address] Insurance Assigned Provider 07/17/23 04/17/24 Edgar William MD [address] [place] [address] Nephrology 10/11/19 Dash Price MD [address] [place] [address] Endocrinology 10/11/19 Chuck Pratt MD [address] [place] [address] Cardiology 10/11/19 Rajan Ojeda MD [address] [place] [address] Vascular Surgery 10/11/19 Harlan Sharma MD [address] [place] [address] Cardiology 03/25/20 documented as of this encounter Additional Source Comments The information contained in this document represents components of the legal health record. It is not the complete legal health record.[facility]
== END 2025-02-06 15:19 | disposition home or self-care (01) ==
LOC: HO.HVS 14:54
PROVIDERS: PCP Internal Medicine; Visit Provider Surgery Vascular Surgery
DX: I73.9 Peripheral vascular disease, unspecified (principal)
CPT/HCPCS: 99024

== ENCOUNTER → 2025-02-06 14:54 | Outpatient (BNVA) | payer MEDICARE, BC, SELFPAY | PROVIDERS: PCP Internal Medicine; Visit Provider Surgery Vascular Surgery | DX: Z48.812 Encounter for surgical aftercare following surgery on the circulatory system (principal); L76.34 Postprocedural seroma of skin and subcutaneous tissue following other procedure; L03.314 Cellulitis of groin; I73.9 Peripheral vascular disease, unspecified; Z79.2 Long term (current) use of antibiotics; Z98.890 Other specified postprocedural states | CPT/HCPCS: 99212 ==

== ENCOUNTER 2025-02-13 14:20 | Outpatient (AMB) | payer MEDICARE, BC, SELFPAY ==
--- OUTSIDE RECORDS SUMMARY | 2024-06-09 05:30 | XMS_ITS ---
Author Organization [facility] Address [address] [place] [address] Care Team Providers Care Dog Or Horse Racing Official Name Role Phone Emmanuel Mistry MD Primary Care Provider Kati Fang [phone] REASON FOR VISIT screening,hx polyps,ngo's ,gerd Encounters Encounter Location Date Provider Diagnosis [facility] [place] [address] [place] [id number] 06/09/2024 Kati Hdz Colon cancer scree angelique Z12.11 ; Colon polyps K63.5 ; Diverticulosis of large intestine without perforation or abscess without bleeding K57.30 ; Other hemorrhoids K64.8 ; Gastro-esophageal reflux disease without esophagitis K21.9 ; Ngo''s esophagus without dysplasia K22.70 and Hiatal hernia K44.9 Assessments Encounter Date Diagnosis (ICD Code) Assessment Notes Treatment Notes Treatment Clinical Notes Section Notes 06/09/2024 Colon cancer screening (ICD-10 - Z12.11) 06/09/2024 Colon polyps (ICD-10 - K63.5) 06/09/2024 Diverticulosis of large intestine without perforation or abscess without bleeding (ICD-10 - K57.30) 06/09/2024 Other hemorrhoids (ICD-10 - K64.8) 06/09/2024 Gastro-esophageal reflux disease without esophagitis (ICD-10 - K21.9) 06/09/2024 Ngo''s esophagus without dysplasia (ICD-10 - K22.70) 06/09/2024 Hiatal hernia (ICD-10 - K44.9) Plan Of Treatment No Information Progress Notes * KATI ZEPEDADOB: [birth year] (69 yo M)Acc No.[id number]:06/09/2024 EGD and COL/MAC Patient: KATI MEZA Provider: Mana Hdz MD :1955 A ge:68 Y S ex:Male Date:06/09/2024 Address:[address] [place], [place] [phone] Pcp:Emmanuel Mistry MD Subjective: * Chief Complaints: * 1 . Screening,hx polyps,ngo's ,gerd. * Medical History: Objective: * Vitals: Assessment: * Assessment: 1. C olon cancer screening - Z12.11 (Primary) 2 . C olon polyps - K63.5? 3. D iverticulosis of large intestine without perforation or abscess without bleeding - K57.30 4 . O ther hemorrhoids - K64.8 5 . G brien-esophageal reflux disease without esophagitis - K21.9 6 . B arrett''s esophagus without dysplasia - K22.70 7 . H iatal hernia - K44.9 Plan: * Treatment: * Procedure Codes: 4 5385 LESION REMOVAL COLONOSCOPY, 86134 COLONOSCOPY AND BIOPSY, Modifiers: 59 , 0529F INTRVL 3+YRS PTS CLNSCP DOCD, 0528F RCMND FLW-UP 10 YRS DOCD, 47722 UPPR GI ENDOSCOPY, DIAGNOSIS * * The named appointment provid er may or may not be the originator of this progress note, and it is not deemed complete until electronically signed by the appointment provider. Sign off status: Pending * Provider: Mana Hdz MD Date: 0 06/09/2024 Generated for Sammi quintana/Aubrie/eTransmitting on: 1 04/15/2024 05:22 PM EST
--- NOTE | 2025-02-13 14:39 | MHC.OFFVIS ---
Vital Signs 02/13/25 14:40 Height 5 ft 10 in Weight 215 lb BMI 30.8 Intake Visit Reasons: 1 week follow up Right Groin check Intake Note: 1 week follow up Right Groin check s/p Right femoral endarterectomy 01/15/25, seroma drained last wednesday, pt states it filled up again by next day. Accompanied by: Self / Same As Patient Allergies No Known Allergies Allergy (Verified 02/13/25 14:44) HPI HPI 1 week follow up Right Groin check: Details: Very pleasant 69-year-old gentleman presents for follow-up regarding his right femoral endarterectomy. Postoperatively he developed a fairly good size seroma there. At the current time not painful and there is no surrounding cellulitis that he reports. He now presents for follow-up regarding that right groin seroma. Of note he remains quite active and reports an overall improvement in his leg. He has been back to working at [employer] in addition to hunting. [facility] Medical History Arthritis DDD (degenerative disc disease), lumbar Thyroid nodule Hx: bad fall (~2022) Peripheral vascular disease Other and unspecified hyperlipidemia Essential hypertension PAF (paroxysmal atrial fibrillation) Atherosclerotic cardiovascular disease Hyperlipemia Afib GERD (gastroesophageal reflux disease) HTN (hypertension) Surgical History History of left cataract extraction (~2022) H/O colonoscopy History of cardiac catheterization (~12/12/19) Family History Father CHF (congestive heart failure) Vascular disorder Mother Respiratory disease Social History Household Members: Family Housing: House Are you a primary residential child care counselor to a significant other at home: No Do you presently have visiting nurse or other home services: No 75 years or older and lives alone: No Alcohol intake: never Patient Tobacco Use Status: Former Tobacco user Tobacco use type: Cigarette service: No Current occupational status: employed and retired Current occupation: [employer] work at [employer] Review of Systems Const All systems reviewed & are unremarkable except as noted in HPI and below Reports no additional complaints ENT Reports Normal hearing present Card Denies chest pain, Denies chest pain at rest, Denies chest pain with activity and Denies pedal edema Resp Denies cough GI Denies abdominal pain Musc Denies abnormal gait, Denies muscle cramps and Denies radiating pain into limb Skin/Breast Denies skin ulcer and Denies wounds Neuro Reports Normal hearing present and Denies abnormal gait Psych Reports no additional complaints Physical Exam Vital Signs: BMI result Body Mass Index 30.8 Const General: cooperative, healthy appearing and comfortable Orientation/consciousness: oriented to person, oriented to place and oriented to time HEENT Head: Yes normal to inspection Neck Neck: Yes normal visual inspection Carotids: no bruits Chest Chest palpation & inspection: normal inspection of the chest Resp Effort & Inspection: normal respiratory effort and able to speak in complete sentences Auscultation: clear to auscultation bilaterally, no crackles, no rales, no rhonchi and no wheezes Cardio Rate: regular rate Rhythm: regular rhythm Heart sounds: S1 normal heart sound present and S2 normal heart sound present Bruits: no carotid bruits Peripheral pulses: Peripheral pulses 2+ throughout GI Inspection: Yes normal to inspection Skin Wounds: no wounds Hair: normal Neuro General: oriented to person, oriented to place and oriented to time Cranial nerves: Yes CN's II-XII intact bilaterally and Yes Normal hearing present Cognition (Neuro): normal cognition Motor exam (neuro): 5/5 motor strength present throughout Extrem Other: Right groin fullness. Seroma extracted 120 cc of clear fluid. General: No clubbing, No cyanosis and No edema Psych Appearance: grossly normal Mental Status: mental status grossly normal Speech and movement: Normal speech and movement present Assessment & Plan Assessment & Plan (1) Peripheral vascular disease: Comment: 02/01/2019 right atherectomy and stent of SFA 12/13/2024 - right lower extremity diagnostic angiogram 01/15/2025 - right femoral endarterectomy Code(s): I73.9 - Peripheral vascular disease, unspecified Category: Medical Plan: In short patient is doing well in terms of his right femoral endarterectomy unfortunately we are trying to control this right groin seroma. We will continue to observe this conservatively. If not may require re-exploration of this right groin. He will follow up with us in approximately 1 week's time. Thank you for allowing us to assist in his care. Coding Level of Care Code Est Pt Level 4 (27748) Diagnoses Peripheral vascular disease I73.9
[2025-02-13 14:40] VITALS: BMI 30.8
--- OUTSIDE RECORDS SUMMARY | 2025-02-13 17:22 | XMS_ITS | Encounter Summary ---
Author Organization [facility] Address [address] [place] [address] Phone Care Team Providers Care Manager Of Exhibitions And Collections Name Role Phone Emmanuel Mistry MD Unavailable [phone] Edgar William MD Unavailable Dash Price MD Unavailable [phone] Chuck Pratt MD Unavailable [phone] Rajan Ojeda MD Unavailable [phone] Emmanuel Mistry MD Primary Care Provider Harlan Sharma MD Unavailable [phone] Encounter Details Date Type Department Care Team (Late st Contact Info) Description 05/18/2022 Procedure Pass [facility], [address] [address] Social History Tobacco Use Types Packs/Day Years [...] Office Visit [facility] Internal Medicine [address] [place] [address] Emmanuel Mistry MD [address] [place], [place] [phone] 07/09/2025 10:40 AM EDT Office Visit [facility] Endocrinology [place] [address] [place] [phone] Ines Rush MD [address] [place] [address] documented as of this encounter Visit Diagnoses Not on filedocumented in this encounter Additional Health Concerns Infection Onset Date Last Indicated Resolved Time COVID-19 08/06/2024 08/06/2024 08/27/2024 1:21 AM EDT Assessment Noted Time PHQ-2 Depression Total Score: 0 11/16/19 9:40 AM EDT documented as of this encounter Care Teams Manager Of Exhibitions And Collections Relationship Specialty Start Date End Date Emmanuel Mistry MD [address] [place] [address] PCP - General Internal Medicine 01/01/20 Emmanuel Mistry MD [address] [place] [address] [email or web address] Insurance Assigned Provider 07/17/23 04/17/24 Edgar William MD [address] [place] [address] Nephrology 10/11/19 Dash Price MD [address] [place] [address] [email or web address] Endocrinology 10/11/19 Chuck Pratt MD [address] [place] [address] Cardiology 10/11/19 Rajan Ojeda MD [address] [place] [address] Vascular Surgery 10/11/19 Harlan Sharma MD [address] [place] [address] Cardiology 03/25/20 documented as of this encounter Additional Source Comments The information contained in this document represents components of the legal health record. It is not the complete legal health record.[facility]
--- OUTSIDE RECORDS SUMMARY | 2025-02-13 17:22 | XMS_ITS | Encounter Summary ---
Author Organization [facility] Address [address] [place] [address] Phone Care Team Providers Care Document Processor Name Role Phone Emmanuel Mistry MD Unavailable [phone] Edgar William MD Unavailable Dash Price MD Unavailable [phone] Chuck Pratt MD Unavailable [phone] Rajan Oejda MD Unavailable [phone] Emmanuel Mistry MD Primary Care Provider Harlan Sharma MD Unavailable [phone] Encounter Details Date Type Department Care Team (Latest Contact Info) Description 11/24/2021 Ancillary Orders [facility] Internal Medicine [address] [place], [place] [phone] Emmanuel Mistry MD [address] [place] [address] [email or web address] Hip pain, bilateral Social History Tobacco Use [...] [facility] Internal Medicine [address] [place] [address] Emmanuel Mistry MD [address] [place] [address] 07/09/2025 10:40 AM EDT Office Visit [facility] Endocrinology [place] [address] [place] [address] Ines Rush MD [address] [place] [address] [email or web address] documented as of this encounter Results * [...] documented as of this encounter Care Teams Document Processor Relationship Specialty Start Date End Date Emmanuel Mistry MD [address] [place] [address] [email or web address] PCP - General Internal Medicine 01/01/20 Emmanuel Mistry MD [address] [place] [address] [email or web address] Insurance Assigned Provider 07/17/23 04/17/24 Edgar William MD [address] [place] [address] Nephrology 10/11/19 Dash Price MD [address] [place] [address] [email or web address] Endocrinology 10/11/19 Chuck Pratt MD [address] [place] [address] Cardiology 10/11/19 Rajan Ojeda MD [address] [place] [address] Vascular Surgery 10/11/19 Harlan Sharma MD [address] [place] [address] Cardiology 03/25/20 documented as of this encounter Additional Source Comments The information contained in this document represents components of the legal health record. It is not the complete legal health record.[facility]
--- OUTSIDE RECORDS SUMMARY | 2025-02-13 17:22 | XMS_ITS | Encounter Summary ---
Author Organization [facility] Address [address] [place] [address] Phone Care Team Providers Care Industrial Chemicals Supervisor Name Role Phone Emmanuel Mistry MD Unavailable [phone] Nadir Valladares DO Unavailable [phone] Michelle Raymundo TELEPHONIC NURSE Unavailable [phone] Ashtyn Peters ASSEMBLY STOCK SUPERVISOR Unavailable Emmanuel Mistry MD Primary Care Provider Emmanuel Mistry MD Unavailable Edgar William MD Unavailable Dash rPice MD Unavailable [phone] Chuck Pratt MD Unavailable [phone] Rajan Ojeda MD Unavailable Emmanuel Mistry MD Primary Care Provider [phone] Harlan Sharma MD Unavailable Encounter Details Date Type Department Care Team (Late st Contact Info) Description 06/21/2017 Procedure Pass [facility], [address] [address] Social History Tobacco Use Types Packs/Day Years [...] Description 05/23/2025 9:30 AM EST Office Visit [facility] Internal Medicine [address] [place] [address] Emmanuel Mistry MD [address] [place] [address] [email or web address] 07/09/2025 10:40 AM EDT Office Visit [facility] Endocrinology [place] [address] [place] [address] Ines Rush MD [address] [place] [address] [email or web address] documented as of this encounter [...] documented as of this encounter Care Teams Industrial Chemicals Supervisor Relationship Specialty Start Date End Date Emmanuel Mistry MD [address] [place] [address] PCP - General Internal Medicine 03/17/17 12/31/19 Emmanuel Mistry MD [address] [place] [address] PCP - General Internal Medicine 01/01/20 Emmanuel Mistry MD [address] [place] [address] Historical LMR Provider 01/30/17 03/24/20 Nadir Valladares DO [address] [facility] [address] [place] [address] Historical LMR Provider 01/30/17 0 Michelle Raymundo NP [address] [place] [address] 6 [place] [address] Historical LMR Provider 01/30/17 03/24/20 Ashtyn Peters CNP [address] [facility] [place] [address] Historical LMR Provider 01/30/1703/12 Emmanuel Mistry MD [address] [place] [address] Insurance Assigned Provider 07/17/23 04/17/24 Edgar William MD [address] [place] [address] Nephrology 10/11/19 Dash Price MD 40 [place] [address] Endocrinology 10/11/19 Chuck Pratt MD [address] [place] [address] Cardiology 10/11/19 Rajan Ojeda MD [address] [place] [address] Vascular Surgery 10/11/19 Harlan Sharma MD [address] [place] [address] Cardiology 03/25/20 documented as of this encounter Additional Source Comments The information contained in this document represents components of the legal health record. It is not the complete legal health record.[facility]
--- OUTSIDE RECORDS SUMMARY | 2025-02-13 17:23 | XMS_ITS | Patient Health Record ---
Author Organization [facility] Address [address] [place] [address] Care Team Providers Care Ferry Hand Name Role Phone Emmanuel Mistry MD Primary Care Provider Kati Fang Unavailable [phone] Allergies No Known Allergies Results Component Value Reference Range Notes Pathology (Not yet reviewed by provider) Interpretation: Performing Lab:[facility], [address] [place] [phone] Notes/Report: Reason For Referral No Information Medications [...] Status Risk Notes Problem Colon cancer screening (100123049) Colon cancer screening (Z12.11) Active confirmed Problem Screening for malignant neoplasm of colon (724791128) Encounter for screening for malignant neoplasm of colon (Z12.11) Active confirmed Problem History of polyp of colon (situation) (413967814) Personal history of colonic polyps (Z86.010) Active confirmed Problem Gastroesophageal reflux disease (509210529) Gastroesophageal reflux disease, esophagitis presence not specified (K21.9) Active confirmed Problem Brody's esophagus (054667335) Brody''s esophagus without dysplasia (K22.70) Active confirmed Problem Gastroesophageal reflux disease (disorder) (634317494) Chronic GERD (K21.9) Active confirmed Encounters Encounter Location Date Provider Diagnosis [facility] Outpatient [address] [place] [id number] 06/09/2024 Kati Hdz Colon cancer scree angelique [...] disease without esophagitis (ICD-10 - K21.9) 06/09/2024 Brody''s esophagus without dysplasia (ICD-10 - [...] Date MEDICARE OF [place] [address] BIANCA BEDOLLA [address] [phone] [id number] KATI ZEPEDA Self - patient is the insured [facility] [address] [place], [place] [id number] KATI ZEPEDA Self - patient is the insured Medical (General) History Medical History History ICD Code Denies DE,DM,CVA,Lung disease,renal dise ase Negative colonoscopy in 08/2007 [...]
--- OUTSIDE RECORDS SUMMARY | 2025-02-13 17:23 | XMS_ITS | Clinical Summary ---
Author Organization [facility] Address [address] [place] [address] Phone Care Team Providers Care Dialysis Rn Name Role Phone Edgar William MD Unavailable Dash Price MD Unavailable Chuck Pratt MD Unavailable [phone] Rajan Ojeda MD Unavailable Emmanuel Mistry MD [...] Therefore we will refer the patient to [facility] ears nose throat over in [place] for a evaluation. Most likely it is [...] Department Care Team Description 12/23/2024 Case [facility] Internal Medicine [address] [place] [address] Emmanuel Mistry MD Medication Refill 12/04/2024 8:00 AM EDT Office Visit [facility] Internal Medicine [address] [place] [address] Emmanuel Mistry MD Routine general medical examination at a health care facility (Primary Dx); Benign essential hypertension; Pure hypercholesterolemia; Paroxysmal atrial fibrillation; Impaired fasting glucose; Primary osteoarthritis involving multiple joints 11/28/2024 Orders Only [facility] Internal Medicine [address] [place] [address] ProviderMelvin MD 11/27/2024 Orders Only [facility] Internal Medicine [address] [place] [address] ProviderMelvin MD 11/20/2024 Documentation [facility] Internal [facility] [address] [place] [address] Emmanuel Mistry MD from Last 3 Months [...] Visit [facility] Internal Medicine [address] [place] [address] Emmanuel Mistry MD 40 [place] [address] [email or web address] 07/09/2025 10:40 AM EDT Office Visit [facility] Endocrinology [place] [address] [place] [phone] Ines Rush MD [address] [place] [address] [email or web address] Health Maintenance Due Date [...] PM EDT) us Historical Provider LAB BLOOD BKR ORDERABLES Final Result * Outside Imaging Report Only (11/27/2024 10:40 AM EDT) us Historical Provider MD IMG XR CHEST Final Res ult * Outside Imaging Report Only (11/24/2024 3:59 PM EDT) Historical Provider IMG XR CHEST Final Res ult * Outside Serum Creatinine Level (10/16/2024) Creatinine, serum - External 1.27 0.8 - 1.3 mg/dL EXTERNAL NON-INTERFACED REF LAB [facility] Provider LAB BLOOD ORDERABLES Sherita l Result EXTERNAL NON-INTERFACED REF LAB * (ABNORMAL) Outside HDL (10/16/2024) HDL - External 474(A) 40 - 80 mg/dL EXTERNAL NON-INTERFACED REF LAB Result [facility] Provider LAB BLOOD ORDERABLES Sherita l Result Performing Organization Address City/[facility]/ZIP Co de Phone Number EXTERNAL NON-INTERFACED REF LAB * HM COLONOSCOPY FOR RESULT ENTRY ONLY (06/09/2024) Colonoscopy 5 year recall Result [facility] Provider HEALTH MAINTENANCE Final Result [...] Most Recently Relevant to Health Maintenance Insurance [facility] MEDICARE PART A & B Member Subscriber Plan / Payer (Ef fective 2018-Present) Name:Mario Ricketts Member ID:[id number] Relation to Subscriber:Self Name:Mario Ricketts Subscriber ID:[id number] Payer ID:[id number] Group ID:Not on file Type:Medicare Address: [facility] [employer] [facility] [address] [facility] [place] [address] [facility] MEDICARE PART A & B [facility] MEDICARE PART A & B [facility] MEDICARE PART A & B [facility] MEDICARE PART A & [place] [address] [place] [address] MEDICARE PART A & B [facility] MEDICARE PART A & B MEDICARE PART A [place] [address] [place] [address] MEDICARE PART A & B Advance Directives For more information, please contact: [phone] (9AM - 5PM [facility], Wednesday-Wednesday) * Full Code (Latest Code Status on File) Date Activated Date Inactivated Comments 04/19/2020 5:10 PM Question Answer Comments Code Status Confirmed With: Patient Care Teams Dialysis Rn Relationship Specialty Start Date End Date Emmanuel Mistry MD [address] [place] [address] PCP - General Internal Medicine 01/01/20 Edgar William MD Nephrology 10/11/19 Dash Price MD Endocrinology 10/11/19 Chuck Pratt MD [address] [place] [address] Cardiology 10/11/19 Rajan Ojeda MD [address] [place] [address] Vascular Surgery 10/11/19 Harlan Sharma MD [address] [place] [address] Cardiology 03/25/20 Additional Source Comments The information contained in this document represents components of the legal health record. It is not the complete legal health record.[facility]
== END 2025-02-13 14:58 | disposition home or self-care (01) ==
LOC: HO.HVS 14:21
PROVIDERS: PCP Internal Medicine; Visit Provider Surgery Vascular Surgery
DX: I73.9 Peripheral vascular disease, unspecified (principal)
CPT/HCPCS: 99024

== ENCOUNTER → 2025-02-13 14:20 | Outpatient (BNVA) | payer MEDICARE, BC, SELFPAY | PROVIDERS: PCP Internal Medicine; Visit Provider Surgery Vascular Surgery | DX: L76.34 Postprocedural seroma of skin and subcutaneous tissue following other procedure (principal); I73.9 Peripheral vascular disease, unspecified | CPT/HCPCS: 99212 ==

== ENCOUNTER 2025-02-20 14:17 | Outpatient (AMB) | payer MEDICARE, BC, SELFPAY ==
--- OUTSIDE RECORDS SUMMARY | 2024-06-09 05:30 | XMS_ITS ---
Author Organization [facility] Address [address] [place] [address] Care Team Providers Care Commercial Service Technician Name Role Phone Emmanuel Mistry MD Primary Care Provider Kati Fang [phone] REASON FOR VISIT screening,hx polyps,ngo's ,gerd Encounters Encounter Location Date Provider Diagnosis [facility] [place] [address] [place] [phone] 06/09/2024 Kati Hdz Colon cancer scree angelique [...] * KATI ZEPEDADOB: [birth year] (69 yo M)Acc No.[id number]:06/09/2024 EGD and COL/MAC Patient: KATI MEZA Provider: Mana Hdz MD :1955 A ge:68 Y S ex:Male Date:06/09/2024 Address:[address] [place], [place] [phone] Pcp:Emmanuel Mistry MD Subjective: * Chief Complaints: [...] Procedure Codes: 4 5385 LESION REMOVAL COLONOSCOPY, 90727 COLONOSCOPY AND BIOPSY, Modifiers: 59 , 0529F INTRVL 3+YRS PTS CLNSCP DOCD, 0528F RCMND FLW-UP 10 YRS DOCD, 07930 UPPR GI ENDOSCOPY, DIAGNOSIS * * The named appointment provid er may or may not be the originator of this progress note, and it is not deemed complete until electronically signed by the appointment provider. Sign off status: Pending * Provider: Mana Hdz MD Date: 0 06/09/2024 Generated for Sammi quintana/Aubrie/eTransmitting on: 1 04/22/2024 03:57 PM EST
[2025-02-20 14:20] VITALS: BMI 30.8
--- NOTE | 2025-02-20 14:20 | A.OFFVIS_ITS ---
Vital Signs 02/20/25 14:20 Height 5 ft 10 in Weight 215 lb BMI 30.8 Intake Visit Reasons: 1 week groin check Intake Note: 1 week groin check, seroma in Right groin s/p Right Femoral endarterectomy 01/15/25. Pt states he believes bump has gone down and has hardened a bit. Rd Manager Required: No Accompanied by: Self / Same As Patient Allergies No Known Allergies Allergy (Verified 02/20/25 14:22) HPI HPI 1 week groin check: Details: 69-year-old gentleman status post right femoral endarterectomy. He reports that he is walking better. Has gone back to work at [employer] and is extremely busy during the holiday season. He has a recurrent seroma in that right groin. He does report that it appears smaller than last visit. Now for follow-up. [facility] Medical History Arthritis DDD (degenerative disc disease), lumbar Thyroid nodule Hx: bad fall (~2022) Peripheral vascular disease Other and unspecified hyperlipidemia Essential hypertension PAF (paroxysmal atrial fibrillation) Atherosclerotic cardiovascular disease Hyperlipemia Afib GERD (gastroesophageal reflux disease) HTN (hypertension) Surgical History History of left cataract extraction (~2022) H/O colonoscopy History of cardiac catheterization (~12/12/19) Family History Father CHF (congestive heart failure) Vascular disorder Mother Respiratory disease Social History Household Members: Family Housing: House Are you a primary resident care manager rn to a significant other at home: No Do you presently have visiting nurse or other home services: No 75 years or older and lives alone: No Alcohol intake: never Patient Tobacco Use Status: Former Tobacco user Tobacco use type: Cigarette service: No Current occupational status: employed and retired Current occupation: [employer] work at [employer] Review of Systems Const All systems reviewed & are unremarkable except as noted in HPI and below Reports no additional complaints ENT Reports Normal hearing present Card Denies chest pain, Denies chest pain at rest, Denies chest pain with activity and Denies pedal edema Resp Denies cough GI Denies abdominal pain Musc Denies abnormal gait, Denies muscle cramps and Denies radiating pain into limb Skin/Breast Denies skin ulcer and Denies wounds Neuro Reports Normal hearing present and Denies abnormal gait Psych Reports no additional complaints Physical Exam Vital Signs: BMI result Body Mass Index 30.8 Const General: cooperative, healthy appearing and comfortable Orientation/consciousness: oriented to person, oriented to place and oriented to time HEENT Head: Yes normal to inspection Neck Neck: Yes normal visual inspection Carotids: no bruits Chest Chest palpation & inspection: normal inspection of the chest Resp Effort & Inspection: normal respiratory effort and able to speak in complete sentences Auscultation: clear to auscultation bilaterally, no crackles, no rales, no rhonchi and no wheezes Cardio Rate: regular rate Rhythm: regular rhythm Heart sounds: S1 normal heart sound present and S2 normal heart sound present Bruits: no carotid bruits Peripheral pulses: Peripheral pulses 2+ throughout GI Inspection: Yes normal to inspection Skin Other: Right groin seroma drain 50 cc Wounds: no wounds Hair: normal Neuro General: oriented to person, oriented to place and oriented to time Cranial nerves: Yes CN's II-XII intact bilaterally and Yes Normal hearing present Cognition (Neuro): normal cognition Motor exam (neuro): 5/5 motor strength present throughout Extrem Other: venous exam: No significant superficial varicosities or spider telangiectasias, minimal edema General: No clubbing, No cyanosis and No edema Psych Appearance: grossly normal Mental Status: mental status grossly normal Speech and movement: Normal speech and movement present Assessment & Plan Assessment & Plan (1) Peripheral vascular disease: Comment: 02/01/2019 right atherectomy and stent of SFA 12/13/2024 - right lower extremity diagnostic angiogram 01/15/2025 - right femoral endarterectomy Code(s): I73.9 - Peripheral vascular disease, unspecified Category: Medical Plan: In short doing well status post right femoral endarterectomy. Seroma appears to be decreasing and he is ambulating significantly better. We will continue to manage this conservatively. He will follow up with us in approximately 2 weeks time. Thank you for allowing us to assist in his care. If there are any questions or concerns please do not hesitate to contact us Coding Level of Care Code Est Pt Level 4 (91660) Diagnoses Peripheral vascular disease I73.9
--- OUTSIDE RECORDS SUMMARY | 2025-02-20 15:58 | XMS_ITS | Clinical Summary ---
Author Organization [facility] Address [address] [place] [address] Phone Care Team Providers Care Production Manufacturing Worker Name Role Phone Emmanuel Mistry MD Primary Care Provider [phone] Allergies No known active allergies Medications amLODIPine [...] Therefore we will refer the patient [facility] [place] for a evaluation. Most likely it is [...] to 49 Years) Discontinued 10/28/2020, 10/20/2019 Insurance [facility] Medicare [facility] Medicare Care Teams Production Manufacturing Worker Relationship Specialty Start Date End Date Emmanuel Mistry MD [address] [place] [address] PCP - General 04/22/20
--- OUTSIDE RECORDS SUMMARY | 2025-02-20 15:58 | XMS_ITS | Clinical Summary ---
Author Organization [facility] Address [address] [place] [address] Phone Care Team Providers Care Mental Health Director Name Role Phone Edgar William MD Unavailable Dash Price MD Unavailable Chuck Pratt MD Unavailable [phone] Rajan Ojeda MD Unavailable Emmanuel Mistry MD Primary Care Provider [phone] Harlan Sharma MD Unavailable Allergies No known [...] Therefore we will refer the patient to [facility] ears nose throat [place] for a evaluation. Most likely it is [...] Department Care Team Description 12/23/2024 Case [facility] Internal Medicine [address] [place] [address] Emmanuel Mistry MD Medication Refill 12/04/2024 8:00 AM EDT Office Visit [facility] Internal Medicine [address] [place] [address] Emmanuel Mistry MD Routine general medical examination at a health care facility (Primary Dx); Benign essential hypertension; Pure hypercholesterolemia; Paroxysmal atrial fibrillation; Impaired fasting glucose; Primary osteoarthritis involving multiple joints 11/28/2024 Orders Only [facility] Internal Medicine [address] [place] [address] ProviderMelvin MD 11/27/2024 Orders Only [facility] Internal Medicine [address] [place] [address] ProviderMelvin MD 11/20/2024 Documentation [facility] Internal [facility] [address] [place] [address] Emmanuel Mistry MD from Last 3 Months [...] Visit [facility] Internal Medicine [address] [place] [address] Emmanuel Mistry MD [address] [place] [address] [email or web address] 07/09/2025 10:40 AM EDT Office Visit [facility] Endocrinology [place] [address] [place] [phone] Ines Rush MD [address] [place] [address] [email or web address] Health Maintenance Due Date Last Done Comments [...] - 1.3 mg/dL EXTERNAL NON-INTERFACED REF LAB [facility] Provider LAB BLOOD ORDERABLES Sherita l Result EXTERNAL NON-INTERFACED REF LAB * (ABNORMAL) Outside HDL (10/16/2024) HDL - External 474(A) 40 - 80 mg/dL EXTERNAL NON-INTERFACED REF LAB Result [facility] Provider LAB BLOOD ORDERABLES Sherita l Result Performing Organization Address City/[facility]/ZIP Co de Phone Number EXTERNAL NON-INTERFACED REF LAB * HM COLONOSCOPY FOR RESULT ENTRY ONLY (06/09/2024) Colonoscopy 5 year recall Result [facility] Provider HEALTH MAINTENANCE Final Result * US [...] Most Recently Relevant to Health Maintenance Insurance [facility] Address[facility] [address] [place] [address] MEDICARE PART A & B [facility] MEDICARE PART A & B [facility] MEDICARE PART A & B [facility] MEDICARE PART A & B [facility] MEDICARE PART A & [place] [address] [place] [address] MEDICARE PART A & B [facility] MEDICARE PART A & B [facility] Address: [address] [place] [address] MEDICARE PART A & [place] [place] [address] MEDICARE PART A & B Advance Directives For more information, please contact: [phone] (9AM - 5PM [facility], Wednesday-Wednesday) * Full Code (Latest Code Status on File) Date Activated Date Inactivated Comments 04/19/2020 5:10 PM Question Answer Comments Code Status Confirmed With: Patient Care Teams Mental Health Director Relationship Specialty Start Date End Date Emmanuel Mistry MD [address] [place] [address] PCP - General Internal Medicine 01/01/20 Edgar William MD Nephrology 10/11/19 Dash Price MD Endocrinology 10/11/19 Chuck Pratt MD [address] [place] [address] Cardiology 10/11/19 Rajan Ojeda MD [address] [place] [address] Vascular Surgery 10/11/19 Harlan Sharma MD [address] [place] [address] Cardiology 03/25/20 Additional Source Comments The information contained in this document represents components of the legal health record. It is not the complete legal health record.[facility]
--- OUTSIDE RECORDS SUMMARY | 2025-02-20 15:58 | XMS_ITS | Encounter Summary ---
Author Organization [facility] Address [address] [place] [address] Phone Care Team Providers Care Hand Wrapper Operator Name Role Phone Emmanuel Mistry MD Unavailable [phone] Edgar William MD Unavailable Dash Price MD Unavailable [phone] Chuck Pratt MD Unavailable Rajan Ojeda MD Unavailable [phone] Emmanuel Mistry MD Primary Care Provider Harlan Sharma MD Unavailable [phone] Encounter Details Date Type Department Care Team (Late st Contact Info) Description 05/18/2022 Procedure [facility], [address] [address] Social History Tobacco Use Types Packs/Day Years [...] 05/23/2025 9:30 AM EST Office Visit [facility] Internal Medicine [address] [place] [address] Emmanuel Mistry MD [address] [place], [place] [phone] 07/09/2025 10:40 AM EDT Office Visit [facility] Endocrinology [place] [address] [place] [phone] Ines Rush MD [address] [place] [address] [email or web address] documented as of this encounter Visit Diagnoses Not on filedocumented in this encounter Additional Health Concerns Infection Onset Date Last Indicated Resolved Time COVID-19 08/06/2024 08/06/2024 08/27/2024 1:21 AM EDT Assessment Noted Time PHQ-2 Depression Total Score: 0 11/16/19 9:40 AM EDT documented as of this encounter Care Teams Hand Wrapper Operator Relationship Specialty Start Date End Date Emmanuel Mistry MD [address] [place] [address] PCP - General Internal Medicine 01/01/20 Emmanuel Mistry MD [address] [place] [address] [email or web address] Insurance Assigned Provider 07/17/23 04/17/24 Edgar William MD [address] [place] [address] Nephrology 10/11/19 Dash Price MD [address] [place] [address] [email or web address] Endocrinology 10/11/19 Chuck Pratt MD [address] [place] [address] Cardiology 10/11/19 Rajan Ojeda MD [address] [place] [address] Vascular Surgery 10/11/19 Harlan Sharma MD [address] [place] [address] Cardiology 03/25/20 documented as of this encounter Additional Source Comments The information contained in this document represents components of the legal health record. It is not the complete legal health record.[facility]
--- OUTSIDE RECORDS SUMMARY | 2025-02-20 15:58 | XMS_ITS | Encounter Summary ---
Author Organization [facility] Address [address] [place] [address] Phone Care Team Providers Care Manager Solar Name Role Phone Emmanuel Mistry MD Unavailable [phone] Edgar William MD Unavailable Dash Price MD Unavailable [phone] Chuck Pratt MD Unavailable [phone] Rajan Ojeda MD Unavailable [phone] Emmanuel Mistry MD Primary Care Provider Harlan Sharma MD Unavailable [phone] Encounter Details Date Type Department Care Team (Latest Contact Info) Description 11/24/2021 Ancillary Orders [facility] Internal Medicine [address] [place], [place] [phone] Emmanuel Mistry MD [address] [place] [address] [email or web address] Hip pain, bilateral Social History Tobacco Use [...] Description 05/23/2025 9:30 AM EST Office Visit [facility] Internal Medicine [address] [place] [address] Emmanuel Mistry MD [address] [place] [address] 07/09/2025 10:40 AM EDT Office Visit [facility] Endocrinology [place] [address] [place] [address] Ines Rush MD [address] [place] [address] [email or web address] documented as of this encounter Results * [...] space narrowing at L4/5. Procedure Note Patricia aSntamaria MD - 11/25/2021 XR HIPS 2+ VW [...] as of this encounter Care Teams Manager Solar Relationship Specialty Start Date End Date Emmanuel Mistry MD [address] [place] [address] PCP - General Internal Medicine 01/01/20 Emmanuel Mistry MD [address] [place] [address] Insurance Assigned Provider 07/17/23 04/17/24 Edgar William MD [address] [place] [address] Nephrology 10/11/19 Dash Price MD [address] [place] [address] [email or web address] Endocrinology 10/11/19 Chuck Pratt MD [address] [place] [address] Cardiology 10/11/19 Rajan Ojeda MD [address] [place] [address] Vascular Surgery 10/11/19 Harlan Sharma MD [address] [place] [address] Cardiology 03/25/20 documented as of this encounter Additional Source Comments The information contained in this document represents components of the legal health record. It is not the complete legal health record.[facility]
--- OUTSIDE RECORDS SUMMARY | 2025-02-20 15:58 | XMS_ITS | Patient Health Record ---
Author Organization [facility] Address [address] [place] [address] Care Team Providers Care Curator Medical Museum Name Role Phone Emmanuel Mistry MD Primary Care Provider Kati Fang Unavailable [phone] Allergies No Known Allergies Results Component Value Reference Range Notes Pathology (Not yet reviewed by provider) Interpretation: Performing Lab:[facility], [address] [place] [phone] Notes/Report: Reason For Referral No Information Medications [...] Status Risk Notes Problem Colon cancer screening (359848146) Colon cancer screening (Z12.11) Active confirmed Problem Screening for malignant neoplasm of colon (597553150) Encounter for screening for malignant neoplasm of colon (Z12.11) Active confirmed Problem History of polyp of colon (situation) (775723332) Personal history of colonic polyps (Z86.010) Active confirmed Problem Gastroesophageal reflux disease (372357577) Gastroesophageal reflux disease, esophagitis presence not specified (K21.9) Active confirmed Problem Brody's esophagus (619620270) Brody''s esophagus without dysplasia (K22.70) Active confirmed Problem Gastroesophageal reflux disease (disorder) (863078660) Chronic GERD (K21.9) Active confirmed Encounters Encounter Location Date Provider Diagnosis [facility] [address] [place] [phone] 06/09/2024 Kati Hdz Colon cancer scree angelique [...] OF [place] [address] B[place] [address] [id number] KATI ZEPEDA Self - patient is the insured [facility] [address] [place], [place] [id number] KATI ZEPEDA Self - patient is the insured Medical (General) History Medical History History ICD Code Denies [place],DM,CVA,Lung disease,renal dise ase Negative colonoscopy in 08/2007 [...]
--- OUTSIDE RECORDS SUMMARY | 2025-02-20 15:58 | XMS_ITS | Encounter Summary ---
Author Organization [facility] Address [address] [place] [address] Phone Care Team Providers Care Body Straightener Name Role Phone Emmanuel Mistry MD Unavailable Nadir Valladares DO Unavailable Michelle Raymundo HOSPICE NURSE Unavailable [phone] Ashtyn Peters PROFESSOR OF GERMAN Unavailable Emmanuel Mistry MD Primary Care Provider [phone] Emmanuel Mistry MD Unavailable Edgar William MD Unavailable Dash Price MD Unavailable Chuck Pratt MD Unavailable [phone] Rajan Ojdea MD Unavailable Emmanuel Mistry MD Primary Care Provider Harlan Sharma MD Unavailable Encounter Details Date Type Department Care Team (Late st Contact Info) Description 06/21/2017 Procedure Pass [facility], [address] [address] Social History Tobacco Use Types Packs/Day Years [...] Description 05/23/2025 9:30 AM EST Office Visit [facility] Internal Medicine [address] [place] [address] Emmanuel Mistry MD [address] [place] [address] [email or web address] 07/09/2025 10:40 AM EDT Office Visit [facility] Endocrinology [place] [address] [place] [address] Ines Rush MD [address] [place] [address] [email or web address] documented as of this encounter Visit Diagnoses [...] documented as of this encounter Care Teams Body Straightener Relationship Specialty Start Date End Date Emmanuel Mistry MD [address] [place] [address] PCP - General Internal Medicine 03/17/17 12/31/19 Emmanuel Mistry MD [address] [place] [address] PCP - General Internal Medicine 01/01/20 Emmanuel Mistry MD [address] [place] [address] Historical LMR Provider 01/30/17 03/24/20 Nadir Valladares DO [address] [facility] [address] [place] [address] Historical LMR Provider 01/30/17 0 Michelle Raymundo NP [address] [place] [address] 6 [place] [address] Historical LMR Provider 01/30/17 03/24/20 Ashtyn Peters CNP [address] [facility] [place] [address] Historical LMR Provider 01/30/1703/12 Emmanuel Mistry MD [address] [place] [address] Insurance Assigned Provider 07/17/23 04/17/24 Edgar William MD [address] [place] [address] Nephrology 10/11/19 Dash Price MD [address] [place] [address] Endocrinology 10/11/19 Chuck Pratt MD [address] [place] [address] Cardiology 10/11/19 Rajan Ojeda MD [address] [place] [address] Vascular Surgery 10/11/19 Harlan Sharma MD [address] [place] [address] Cardiology 03/25/20 documented as of this encounter Additional Source Comments The information contained in this document represents components of the legal health record. It is not the complete legal health record.[facility]
== END 2025-02-20 14:46 | disposition home or self-care (01) ==
LOC: HO.HVS 14:18
PROVIDERS: PCP Internal Medicine; Visit Provider Surgery Vascular Surgery
DX: I73.9 Peripheral vascular disease, unspecified (principal)
CPT/HCPCS: 99024

== ENCOUNTER → 2025-02-20 14:17 | Outpatient (BNVA) | payer MEDICARE, BC, SELFPAY | PROVIDERS: PCP Internal Medicine; Visit Provider Surgery Vascular Surgery | DX: Z98.890 Other specified postprocedural states (principal); I73.9 Peripheral vascular disease, unspecified | CPT/HCPCS: 99212 ==

== ENCOUNTER 2025-03-06 14:47 | Outpatient (AMB) | payer MEDICARE, BC, SELFPAY ==
--- OUTSIDE RECORDS SUMMARY | 2024-06-09 05:30 | XMS_ITS ---
Author Organization [facility] Address [address] [place] [address] Care Team Providers Care Hospital Insurance Representative Name Role Phone Emmanuel Mistry MD Primary Care Provider Kati Fang [phone] REASON FOR VISIT screening,hx polyps,ngo's ,gerd Encounters Encounter Location Date Provider Diagnosis [facility] [place] [address] [place] [phone] 06/09/2024 Kati Hdz Colon cancer scree angelique [...] * KATI ZEPEDADOB: [birth year] (69 yo M)Acc No.[id number]:06/09/2024 EGD and COL/MAC Patient: KATI MEZA Provider: Mana Hdz MD :1955 A ge:68 Y S ex:Male Date:06/09/2024 Address:[address] [place], [place] [phone] Pcp:Emmanuel Mistry MD Subjective: * Chief Complaints: [...] * Procedure Codes: 4 5385 LESION REMOVAL [id number] COLONOSCOPY AND BIOPSY, Modifiers: 59 0529F INTRVL 3+YRS PTS CLNSCP [id number] RCMND FLW-UP 10 YRS [id number] UPPR GI ENDOSCOPY, DIAGNOSIS Billing Information: * Procedure Codes: 10070 LESION REMOVAL COLONOSCOPY. 70712 COLONOSCOPY AND BIOPSY. Modifiers: 59 0529F INTRVL 3+YRS PTS CLNSCP DOCD. 0528F RCMND FLW-UP 10 YRS DOCD. 55071 UPPR GI ENDOSCOPY, DIAGNOSIS. * The named appointment provid er may or may not be the originator of this progress note, and it is not deemed complete until electronically signed by the appointment provider. Sign off status: Pending * Provider: Mana Hdz MD Date: 0 06/09/2024 Generated for Sammi quintana/Aubrie/eTransmitting on: 1 05/06/2024 06:33 PM EST
--- NOTE | 2025-03-06 15:00 | MHC.OFFVIS ---
Vital Signs 03/06/25 15:01 Height 5 ft 10 in Weight 215 lb BMI 30.8 Intake Visit Reasons: 2 week follow up groin check Intake Note: 2 week follow up groin check s/p Right femoral endarterectomy 01/15/25. Pt states that swelling and bump have decreased Engine Assembler Required: No Accompanied by: Self / Same As Patient Allergies No Known Allergies Allergy (Verified 03/06/25 15:03) HPI HPI 2 week follow up groin check: Details: The patient is a 69 year old individual presenting for a post-operative follow-up visit after a right femoral endarterectomy on January 15. The patient reports feeling good and notes a significant improvement in pre-operative cramping symptoms. At the surgical site, there is a small seroma which the patient confirms is getting smaller and is not bothersome. The patient's has noticed that the patient's legs are swollen. The patient has reduced work from three days a week to two at 's [employer] He now presents for vascular follow-up [facility] Medical History Arthritis DDD (degenerative disc disease), lumbar Thyroid nodule Hx: bad fall (~2022) Peripheral vascular disease Other and unspecified hyperlipidemia Essential hypertension PAF (paroxysmal atrial fibrillation) Atherosclerotic cardiovascular disease Hyperlipemia Afib GERD (gastroesophageal reflux disease) HTN (hypertension) Surgical History History of left cataract extraction (~2022) H/O colonoscopy History of cardiac catheterization (~12/12/19) Family History Father CHF (congestive heart failure) Vascular disorder Mother Respiratory disease Social History Household Members: Family Housing: House Are you a primary health and social care teacher to a significant other at home: No Do you presently have visiting nurse or other home services: No 75 years or older and lives alone: No Alcohol intake: never Patient Tobacco Use Status: Former Tobacco user Tobacco use type: Cigarette service: No Current occupational status: employed and retired Current occupation: [employer] work at [employer] Review of Systems Const All systems reviewed & are unremarkable except as noted in HPI and below Reports no additional complaints ENT Reports Normal hearing present Card Denies chest pain, Denies chest pain at rest, Denies chest pain with activity and Denies pedal edema Resp Denies cough GI Denies abdominal pain Musc Denies abnormal gait, Denies muscle cramps and Denies radiating pain into limb Skin/Breast Denies skin ulcer and Denies wounds Neuro Reports Normal hearing present and Denies abnormal gait Psych Reports no additional complaints Physical Exam Vital Signs: BMI result Body Mass Index 30.8 Const General: cooperative, healthy appearing and comfortable Orientation/consciousness: oriented to person, oriented to place and oriented to time HEENT Head: Yes normal to inspection Neck Neck: Yes normal visual inspection Carotids: no bruits Chest Chest palpation & inspection: normal inspection of the chest Resp Effort & Inspection: normal respiratory effort and able to speak in complete sentences Auscultation: clear to auscultation bilaterally, no crackles, no rales, no rhonchi and no wheezes Cardio Other: Bilateral DP signals Rate: regular rate Rhythm: regular rhythm Heart sounds: S1 normal heart sound present and S2 normal heart sound present Bruits: no carotid bruits GI Inspection: Yes normal to inspection Skin Wounds: no wounds Hair: normal Neuro General: oriented to person, oriented to place and oriented to time Cranial nerves: Yes CN's II-XII intact bilaterally and Yes Normal hearing present Cognition (Neuro): normal cognition Motor exam (neuro): 5/5 motor strength present throughout Extrem Other: venous exam: No significant superficial varicosities or spider telangiectasias, minimal edema General: No clubbing, No cyanosis and No edema Psych Appearance: grossly normal Mental Status: mental status grossly normal Speech and movement: Normal speech and movement present Assessment & Plan Assessment & Plan (1) Peripheral vascular disease: Comment: 02/01/2019 right atherectomy and stent of SFA 12/13/2024 - right lower extremity diagnostic angiogram 01/15/2025 - right femoral endarterectomy Code(s): I73.9 - Peripheral vascular disease, unspecified Category: Medical Plan: I reviewed the patient's six-week post-operative course following right femoral endarterectomy. I explained that the small seroma at the surgical site has decreased in size and should resolve on its own, and that the leg swelling is a common finding as the leg adjusts to improved blood flow. I recommended conservative management for the swelling, including [id number] compression socks and leg elevation. I informed the patient of the plan to obtain a follow-up arterial ultrasound of both legs in two months. Thank you for allowing us to assist in his care.. Orders: Orders US arterial duplex LE BI 2 Months I73.9 - Peripheral vascular disease, unspecified Coding Level of Care Code Est Pt Level 4 (81163) Diagnoses Peripheral vascular disease I73.9
[2025-03-06 15:01] VITALS: BMI 30.8
--- OUTSIDE RECORDS SUMMARY | 2025-03-06 18:34 | XMS_ITS | Clinical Summary ---
Author Organization [facility] Address [address] [place] [address] Phone Care Team Providers Care Floor Space Allocator Name Role Phone Edgar William MD Unavailable Dash Price MD Unavailable [phone] Chuck Pratt MD Unavailable Rajan Ojeda MD Unavailable Emmanuel Mistry MD Primary Care Provider [phone] Harlan Sharma MD Unavailable [phone] Allergies No known active allergies Medications aspirin [...] Therefore we will refer the patient to [facility] ears nose throat over in [place] for a evaluation. Most likely it is [...] Department Care Team Description 12/23/2024 Case Eid [facility] Internal Medicine [address] [facility] [place] [address] Emmanuel Mistry MD Medication Refill 12/04/2024 8:00 AM EDT Office Visit [facility] Internal Medicine [address] [facility] [address] Emmanuel Mistry MD Routine general medical examination at a health care facility (Primary Dx); Benign essential hypertension; Pure hypercholesterolemia; Paroxysmal atrial fibrillation; Impaired fasting glucose; Primary osteoarthritis involving multiple joints from Last 3 Months Immunizations Immunization Administration [...] Description 05/23/2025 9:30 AM EST Office Visit [facility] Internal Medicine [address] [facility] [address] Emmanuel Mistry MD [address] [facility] [place] [address] 07/09/2025 10:40 AM EDT Office Visit [facility] Endocrinology [place] 40 [facility] [place] [address] Ines Rush MD [address] [place] [address] [email or web address] Health Maintenance Due Date Last Done Comments COLOGUARD 1998 FIT TEST 1998 FOBT 1998 SIGMOIDOSCOPY 1998 VIRTUAL COLONOSCOPY 1998 INFLUENZA VACCINE (#1) 2024 , 12/18/2022, 01/14/2022, Additional history exists COVID-19 VACCINE ( season) 2024 12/22/2021, 03/07/2021, 08/26/2020, Additional history exists BLOOD PRESSURE 06/06/2025 12/04/2024 CREATININE LEVEL 10/16/2025 10/16/2024, , 10/18/2023, Additional history exists DEPRESSION SCREENING 12/03/2025 12/03/2024 Adult Td,Tdap Booster 12/04/2027 12/03/2017, 007 RSV VACCINE (1 - 1-dose 75+ series) 2028 COLONOSCOPY 06/09/2029 06/09/2024, 05/14, 08/11/2007 COLORECTAL CANCER SCREENING 06/09/2029 LIPID PANEL 10/16/2029 10/16/2024, 10/2024, 10/16/2024, Additional history exists HEPATITIS C [...] Name Priority Date/Time Associated Diagnosis Comments OUTSIDE HDL Routine 10/16/2024 OUTSIDE SERUM CREATININE LEVEL Routine 10/16/2024 COLONOSCOPY FOR RESULT ENTRY ONLY Routine 06/09/2024 ABDOMINAL AORTIC SCREENING Routine 11/01/2020 8:47 AM EDT Screening for AAA (abdominal aortic aneurysm) from Last 3 Months or Most Recently Relevant to Health Maintenance Results * Outside Serum Creatinine Level (10/16/2024) Creatinine, serum - External 1.27 0.8 - 1.3 mg/dL EXTERNAL NON-INTERFACED REF LAB Historical Provider LAB BLOOD ORDERABLES Sherita l Result EXTERNAL NON-INTERFACED REF LAB * (ABNORMAL) Outside HDL (10/16/2024) Pathologist [facility] HDL - External 474(A) 40 - 80 mg/dL EXTERNAL NON-INTERFACED REF LAB Historical Provider LAB BLOOD ORDERABLES Sherita l Result EXTERNAL NON-INTERFACED REF LAB * COLONOSCOPY FOR RESULT ENTRY ONLY (06/09/2024) Pathologist Counts include 234 beds at the [facility] Colonoscopy 5 year recall Historical Provider MD HEALTH MAINTENANCE Final Result * US Abdominal [...] dilatation of the abdominalaorta. Emmanuel Mistry MD [facility] ABDOMEN Final Result from Last 3 Months or Most Recently Relevant to Health Maintenance [place] [address] [facility] FEDERAL MEDICARE PART A & [place] [address] [place] [address] MEDICARE PART A [address] [place] [address] [place] [address] MEDICARE PART A & B [facility] MEDICARE PART A & B [facility] MEDICARE PART A & B [facility] MEDICARE PART A & B [facility] MEDICARE PART A & B [facility] MEDICARE PART A & B Member Subscriber Plan / Payer (Ef fective 2018-) Name:Mario Ricketts Member ID:[id number] Relation to Subscriber:Self Name:Mario Ricketts Subscriber ID:[id number] Payer ID:[id number] Group ID:Not on file Type:Medicare Address: [employer] [address] [facility] MEDICARE PART A & B Member Subscriber Plan / Payer (Ef fective 2018-Present) Name:Mario Ricketts Member ID:[id number] Relation to Subscriber:Self Name:Mario Ricketts Subscriber ID:[id number] Payer ID:[id number] Group ID:Not on file Type:Medicare Address: [employer] [address] Advance Directives For more information, please contact: [phone] (9AM - 5PM [facility], Wednesday-Wednesday) * Full Code (Latest Code Status on File) Date Activated Date Inactivated Comments 04/19/2020 5:10 PM Question Answer Comments Code Status Confirmed With: Patient Care Teams Floor Space Allocator Relationship Specialty Start Date End Date Emmanuel Mistry MD [address] [place] [address] [email or web address] PCP - General Internal Medicine 01/01/20 Edgar William MD Nephrology 10/11/19 Dash Price MD [email or web address] Endocrinology 10/11/19 Chuck Pratt MD [address] [place] [address] Cardiology 10/11/19 Rajan Ojeda MD [address] [place] [address] Vascular Surgery 10/11/19 Harlan Sharma MD [address] [place] [address] Cardiology 03/25/20 Additional Source Comments The information contained in this document represents components of the legal health record. It is not the complete legal health record.[facility]
--- OUTSIDE RECORDS SUMMARY | 2025-03-06 18:34 | XMS_ITS | Patient Health Record ---
Author Organization [facility] Address [address] [place] [address] Care Team Providers Care Varying Exceptionalities Teacher Name Role Phone Emmanuel Mistry MD Primary Care Provider Kati Fang Unavailable [phone] Allergies No Known Allergies Results Component Value Reference Range Notes Pathology (Not yet reviewed by provider) Interpretation: Performing Lab:[facility], [address] [place] [phone] Notes/Report: Reason For Referral No Information Medications Medication SIG (Take, Route, Frequency, Duration) Notes Start Date End Date Status Atorvastatin Calcium 80 MG Tablet TAKE 1 TABLET BY MOUTH DAILY Orally Once a day Active Aspir-Low 81 MG Tablet Delayed Release 1 tablet Orally Once a day; Duration: 30 day(s) Active amLODIPine Besylate 10 MG Tablet Oral; Duration: 90 Active Metoprolol Succinate ER 25 MG Tablet Extended Release 24 Hour TAKE 1 TABLET BY MOUTH EVERY DAY Oral; Duration: 90 Active Ezetimibe 10 MG Tablet Oral; Duration: 90 Active Eliquis 5 MG Tablet Oral; Duration: 90 Active Immunizations Vaccine Route Administration Date Status Comme nts Influenza Unknown 01/19/2018 Administered Social History Tobacco Use: Social History Observation Description Date Details (start date - stop date) Never Smoker NA - NA Social History Drugs/Alcohol: Social Info Question Answer Notes Alcohol Screen Did you have a drink containing alcohol in the past year? Yes How often did you have a drink containing alcohol in the past year? 2 to 4 times a month (2 points) How many drinks did you have on a typical day when you were drinking in the past year? 1 or 2 drinks (0 point) How often did you have 6 or more drinks on one occasion in the past year? 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 beer twice a week Nonsmoker; occ. beer twice a week Problems Problem Type SNOMED Code ICD Code Onset Dates Problem Status W/U Status Risk Notes Problem Colon cancer screening (508882174) Colon cancer screening (Z12.11) Active confirmed Problem Screening for malignant neoplasm of colon (107477774) Encounter for screening for malignant neoplasm of colon (Z12.11) Active confirmed Problem History of polyp of colon (situation) (528506195) Personal history of colonic polyps (Z86.010) Active confirmed Problem Gastroesophageal reflux disease (539010582) Gastroesophageal reflux disease, esophagitis presence not specified (K21.9) Active confirmed Problem Brody's esophagus (289052897) Brody''s esophagus without dysplasia (K22.70) Active confirmed Problem Gastroesophageal reflux disease (disorder) (491623814) Chronic GERD (K21.9) Active confirmed Encounters Encounter Location Date Provider Diagnosis [facility] Outpatient [address] [place] [phone] 06/09/2024 Kati Hdz Colon cancer scree angelique [...] [place] [address] [place] [address] [phone] [id number] KATI ZEPEDA Self - patient is the insured [facility] [address] [place], [place] [id number] [phone] [id number] KATI ZEPEDA Self - patient is the insured Medical (General) History Medical History History ICD Code Denies DC,DM,CVA,Lung disease,renal dise ase Negative colonoscopy in 08/2007 [...]
--- OUTSIDE RECORDS SUMMARY | 2025-03-06 18:34 | XMS_ITS | Encounter Summary ---
Author Organization [facility] Address [address] [place] [address] Phone Care Team Providers Care Information Services Vice President Name Role Phone Emmanuel Mistry MD Unavailable Nadir Vlaladares DO Unavailable [phone] Michelle Raymundo ADMINISTRATIVE HEARING OFFICER Unavailable [phone] Ashtyn Peters ANTHROPOLOGY LECTURER Unavailable Emmanuel Mistry MD Primary Care Provider Emmanuel Mistry MD Unavailable Edgar William MD Unavailable Dash Price MD Unavailable [phone] Chuck Pratt MD Unavailable [phone] Rajan Ojeda MD Unavailable Emmanuel Mistry MD Primary Care Provider Harlan Sharma MD Unavailable [phone] Encounter Details Date Type Department Care Team (Late st Contact Info) Description 06/21/2017 Procedure Pass [facility], [address] [address] Social History Tobacco Use Types Packs/Day Years [...] Description 05/23/2025 9:30 AM EST Office Visit [facility] Internal Medicine 40 [place] [address] Emmanuel Mistry MD 40 [place] [address] [email or web address] 07/09/2025 10:40 AM EDT Office Visit [facility] Endocrinology [place] 40 [place] [address] Ines Rush MD [address] [place] [address] [email or web address] documented as of this encounter Visit Diagnoses [...] documented as of this encounter Care Teams Information Services Vice President Relationship Specialty Start Date End Date Emmanuel Mistry MD 40 [place] [address] PCP - General Internal Medicine 03/17/17 12/31/19 Emmanuel Mistry MD 40 [place] [address] PCP - General Internal Medicine 01/01/20 Emmanuel Mistry MD 40 [place] [address] Historical LMR Provider 01/30/17 03/24/20 Nadir Valladares DO [address] [facility] [address] [place] [address] Historical LMR Provider 01/30/17 0 Michelle Raymundo NP [address] [place] [address] 6 [place] [address] Historical LMR Provider 01/30/17 03/24/20 Ashtyn Peters CNP [address] [facility] [place] [address] Historical LMR Provider 01/30/1703/12 Emmanuel Mistry MD 40 [place] [address] Insurance Assigned Provider 07/17/23 04/17/24 Edgar William MD 40 [place] [address] Nephrology 10/11/19 Dash Price MD 40 [place] [address] Endocrinology 10/11/19 Chuck Pratt MD [address] [place] [address] Cardiology 10/11/19 Rajan Ojeda MD [address] [place] [address] Vascular Surgery 10/11/19 Harlan Sharma MD [address] [place] [address] Cardiology 03/25/20 documented as of this encounter Additional Source Comments The information contained in this document represents components of the legal health record. It is not the complete legal health record.[facility]
--- OUTSIDE RECORDS SUMMARY | 2025-03-06 18:34 | XMS_ITS | Clinical Summary ---
Author Organization [facility] Address [address] [place] [address] Phone Care Team Providers Care Knurling Machine Operator Name Role Phone Emmanuel Mistry MD Primary Care Provider [phone] Allergies No known active allergies Medications amLODIPine [...] Therefore we will refer the patient to [facility] ears nose throat [facility] in [place] for a evaluation. Most likely it is [...] HOSPITAL Medicare [facility] Medicare Care Teams Knurling Machine Operator Relationship Specialty Start Date End Date Emmanuel Mistry MD 40 [place] [address] PCP - General 04/22/20
--- OUTSIDE RECORDS SUMMARY | 2025-03-06 18:34 | XMS_ITS | Encounter Summary ---
Author Organization [facility] Address [address] [place] [address] Phone Care Team Providers Care Laundry Equipment Operator Name Role Phone Emmanuel Mistry MD Unavailable [phone] Edgar William MD Unavailable Dash Price MD Unavailable [phone] Chuck Pratt MD Unavailable [phone] Rajan Ojeda MD Unavailable [phone] Emmanuel Mistry MD Primary Care Provider Harlan Sharma MD Unavailable [phone] Encounter Details Date Type Department Care Team (Late st Contact Info) Description 05/18/2022 Procedure Pass [facility], [address] [address] Social History Tobacco Use Types Packs/Day Years [...] 05/23/2025 9:30 AM EST Office Visit [facility] Internal Medicine 40 [place] [address] Emmanuel Mistry MD 40 [place], [place] [phone] 07/09/2025 10:40 AM EDT Office Visit [facility] Endocrinology [place] 40 [place] [address] Ines Rush MD [address] [place] [address] [email or web address] documented as of this encounter Visit Diagnoses Not on filedocumented in this encounter Additional Health Concerns Infection Onset Date Last Indicated Resolved Time COVID-19 08/06/2024 08/06/2024 08/27/2024 1:21 AM EDT Assessment Noted Time PHQ-2 Depression Total Score: 0 11/16/19 9:40 AM EDT documented as of this encounter Care Teams Laundry Equipment Operator Relationship Specialty Start Date End Date Emmanuel Mistry MD 40 [place] [address] PCP - General Internal Medicine 01/01/20 Emmanuel Mistry MD 40 [place] [address] [email or web address] Insurance Assigned Provider 07/17/23 04/17/24 Edgar William MD [address] [place] [address] Nephrology 10/11/19 Dash Price MD [address] [place] [address] [email or web address] Endocrinology 10/11/19 Chuck Pratt MD [address] [place] [address] Cardiology 10/11/19 Rajan Ojeda MD [address] [place] [address] Vascular Surgery 10/11/19 Haraln Sharma MD [address] [place] [address] Cardiology 03/25/20 documented as of this encounter Additional Source Comments The information contained in this document represents components of the legal health record. It is not the complete legal health record.[facility]
--- OUTSIDE RECORDS SUMMARY | 2025-03-06 18:34 | XMS_ITS | Encounter Summary ---
Author Organization [facility] Address [address] [place] [address] Phone Care Team Providers Care Road Mender Name Role Phone Emmanuel Mistry MD Unavailable [phone] Edgar William MD Unavailable Dash Price MD Unavailable [phone] Chuck Pratt MD Unavailable [phone] Rajan Ojeda MD Unavailable [phone] Emmanuel Mistry MD Primary Care Provider Harlan Sharma MD Unavailable [phone] Encounter Details Date Type Department Care Team (Latest Contact Info) Description 11/24/2021 Ancillary Orders [facility] Internal Medicine 40 [place], [place] [phone] Emmanuel Mistry MD 40 [place] [address] [email or web address] Hip pain, bilateral Social [...] 05/23/2025 9:30 AM EST Office Visit [facility] Internal Medicine 40 [place] [address] Emmanuel Mistry MD 40 [place] [address] 07/09/2025 10:40 AM EDT Office Visit [facility] Endocrinology [place] 40 [place] [address] Ines Rush MD [address] [place] [address] [email or web address] documented as of this [...] documented as of this encounter Care Teams Road Mender Relationship Specialty Start Date End Date Emmanuel Mistry MD 40 [place] [address] PCP - General Internal Medicine 01/01/20 Emmanuel Mistry MD 40 [place] [address] Insurance Assigned Provider 07/17/23 04/17/24 Edgar William MD 40 [place] [address] Nephrology 10/11/19 Dash Price MD 40 [place] [address] [email or web address] Endocrinology 10/11/19 Chuck Pratt MD [address] [place] [address] Cardiology 10/11/19 Rajna Ojeda MD [address] [place] [address] Vascular Surgery 10/11/19 Harlan Sharma MD [address] [place] [address] Cardiology 03/25/20 documented as of this encounter Additional Source Comments The information contained in this document represents components of the legal health record. It is not the complete legal health record.[facility]
== END 2025-03-06 15:57 | disposition home or self-care (01) ==
LOC: HO.HVS 14:48
PROVIDERS: PCP Internal Medicine; Visit Provider Surgery Vascular Surgery
DX: I73.9 Peripheral vascular disease, unspecified (principal)
CPT/HCPCS: 99024

== ENCOUNTER → 2025-03-06 14:47 | Outpatient (BNVA) | payer MEDICARE, BC, SELFPAY | PROVIDERS: PCP Internal Medicine; Visit Provider Surgery Vascular Surgery | DX: I73.9 Peripheral vascular disease, unspecified (principal) | CPT/HCPCS: 99212 ==

== ENCOUNTER 2025-03-19 07:49 | Outpatient (REF) | payer MEDICARE, BC, SELFPAY ==
--- OUTSIDE RECORDS SUMMARY | 2024-06-09 05:30 | XMS_ITS ---
Author Organization [facility] Address [address] [place] [address] Care Team Providers Care Engine Lathe Tender Name Role Phone Emmanuel Mistry MD Primary Care Provider Kati Fang [phone] REASON FOR VISIT screening,hx polyps,ngo's ,gerd Encounters Encounter Location Date Provider Diagnosis [facility] [place] [address] [place] [phone] 06/09/2024 Kati Hdz Colon cancer scree angelique [...] * KATI ZEPEDADOB: [birth year] (69 yo M)Acc No.[id number]:06/09/2024 EGD and COL/MAC Patient: KATI MEZA Provider: Mana Hdz MD :1955 A ge:68 Y S ex:Male Date:06/09/2024 Address:[address] [place], [place] [phone] Pcp:Emmanuel Mistry MD Subjective: * Chief Complaints: * S creening,hx polyps,ngo's ,gerd Assessment: * Assessment: 1. C olon cancer [...] H iatal hernia - K44.9 Plan: * Procedure Codes: 4 5385 LESION REMOVAL [id number] COLONOSCOPY AND BIOPSY, Modifiers: 59 0529F INTRVL 3+YRS PTS CLNSCP [id number] RCMND FLW-UP 10 YRS [id number] UPPR GI ENDOSCOPY, DIAGNOSIS Billing Information: * Procedure Codes: 85530 LESION REMOVAL COLONOSCOPY. 27088 COLONOSCOPY AND BIOPSY. Modifiers: 59 0529F INTRVL 3+YRS PTS CLNSCP DOCD. 0528F RCMND FLW-UP 10 YRS DOCD. 93421 UPPR GI ENDOSCOPY, DIAGNOSIS. * The named appointment provid er may or may not be the originator of this progress note, and it is not deemed complete until electronically signed by the appointment provider. Sign off status: Pending * Provider: Mana Hdz MD Date: 0 06/09/2024 Generated for Sammi quintana/Aubrie/Carlosransmitting on: 1 05/20/2024 07:56 AM EST
--- OUTSIDE RECORDS SUMMARY | 2025-03-19 07:56 | XMS_ITS | Encounter Summary ---
Author Organization [facility] Address [address] [place] [address] Phone Care Team Providers Care Election Assistant Name Role Phone Emmanuel Mistry MD Unavailable [phone] Edgar William MD Unavailable Dash Price MD Unavailable [phone] Chuck Pratt MD Unavailable [phone] Rajan Ojeda MD Unavailable [phone] Emmanuel Mistry MD Primary Care Provider Harlan Sharma MD Unavailable [phone] Encounter Details Date Type Department Care Team (Late st Contact Info) Description 05/18/2022 Procedure Pass [facility], [address] [address] Social History Tobacco Use Types Packs/Day Years [...] Office Visit [facility] Internal Medicine 40 [place] [address] Emmanuel Mistry MD 40 [place], [place] [phone] 07/09/2025 10:40 AM EDT Office Visit [facility] Endocrinology [place] 40 [place] [address] Ines Rush MD [address] [place] [address] documented as of this encounter Visit Diagnoses Not on filedocumented in this encounter Additional Health Concerns Infection Onset Date Last Indicated Resolved Time COVID-19 08/06/2024 08/06/2024 08/27/2024 1:21 AM EDT Assessment Noted Time PHQ-2 Depression Total Score: 0 11/16/19 9:40 AM EDT documented as of this encounter Care Teams Election Assistant Relationship Specialty Start Date End Date Emmanuel Mistry MD 40 [place] [address] PCP - General Internal Medicine 01/01/20 Emmanuel Mistry MD 40 [place] [address] [email or web address] Insurance Assigned Provider 07/17/23 04/17/24 Edgar William MD [address] [place] [address] Nephrology 10/11/19 Dash Price MD [address] [place] [address] [email or web address] Endocrinology 10/11/19 Chuck Pratt MD [address] [place] [address] Cardiology 10/11/19 Rajan Ojeda MD [address] [place] [address] Vascular Surgery 10/11/19 Harlan Sharma MD [address] [place] [address] Cardiology 03/25/20 documented as of this encounter Additional Source Comments The information contained in this document represents components of the legal health record. It is not the complete legal health record.[facility]
--- OUTSIDE RECORDS SUMMARY | 2025-03-19 07:57 | XMS_ITS | Clinical Summary ---
Author Organization [facility] Address [address] [place] [address] Phone Care Team Providers Care Hand Model Name Role Phone Emmanuel Mistry MD Primary Care Provider [phone] Allergies No known active allergies Medications amLODIPine [...] we will refer the patient to [facility] ears nose throat [facility] in [place] for a evaluation. Most likely it is [...] HOSPITAL Medicare [facility] Medicare Care Teams Hand Model Relationship Specialty Start Date End Date Emmanuel Mistry MD 40 [place] [address] PCP - General 04/22/20
--- OUTSIDE RECORDS SUMMARY | 2025-03-19 07:57 | XMS_ITS | Patient Health Record ---
Author Organization [facility] Address [address] [place] [address] Care Team Providers Care Public Address System Operator Name Role Phone Emmanuel Mistry MD Primary Care Provider Kati Fang Unavailable [phone] Allergies No Known Allergies Results Component Value Reference Range Notes Pathology (Not yet reviewed by provider) Interpretation: Performing Lab:[facility], [address] [place] [phone] Notes/Report: Reason For Referral No Information Medications [...] Details Miscellaneous: Marital status: 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 beer twice a week Nonsmoker; occ. beer twice a week Problems Problem Type SNOMED Code ICD Code Onset Dates Problem Status W/U Status Risk Notes Problem Colon cancer screening (049916900) Colon cancer screening (Z12.11) Active confirmed Problem Screening for malignant neoplasm of colon (917731229) Encounter for screening for malignant neoplasm of colon (Z12.11) Active confirmed Problem History of polyp of colon (situation) (923693509) Personal history of colonic polyps (Z86.010) Active confirmed Problem Gastroesophageal reflux disease (439558634) Gastroesophageal reflux disease, esophagitis presence not specified (K21.9) Active confirmed Problem Brody's esophagus (842884164) Brody''s esophagus without dysplasia (K22.70) Active confirmed Problem Gastroesophageal reflux disease (disorder) (545977861) Chronic GERD (K21.9) Active confirmed Encounters Encounter Location Date Provider Diagnosis [facility] Outpatient [address] [place] [phone] 06/09/2024 Kati Hdz Colon cancer scree angelique [...] [place] [address] [place] [address] [phone] [id number] KATI ZEPEDA Self - patient is the insured [facility] [address] [place], [place] [id number] KATI ZEPDEA Self - patient is the insured Medical [...]
--- OUTSIDE RECORDS SUMMARY | 2025-03-19 07:57 | XMS_ITS | Encounter Summary ---
Author Organization [facility] Address [address] [place] [address] Phone Care Team Providers Care Purchasing Intern Name Role Phone Emmanuel Mistry MD Unavailable Nadir Valladares DO Unavailable Michelle Raymundo WRAPPER SIZER Unavailable [phone] Ashtyn Peters MECHANICAL TEST ENGINEER Unavailable Emmanuel Mistry MD Primary Care Provider [phone] Emmanuel Mistry MD Unavailable Edgar William MD Unavailable Dash Price MD Unavailable [phone] Chuck Pratt MD Unavailable [phone] Rajan Ojeda MD Unavailable Emmanuel Mistry MD Primary Care Provider [phone] Harlan Sharma MD Unavailable Encounter Details Date Type Department Care Team (Late st Contact Info) Description 06/21/2017 Procedure Pass [facility], [address] [address] Social History Tobacco Use Types Packs/Day Years [...] Description 05/23/2025 9:30 AM EST Office Visit [facility] Internal Medicine 40 [place] [address] Emmanuel Mistry MD 40 [place] [address] [email or web address] 07/09/2025 10:40 AM EDT Office Visit [facility] Endocrinology [place] 40 [place] [address] Ines Rush MD [address] [place] [address] [email or web address] documented as of this encounter Visit Diagnoses [...] documented as of this encounter Care Teams Purchasing Intern Relationship Specialty Start Date End Date Emmanuel Mistry MD 40 [place] [address] PCP - General Internal Medicine 03/17/17 12/31/19 Emmanuel Mistry MD [address] [place] [address] PCP - General Internal Medicine 01/01/20 Emmanuel Mistry MD 40 [place] [address] Historical LMR Provider 01/30/17 03/24/20 Nadir Valladares DO [address] [facility] [address] [place] [address] Historical LMR Provider 01/30/17 0 Michelle Raymundo NP [address] [place] [address] 6 [place] [address] Historical LMR Provider 01/30/17 03/24/20 Ashtyn Peters CNP [address] [facility] [place] [address] Historical LMR Provider 01/30/1703/12 Emmanuel Mistry MD 40 [place] [address] Insurance Assigned Provider 07/17/23 04/17/24 Edgar William MD 40 [place] [address] Nephrology 10/11/19 Dash Price MD 40 [place] [address] Endocrinology 10/11/19 Chuck Pratt MD [address] [place] [address] Cardiology 10/11/19 Rajan Ojeda MD [address] [place] [address] Vascular Surgery 10/11/19 Harlan Sharma MD [address] [place] [address] Cardiology 03/25/20 documented as of this encounter Additional Source Comments The information contained in this document represents components of the legal health record. It is not the complete legal health record.[facility]
--- OUTSIDE RECORDS SUMMARY | 2025-03-19 07:57 | XMS_ITS | Clinical Summary ---
Author Organization [facility] Address [address] [place] [address] Phone Care Team Providers Care Cupola Melter Name Role Phone Edgar William MD Unavailable [...] Therefore we will refer the patient to [facility] ears nose throat over in [place] for a evaluation. Most likely it is [...] Department Care Team Description 12/23/2024 [facility] Internal Medicine 40 [facility] [place] [address] Emmanuel Mistry MD Medication Refill from Last 3 Months Immunizations Immunization Administration [...] Description 05/23/2025 9:30 AM EST Office Visit [facility] Internal Medicine 40 [place] [address] Emmanuel Mistry MD 40 [place] [address] [email or web address] 07/09/2025 10:40 AM EDT Office Visit [facility] Endocrinology [place] 40 [place] [address] Ines Rush MD [address] [place] [address] 3[address] [place] [address] [email or web address] Due Date Last Done Comments COLOGUARD 1998 FIT TEST 1998 FOBT 1998 SIGMOIDOSCOPY 1998 VIRTUAL COLONOSCOPY 1998 INFLUENZA VACCINE (#1) 2024 , 12/18/2022, 01/14/2022, Additional history exists COVID-19 VACCINE (2024- season) 2024 12/22/2021, 03/07/2021, 08/26/2020, Additional history exists BLOOD PRESSURE 06/06/2025 12/04/2024 CREATININE LEVEL 10/16/2025 10/16/2024, , 10/18/2023, Additional history exists DEPRESSION SCREENING 12/03/2025 12/03/2024 Adult Td,Tdap Booster 12/04/2027 12/03/2017, 007 RSV VACCINE (1 - 1-dose 75+ series) 2028 COLONOSCOPY 06/09/2029 06/09/2024, 05/14, 08/11/2007 COLORECTAL CANCER SCREENING 06/09/2029 LIPID PANEL 10/16/2029 10/16/2024, 07/10/2024, 10/16/2024, Additional history exists HEPATITIS C SCREENING [...] REF LAB Historical Provider LAB BLOOD ORDERABLES Sehrita l Result EXTERNAL NON-INTERFACED REF LAB * COLONOSCOPY FOR RESULT ENTRY ONLY (06/09/2024) Colonoscopy 5 year recall Historical Provider MD [...] of the abdominalaorta. us Emmanuel Mistry MD IMG US ABDOMEN Final Result from Last 3 Months or Most Recently Relevant to Health Maintenance Insurance [facility] MEDICARE PART A & B MEDICARE PART A & [place] [address] [place] [address] MEDICARE PART A & B MEDICARE PART A & B MEDICARE PART A & [place] [address] [place] [address] MEDICARE PART A & B MEDICARE PART A & B [facility] MEDICARE PART A & B [facility] MEDICARE PART A & B Advance Directives For more information, please contact: [phone] (9AM - 5PM [facility], Wednesday-Wednesday) * Full Code (Latest Code Status on File) Date Activated Date Inactivated Comments 04/19/2020 5:10 PM Question Answer Comments Code Status Confirmed With: Patient Care Teams Cupola Melter Relationship Specialty Start Date End Date Emmanuel Misrty MD [address] [place] [address] [email or web address] PCP - General Internal Medicine 01/01/20 Edgar William MD Nephrology 10/11/19 Dash Price MD Endocrinology 10/11/19 Chuck Pratt MD [address] [place] [address] 104 [place] [address] Cardiology 10/11/19 Rajan Ojeda MD [address] [place] [address] Vascular Surgery 10/11/19 Harlan Sharma MD [address] [place] [address] Cardiology 03/25/20 Additional Source Comments The information contained in this document represents components of the legal health record. It is not the complete legal health record.[facility]
--- OUTSIDE RECORDS SUMMARY | 2025-03-19 07:57 | XMS_ITS | Encounter Summary ---
Author Organization [facility] Address [address] [place] [address] Phone Care Team Providers Care Team Primary Care Physician Name Role Phone Emmanuel Mistry MD Unavailable [phone] Edgar William MD Unavailable Dash Price MD Unavailable [phone] Chuck Pratt MD Unavailable [phone] Rajan Ojeda MD Unavailable [phone] Emmanuel Mistry MD Primary Care Provider Harlan Sharma MD Unavailable [phone] Encounter Details Date Type Department Care Team (Latest Contact Info) Description 11/24/2021 Ancillary Orders [facility] Internal Medicine 40 [place], [place] [phone] Emmanuel Mistry MD 40 [place] [address] [email or web address] Hip pain, bilateral Social History Tobacco Use [...] Description 05/23/2025 9:30 AM EST Office Visit [facility] Internal Medicine 40 [place] [address] Emmanuel Mistry MD 40 [place] [address] 07/09/2025 10:40 AM EDT Office Visit [facility] Endocrinology [place] 40 [place] [address] Ines Rush MD [address] [place] [address] [email or web address] documented as of this encounter Results * [...] space narrowing at L4/5. Procedure Note Patricia Sanatmaria MD - 11/25/2021 XR HIPS 2+ VW [...] documented as of this encounter Care Teams Team Primary Care Physician Relationship Specialty Start Date End Date Emmanuel Mistry MD 40 [place] [address] PCP - General Internal Medicine 01/01/20 Emmanuel Mistry MD 40 [place] [address] Insurance Assigned Provider 07/17/23 04/17/24 Edgar William MD 40 [place] [address] Nephrology 10/11/19 Dash Price MD 40 [place] [address] [email or web address] Endocrinology 10/11/19 Chuck Pratt MD [address] [place] [address] Cardiology 10/11/19 Rajan Ojeda MD [address] [place] [address] Vascular Surgery 10/11/19 Harlan Sharma MD [address] [place] [address] Cardiology 03/25/20 documented as of this encounter Additional Source Comments The information contained in this document represents components of the legal health record. It is not the complete legal health record.[facility]
[2025-03-19 08:43] LABS: Anion Gap 14 (12-20); Blood Urea Nitrogen 18 mg/dL (9-16); Carbon Dioxide 27 mmol/L (22-29); Chloride 105 mmol/L (96-108); Estimated Glomerular Filt Rate 47; Parathyroid Hormone Intact 118.2 pg/mL (8.7-77.1); Potassium 4.1 mmol/L (3.3-5.1); Sodium 142 mmol/L (135-145)
[2025-03-19 08:56] LABS: Protein/Creatinine Ratio, Ur 0.08 (<0.2); Total Protein Urine Random 23 mg/dL (<12)
== END 2025-03-19 07:50 | disposition home or self-care (01) ==
LOC: HO.LAB 07:49
PROVIDERS: PCP Internal Medicine; Visit Provider Internal Medicine Nephrology
DX: I12.9 Hypertensive chronic kidney disease with stage 1 through stage 4 chronic kidney disease, or unspecified chronic kidney disease (principal); N18.31 Chronic kidney disease, stage 3a; I73.9 Peripheral vascular disease, unspecified
CPT/HCPCS: 36415; 80051; 82306; 82565; 82570; 83970; 84156; 84520

== ENCOUNTER 2025-04-09 07:53 | Outpatient (REF) | payer MEDICARE, BC, SELFPAY ==
--- OUTSIDE RECORDS SUMMARY | 2024-06-09 05:30 | XMS_ITS ---
Author Organization [facility] Address [address] [place] [address] Care Team Providers Care Engine Room Operator Name Role Phone Emmanuel Mistry MD Primary Care Provider Kati Fang [phone] REASON FOR VISIT screening,hx polyps,ngo's ,gerd Encounters Encounter Location Date Provider Diagnosis [facility] Out[place] [address] [place] [phone] 06/09/2024 Kati Hdz Colon cancer scree angelique [...] Of Treatment No Information Progress Notes * KTAI ZEPEDADOB: [birth year] (69 yo M)Acc No.[id number]:06/09/2024 EGD and COL/MAC Patient: KATI MEZA Provider: Mana Hdz MD :1955 A ge:68 Y S ex:Male Date:06/09/2024 Address:[address] [place], [place] [phone] Pcp:Emmanuel Mistry MD Subjective: * Chief Complaints: [...] * Procedure Codes: 4 5385 LESION REMOVAL [id number] COLONOSCOPY AND BIOPSY, Modifiers: 59 0529F INTRVL 3+YRS PTS CLNSCP [id number] RCMND FLW-UP 10 YRS [id number] UPPR GI ENDOSCOPY, DIAGNOSIS Billing Information: * Procedure Codes: 40691 LESION REMOVAL COLONOSCOPY. 43788 COLONOSCOPY AND BIOPSY. Modifiers: 59 0529F INTRVL 3+YRS PTS CLNSCP DOCD. 0528F RCMND FLW-UP 10 YRS DOCD. 93875 UPPR GI ENDOSCOPY, DIAGNOSIS. * The named appointment provid er may or may not be the originator of this progress note, and it is not deemed complete until electronically signed by the appointment provider. Sign off status: Pending * Provider: Mana Hdz MD Date: 0 06/09/2024 Generated for Sammi quintana/Aubrie/eTransmitting on: 1 07:57 AM EST
--- OUTSIDE RECORDS SUMMARY | 2025-04-09 07:58 | XMS_ITS | Encounter Summary ---
Author Organization [facility] Address [address] [place] [address] Phone Care Team Providers Care White Metal Corrosion Proofer Name Role Phone Emmanuel Mistry MD Unavailable [phone] Nadir Valladares DO Unavailable [phone] Michelle Raymundo DAY TRADER Unavailable [phone] Ashtyn Peters ASSISTANT PROFESSOR OF SURGERY Unavailable Emmanuel Mistry MD Primary Care Provider [phone] Emmanuel Mistry MD Unavailable Edgar William MD Unavailable Dash Price MD Unavailable Chuck Pratt MD Unavailable [phone] Rajan Ojeda MD Unavailable Emmanuel Mistry MD Primary Care Provider Harlan Sharma MD Unavailable Encounter Details Date Type Department Care Team (Late st Contact Info) Description 06/21/2017 Procedure Pass [facility], [address] [address] Social History Tobacco Use Types Packs/Day Years [...] Description 05/23/2025 9:30 AM EST Office Visit [facility] Primary Care Clinic [address] [place] [address] Emmanuel Mistry MD 40 [place] [address] 07/09/2025 10:40 AM EDT Office Visit [facility] Endocrinology Clinic [address] [place] [address] Ines Rush MD [address] [place] [address] documented as of this encounter Visit Diagnoses [...] documented as of this encounter Care Teams White Metal Corrosion Proofer Relationship Specialty Start Date End Date Emmanuel Mistry MD 40 [place] [address] PCP - General Internal Medicine 03/17/17 12/31/19 Emmanuel Mistry MD 40 [place] [address] PCP - General Internal Medicine 01/01/20 Emmanuel Mistry MD 40 [place] [address] Historical LMR Provider 01/30/17 03/24/20 Nadir Valladares DO [address] [facility] [address] [place] [address] Historical LMR Provider 01/30/17 0 Michelle Raymundo NP [address] [place] [address] 6 [place] [address] Historical LMR Provider 01/30/17 03/24/20 Ashtyn Peters CNP [address] [facility] [place] [address] Historical LMR Provider 01/30/1703/12 Emmanuel Mistry MD 40 [place] [address] Insurance Assigned Provider 07/17/23 04/17/24 Edgar William MD 40 [place] [address] Nephrology 10/11/19 Dash Price MD 40 [place] [address] [email or web address] Endocrinology 10/11/19 Chuck Pratt MD [address] [place] [address] Cardiology 10/11/19 Rajan Ojeda MD [address] [place] [address] Vascular Surgery 10/11/19 Harlan Sharma MD [address] [place] [address] Cardiology 03/25/20 documented as of this encounter Additional Source Comments The information contained in this document represents components of the legal health record. It is not the complete legal health record.[facility]
--- OUTSIDE RECORDS SUMMARY | 2025-04-09 07:58 | XMS_ITS | Clinical Summary ---
Author Organization [facility] Address [address] [place] [address] Phone Care Team Providers Care Speech Correction Consultant Name Role Phone Emmanuel Mistry MD Primary Care Provider [phone] Allergies No known active allergies Medications amLODIPine [...] Therefore we will refer the patient to [facility] ears nose throat [facility] in [place] for a evaluation. Most likely it is [...] to 49 Years) Discontinued 10/28/2020, 10/20/2019 Insurance [facility] Medicare [facility] Medicare Care Teams Speech Correction Consultant Relationship Specialty Start Date End Date Emmanuel Mistry MD 40 [place] [address] PCP - General 04/22/20
--- OUTSIDE RECORDS SUMMARY | 2025-04-09 07:58 | XMS_ITS | Clinical Summary ---
Author Organization [facility] Address [address] [place] [address] Phone Care Team Providers Care Manager Basketball Name Role Phone Edgar William MD Unavailable Dash Prcie MD Unavailable Chuck Pratt MD Unavailable [phone] Rajan Ojeda MD Unavailable Emmanuel Mistry MD [...] Therefore we will refer the patient to [facility] ears nose throat over in [place] for a evaluation. Most likely it is [...] Encounters Date Type Department Care Team Description 03/21/2025 Orders Only [facility] Primary Care Clinic [address] [place] [address] Provider, MD Melvin from Last 3 Months Immunizations Immunization Administration [...] Description 05/23/2025 9:30 AM EST Office Visit [facility] Primary Care Clinic 40 [place] [address] Emmanuel Mistry MD 40 [place] [address] [email or web address] 07/09/2025 10:40 AM EDT Office Visit [facility] Endocrinology Clinic 40 [place] [address] Ines Rush MD [address] [place] [address] [email or web address] Due Date Last Done Comments [...] Date/Time Associated Diagnosis Comments OUTSIDE LAB Routine 03/19/2025 8:49 AM EST OUTSIDE HDL Routine 10/16/2024 OUTSIDE SERUM CREATININE LEVEL Routine 10/16/2024 HM COLONOSCOPY FOR RESULT ENTRY ONLY Routine 06/09/2024 US ABDOMINAL AORTIC SCREENING Routine 11/01/2020 8:47 AM EDT Screening for AAA (abdominal aortic aneurysm) from Last 3 Months or Most Recently Relevant to Health Maintenance Results * Outside Lab (Non-MGB) (03/19/2025 8:49 AM EST) Historical Provider LAB BLOOD BKR ORDERABLES Final Result * Outside Serum Creatinine Level (10/16/2024) Creatinine, serum - External 1.27 0.8 - 1.3 mg/dL EXTERNAL NON-INTERFACED REF LAB [facility] Provider MD LAB BLOOD ORDERABLES Sherita l Result EXTERNAL NON-INTERFACED REF LAB * (ABNORMAL) Outside HDL (10/16/2024) HDL - External 474(A) 40 - 80 mg/dL EXTERNAL NON-INTERFACED REF LAB [facility] Provider MD LAB BLOOD ORDERABLES Sherita l Result EXTERNAL NON-INTERFACED REF LAB * HM COLONOSCOPY FOR RESULT ENTRY ONLY (06/09/2024) HM Colonoscopy 5 year recall Historical Provider HEALTH MAINTENANCE Final Result * [...] dilatation of the abdominalaorta. Emmanuel Mistry MD IMG US ABDOMEN Final Result from Last 3 Months or Most Recently Relevant to Health Maintenance Insurance [facility] MEDICARE PART A & [place] [address] MEDICARE PART A & B [facility] MEDICARE PART A & B MEDICARE PART A & B MEDICARE PART A & B [facility] MEDICARE PART A & B MEDICARE PART A & B [facility] MEDICARE PART A & B [facility] MEDICARE PART A & B Advance Directives For more information, please contact: [phone] (9AM - 5PM [facility] [place], Wednesday-Wednesday) * Full Code (Latest Code Status on File) Date Activated Date Inactivated Comments 04/19/2020 5:10 PM Question Answer Comments Code Status Confirmed With: Patient Care Teams Manager Basketball Relationship Specialty Start Date End Date Emmanuel Mistry MD 40 [place] [address] [email or web address] PCP - General Internal Medicine 01/01/20 Edgar William MD Nephrology 10/11/19 Dash Price MD [email or web address] Endocrinology 10/11/19 Chuck Pratt MD [address] [place] [address] Cardiology 10/11/19 Rajan Ojeda MD [address] [place] [address] Vascular Surgery 10/11/19 Harlan Sharma MD [address] [place] [address] Cardiology 03/25/20 Additional Source Comments The information contained in this document represents components of the legal health record. It is not the complete legal health record.[facility]
--- OUTSIDE RECORDS SUMMARY | 2025-04-09 07:58 | XMS_ITS | Patient Health Record ---
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 beer twice a week Nonsmoker; occ. beer twice a week Problems Problem Type SNOMED Code ICD Code Onset Dates Problem Status W/U Status Risk Notes Problem Colon cancer screening (049753587) Colon cancer screening (Z12.11) Active confirmed Problem Screening for malignant neoplasm of colon (657837130) Encounter for screening for malignant neoplasm of colon (Z12.11) Active confirmed Problem History of polyp of colon (situation) (493070063) Personal history of colonic polyps (Z86.010) Active confirmed Problem Gastroesophageal reflux disease (704850320) Gastroesophageal reflux disease, esophagitis presence not specified (K21.9) Active confirmed Problem Brody's esophagus (393419155) Brody''s esophagus without dysplasia (K22.70) Active confirmed Problem Gastroesophageal reflux disease (disorder) (019627488) Chronic GERD (K21.9) Active confirmed Encounters Encounter Location Date Provider Diagnosis [facility] [address] [place] [phone] 06/09/2024 Kati Hdz Colon cancer scree angelique [...] [place] [address] [place] [address] [phone] [id number] KATI ZEPEDA Self - patient is the insured [facility] [address] [place], [place] [id number] [phone] [id number] KATI ZEPEDA Self - patient is the insured Medical (General) History Medical History History ICD Code Denies [place],DM,CVA,Lung disease,renal dise ase Negative colonoscopy in 08/2007 [...]
--- OUTSIDE RECORDS SUMMARY | 2025-04-09 07:58 | XMS_ITS | Encounter Summary ---
Author Organization [facility] Address [address] [facility] [address] [place] [address] Phone Care Team Providers Care Interior Design Principal Name Role Phone Emmanuel Mistry MD Unavailable [phone] Edgar William MD Unavailable Dash Price MD Unavailable [phone] Chuck Pratt MD Unavailable Rajan Ojeda MD Unavailable [phone] Emmanuel Mistry MD Primary Care Provider [phone] Harlan Sharma MD Unavailable [phone] Encounter Details Date Type Department Care Team (Late st Contact Info) Description 11/24/2021 Ancillary Orders [facility] Primary Care Clinic 40 [place], [place] [phone] Emmanuel Mistry MD 40 [place], [place] [phone] [email or web address] Hip [...] Description 05/23/2025 9:30 AM EST Office Visit [facility] Primary Care Clinic 40 [place] [address] Emmanuel Mistry MD 40 [place] [address] 07/09/2025 10:40 AM EDT Office Visit [facility] Endocrinology Clinic [address] [place] [address] Ines Rush MD [address] [place] [address] documented as of this encounter Results * [...] degenerative change withsuperior joint space narrowing bilaterally. Emamnuel Mistry MD IMG XR PELVIS Final Result [...] documented as of this encounter Care Teams Interior Design Principal Relationship Specialty Start Date End Date Emmanuel Mistry MD 40 [place] [address] PCP - General Internal Medicine 01/01/20 Emmanuel Mistry MD [address] [place] [address] Insurance Assigned Provider 07/17/23 04/17/24 Edgar William MD 40 [place] [address] Nephrology 10/11/19 Dash Price MD 40 [place] [address] [email or web address] Endocrinology 10/11/19 Chuck Pratt MD [address] [place] [address] Cardiology 10/11/19 Rajan Ojeda MD [address] [place] [address] Vascular Surgery 10/11/19 Harlan Sharma MD [address] [place] [address] Cardiology 03/25/20 documented as of this encounter Additional Source Comments The information contained in this document represents components of the legal health record. It is not the complete legal health record.[facility]
--- OUTSIDE RECORDS SUMMARY | 2025-04-09 07:58 | XMS_ITS | Encounter Summary ---
Author Organization [facility] Address [address] [place] [address] Phone Care Team Providers Care Manufacturing Helper Name Role Phone Emmanuel Mistry MD Unavailable [phone] Edgar William MD Unavailable Dash Price MD Unavailable [phone] Chuck Pratt MD Unavailable Rajan Ojeda MD Unavailable [phone] Emmanuel Misrty MD Primary Care Provider Harlan Sharma MD Unavailable [phone] Encounter Details Date Type Department Care Team (Late st Contact Info) Description 05/18/2022 Procedure Pass [facility], [address] [address] Social History Tobacco Use Types Packs/Day Years [...] Description 05/23/2025 9:30 AM EST Office Visit [facility] Primary Care Clinic 40 [place] [address] Emmanuel Mistry MD 40 [place] [address] 07/09/2025 10:40 AM EDT Office Visit [facility] Endocrinology Clinic [address] [place] [address] Ines Rush MD [address] [place] [address] documented as of this encounter Visit Diagnoses Not on filedocumented in this encounter Additional Health Concerns Infection Onset Date Last Indicated Resolved Time COVID-19 08/06/2024 08/06/2024 08/27/2024 1:21 AM EDT Assessment Noted Time PHQ-2 Depression Total Score: 0 11/16/19 22 9:40 AM EDT documented as of this encounter Care Teams Manufacturing Helper Relationship Specialty Start Date End Date Emmanuel Mistry MD 40 [place] [address] PCP - General Internal Medicine 01/01/20 Emmanuel Mistry MD [address] [place] [address] [email or web address] Insurance Assigned Provider 07/17/23 04/17/24 Edgar William MD [address] [place] [address] Nephrology 10/11/19 Dash Price MD [address] [place] [address] [email or web address] Endocrinology 10/11/19 Chuck Pratt MD [address] [place] [address] Cardiology 10/11/19 Rajan Ojeda MD [address] [place] [address] Vascular Surgery 10/11/19 Harlan Sharma MD [address] [place] [address] Cardiology 03/25/20 documented as of this encounter Additional Source Comments The information contained in this document represents components of the legal health record. It is not the complete legal health record.[facility]
--- OUTSIDE RECORDS SUMMARY | 2025-04-09 07:58 | XMS_ITS | Encounter Summary ---
Author Organization [facility] Address [address] [facility] [address] [place] [id number] Phone Care Team Providers Care Mammography Tech Name Role Phone Edgar William MD Unavailable Dash Price MD Unavailable [phone] Chuck Pratt MD Unavailable [phone] Rajan Ojeda MD Unavailable [phone] Emmanuel Mistry MD Primary Care Provider Harlan Sharma MD Unavailable Encounter Details Date Type Department Care Team (Late st Contact Info) Description 03/21/2025 Orders Only [facility] [address] [place] [address] Provider, MD [facility] [place] [address] Social History Tobacco Use Types Packs/Day [...] Description 05/23/2025 9:30 AM EST Office Visit [facility] [address] [place] [address] Emmanuel Mistry MD [address] [place] [address] 07/09/2025 10:40 AM EDT Office Visit [facility] [address] [place] [phone] Ines Rush MD [address] [place] [address] [phone] documented as of this encounter Procedures Procedure Name Priority Date/Time Associated Diagnosis Comments OUTSIDE LAB Routine 03/19/2025 8:49 AM EST documented in this encounter Results * Outside Lab (Non-[facility]) (03/19/2025 8:49 AM EST) us Historical Provider LAB BLOOD BKR ORDERABLES Final Result documented in this encounter Visit Diagnoses Not on filedocumented in this encounter Additional Health Concerns Assessment Noted Time PHQ-2 Depression Total Score: 0 12/04/19 25 9:42 AM EDT documented as of this encounter Care Teams Mammography Tech Relationship Specialty Start Date End Date Emmanuel Mistry MD [address] [place] [address] PCP - General Internal Medicine 01/01/20 Edgar William MD Nephrology 10/11/19 Dash Price MD Endocrinology 10/11/19 Chuck Pratt MD [address] [place] [address] [address] [place] [address] Cardiology 10/11/19 Rajan Ojeda MD [address] [place] [id number] Vascular Surgery 10/11/19 Harlan Sharma MD [address] [place] [id number] Cardiology 03/25/20 documented as of this encounter Additional Source Comments The information contained in this document represents components of the legal health record. It is not the complete legal health record.[facility]
[2025-04-09 08:04] LABS: MANUAL DIFF FLAG NO
[2025-04-09 08:14] LABS: Hematocrit 46.8 % (42.0-52.0); Hemoglobin 15.6 g/dl (14.0-18.0); Imm Gran Abs Auto 0.02 X10*3/uL (0.00-0.03); Imm Gran Pct Auto 0.3 % (0.0-0.4); Lymphocytes Absolute Auto 2.6 X10*3/uL (1.2-4.9); Mean Corpuscular HGB Conc 33.3 g/dl (31.0-36.0); Mean Corpuscular Hemoglobin 30.4 pg (27.0-33.0); Mean Corpuscular Volume 91.1 fL (80.0-98.0); NRBC Abs Auto 0.000 X10*3/uL (0.0-0.012); NRBC Pct Auto 0.0 /100WBC (0.0-0.2); Platelet Count 217 X10*3/uL (160-400); Red Blood Count 5.14 X10*6/uL (4.60-5.80); White Blood Count 7.9 X10*3/uL (4.8-10.8)
[2025-04-09 08:35] LABS: Alanine Aminotransferase 20 U/L (0-40); Albumin Level 4.4 g/dL (3.5-5.0); Alkaline Phosphatase 81 U/L (39-117); Anion Gap 12 (12-20); Aspartate Amino Transferase 30 U/L (5-37); Blood Urea Nitrogen 14 mg/dL (9-16); Calcium 9.0 mg/dL (8.4-10.2); Carbon Dioxide 27 mmol/L (22-29); Chloride 108 mmol/L (96-108); Cholesterol 157 mg/dL (<200); Estimated Glomerular Filt Rate 45; HDL Cholesterol 43 mg/dL (>40); Potassium 4.2 mmol/L (3.3-5.1); Sodium 143 mmol/L (135-145); Total Protein 7.0 g/dL (6.5-8.0); Triglycerides 145 mg/dL (<150)
== END 2025-04-09 07:54 ==
LOC: HO.LAB 07:53
PROVIDERS: PCP Internal Medicine; Visit Provider Internal Medicine
DX: I10 Essential (primary) hypertension (principal); E78.00 Pure hypercholesterolemia, unspecified; I48.0 Paroxysmal atrial fibrillation
CPT/HCPCS: 36415; 80053; 80061; 85025